=== PATIENT | male | born 1950 | race Caucasian/White ===

== ENCOUNTER 2021-10-20 22:24 | Outpatient (REF) | payer MEDICARE, MEDICAID, SELFPAY ==
[2021-10-20 22:31] LABS: ALT 29 U/L (16-63); AST 14 U/L (15-37); Albumin 3.2 g/dL (3.4-5.0); Alkaline Phosphatase 85 U/L (46-116); Anion Gap 12.1 mmol/L (3-11); BUN 10 mg/dL (7-18); Bilirubin, Total 0.5 mg/dL (0.2-1.0); CO2 25.9 mmol/L (21.0-32.0); CREATININE 0.8 mg/dL (0.70-1.30); Calcium 9.5 mg/dL (8.5-10.1); Chloride 98 mmol/L (98-107); Glucose 88 mg/dL (74-106); Potassium 3.9 mmol/L (3.5-5.1); Sodium 136 mmol/L (136-145); Total Protein 7.3 g/dL (6.4-8.2)
[2021-10-21 13:01] LABS: Lab Add On Test DONE
[2021-10-21 13:16] LABS: C-Reactive Protein 20.01 mg/dL (0.0-0.3); GGT 46 U/L (15-85)
[2021-10-21 18:24] LABS: PSA, Screening 1.6 ng/mL (0.0-6.5)
== END 2021-10-20 22:25 | disposition home or self-care (01) ==
LOC: LBN 22:24
PROVIDERS: Surgery; PCP Nurse Practitioner Family; Visit Provider Nurse Practitioner Family
DX: R39.9 Unspecified symptoms and signs involving the genitourinary system (principal); R19.7 Diarrhea, unspecified; F10.10 Alcohol abuse, uncomplicated; R63.4 Abnormal weight loss; Z12.5 Encounter for screening for malignant neoplasm of prostate
CPT/HCPCS: 80053; 84153; 82977; 86140

== ENCOUNTER 2021-10-25 00:45 | Outpatient (CLI) | payer MEDICARE, MEDICAID, SELFPAY ==
--- NOTE | 2021-10-25 07:03 | DI.US_ITS ---
Exam(s) US ABDOMEN EXAM: US ABDOMEN CLINICAL HISTORY: mass on palpation of abd,intra-abd,r19.00 TECHNIQUE: Ultrasound abdomen performed using standard protocol. COMPARISON: No exams were available for comparison FINDINGS: LIVER: Normal size and echogenicity. No focal liver lesions are seen.. GALLBLADDER: No evidence of cholelithiasis. No evidence of wall thickening. No pericholecystic fluid identified. WAN'S SIGN: Negative. BILIARY SYSTEM: No intrahepatic or extrahepatic biliary ductal dilation. KIDNEYS: Kidneys are symmetric in size. 4 millimeter nonobstructing stone mid right kidney. No evide nce of hydronephrosis. No renal mass or cyst identified. PANCREAS: Normal where visualized. SPLEEN: Not enlarged. ABDOMINAL AORTA AND IVC: Visualized portions normal caliber. ASCITES: None seen. IMPRESSION: 4 millimeter nonobstructing stone mid right kidney.. DATA REPOSITORY:
--- NOTE | 2021-10-25 10:30 | DI.US_ITS ---
Exam(s) US SOFT TISS ABD WALL/LOW BACK EXAM: US SOFT TISS ABD WALL/LOW BACK CLINICAL HISTORY: mass on palpation of abd,intra-abd,r19.00. TECHNIQUE: Ultrasound was performed using standard protocol. COMPARISON: No exams were available for comparison FINDINGS: Sonographic assessment utilizing grayscale and color Doppler imaging was performed and targeted to th e area of clinical concern. There is a homogeneous area of intermediate echogenicity within the right abdominal wall correspondin g to the palpable abnormality. The findings may represent a lipoma. It measures 6 x 1.2 x 6 cm. No fluid collection, hernia or suspicious mass is seen. IMPRESSION: Findings consistent with a lipoma corresponding to the palpable abnormality. DATA REPOSITORY:
== END 2021-10-25 01:05 ==
PROVIDERS: PCP Nurse Practitioner Family; Visit Provider Nurse Practitioner Family
DX: R19.00 Intra-abdominal and pelvic swelling, mass and lump, unspecified site (principal); N20.0 Calculus of kidney; D17.5 Benign lipomatous neoplasm of intra-abdominal organs
CPT/HCPCS: 99243; 76700; 76705

== ENCOUNTER 2021-10-25 14:57 | Outpatient (REF) | payer MEDICARE, MEDICAID, SELFPAY ==
[2021-10-25 13:16] LABS: Abs Immature Grans 0.05 10^3/uL (0.0-0.06); Absolute Basophil Count 0.06 10^3/uL (0.0-0.2); Absolute Eosinophil Count 0.09 10^3/uL (0.0-0.7); Absolute Lymphocyte Count 1.57 10^3/uL (1.2-3.4); Absolute Monocyte Count 1.07 10^3/uL (0.1-0.8); Absolute Neutrophil Count 8.65 10^3/uL (1.2-6.7); Basophils % 0.5; Eosinophils % 0.8; HCT 38.7 % (40.0-50.0); HGB 12.6 g/dL (13.5-17.5); Immature Grans % 0.4; Lymphocytes % 13.7; MCH 27.8 pg (27.0-33.0); MCHC 32.6 % (32.0-36.0); MCV 85.4 fL (80-95); MPV 9.8 fL (8.0-11.0); Monocytes % 9.3; Neutrophils % 75.3; Nucleated RBC 0 %; Platelet Count 516 10^3/uL (130-400); RBC 4.53 10^6/uL (4.36-5.78); RDW 13.7 % (11.8-14.1); WBC 11.49 10^3/uL (4.4-10.8)
[2021-10-25 13:55] LABS: Ferritin 219 ng/mL (26-388); Folate 13.5 ng/mL (8.6-20.0); TSH (W/Ref FT4) 1.06 uIU/mL (0.36-3.74); Vitamin B12 417 pg/mL (193-986)
[2021-10-25 14:06] LABS: C-Reactive Protein 3.12 mg/dL (0.0-0.3)
== END 2021-10-25 14:58 | disposition home or self-care (01) ==
LOC: LBN 14:57
PROVIDERS: PCP Nurse Practitioner Family; Visit Provider Surgery
DX: K62.5 Hemorrhage of anus and rectum; R15.9 Full incontinence of feces; R19.7 Diarrhea, unspecified; R63.4 Abnormal weight loss; Z77.22 Contact with and (suspected) exposure to environmental tobacco smoke (acute) (chronic); F10.10 Alcohol abuse, uncomplicated
CPT/HCPCS: 82607; 82728; 82746; 84443; 85025; 86140

== ENCOUNTER 2021-10-27 01:20 | Outpatient (CLI) | payer MEDICARE, MEDICAID, SELFPAY ==
[2021-10-27 12:05] LABS: Source Nasal/Nares
[2021-10-27 14:31] LABS: COVID-19 PCR Negative (Negative)
== END 2021-10-27 01:21 | disposition home or self-care (01) ==
PROVIDERS: PCP Nurse Practitioner Family; Visit Provider Surgery
DX: F10.10 Alcohol abuse, uncomplicated (principal); K62.5 Hemorrhage of anus and rectum; R15.9 Full incontinence of feces; R19.7 Diarrhea, unspecified; R63.4 Abnormal weight loss; Z01.818 Encounter for other preprocedural examination; Z77.22 Contact with and (suspected) exposure to environmental tobacco smoke (acute) (chronic); Z20.822 Contact with and (suspected) exposure to COVID-19
CPT/HCPCS: 87635; U0005

== ENCOUNTER 2021-10-29 17:02 | Inpatient (IN) | payer MEDICARE, MEDICAID, SELFPAY ==
[2021-10-29] VITALS (11 sets, daily range): BP systolic 96–162; BP diastolic 64–87; PULSE 68–95; RESP 11–18; TEMP 35.6–36.6; O2SAT 94–99; BMI 22.0
--- NOTE | 2021-10-29 06:28 | W.ANESPRE ---
General Info Date of Service Date Performed: 10/29/21 Height: 5 ft 10 in Weight: 69.626 kg Body Mass Index (BMI): 22.0 Surgical Procedure: Operation Date: 10/29/21 09:50 Proposed Procedure Side Surgeon israel Parker, Meds Allergies and Home Medications Allergies Allergy/AdvReac Type Severity Reaction Status Date / Time No Known Allergies Allergy Verified 10/29/21 08:57 Home Medication Medication Instructions Recorded loperamide 2 mg tablet 2 mg PO Q4H PRN #90 tab 10/20/21 (Anti-Diarrheal (loperamide)) triamcinolone acetonide 0.5 % 1 applic TOPICAL BID #80 g 10/27/21 topical cream Current Visit Medications: Current Medications Generic Name Dose Route Start Last Admin Trade Name Freq PRN Reason Stop Dose Admin Hyoscyamine Sulfate 0.125 mg 10/28/21 09:56 Hyoscyamine 0.125 Mg Sl/Oral/Chew SL DIRECTED PRN Ringer's Solution 1,000 mls @ 80 mls/hr 10/29/21 06:00 IV 11/25/21 23:59 INFUSION GERTRUDE IV Miscellaneous Supplies 1 each 10/29/21 06:00 Iv Access IV 11/25/21 23:59 DIRECTED GERTRUDE Ondansetron HCl 4 mg 10/28/21 09:56 Ondansetron 4 Mg/2 Ml Vial IVP Q4H PRN PRN Nausea / Vomiting Sodium Chloride 0 ml 10/29/21 06:00 Normal Saline Flush 10 Ml Syr IV 11/25/21 23:59 PRN PRN Sodium Chloride 0 ml 10/29/21 06:00 Normal Saline 10 Ml Vial IJ 11/25/21 23:59 DIRECTED PRN Sterile Water 0 ml 10/29/21 06:00 Water,Injection,Sterile 10 Ml Vial IJ 11/25/21 23:59 DIRECTED PRN PFSH Active Problems Active Problems: Problem Status Onset Code Rash R21 Smoker in home Z77.22 Unexplained weight loss R63.4 Loss of control of rectal sphincter R15.9 Rectal bleeding K62.5 ETOH abuse F10.10 Diarrhea R19.7 Medical History Medical History Inguinal hernia Surgical History Surgical History Repair of inguinal hernia 08/11/14 LEFT INDIRECT AND RIGHT DIRECT Status post inguinal hernia repair Tobacco Smoking/Tobacco Use Status: Current every day Tobacco Type: cigarettes Alcohol Alcohol Intake: former Substance Use Substance use: Rarely Substance use type: marijuana Vital Signs and Lab Results Lab Results Blood Type / Crossmatch: No Data to Display Complete Blood Count: White Blood Count 11.49 10^3/uL (4.4-10.8) H 10/25/21 12:05 10/25/21 Red Blood Count 4.53 10^6/uL (4.36-5.78) 10/25/21 12:05 10/25/21 Hemoglobin 12.6 g/dL (13.5-17.5) L 10/25/21 12:05 10/25/21 Hematocrit 38.7 % (40.0-50.0) L 10/25/21 12:05 10/25/21 Platelet Count 516 10^3/uL (130-400) H 10/25/21 12:05 10/25/21 Complete Metabolic Panel: Sodium Level 136 mmol/L (136-145) 10/20/21 13:50 10/20/21 Potassium Level 3.9 mmol/L (3.5-5.1) 10/20/21 13:50 10/20/21 Chloride Level 98 mmol/L (98-107) 10/20/21 13:50 10/20/21 Carbon Dioxide Level 25.9 mmol/L (21.0-32.0) 10/20/21 13:50 10/20/21 Blood Urea Nitrogen 10 mg/dL (7-18) 10/20/21 13:50 10/20/21 Creatinine 0.8 mg/dL (0.70-1.30) 10/20/21 13:50 10/20/21 Estimated GFR/1.73 m2 >= 60.00 (mL/min/1.73m2) 10/20/21 13:50 10/20/21 Calcium Level 9.5 mg/dL (8.5-10.1) 10/20/21 13:50 10/20/21 Albumin 3.2 g/dL (3.4-5.0) L 10/20/21 13:50 10/20/21 Glucose Level 88 mg/dL (74-106) 10/20/21 13:50 10/20/21 C-Reactive Protein 3.12 mg/dL (0.0-0.3) H 10/25/21 12:05 10/25/21 Liver Function Panel: Alanine Aminotransferase (ALT/SGPT) 29 U/L (16-63) 10/20/21 13:50 10/20/21 Aspartate Amino Transf (AST/SGOT) 14 U/L (15-37) L 10/20/21 13:50 10/20/21 Gamma Glutamyl Transpeptidase 46 U/L (15-85) 10/20/21 13:50 10/20/21 Coagulation Panel: No Data to Display Cardiac Panel: No Data to Display Arterial Blood Gas: No Data to Display Venous Blood Gas: No Data to Display Pancreas Panel: No Data to Display Thyroid Panel: Thyroid Stimulating Hormone (TSH) 1.06 uIU/mL (0.36-3.74) 10/25/21 12:05 10/25/21 Infectious Disease: Coronavirus (COVID-19)(PCR) Negative (Negative) 10/27/21 08:44 10/27/21 Coronavirus 2019 Source Nasal/Nares 10/27/21 08:44 10/27/21 Blood Cultures: No Data to Display Toxicology Panel: No Data to Display Anesthesia Assessment and Plan Anesthesia History Personal History: No History of Anesthesia Complications Family History: No Family History of Anesthesia Complications Exercise Tolerance Exercise Tolerance: Metabolic Equivalents>4 Cardiac & Pulmonary Exam Cardiac Exam: Normal S1/S2 Heart Sounds Pulmonary Exam: Clear Bilateral Breath Sounds Implantable Cardiac Device Does patient have a Pacemaker or an ICD?: No Airway Exam Known Difficult Airway: No Mallampati Class: 2 Mouth Opening: Normal (> 3cm) Thyromental Distance: Greater than 3 cm Neck Range of Motion: Full ROM and Limited ROM Neck Circumference: Normal Teeth Condition: Normal Dentition ASA Classification ASA Score: ASA 2 Emergency Case?: No NPO Status NPO Status: NPO Clears >2 hours, Solids >8 hours Anesthesia Plan Resuscitation Status: Full Code Anesthesia Technique: General Anesthesia Airway Planned: Natural Airway Monitors Used: Standard Monitors Preoperative Comments:: 71 yo male with diarrhea/weight loss for colo. Sig PMHx: smoker (tobacco/cannabis), former etoh. Had an irreg HR per preop, EKG obtained, NSR with occ PVCs.
--- NOTE | 2021-10-29 09:15 | RT.EKG_ITS ---
APPROVED REPORT Exam: Resting ECG Reason for Exam: Preoperative Patient Location: O HR:95 bpm ECG Measurements Heart Rate 95 AXIS MD 177 P 45 QRSd 82 QRS -15 QT 357 T 23 QTc 450 Conclusion Sinus rhythm...normal P axis, V-rate 60- 99 Ventricular premature complex...V complex w/ short R-R interval
[2021-10-29] MEDS: Lactated Ringers 1,000 ML 80 ML IV ×2 (09:19→14:30)
--- NOTE | 2021-10-29 10:08 | BOWEL_PTH ---
PATIENT: Karlo Kolb LOC: U#:[id number] AGE/SX: 71/M ROOM: 208 RE10/29/[address]: Yojana Parker : 1950 BED: A DIS: 11/05/2021 SPEC #: [id number] RECD: 10/29/21 12:33 STATUS: SUSIE REQ #: [id number] NIMA: 10/29/21 10:[address]: Yojana Parker DEPT: Surgical Specimen RECD BY: Jolly Dhillon ENTERED: 10/29/21 12:33 SP TYPE: Bowel OTHR DR: Alon Shah, MIGUEL ÁNGEL Tissues: 1 - BIOPSY BOWEL Procedures: GROSS AND MICRO LEVEL 4 Comments: [id number] (STAT)
--- NOTE | 2021-10-29 10:34 | ROE_ITS ---
Date of service: 10/29/21 Time of Service: 10:34 Operative Note Operative Note DATE OF PROCEDURE: 10/29/21 PRE-OP DIAGNOSIS: anemia/rectal bleeding/wt loss POST-OP DIAGNOSIS: other (partial obstructing rectal cancer at 4cm) PROCEDURE: flex sig and Bx SURGEON: Yojana Parker ANESTHESIA TYPE: General:No Airway Refer to Anesthesia Record ESTIMATED BLOOD LOSS: 5 PATHOLOGY: other COMPLICATIONS: None Patient was transported to: same day Procedure Description: After informed consent was obtained the patient was taken to the procedure room and placed in a left decubitous position. Monitors were applied and a time out was done. The patients name, date of , procedure, allergies to medications and metal in their body was reviewed. The patient was then sedated. Once sedated and comfortable a rectal exam was done. External exam was normal. Internal exam revealed a normal sphincter tone and no palpable masses. The prostate []. The scope was then introduced and retrofelexed. No internal hemorrhoids were identified. The pt has a maya obstructing lower rectal cancer at the anal verge. I am able to get the scope around the mass, but I cannot pass it any fa rther. Multipled biopsy's are taken. The mass is friable and bleeds readily/. It does have the appearnace of an adenocarcinoma. The scope was removed and the patient was woken up and taken back to Same day surgery in stable condition. The patient tolerated the procedure well and there were no immediate complications. -CT ordered I d/w the findings w/ the pt. and significant other. Once we get the path report back we will send him to [place] for urgent consult and chemo/XRT
--- NOTE | 2021-10-29 10:38 | W.ANESPOSTOP ---
Postoperative Evaluation Date, Time and Location Date Performed: 10/29/21 Time Performed: 10:38 Patient Location: Day Surgery Unit Vital Signs Most Recent Imported Vital Signs: Most Recent Vital Signs Temp Pulse Resp BP Pulse Ox 36.4 C L 72 18 96/64 L 96 10/29/21 10:24 10/29/21 10:24 10/29/21 10:24 10/29/21 10:24 10/29/21 10:24 Pain Score Most Recent Pain Score: Most Recent Pain Score Pain Level 0 10/29/21 10:24 Assessment Mental Status: Awake (Alert & Oriented to Patient Baseline) Airway and Respiratory Function: Patent airway with normal (patient baseline) respiratory exam Cardiovascular Function: Hemodynamically Stable Hydration Status: Adequately Hydrated Nausea & Vomiting: No Nausea or Vomiting Pain: Pt. Denies Any Pain Peripheral Nerve Block: Patient did not receive a nerve block
[2021-10-29 10:58] LABS: HCT 37.7 % (40.0-50.0); HGB 11.9 g/dL (13.5-17.5)
--- NOTE | 2021-10-29 11:10 | DI.CT_ITS ---
Exam(s) CT CHEST/ABD/PEL W EXAM: CT CHEST/ABD/PEL W CLINICAL HISTORY: obstructing rectal cancer. TECHNIQUE: Imaging Protocol: Axial computed tomography images with coronal and sagittal reformatted images were created and reviewed CONTRAST MATERIAL: Intravenous: Omnipaque 350 Contrast volume:75 mL Oral: No COMPARISON: No exams were available for comparison FINDINGS: CHEST: Tracheobronchial tree: Patent where visualized. Pulmonary parenchyma: No consolidation or dominant measurable mass. Mild paraseptal emphysematous cristiane nges are present. Dependent atelectatic changes are seen in the lungs. Visualized thyroid gland: Unremarkable. Mediastinum and [place]: No dominant adenopathy or fluid collection. The esophagus is unremarkable. Sma ll hiatal hernia. Pleura: No effusion or pneumothorax. Heart: The heart is not dilated. Mild coronary artery calcification. No pericardial effusion. Pulmonary arteries: The peripheral pulmonary arteries are insufficiently opacified for evaluation of pulmonary emboli. No central pulmonary embolus is present. Aorta: Thoracic aorta non-dilated. Atherosclerosis. No evidence of dissection. Lymph nodes: No axillary adenopathy. Soft tissues: Unremarkable. Bones:Within normal limits for the patient's age. No suspicious lytic or sclerotic lesions are seen. Compression deformities are seen at T7 and T8. These are of indeterminate acuity. No resulting ce ntral spinal canal stenosis is seen. ABDOMEN: Liver: Normal density. No measurable mass. Portal, Superior Mesenteric, and Splenic Veins: Unremarkable. Gallbladder and Biliary Tract: No radiodense calculus or dilation. Pancreas: Normal density, no abnormal calcifications or inflammatory process. Spleen: Normal. Adrenals: There is a 1.4 x 1.8 cm hypodense nodule on the left adrenal gland. The right adrenal glan d is unremarkable. Kidneys: Normal size, contour and axis. No radiodense stones or obstructive uropathy. No masses seen. There is a tiny hypodensity in the right kidney. It is too small for further characterization but l ikely reflects a small cyst. Abdominal Aorta: Abdominal portion non-dilated. Atherosclerosis. Bowel: There is a concentric mass in the rectum measuring approximately 4-5 cm in length there is inf iltration of the surrounding tissues including the presacral soft tissues. There is some loss of the fat plane between the mass and the prostate gland. There are 2 air-fluid collections adjacent to th e rectal mass. (Series 31, image 781). The colon proximal to the mass is dilated and filled with st ool in colon. There is mild thickening of the wall of the rectosigmoid colon just proximal to the ma ss. The appendix is normal caliber there is a 2 mm appendicoliths within the lumen. Peritoneal Cavity: No ascites, collection or mesenteric inflammatory response. No free air. Lymph Nodes: Within normal limits. Bones: Within normal limits for the patient's age. No suspicious lytic or sclerotic lesions are seen . There is mild depression of the superior endplate of L1. This may be due to a Schmorl's node or a n old compression fracture deformity. Soft Tissues: Unremarkable. PELVIS: Bladder: Symmetric distention, no gross wall thickening. Reproductive Organs: There is an enlarged prostate gland. Lymph Nodes: Within normal limits. Bones: Within normal limits. IMPRESSION: 1. Circumferential mass seen in the rectum consistent with the patient's known neoplasm. There is in filtration of the presacral soft tissues and indistinct margins anteriorly with the prostate gland. There are 2 air-fluid collections posteriorly which appear to communicate with the rectum at the leve l of the mass. The mass causes obstruction of the colon. 2. 1.4 x 1.8 cm left adrenal nodule. This is indeterminate. PET-CT or CT/MR of the adrenal gland is recommended. 3. No evidence of thoracic metastatic disease. RADIATION DOSE DELIVERED: Total DLP DATA REPOSITORY: All CT scans at this facility are submitted to the National Radiology Data Registry (NRDR) Dose Index Registry (DIR) with the [employer] (ACR). RADIATION OPTIMIZATION: All CT scans at this facility use at least one of these dose optimization te chniques: automated exposure control; mA and/or kV adjustment per patient size (includes targeted exa ms where dose is matched to clinical indication); or iterative reconstruction.
--- NOTE | 2021-10-29 11:10 | DI.CT_ITS ---
Exam(s) CT HEAD WO/W EXAM: CT HEAD WO/W CLINICAL HISTORY: rectal cancer (obstructin). TECHNIQUE: Imaging Protocol: Axial computed tomography images with coronal and sagittal reformatted images were created and reviewed. CONTRAST MATERIAL: Intravenous: Omnipaque 350 Contrast volume:75 mL COMPARISON: CT CT CHEST/ABD/PEL W from 10/29/2021 FINDINGS: Ventricles and Extra axial spaces: Normal in size and morphology for the patient's age. Hemorrhage: None. Cerebral parenchyma: No acute territorial infarct. There are areas of decreased attenuation white ma tter most consistent with small vessel ischemic disease. Enhancement: No suspicious enhancement. [place]: Unremarkable. Midline shift: None. Brainstem/Cerebellum: Normal. Calvarium: Normal. Visualized Paranasal sinuses/Mastoids: Clear. IMPRESSION: No evidence of intracranial metastatic disease. RADIATION DOSE DELIVERED: 3036.47 mGy.cm Total DLP DATA REPOSITORY: All CT scans at this facility are submitted to the National Radiology Data Registry (NRDR) Dose Index Registry (DIR) with the [employer] (ACR). RADIATION OPTIMIZATION: All CT scans at this facility use at least one of these dose optimization te chniques: automated exposure control; mA and/or kV adjustment per patient size (includes targeted exa ms where dose is matched to clinical indication); or iterative reconstruction.
[2021-10-29] MEDS: Omnipaque 350 MG/ML 100 ML BTL IJ (11:25)
[2021-10-29] MEDS: Omnipaque 350 MG/ML 50 ML BTL IJ (11:34)
[2021-10-29] MEDS: Normal Saline Flush 10 ML SYR IV (11:35)
--- NOTE | 2021-10-29 14:22 | PGE_ITS ---
Date of Service Date of service: 10/29/21 Time of Service: 14:22 Assessment and Plan Assessment and plan (1) Rectal cancer: Status: Acute Assessment and plan: Since the pt has come back from [facility] he has not been able to pass gas or stool. Have is having discomfort in the pelvis. On the CT scan, the colon is very dilated proximal to the cancer. With his disease burden and w/ the edema the biopsy's are going to cause, I'm concerned that he is not going to be able to pass the fluid and will develop peritonits. He is going to need diversion prior to XRT, as this would cause a complete obstruction. I think it would be prudent to do th ediversion at this time prior to him developed peritonitis. we d/w diversion and what this would mean for [facility]. It is only to prevent obstruction and not curative. He will still require chemo/XRT Informed consent is obtained for the procedural (explained in simple layman's terms that the pt and/or family could understand) explaining risks vs benefits and alternatives to the procedure and consequences if we do not do the procedure. Risks include but are not limited to: bleeding, infections, pneumonia, blood clots/DVT/PE, anesthesia (aspiration, damage to teeth/airway/ND/CVA//prolonged mechanical ventilation/PTX/IV infections), damage to bowel, bladder, blood vessels, ureters. Leakage from anastomosis requiring colostomy/ Wound infections requiring further surgery. ?Scarring and disfigurement. Subsequent bowel obstructions from scar tissue.? Chronic pain or numbness from the incision, or hernia. He will be admitted postOp adn will do ostomy training. Will arrange home health and stupplies Will need to f/u w/ [place] d/w pt and is in agreement. ? (2) Smoker in home: Status: Acute (3) Unexplained weight loss: Status: Acute (4) Loss of control of rectal sphincter: Status: Acute (5) Rectal bleeding: Status: Acute (6) ETOH abuse: Status: Chronic (7) Diarrhea: Status: Acute Objective Last Vital Signs Temp 36.6 C 10/29/21 11:44 Pulse 86 10/29/21 11:44 Resp 16 10/29/21 11:44 BP 161/87 H 10/29/21 11:44 Pulse Ox 98 10/29/21 11:44 Laboratory Results - last 24 hr 10/29/21 10:48 Hgb 11.9 L Hct 37.7 L
[2021-10-29] MEDS: PIPERACILLIN/TAZO 3.375 GM in Normal Saline 50 ML IVPB ×2 (14:38→20:29)
--- NOTE | 2021-10-29 14:45 | NUR.NOTE ---
Dr. Parker in to discuss results of CT scan. Plan for OR today/diversional colostomy. Transferred to OR at 1430. Nursing Note:
[2021-10-29] MEDS: Bupivacaine 0.25% Pres-Free 30 ML VIAL (15:04)
--- NOTE | 2021-10-29 15:50 | BOWEL_PTH ---
PATIENT: Karlo Kolb LOC: U#:[id number] AGE/SX: 71/M ROOM: 208 RE10/29/[address]: Yojana Parker : 1950 BED: A DIS: 11/05/2021 SPEC #: [id number] RECD: 10/29/21 18:38 STATUS: SUSIE REQ #: [id number] NIMA: 10/29/21 15:[address]: Yojana Parker DEPT: Surgical Specimen RECD BY: Jolly Dhillon ENTERED: 10/29/21 18:38 SP TYPE: Bowel OTHR DR: Alon Shah, MIGUEL ÁNGEL Tissues: 1 - BIOPSY BOWEL Procedures: GROSS AND MICRO LEVEL 4 Comments: [id number] (STAT)
--- NOTE | 2021-10-29 17:05 | ROE_ITS ---
Date of service: 10/29/21 Time of Service: 15:00 Operative Note Operative Note DATE OF PROCEDURE: 10/29/21 PRE-OP DIAGNOSIS: obstructing rectal cancer POST-OP DIAGNOSIS: other (partial obstructing rectal cancer at 4cm) PROCEDURE: diverting colostomy SURGEON: Yojana Parker ASSISTING SURGEON: Augustus Bergeron ANESTHESIA TYPE: Local By Surgeon, General LMA/ETT and Primary Nerve Block Refer to Anesthesia Record ESTIMATED BLOOD LOSS: 50 PATHOLOGY: other Patient was transported to: PACU Patient's condition: stable Implants: none Procedure Description: Patient has a recently diagnosed rectal cancer today. Following his colonoscopy and biopsy, he has not passed any stool or been able to pass any gas. He has some mild discomfort and feeling of fullness. The CT scan does show obstruction and the colon is dilated. At this point I do not think it is safe to send the patient home and that he is functionally obstructed and requires diversion emergently. He did do a bowel prep last night but unfortunately most of this still resides within the colon. He had no problems with the anesthesia for the scope earlier today. I did discuss with anesthesia. I also did the review The case with [facility]. This is an emergency case and does need to be performed today. Informed consent is obtained for the procedural (explained in simple layman's terms that the pt and/or family could understand) explaining risks vs benefits and alternatives to the procedure and consequences if we do not do the procedure. Risks include but are not limited to: bleeding, infections, pneumonia, blood clots/DVT/PE, anesthesia (aspiration, damage to teeth/airway/AK/CVA//p rolonged mechanical ventilation/PTX/IV infections), damage to bowel, bladder, blood vessels, ureters. Leakage from anastomosis requiring colostomy/ Wound infections requiring further surgery. ?Scarring and disfigurement. Subsequent bowel obstructions from scar tissue.? Chronic pain or numbness from the incision, or hernia. Was explained to the patient that this is not a cancer operation or treatment for his cancer. His cancer is not amendable to surgical resection at this time. He will need to be treated with chemo and radiation. This is strictly for diversion to avoid obstruction. Patient is brought to the operative room suite. Anesthesia is administered per the department of anesthesia. Adequate IV access is ensured. NG tube was placed. Vallecillo catheter is placed. He did receive preop antibiotics. He did have a bowel prep yesterday but is obstructed. The patient is prepped and draped in the usual sterile manner using a ChloraPrep scrub solution. Timeout is performed. 20 cc of quarter percent Marcaine plain is instilled prior to incision. A 3 inch vertical midline incision is made from the pubis. Electrocautery is used to provide hemostasis. The fascia is incised. The peritoneum is elevated and opened sharply. The incision is carried inferior the and superiorly using Metzenbaums. Joseph's are used for retraction. There is a scant amount of serous fluid in the abdomen. There is no signs of gross fecal contamination. The colon is dilated proximal to the adhesion in the abdomen. He does have some peritoneal sidewall adhesions and these are taken down with sharp dissection. The distal sigmoid colon is completely filled with solid stool. The bulky rectal mass is palpable. There is no intra-abdominal gross tumor visible, and remains below the peritoneal reflection/in the lower rectum. The colon is then divided at approximately 30 cm using a TIFFANY. The mesentery is taken down with a LigaSure. The site for the colostomy is chosen in the left lower quadrant. An elliptical incision is made. Cautery is used to create a cruciate incision down through the fascia. The proximal limb is then brought up midway through the rectus muscle. The colon is anchored to the peritoneal sidewall with a 2-0 silk. Attention is then turned to the distal limb. There is significant fecal burden in the remaining sigmoid.. It was decided to do a on table lavage and to evacuate as much of the stool as possible, as this is not going to pass. Bowel clamps are used to prevent contamination. A pursestring suture is also placed to facilitate control and prevent spillage; this was done with a pursestringer device. The staple line from the TIFFANY is excised with scissors. The edges of the colon are grasped with Allis clamps. Upon visualization there is a 5 mm polyp noted at 30 cm this is excised with blood cautery and sent for specimen. There is no bleeding noted. the colon is then irrigated; there is no gross spillage of contents. the defect is then closed with a TIFFANY stapler. The ends of the staple line are oversewn with a 3-0 Prolene and a 3-0 Prolene suture is left in the middle for possible later identification and postradiation anastomosis. The abdomen is then irrigated with 2 L of saline. All saline is removed. Sponge, needle, instrument counts are correct. 2 pleases Interceed are then placed in the abdomen. Fascia is closed in 2 layers with [id number] 0 Vicryl suture. The fat pad is irrigated and the incision is loosely approximated with berta. The colostomy is then matured in the standard fashion with a 3-0 Vicryl suture at the 4 Compass points. Completion maturation was done with interrupted 4-0 Vicryl sutures. Sterile dressing and sterile colostomy appliance are applied. Patient tolerated procedure well without complication and transferred to recovery room stable condition. This document was created using voice activated software and may contain errors ?
--- NOTE | 2021-10-29 17:37 | W.ANESNERVE ---
Nerve Block Single Injection Procedure Date and Time Date Performed: 10/29/21 Procedure Start: 17:03 Location Where Procedure Performed Procedure Location: Operating Room Procedure Stop: 17:15 Reason Performed: Postoperative Analgesia Requesting Provider: Yojana Parker Timeout Performed Timeout Performed: No Monitoring Used ECG, Blood Pressure, SpO2, ETCO2 and See EMR for corresponding vital signs Sterility Sterility: Hand Hygiene, Surgical Cap, Surgical Mask, Sterile Gloves and Chlorhexidine Sedation Given During Procedure Sedation Given (Indicate Dose Given): No Sedation given Patient Mental Status Patient Mental Status: Performed under general anesthesia Nerve Block 1st Nerve Block: Laterality: Bilateral Block Type: TAP Bilateral Needle / Catheter Used: 100mm SonoPlex II Local Anesthetic Bolus (Indicate Dose Given): Injected in 3-5ml increments after negative blood aspiration, Half of Total block solution given into each side, Bupivacaine 0.25% Dose:: 40ml and Exparel Dose:: 20mL Additives (Indicate Dose Given): None Ultrasound: Sterile probe cover and gel used Ultrasound Image Saved?: Yes Nerve Stimulator: Not Used Paresthesia: None Procedure Tolerated: No Complications Procedure Outcome: Successful Performed By: [place]
--- NOTE | 2021-10-29 18:06 | W.ANESPOSTOP ---
Postoperative Evaluation Date, Time and Location Date Performed: 10/29/21 Time Performed: 18:06 Patient Location: PACU Vital Signs Most Recent Imported Vital Signs: Most Recent Vital Signs Temp Pulse Resp BP Pulse Ox 36.4 C L 77 12 158/71 H 99 10/29/21 18:02 10/29/21 18:02 10/29/21 18:02 10/29/21 18:02 10/29/21 18:02 Most Recent Vital Signs Temp Pulse Resp BP Pulse Ox 36.4 C L 72 18 96/64 L 96 10/29/21 10:24 10/29/21 10:24 10/29/21 10:24 10/29/21 10:24 10/29/21 10:24 Pain Score Most Recent Pain Score: Most Recent Pain Score Pain Level 0 10/29/21 18:02 Assessment Mental Status: Awake (Alert & Oriented to Patient Baseline) Airway and Respiratory Function: Patent airway with normal (patient baseline) respiratory exam Cardiovascular Function: Hemodynamically Stable Hydration Status: Adequately Hydrated Nausea & Vomiting: No Nausea or Vomiting Pain: Pain is tolerable per patient Peripheral Nerve Block: Regional nerve block not resolved at time of post operative discharge
[2021-10-29 18:42] LABS: CEA 1.4 ng/mL (See Note)
[2021-10-29] MEDS: Lactated Ringers 1,000 ML 125 ML IV (18:46)
[2021-10-29] MEDS: ACETAMINOPHEN 1,000 MG/100 ML BTL 400 MG IVPB (18:47)
[2021-10-29] MEDS: MORPHine 2 MG/ML SYR IVP (18:50)
[2021-10-29] MEDS: Normal Saline Flush 10 ML SYR IVP ×2 (18:50→20:29)
--- NOTE | 2021-10-29 20:24 | W.PM.PROGNOT ---
Date of Service Date of service: 10/29/21 Time of Service: 20:24 Assessment and Plan Assessment and plan (1) Rectal cancer: Status: Acute Assessment and plan: -Pt underwent diagnostic CE today and found to have obstructing bulky rectal cancer. Mainstay of treatment will be chemo and XRT. His tumor is not amendable to surgical resection. after visualization of the tumor on CE/CT scanning and pt postOP state- he needed to go for diverting ostomy urgently. I did review the case w/ Dr. Bergeron, who did occur. pt tolerated the procedure well. The patient is doing well post-op. Their pain is well controlled. They are having no nausea or vomiting. The pt is not having any chest pain or SOB, productive cough; no calf pain or swelling. The pt is making good urine. The pt pain is adequately controlled. The case was discussed with nursing and patient?s progress reviewed. All of the pt's home medications were addressed and adjusted accordingly for their oral intact status. Cardio- NSR no chest pain, BP stable. Pulm: cta b/l Incision- clean/dry. Dressing intact no excessive bleeding or drainage Continue current plans for pulmonary toilet, GI and DVT prophylaxis. . The wound care will consult in am for care in ostomy teaching. see orders ? (2) Smoker in home: Status: Acute (3) Unexplained weight loss: Status: Acute (4) Loss of control of rectal sphincter: Status: Acute (5) Rectal bleeding: Status: Acute (6) Diarrhea: Status: Acute (7) Hiatal hernia: Status: Chronic (8) Compression fracture of body of thoracic vertebra: Status: Acute (9) Adrenal nodule: Status: Acute (10) Iron deficiency anemia due to chronic blood loss: Status: Acute Objective Last Vital Signs Temp 35.6 C L 10/29/21 18:15 Pulse 77 10/29/21 18:15 Resp 18 10/29/21 18:15 BP 153/78 H 10/29/21 18:15 Pulse Ox 97 10/29/21 18:15 Laboratory Results - last 24 hr 10/29/21 10/29/21 10:48 10:48 Hgb 11.9 L Hct 37.7 L Carcinoembryonic Ag 1.4
[2021-10-29] MEDS: Normal Saline 500 ML 30 ML IV (20:29)
[2021-10-29] MEDS: Famotidine 20 MG/2 ML VIAL IVP (20:58)
[2021-10-30] MEDS: ACETAMINOPHEN 1,000 MG/100 ML BTL 400 MG IVPB ×4 (00:56→18:47)
[2021-10-30] MEDS: Normal Saline Flush 10 ML SYR IVP ×5 (00:58→20:16)
[2021-10-30] MEDS: PIPERACILLIN/TAZO 3.375 GM in Normal Saline 50 ML IVPB ×4 (01:00→20:16)
[2021-10-30] MEDS: Lactated Ringers 1,000 ML 125 ML IV ×3 (01:56→19:54)
[2021-10-30 06:03] LABS: Abs Immature Grans 0.08 10^3/uL (0.0-0.06); Absolute Basophil Count 0.03 10^3/uL (0.0-0.2); Absolute Neutrophil Count 13.78 10^3/uL (1.2-6.7); Basophils % 0.2; HCT 35.5 % (40.0-50.0); HGB 11.4 g/dL (13.5-17.5); Immature Grans % 0.5; Lymphocytes % 6.7; MCH 27.7 pg (27.0-33.0); MCHC 32.1 % (32.0-36.0); MCV 86.2 fL (80-95); MPV 9.6 fL (8.0-11.0); Neutrophils % 83.6; Nucleated RBC 0 %; Platelet Count 337 10^3/uL (130-400); RBC 4.12 10^6/uL (4.36-5.78); RDW 14.6 % (11.8-14.1); RDW-SD 45.5 fL; WBC 16.48 10^3/uL (4.4-10.8)
[2021-10-30 06:09] LABS: Absolute Monocyte Count 1.48 10^3/uL (0.1-0.8)
[2021-10-30 06:17] VITALS: BP 118/64; PULSE 75; RESP 17; TEMP 36.9; O2SAT 96
[2021-10-30 06:21] LABS: ALT 16 U/L (16-63); AST 13 U/L (15-37); Albumin 2.6 g/dL (3.4-5.0); Alkaline Phosphatase 66 U/L (46-116); Anion Gap 7.4 mmol/L (3-11); BUN 8 mg/dL (7-18); Bilirubin, Total 0.7 mg/dL (0.2-1.0); CO2 26.6 mmol/L (21.0-32.0); CREATININE 0.7 mg/dL (0.70-1.30); Calcium 8.8 mg/dL (8.5-10.1); Chloride 106 mmol/L (98-107); Glucose 114 mg/dL (74-106); Potassium 4.2 mmol/L (3.5-5.1); Sodium 140 mmol/L (136-145); Total Protein 6.3 g/dL (6.4-8.2)
[2021-10-30] MEDS: Enoxaparin 40 MG/0.4 ML SYR SC (08:40)
--- NOTE | 2021-10-30 09:05 | INITIAL_ITS ---
- If Service Date Differs Date of service: 10/30/21 Time of Service: 09:05 Care Management Initial Assess REASON FOR HOSPITALIZATION:: Rectal Cancer, diverting colostomy PAST MEDICAL HISTORY/PAST SURGICAL HISTORY:: All Active Problems. Rash (Acute). Smoker in home (Acute). 0.5 ppd smoker. Unexplained weight loss (Acute). Loss of control of rectal sphincter (Acute). Rectal bleeding (Acute). ETOH abuse (Chronic). Diarrhea (Acute). Medical History. Inguinal hernia. Surgical History. Repair of inguinal hernia. 08/11/14 LEFT INDIRECT AND RIGHT DIRECT. Status post inguinal hernia repair PREVIOUS FUNCTIONAL STATUS/SOCIAL/FAMILY SUPPORTS:: Karlo lives in [place] with his S/O, Yoly. 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 He has a brother who lives in [place], and supportive friends/neighbors. He is independent at baseline. CURRENT FUNCTIONAL STATUS:: Karlo was sitting up in bed when CM met with him. He reported that he has had a lot of new information in the last day- as per surgeon, he likely has rectal cancer, and had to have a procedure to place a diverting colostomy. He reported that he is working with nursing to learn how to care for it, but he doesn't think it is going well. Per RN, his ostomy leaked earlier today, which is likely why he feels that he is having trouble learning the ostomy care. He is currently on clear liquids, and remains acute. He will need ostomy supplies and resources upon discharge. CM discussed HH RN with Karlo, and he is agreeable to the service. He reported that Yoly is legally blind, so she cannot drive and will be limited in assisting him with ostomy care. CM will continue to follow. ADVANCE DIRECTIVES:: None on file. CM will offer forms. Has patient been provided with info about the portal/API?: Yes Did the patient sign up for the portal?: No CODE STATUS:: Full Code INSURANCE COVERAGE / FINANCIAL ISSUES:: [facility]/ [facility] CURRENT HOME/COMMUNITY SERVICES/EQUIPMENT:: No current services or equipment PRIMARY CARE PHYSICIAN:: Alon Shah POTENTIAL DISCHARGE NEEDS:: Evaluations for further needs, ostomy training/supplies, follow up appointments. PATIENT/FAMILY EDUCATION NEEDS:: Review discharge instructions regarding activity levels and medications, discussion of self care needs including ask me three. ANTICIPATED BARRIERS TO DISCHARGE:: Will need ostomy training prior to discharge. TRANSPORTATION:: Via private vehicle, likely by his neighbor, Karlo. PLAN:: Karlo will likely return home when medically cleared by MD. He will benefit from new RN for ostomy care. He will be driven home via private vehicle by family. He will follow up with his PCP and discharge plan of care. CM will continue to follow.
[2021-10-30 15:13] VITALS: BP 119/68; PULSE 70; RESP 19; TEMP 36.7; O2SAT 95
--- NOTE | 2021-10-30 15:54 | WOUNDCONS ---
- If Service Date Differs Date of service: 10/30/21 Time of Service: 08:00 Wound Initial Evaluation Narrative: Patient is a 71 yom with a new ostomy from colorectal cancer. Alfonzo's primary nurse was providing excellent patient teaching this morning. This nurse did help her seat the appliance. Goals that patient needs to achieve can be achieved from nursing without the need for a wound consult. This nurse will be available to help the patient and nursing with any needs
--- NOTE | 2021-10-30 16:04 | W.PM.PROGNOT ---
Date of Service Date of service: 10/30/21 Time of Service: 14:22 Assessment and Plan Assessment and plan (1) Rectal cancer: Status: Acute Assessment and plan: 71yo male POD#1 s/p diverting colostomy for newly observed rectal mass, diagnosed yesterday on colonoscopy (by Dr. Parker), pathology pending. On colonoscopy, the mass was found to be nearly completely obstructing, and CT evaluation confirmed these findings with retention of stool and bowel prep. He was taken urgently to the operating room for an uncomplicated diverting sigmoid colostomy. Postoperatively, he is overall doing well, with some difficulty seating an ostomy appliance. The whole dressing was changed today with nursing. --tegaderm to midline dresssing; ostomy appliance on top --OOB and ambulate --will advance to full liquids --pain control --d/c salas in AM --continue abx --daily labs --DVT/GI prophylaxis --oral meds --incentive spirometry --wound care/stoma teaching --on discharge, will need oncology referral for chemoradiation Time spent on care, counseling, and evaluation of this patient >45 minutes (2) Smoker in home: Status: Acute (3) Unexplained weight loss: Status: Acute (4) Loss of control of rectal sphincter: Status: Acute (5) Rectal bleeding: Status: Acute (6) Diarrhea: Status: Acute (7) Adrenal nodule: Status: Acute Subjective Subjective Patient reports: still having pain, tolerating liquids well and bowel movement; denies nausea or vomiting Interval history since last seen: Pt overall feeling okay. Some minimal upper abdominal and qamar-incisional discomfort but it is well-controlled. His ostomy appliance has become dislodged a couple of times and nursing is reporting concern for spillage to midline wound. He has had a couple of small bowel movements through his rectum. Otherwise, he has been ambulating. He is tolerating clears, and his stoma has started functioning. Exam Const General: cooperative, comfortable and no acute distress Orientation: alert, awake and oriented x3 Neck Neck: trachea midline and supple Resp Effort & Inspection: normal respiratory effort, able to speak in complete sentences, no grunting, not labored and no nasal flaring Auscultation: clear to auscultation bilaterally Cardio Rate: regular rate Rhythm: regular rhythm Heart Sounds: S1 normal and S2 normal GI Palpation: soft, not firm, no guarding and not rigid Other: appropraite qamar-incisional tenderness; stoma pink, a little congested, viable, and functioning; ostomy appliance appeared to leak towards the midline The whole dressing was changed with nursing. We applied gauze with Tegaderm to the midline, and a new one-piece appliance with stoma paste applied. Other: salas in place, draining tete urine Skin Wounds: wounds noted Full body images: 1. stoma 2. midline wound Neuro General: patient alert, patient awake and patient oriented x3 Cognition: normal cognition Speech: speech normal Extrem General: no clubbing, cyanosis or edema and no calf tenderness Psych Mental Status: mental status grossly normal Mood: congruent mood Affect: normal affect Attitude: cooperative Insight: insight good Judgment: judgment good Objective Last Vital Signs Temp 98.1 F 10/30/21 15:13 Pulse 70 10/30/21 15:13 Resp 19 10/30/21 15:13 BP 119/68 10/30/21 15:13 Pulse Ox 95 10/30/21 15:13 Laboratory Results - last 24 hr 10/29/21 10/30/21 10/30/21 10:48 05:34 05:34 WBC RBC Hgb Hct MCV MCH MCHC RDW Plt Count MPV Immature Gran % Neutrophils % Lymphocytes % Monocytes % Eosinophils % Basophils % Nucleated RBC % Absolute Neutrophils Absolute Lymphocytes Absolute Monocytes Absolute Eosinophils Absolute Basophils Sodium 140 Potassium 4.2 Chloride 106 Carbon Dioxide 26.6 Anion Gap 7.4 BUN 8 Creatinine 0.7 Estimated GFR/1.73 m2 >= 60.00 Glucose 114 H Calcium 8.8 Magnesium 2.0 Total Bilirubin 0.7 AST 13 L ALT 16 Alkaline Phosphatase 66 C-Reactive Protein 7.30 H Total Protein 6.3 L Albumin 2.6 L Carcinoembryonic Ag 1.4 10/30/21 05:34 WBC 16.48 H RBC 4.12 L Hgb 11.4 L Hct 35.5 L MCV 86.2 MCH 27.7 MCHC 32.1 RDW 14.6 H Plt Count 337 D MPV 9.6 Immature Gran % 0.5 Neutrophils % 83.6 Lymphocytes % 6.7 Monocytes % 9.0 Eosinophils % 0.0 Basophils % 0.2 Nucleated RBC % 0 Absolute Neutrophils 13.78 H Absolute Lymphocytes 1.10 L Absolute Monocytes 1.48 H Absolute Eosinophils 0.00 Absolute Basophils 0.03 Sodium Potassium Chloride Carbon Dioxide Anion Gap BUN Creatinine Estimated GFR/1.73 m2 Glucose Calcium Magnesium Total Bilirubin AST ALT Alkaline Phosphatase C-Reactive Protein Total Protein Albumin Carcinoembryonic Ag Objective Narrative Objective Narrative: CT Chest/ABd/PEl (10/29/2021): CHEST: Tracheobronchial tree: Patent where visualized. Pulmonary parenchyma: No consolidation or dominant measurable mass. Mild paraseptal emphysematous changes are present.? Dependent atelectatic changes are seen in the lungs. Visualized thyroid gland: Unremarkable. Mediastinum and [place]: No dominant adenopathy or fluid collection. The esophagus is unremarkable.? Small hiatal hernia. Pleura: No effusion or pneumothorax. Heart: The heart is not dilated. Mild coronary artery calcification.? No pericardial effusion. Pulmonary arteries: The peripheral pulmonary arteries are insufficiently opacified for evaluation of pulmonary emboli.? No central pulmonary embolus is present.? Aorta: Thoracic aorta non-dilated. Atherosclerosis.? No evidence of dissection. Lymph nodes: No axillary adenopathy.? Soft tissues: Unremarkable.? Bones:Within normal limits for the patient's age.? No suspicious lytic or sclerotic lesions are seen.? Compression deformities are seen at T7 and T8.? These are of indeterminate acuity.? No resulting central spinal canal stenosis is seen. ABDOMEN: Liver: Normal density. No measurable mass. Portal, Superior Mesenteric, and Splenic Veins: Unremarkable.? Gallbladder and Biliary Tract: No radiodense calculus or dilation. Pancreas: Normal density, no abnormal calcifications or inflammatory process. Spleen: Normal. Adrenals: There is a 1.4 x 1.8 cm hypodense nodule on the left adrenal gland.? The right adrenal gland is unremarkable.? Kidneys: Normal size, contour and axis. No radiodense stones or obstructive uropathy. No masses seen. There is a tiny hypodensity in the right kidney.? It is too small for further characterization but likely reflects a small cyst. Abdominal Aorta: Abdominal portion non-dilated. Atherosclerosis. Bowel: There is a concentric mass in the rectum measuring approximately 4-5 cm in length there is infiltration of the surrounding tissues including the presacral soft tissues.? There is some loss of the fat plane between the mass and the prostate gland.? There are 2 air-fluid collections adjacent to the rectal mass.? (Series 31, image [id number]).? The colon proximal to the mass is dilated and filled with stool in colon.? There is mild thickening of the wall of the rectosigmoid colon just proximal to the mass.? The appendix is normal caliber there is a 2 mm appendicoliths within the lumen.? Peritoneal Cavity: No ascites, collection or mesenteric inflammatory response.? No free air.? Lymph Nodes: Within normal limits. Bones: Within normal limits for the patient's age.? No suspicious lytic or sclerotic lesions are seen.? There is mild depression of the superior endplate of L1.? This may be due to a Schmorl's node or an old compression fracture deformity. Soft Tissues: Unremarkable. PELVIS: Bladder: Symmetric distention, no gross wall thickening. Reproductive Organs: There is an enlarged prostate gland.? Lymph Nodes: Within normal limits. Bones: Within normal limits. IMPRESSION: 1. Circumferential mass seen in the rectum consistent with the patient's known neoplasm.? There is infiltration of the presacral soft tissues and indistinct margins anteriorly with the prostate gland.? There are 2 air-fluid collections posteriorly which appear to communicate with the rectum at the level of the mass.? The mass causes obstruction of the colon.? 2. 1.4 x 1.8 cm left adrenal nodule.? This is indeterminate.? PET-CT or CT/MR of the adrenal gland is recommended. 3. No evidence of thoracic metastatic disease.? CT Head (10/29/2021): FINDINGS: Ventricles and Extra axial spaces: Normal in size and morphology for the patient's age. Hemorrhage: None. Cerebral parenchyma: No acute territorial infarct.? There are areas of decreased attenuation white matter most consistent with small vessel ischemic disease.? Enhancement: No suspicious enhancement. [place]: Unremarkable.? Midline shift: None. Brainstem/Cerebellum: Normal. Calvarium: Normal. Visualized Paranasal sinuses/Mastoids: Clear. IMPRESSION: No evidence of intracranial metastatic disease.
[2021-10-30] MEDS: Famotidine 20 MG/2 ML VIAL IVP (20:16)
[2021-10-30 23:15] VITALS: BP 115/65; PULSE 73; RESP 14; TEMP 37; O2SAT 95
[2021-10-31] MEDS: ACETAMINOPHEN 1,000 MG/100 ML BTL 400 MG IVPB ×2 (01:02→12:06)
[2021-10-31] MEDS: PIPERACILLIN/TAZO 3.375 GM in Normal Saline 50 ML IVPB ×4 (03:10→20:01)
[2021-10-31 06:35] VITALS: BP 125/66; PULSE 66; RESP 20; TEMP 36.2; O2SAT 97
[2021-10-31 07:08] LABS: Abs Immature Grans 0.03 10^3/uL (0.0-0.06); Absolute Basophil Count 0.06 10^3/uL (0.0-0.2); Absolute Lymphocyte Count 0.88 10^3/uL (1.2-3.4); Absolute Monocyte Count 1.09 10^3/uL (0.1-0.8); Absolute Neutrophil Count 10.03 10^3/uL (1.2-6.7); Basophils % 0.5; Eosinophils % 1.6; HCT 33.7 % (40.0-50.0); HGB 10.7 g/dL (13.5-17.5); Immature Grans % 0.2; Lymphocytes % 7.2; MCH 27.6 pg (27.0-33.0); MCHC 31.8 % (32.0-36.0); MCV 86.9 fL (80-95); MPV 9.5 fL (8.0-11.0); Monocytes % 8.9; Neutrophils % 81.6; Nucleated RBC 0 %; Platelet Count 306 10^3/uL (130-400); RBC 3.88 10^6/uL (4.36-5.78); RDW 14.7 % (11.8-14.1); RDW-SD 45.8 fL; WBC 12.29 10^3/uL (4.4-10.8)
[2021-10-31 07:25] LABS: ALT 14 U/L (16-63); AST 15 U/L (15-37); Albumin 2.4 g/dL (3.4-5.0); Alkaline Phosphatase 60 U/L (46-116); BUN 7 mg/dL (7-18); Bilirubin, Total 0.6 mg/dL (0.2-1.0); CREATININE 0.7 mg/dL (0.70-1.30); Calcium 8.5 mg/dL (8.5-10.1); Chloride 108 mmol/L (98-107); Glucose 92 mg/dL (74-106); Potassium 3.8 mmol/L (3.5-5.1); Sodium 142 mmol/L (136-145)
[2021-10-31] MEDS: Normal Saline Flush 10 ML SYR IVP ×3 (08:00→19:13)
[2021-10-31] MEDS: Enoxaparin 40 MG/0.4 ML SYR SC (08:00)
[2021-10-31] MEDS: Lactated Ringers 1,000 ML 125 ML IV ×2 (09:28→19:12)
--- NOTE | 2021-10-31 14:00 | W.PM.PROGNOT ---
Date of Service Date of service: 10/31/21 Time of Service: 12:34 Assessment and Plan Assessment and plan (1) Rectal cancer: Status: Acute Assessment and plan: 71yo male POD#2 s/p diverting colostomy for newly observed rectal mass, diagnosed 3 on colonoscopy (by Dr. Parker), pathology pending. On colonoscopy, the mass was found to be nearly completely obstructing, and CT evaluation confirmed these findings with retention of stool and bowel prep. He was taken urgently to the operating room for an uncomplicated diverting sigmoid colostomy. Postoperatively, he is overall doing well, with some difficulty seating an ostomy appliance. --tegaderm to midline wound; ostomy appliance on top --OOB and ambulate --maintain on full liquids today --pain control --continue abx --awaiting patholgy --daily labs --DVT/GI prophylaxis --oral meds --incentive spirometry --wound care/stoma teaching --on discharge, will need oncology, rad onc referrals for chemoradiation Time spent on care, counseling, and evaluation of this patient >45 minutes (2) Smoker in home: Status: Acute (3) Unexplained weight loss: Status: Acute (4) Loss of control of rectal sphincter: Status: Acute (5) Rectal bleeding: Status: Acute (6) Diarrhea: Status: Acute (7) Adrenal nodule: Status: Acute Subjective Subjective Patient reports: still having pain, tolerating liquids well, voiding w/o difficulty and afebrile; denies nausea or vomiting Interval history since last seen: Pt still with some aches and qamar-incisional discomfort. Has voided since salas discontinued. Still passing small amounts of stool per rectum +Ambulating. Exam Const General: cooperative, comfortable and no acute distress Nutritional Appearance: thin Orientation: alert, awake and oriented x3 Neck Neck: trachea midline, supple and no anterior neck swelling Resp Effort & Inspection: normal respiratory effort and able to speak in complete sentences Auscultation: clear to auscultation bilaterally Cardio Rate: regular rate Rhythm: regular rhythm Heart Sounds: S1 normal and S2 normal GI Palpation: soft, not firm, no guarding and not rigid Other: appropriate per-incisional tenderness; midline wound covered with Tegaderm; ostomy appliance overlying with pink, viable functioning stoma Neuro General: patient alert, patient awake and patient oriented x3 Cognition: normal cognition Speech: speech normal Gait: normal gait Extrem General: no clubbing, cyanosis or edema and no calf tenderness Psych Appearance: well kempt Mental Status: mental status grossly normal Speech and Movement: speech and movement normal Mood: congruent mood Affect: normal affect Attitude: cooperative Insight: insight good Judgment: judgment good Objective Last Vital Signs Temp 97.2 F L 10/31/21 06:35 Pulse 66 10/31/21 06:35 Resp 20 10/31/21 06:35 BP 125/66 10/31/21 06:35 Pulse Ox 97 10/31/21 06:35 Laboratory Results - last 24 hr 10/31/21 10/31/21 07:00 07:00 WBC 12.29 H RBC 3.88 L Hgb 10.7 L Hct 33.7 L MCV 86.9 MCH 27.6 MCHC 31.8 L RDW 14.7 H Plt Count 306 MPV 9.5 Immature Gran % 0.2 Neutrophils % 81.6 Lymphocytes % 7.2 Monocytes % 8.9 Eosinophils % 1.6 Basophils % 0.5 Nucleated RBC % 0 Absolute Neutrophils 10.03 H Absolute Lymphocytes 0.88 L Absolute Monocytes 1.09 H Absolute Eosinophils 0.20 Absolute Basophils 0.06 Sodium 142 Potassium 3.8 Chloride 108 H Carbon Dioxide 27.0 Anion Gap 7.0 BUN 7 Creatinine 0.7 Estimated GFR/1.73 m2 >= 60.00 Glucose 92 Calcium 8.5 Total Bilirubin 0.6 AST 15 ALT 14 L Alkaline Phosphatase 60 Total Protein 6.0 L Albumin 2.4 L
[2021-10-31 14:56] VITALS: BP 97/63; PULSE 74; RESP 15; TEMP 36.5; O2SAT 96
[2021-10-31] MEDS: Normal Saline 50 ML 200 ML (19:58)
[2021-10-31] MEDS: Famotidine 20 MG/2 ML VIAL IVP (19:59)
[2021-10-31 23:48] VITALS: BP 137/74; PULSE 62; RESP 18; TEMP 36.8; O2SAT 95
[2021-11-01] MEDS: ACETAMINOPHEN 1,000 MG/100 ML BTL 400 MG IVPB ×2 (00:49→17:27)
[2021-11-01] MEDS: PIPERACILLIN/TAZO 3.375 GM in Normal Saline 50 ML IVPB ×2 (02:30→09:01)
[2021-11-01] MEDS: Lactated Ringers 1,000 ML 125 ML IV ×2 (06:22→17:11)
[2021-11-01 07:15] LABS: Abs Immature Grans 0.03 10^3/uL (0.0-0.06); Absolute Basophil Count 0.05 10^3/uL (0.0-0.2); Absolute Eosinophil Count 0.39 10^3/uL (0.0-0.7); Absolute Lymphocyte Count 1.08 10^3/uL (1.2-3.4); Absolute Monocyte Count 0.82 10^3/uL (0.1-0.8); Absolute Neutrophil Count 6.74 10^3/uL (1.2-6.7); Basophils % 0.5; Eosinophils % 4.3; HCT 32.4 % (40.0-50.0); HGB 10.4 g/dL (13.5-17.5); Immature Grans % 0.3; Lymphocytes % 11.9; MCHC 32.1 % (32.0-36.0); MCV 87.1 fL (80-95); MPV 9.7 fL (8.0-11.0); Nucleated RBC 0 %; Platelet Count 311 10^3/uL (130-400); RBC 3.72 10^6/uL (4.36-5.78); RDW 14.7 % (11.8-14.1); RDW-SD 46.5 fL; WBC 9.11 10^3/uL (4.4-10.8)
[2021-11-01 07:38] LABS: ALT 14 U/L (16-63); AST 12 U/L (15-37); Albumin 2.3 g/dL (3.4-5.0); Alkaline Phosphatase 60 U/L (46-116); Anion Gap 8.7 mmol/L (3-11); BUN 5 mg/dL (7-18); Bilirubin, Total 0.5 mg/dL (0.2-1.0); CO2 26.3 mmol/L (21.0-32.0); CREATININE 0.7 mg/dL (0.70-1.30); Calcium 8.6 mg/dL (8.5-10.1); Chloride 108 mmol/L (98-107); Glucose 89 mg/dL (74-106); Potassium 3.8 mmol/L (3.5-5.1); Sodium 143 mmol/L (136-145)
[2021-11-01 07:44] VITALS: BP 120/63; PULSE 67; RESP 16; TEMP 36.2; O2SAT 96
[2021-11-01] MEDS: Normal Saline Flush 10 ML SYR IVP ×4 (09:00→20:14)
[2021-11-01] MEDS: Normal Saline 500 ML 30 ML IV (09:00)
[2021-11-01] MEDS: Enoxaparin 40 MG/0.4 ML SYR SC (09:01)
--- NOTE | 2021-11-01 09:18 | W.NUTRFU ---
Date of service: 11/01/21 Time of Service: 09:18 Nutrition Note NOTE: 71 year old male s/p surgical removal of rectal CA, with diverting ostomy. Following full liquid diet with 100% completion. Meeting nutrient and fluid needs by mouth at this time. 30 lbs weight loss noted over last couple of years. BMI on low end of normal. Will follow and support as needed for optimal nutritional intake. Time Spent in Nutritional Counseling and Treatment: 0
--- NOTE | 2021-11-01 09:32 | CMPROGNOTE_ITS ---
- If Service Date Differs Date of service: 11/01/21 Time of Service: 09:32 Care Management Progress Note S/O: Karlo was sitting up in bed reviewing educational material about his colostomy when CM met with him. He is alert, oriented and easily engaged in conversation. He has been up independently in his room and shares that he is feeling well other than challenges with his colostomy bag fit. CM started a [employer] order for home supplies and will continue to support discharge planning needs. A:71 year old male admitted to 10/30/21 for Rectal Cancer, diverting colostomy P: Anticipate, Karlo will return home with new [facility] nursing services to help with ostomy care via private vehicle with . He will follow up with Oncology/radiology, PCP and discharge plan of care. CM will continue to follow.
--- NOTE | 2021-11-01 09:32 | W.PM.PROGNOT ---
Date of Service Date of service: 11/01/21 Time of Service: 09:32 Assessment and Plan Assessment and plan (1) Rectal cancer: Status: Acute Assessment and plan: 71yo male POD#3 s/p diverting colostomy for newly observed rectal mass, diagnosed 10/30 on colonoscopy (by Dr. Parker), pathology pending. On colonoscopy, the mass was found to be nearly completely obstructing, and CT evaluation confirmed these findings with retention of stool and bowel prep. He was taken urgently to the operating room for an uncomplicated diverting sigmoid colostomy. Postoperatively, he is overall doing well, with some difficulty seating an ostomy appliance. --tegaderm to midline wound; ostomy appliance on top --OOB and ambulate. Discussed that IV can be disconnected during ambulation as needed. --maintain on full liquids today --pain control --continue abx --awaiting patholgy --daily labs --DVT/GI prophylaxis --oral meds --incentive spirometry --wound care/stoma teaching. Discussed options of using stoma wafers to help modify the ostomy for an improved fit. --on discharge, will need oncology, rad onc referrals for chemoradiation (2) Smoker in home: Status: Acute (3) Unexplained weight loss: Status: Acute (4) Loss of control of rectal sphincter: Status: Acute (5) Rectal bleeding: Status: Acute (6) Diarrhea: Status: Acute (7) Adrenal nodule: Status: Acute Subjective Subjective Interval history since last seen: Arrived with patient sitting up in bed. He expresses he is feeling well, however feels like his activity level has been limited by the IV pole. Denies having any pain at this time. He also mentions frustration and challenges with the colostomy bag placement and fit. Ns reports this was changed twice last night and once already this morning. Exam Const General: cooperative, healthy appearing and comfortable Orientation: alert and oriented x3 GI Inspection: normal to inspection Palpation: soft, no guarding and nontender Auscultation: normal bowel sounds Other: Minimal stool noted in bag. Ostomy is pink and healthy appearing. Objective Last Vital Signs Temp 36.2 C L 11/01/21 07:44 Pulse 67 11/01/21 07:44 Resp 16 11/01/21 07:44 BP 120/63 11/01/21 07:44 Pulse Ox 96 11/01/21 07:44 Laboratory Results - last 24 hr 11/01/21 11/01/21 06:56 06:56 WBC 9.11 RBC 3.72 L Hgb 10.4 L Hct 32.4 L MCV 87.1 MCH 28.0 MCHC 32.1 RDW 14.7 H Plt Count 311 MPV 9.7 Immature Gran % 0.3 Neutrophils % 74.0 Lymphocytes % 11.9 Monocytes % 9.0 Eosinophils % 4.3 Basophils % 0.5 Nucleated RBC % 0 Absolute Neutrophils 6.74 H Absolute Lymphocytes 1.08 L Absolute Monocytes 0.82 H Absolute Eosinophils 0.39 Absolute Basophils 0.05 Sodium 143 Potassium 3.8 Chloride 108 H Carbon Dioxide 26.3 Anion Gap 8.7 BUN 5 L Creatinine 0.7 Estimated GFR/1.73 m2 >= 60.00 Glucose 89 Calcium 8.6 Total Bilirubin 0.5 AST 12 L ALT 14 L Alkaline Phosphatase 60 Total Protein 6.0 L Albumin 2.3 L
[2021-11-01] MEDS: PIPERACILLIN/TAZO 3.375 GM in Normal Saline 100 ML IVPB ×2 (14:31→20:12)
[2021-11-01 16:10] VITALS: BP 128/74; PULSE 69; RESP 17; TEMP 35.8; O2SAT 96
[2021-11-01] MEDS: Famotidine 20 MG/2 ML VIAL IVP (20:15)
[2021-11-02 00:03] VITALS: BP 129/76; PULSE 62; RESP 18; TEMP 35.1; O2SAT 95
[2021-11-02] MEDS: ACETAMINOPHEN 1,000 MG/100 ML BTL 400 MG IVPB ×3 (00:16→12:41)
[2021-11-02] MEDS: PIPERACILLIN/TAZO 3.375 GM in Normal Saline 100 ML IVPB ×2 (01:39→08:38)
[2021-11-02] MEDS: Lactated Ringers 1,000 ML 125 ML IV (04:20)
[2021-11-02 07:05] LABS: Abs Immature Grans 0.02 10^3/uL (0.0-0.06); Absolute Basophil Count 0.05 10^3/uL (0.0-0.2); Absolute Eosinophil Count 0.56 10^3/uL (0.0-0.7); Absolute Lymphocyte Count 1.05 10^3/uL (1.2-3.4); Absolute Neutrophil Count 6.72 10^3/uL (1.2-6.7); Basophils % 0.5; HCT 36.3 % (40.0-50.0); HGB 11.5 g/dL (13.5-17.5); Immature Grans % 0.2; Lymphocytes % 11.3; MCH 27.5 pg (27.0-33.0); MCHC 31.7 % (32.0-36.0); MCV 86.8 fL (80-95); MPV 9.6 fL (8.0-11.0); Monocytes % 9.7; Neutrophils % 72.3; Nucleated RBC 0 %; Platelet Count 335 10^3/uL (130-400); RBC 4.18 10^6/uL (4.36-5.78); RDW 14.9 % (11.8-14.1); RDW-SD 47.1 fL
[2021-11-02 07:21] LABS: ALT 18 U/L (16-63); AST 17 U/L (15-37); Albumin 2.3 g/dL (3.4-5.0); Alkaline Phosphatase 65 U/L (46-116); BUN 4 mg/dL (7-18); Bilirubin, Total 0.3 mg/dL (0.2-1.0); CREATININE 0.8 mg/dL (0.70-1.30); Calcium 8.7 mg/dL (8.5-10.1); Chloride 109 mmol/L (98-107); Glucose 95 mg/dL (74-106); Sodium 144 mmol/L (136-145); Total Protein 6.1 g/dL (6.4-8.2)
[2021-11-02 07:25] VITALS: BP 143/75; PULSE 67; RESP 15; TEMP 36.1; O2SAT 97
--- NOTE | 2021-11-02 07:32 | W.PM.PROGNOT ---
Documented by User: JACQUELYN Donis 11/02/21 07:40 Date of Service Date of service: 11/02/21 Time of Service: 07:32 Assessment and Plan Assessment and plan (1) Rectal cancer: Status: Acute Assessment and plan: 71yo male POD#4 s/p diverting colostomy for newly observed rectal mass, diagnosed 3 on colonoscopy (by Dr. Parker), pathology pending. On colonoscopy, the mass was found to be nearly completely obstructing, and CT evaluation confirmed these findings with retention of stool and bowel prep. He was taken urgently to the operating room for an uncomplicated diverting sigmoid colostomy. Postoperatively, he is overall doing well, with some difficulty seating an ostomy appliance. --tegaderm to midline wound; ostomy appliance on top --OOB and ambulate. Discussed that IV can be disconnected during ambulation as needed. --maintain on full liquids today --pain control --continue abx --awaiting patholgy --daily labs --DVT/GI prophylaxis --oral meds --incentive spirometry --wound care/stoma teaching. Discussed options of using stoma wafers to help modify the ostomy for an improved fit. --on discharge, will need oncology, rad onc referrals for chemoradiation (2) Smoker in home: Status: Acute (3) Unexplained weight loss: Status: Acute (4) Loss of control of rectal sphincter: Status: Acute (5) Rectal bleeding: Status: Acute (6) Diarrhea: Status: Acute (7) Adrenal nodule: Status: Acute Subjective Subjective Interval history since last seen: Patient reports that he is becoming very frustrated with the frequent colostomy bag challenges. He has been provided educational hand outs and [place] [facility] [place] He reports ambulating frequently. He states the only time he has pain is he gets a sharp twinge when standing up in the lower abdomen/groin area. Exam Const General: cooperative, healthy appearing and comfortable Orientation: alert and oriented x3 Resp Effort & Inspection: normal respiratory effort, no audible wheezes and no cough GI Inspection: normal to inspection Palpation: soft, no guarding and nontender Auscultation: hypoactive bowel sounds Other: Colostomy bag in place, very small amount of brown, soft stool. Stoma is pink. Objective Last Vital Signs Temp 35.1 C L 11/02/21 00:03 Pulse 62 11/02/21 00:03 Resp 18 11/02/21 00:03 BP 129/76 11/02/21 00:03 Pulse Ox 95 11/02/21 00:03 Laboratory Results - last 24 hr 11/01/21 11/02/21 11/02/21 06:56 06:15 06:15 WBC 9.30 RBC 4.18 L Hgb 11.5 L Hct 36.3 L MCV 86.8 MCH 27.5 MCHC 31.7 L RDW 14.9 H Plt Count 335 MPV 9.6 Immature Gran % 0.2 Neutrophils % 72.3 Lymphocytes % 11.3 Monocytes % 9.7 Eosinophils % 6.0 Basophils % 0.5 Nucleated RBC % 0 Absolute Neutrophils 6.72 H Absolute Lymphocytes 1.05 L Absolute Monocytes 0.90 H Absolute Eosinophils 0.56 Absolute Basophils 0.05 Sodium 143 144 Potassium 3.8 4.0 Chloride 108 H 109 H Carbon Dioxide 26.3 28.0 Anion Gap 8.7 7.0 BUN 5 L 4 L Creatinine 0.7 0.8 Estimated GFR/1.73 m2 >= 60.00 >= 60.00 Glucose 89 95 Calcium 8.6 8.7 Total Bilirubin 0.5 0.3 AST 12 L 17 ALT 14 L 18 Alkaline Phosphatase 60 65 Total Protein 6.0 L 6.1 L Albumin 2.3 L 2.3 L Documented by User: Yojana Parker DO 11/02/21 13:30 Assessment and Plan Assessment and plan (1) Rectal cancer: Status: Acute Assessment and plan: 71yo male POD#4 s/p diverting colostomy for newly observed rectal mass, diagnosed 3 on colonoscopy (by Dr. Parker), pathology pending. On colonoscopy, the mass was found to be nearly completely obstructing, and CT evaluation confirmed these findings with retention of stool and bowel prep. He was taken urgently to the operating room for an uncomplicated diverting sigmoid colostomy. Postoperatively, he is overall doing well, with some difficulty seating an ostomy appliance. --tegaderm to midline wound; ostomy appliance on top --OOB and ambulate. Discussed that IV can be disconnected during ambulation as needed. --maintain on full liquids today- advance to regular high protein diet --pain control --continue abx --awaiting patholgy --daily labs --DVT/GI prophylaxis --oral meds --incentive spirometry --wound care/stoma teaching. Discussed options of using stoma wafers to help modify the ostomy for an improved fit. --on discharge, will need oncology, rad onc referrals for chemo/radiation- awaiting path path still not read protein supplementation wound care anticipate d/c home in am home RN- paperwork done paperwork done for ostomy supplies (2) Smoker in home: Status: Acute (3) Unexplained weight loss: Status: Acute (4) Loss of control of rectal sphincter: Status: Acute (5) Rectal bleeding: Status: Acute (6) Diarrhea: Status: Acute (7) Adrenal nodule: Status: Acute
[2021-11-02] MEDS: Enoxaparin 40 MG/0.4 ML SYR SC (08:39)
[2021-11-02] MEDS: Normal Saline Flush 10 ML SYR IVP ×3 (08:47→19:59)
--- NOTE | 2021-11-02 09:07 | PDOC.CMPRO ---
- If Service Date Differs Date of service: 11/02/21 Time of Service: 09:07 Care Management Progress Note S/O: Karlo is anticipating discharging home tomorrow with New [facility] RN services to help with ostomy care. He has been up independently in his room and shares that he is feeling well other than challenges with his colostomy bag. CM faxed [employer] order for home supplies and will continue to support discharge planning needs. Per RN his stoma is 38cm, 1 piece bag is recommended. CM will continue to support discharge planning needs. A:71 year old male admitted to 10/30/21 for Rectal Cancer, diverting colostomy P: Anticipate, Karlo will return home with new [facility] RN services to help with ostomy care via private vehicle with . He will follow up with Oncology/radiology, PCP and discharge plan of care. CM will continue to follow.
--- NOTE | 2021-11-02 09:09 | PDOC.HHF2F ---
Home Health Certification Home Health Certification: 1. Encounter Date and Reason I certify that Karlo Kolb was seen by Yojana Parker on 11/03/21 and that I had a [id number] encounter with this patient that meets the physician face to face encounter requirements. 2. Clinical Findings Supporting Skilled Need and Homebound Status I certify that home health services are medically necessary, include either intermittent long-term and/or physical/speech therapy, and that this patient is homebound in that absences from the home require considerable and taxing effort and are infrequent or of short duration, or are attributable to the need to receive medical care. [X] (a) Attached documentation from encounter provides clinical findings supporting skilled need and homebound status (including what assistance patient requires to leave the home). The encounter with the patient was in whole, or in part, for the following medical condition, which is the primary reason for home health care: Half-Way: new colostmy re: obstructig rectal cancer colostomy supplies and teaching Physical Therapy: Speech Therapy: Homebound: 3. Certification and Authentication I certify that I composed the above information based on my clinical judgement relating to this patient's medical condition and, if applicable, clinical findings communicated to me by the NPP or inpatient physician who performed the Home Health Referral. All further orders will be obtained through (Community Based Physician - PCP)
--- NOTE | 2021-11-02 09:12 | NUR.NOTE ---
Nursing Note: Dr Parker is at the bedside. She asks nursing to advance his diet to reg/mormal. Marylu nurse made aware. Snice this nurse was present , he advances diet as a verbal order of the provider
[2021-11-02] MEDS: Ketorolac 15 MG/ML VIAL IVP ×2 (14:41→20:01)
[2021-11-02 15:03] VITALS: BP 118/72; PULSE 75; RESP 16; TEMP 36.2; O2SAT 97
[2021-11-02] MEDS: Acetaminophen 500 MG TAB 1000 MG PO (17:18)
[2021-11-02] MEDS: Famotidine 20 MG/2 ML VIAL IVP (20:01)
[2021-11-02] MEDS: Protein Nutritional Supplement 16 GM 1 OUNCE PACKET PO (20:02)
[2021-11-02 23:00] VITALS: BP 129/66; PULSE 65; RESP 16; TEMP 36.4; O2SAT 96
[2021-11-03 06:54] LABS: Abs Immature Grans 0.03 10^3/uL (0.0-0.06); Absolute Basophil Count 0.03 10^3/uL (0.0-0.2); Absolute Eosinophil Count 0.55 10^3/uL (0.0-0.7); Absolute Lymphocyte Count 1.24 10^3/uL (1.2-3.4); Absolute Monocyte Count 0.76 10^3/uL (0.1-0.8); Absolute Neutrophil Count 6.03 10^3/uL (1.2-6.7); Basophils % 0.3; Eosinophils % 6.4; HCT 36.1 % (40.0-50.0); HGB 11.6 g/dL (13.5-17.5); Immature Grans % 0.3; Lymphocytes % 14.4; MCHC 32.1 % (32.0-36.0); MCV 87.2 fL (80-95); MPV 9.9 fL (8.0-11.0); Monocytes % 8.8; Neutrophils % 69.8; Nucleated RBC 0 %; Platelet Count 349 10^3/uL (130-400); RBC 4.14 10^6/uL (4.36-5.78); RDW 14.9 % (11.8-14.1); RDW-SD 47.8 fL; WBC 8.64 10^3/uL (4.4-10.8)
[2021-11-03 07:08] LABS: ALT 34 U/L (16-63); AST 26 U/L (15-37); Albumin 2.5 g/dL (3.4-5.0); Alkaline Phosphatase 74 U/L (46-116); Anion Gap 10.2 mmol/L (3-11); BUN 8 mg/dL (7-18); Bilirubin, Total 0.2 mg/dL (0.2-1.0); CO2 25.8 mmol/L (21.0-32.0); CREATININE 0.8 mg/dL (0.70-1.30); Calcium 8.9 mg/dL (8.5-10.1); Chloride 109 mmol/L (98-107); Glucose 91 mg/dL (74-106); Sodium 145 mmol/L (136-145); Total Protein 6.6 g/dL (6.4-8.2)
[2021-11-03 07:38] VITALS: BP 115/72; PULSE 85; RESP 16; TEMP 35.4; O2SAT 97
--- NOTE | 2021-11-03 08:10 | DI.RAD_ITS ---
Exam(s) XR ABDOMEN FLAT UPRIGHT EXAM: XR ABDOMEN FLAT UPRIGHT CLINICAL HISTORY: Low Colostomy output TECHNIQUE: COMPARISON: No exams were available for comparison FINDINGS: Four views were obtained. There are surgical berta and clips projected over the pelvis. There is a moderate quantity of fecal material in the colon. Patient reportedly has low colostomy output. Th ere is no gross evidence of obstruction. No small bowel dilatation. No other specific findings. IMPRESSION: RADIATION DOSE DELIVERED: Total DLP
[2021-11-03] MEDS: Enoxaparin 40 MG/0.4 ML SYR SC (08:41)
[2021-11-03] MEDS: Ketorolac 15 MG/ML VIAL IVP ×3 (08:42→19:54)
[2021-11-03] MEDS: Normal Saline Flush 10 ML SYR IVP ×3 (08:43→19:56)
[2021-11-03] MEDS: Protein Nutritional Supplement 16 GM 1 OUNCE PACKET PO ×2 (08:43→19:55)
[2021-11-03] MEDS: DULoxetine 20 MG CAP PO (08:43)
[2021-11-03] MEDS: Acetaminophen 500 MG TAB 1000 MG PO ×3 (08:44→18:53)
--- NOTE | 2021-11-03 09:17 | PGE_ITS ---
Date of Service Date of service: 11/03/21 Time of Service: 09:18 Assessment and Plan Assessment and plan (1) Rectal cancer: Status: Acute Assessment and plan: 71yo male POD#5 s/p diverting colostomy for newly observed rectal mass, diagnosed 10/30 on colonoscopy (by Dr. Parker), pathology pending. On colonoscopy, the mass was found to be nearly completely obstructing, and CT evaluation confirmed these findings with retention of stool and bowel prep. He was taken urgently to the operating room for an uncomplicated diverting sigmoid colostomy. Postoperatively, he is overall doing well, with some difficulty seating an ostomy appliance. --tegaderm to midline wound; ostomy appliance on top, will re-assess and assist with ostomy appliance change later today -- No stool output recorded the morning of 11/02; Ordered abdominal X-ray --OOB and ambulate. Discussed that IV can be disconnected during ambulation as needed. --Tolerating regular diet --pain control --continue abx --awaiting patholgy --daily labs --DVT/GI prophylaxis --oral meds --incentive spirometry --wound care/stoma teaching. --on discharge, will need oncology, rad onc referrals for chemo/radiation- awai maximo path (2) Smoker in home: Status: Acute (3) Unexplained weight loss: Status: Acute (4) Loss of control of rectal sphincter: Status: Acute (5) Rectal bleeding: Status: Acute (6) Diarrhea: Status: Acute (7) Adrenal nodule: Status: Acute Subjective Subjective Interval history since last seen: Patient expresses he is eager to return home and he continues to have difficulty with maintaining a good seal with his ostomy appliance. He states that he has been working with [facility] [place] on applying the appliance and learning to empty his bag. He states he has not emptied his bag in a few days. Exam Const General: cooperative, healthy appearing and comfortable Orientation: alert and oriented x3 Resp Effort & Inspection: normal respiratory effort, no audible wheezes and no cough GI Inspection: normal to inspection Palpation: soft, no guarding and nontender Auscultation: hypoactive bowel sounds Other: Colostomy bag in place, no stool noted in bag. Small amount of brown/mucus looking fluid. Stoma is pink. Objective Last Vital Signs Temp 35.4 C L 03/09/22 07:38 Pulse 85 11/03/21 07:38 Resp 16 11/03/21 07:38 BP 115/72 11/03/21 07:38 Pulse Ox 97 11/03/21 07:38 Laboratory Results - last 24 hr 11/03/21 11/03/21 06:12 06:12 WBC 8.64 RBC 4.14 L Hgb 11.6 L Hct 36.1 L MCV 87.2 MCH 28.0 MCHC 32.1 RDW 14.9 H Plt Count 349 MPV 9.9 Immature Gran % 0.3 Neutrophils % 69.8 Lymphocytes % 14.4 Monocytes % 8.8 Eosinophils % 6.4 Basophils % 0.3 Nucleated RBC % 0 Absolute Neutrophils 6.03 Absolute Lymphocytes 1.24 Absolute Monocytes 0.76 Absolute Eosinophils 0.55 Absolute Basophils 0.03 Sodium 145 Potassium 4.0 Chloride 109 H Carbon Dioxide 25.8 Anion Gap 10.2 BUN 8 Creatinine 0.8 Estimated GFR/1.73 m2 >= 60.00 Glucose 91 Calcium 8.9 Total Bilirubin 0.2 AST 26 ALT 34 Alkaline Phosphatase 74 Total Protein 6.6 Albumin 2.5 L
[2021-11-03] MEDS: Magnesium Citrate 300 ML BTL 150 ML PO (09:43)
--- NOTE | 2021-11-03 11:27 | CMPROGNOTE_ITS ---
- If Service Date Differs Date of service: 11/03/21 Time of Service: 11:27 Care Management Progress Note S/O: Karlo is eager to get home, however maintaining a seal with his ostomy appliance has been a challenge. In addition, no stool output was recorded this morning and imaging was ordered. Karlo will discharge home with New [facility] RN services to help with ostomy care when he is medically cleared by surgery. CM faxed [employer] order for home supplies and will continue to support discharge planning needs. Per RN his stoma is 38cm, 1 piece bag is recommended. CM will continue to support discharge planning needs. CM notified [facility] about potential discharge today. A:71 year old male admitted to 10/30/21 for Rectal Cancer, diverting colostomy P: Anticipate, Karlo will return home with new [facility] RN services to help with ostomy care via private vehicle with . He will follow up with Oncolog y/radiology, PCP and discharge plan of care. CM will continue to follow.
[2021-11-03 15:25] VITALS: BP 123/72; PULSE 86; RESP 18; TEMP 36.2; O2SAT 96
[2021-11-03] MEDS: Famotidine 20 MG/2 ML VIAL IVP (19:55)
[2021-11-03 23:20] VITALS: BP 127/71; PULSE 73; RESP 18; TEMP 35.5; O2SAT 96
--- NOTE | 2021-11-04 | DI.RAD_ITS ---
Exam(s) XR ABDOMEN FLAT PLATE EXAM: XR ABDOMEN FLAT PLATE CLINICAL HISTORY: Low Colostomy output following laxatives TECHNIQUE: COMPARISON: CR XR ABDOMEN FLAT UPRIGHT from 11/03/2021 FINDINGS: Two views were obtained. There is moderate amount of fecal material in the right colon and proximal transverse colon. No gross colonic dilatation. No small bowel dilatation. No free intraperitoneal air. Note is again made of surgical berta and clips projected over the pelvis. IMPRESSION: No evidence of acute process. RADIATION DOSE DELIVERED: Total DLP
--- NOTE | 2021-11-04 07:11 | W.PM.PROGNOT ---
Documented by User: JACQUELYN Donis 11/04/21 07:15 Date of Service Date of service: 11/04/21 Time of Service: 07:13 Assessment and Plan Assessment and plan (1) Rectal cancer: Status: Acute Assessment and plan: 71yo male POD#6 s/p diverting colostomy for newly observed rectal mass, diagnosed 3 on colonoscopy (by Dr. Parker), pathology pending. On colonoscopy, the mass was found to be nearly completely obstructing, and CT evaluation confirmed these findings with retention of stool and bowel prep. He was taken urgently to the operating room for an uncomplicated diverting sigmoid colostomy. Postoperatively, he is overall doing well, with some difficulty seating an ostomy appliance. --tegaderm to midline wound; ostomy appliance on top, will re-assess and assist with ostomy appliance change later today -- Based on nsg documentation on ~250 ccs of stool output after Mag Citrate yesterday. Will repeat abdominal X-ray --OOB and ambulate. Discussed that IV can be disconnected during ambulation as needed. --Tolerating regular diet --pain control --continue abx --awaiting patholgy --daily labs --DVT/GI prophylaxis --oral meds --incentive spirometry --wound care/stoma teaching. --on discharge, will need oncology, rad onc referrals for chemo/radiation- awaiting path (2) Smoker in home: Status: Acute (3) Unexplained weight loss: Status: Acute (4) Loss of control of rectal sphincter: Status: Acute (5) Rectal bleeding: Status: Acute (6) Diarrhea: Status: Acute (7) Adrenal nodule: Status: Acute Subjective Subjective Interval history since last seen: Patient reports that he has had some stool output. He is very eager to be d/c home today. Denies any pain. Exam Const General: cooperative, healthy appearing and comfortable Orientation: alert and oriented x3 Resp Effort & Inspection: normal respiratory effort, no audible wheezes and no cough GI Inspection: normal to inspection Palpation: soft, no guarding and nontender Other: Colostomy bag in place, no stool noted in bag. Stoma is pink. Objective Last Vital Signs Temp 35.5 C L 11/03/21 23:20 Pulse 73 11/03/21 23:20 Resp 18 11/03/21 23:20 BP 127/71 11/03/21 23:20 Pulse Ox 96 11/03/21 23:20 Laboratory Results - last 24 hr 11/03/21 06:12 Sodium 145 Potassium 4.0 Chloride 109 H Carbon Dioxide 25.8 Anion Gap 10.2 BUN 8 Creatinine 0.8 Estimated GFR/1.73 m2 >= 60.00 Glucose 91 Calcium 8.9 Total Bilirubin 0.2 AST 26 ALT 34 Alkaline Phosphatase 74 Total Protein 6.6 Albumin 2.5 L Documented by User: Yojana Parker DO 11/04/21 13:30 Assessment and Plan Assessment and plan (1) Rectal cancer: Status: Acute Assessment and plan: 71yo male POD#6 s/p diverting colostomy for newly observed rectal mass, diagnosed 3 on colonoscopy (by Dr. Parker), pathology pending. On colonoscopy, the mass was found to be nearly completely obstructing, and CT evaluation confirmed these findings with retention of stool and bowel prep. He was taken urgently to the operating room for an uncomplicated diverting sigmoid colostomy. Postoperatively, he is overall doing well, with some difficulty seating an ostomy appliance. --tegaderm to midline wound; ostomy appliance on top, will re-assess and assist with ostomy appliance change later today -- Based on nsg documentation on ~250 ccs of stool output after Mag Citrate yesterday. Will repeat abdominal X-ray --OOB and ambulate. Discussed that IV can be disconnected during ambulation as needed. --Tolerating regular diet --pain control --continue abx --awaiting patholgy --daily labs --DVT/GI prophylaxis --oral meds --incentive spirometry --wound care/stoma teaching. --on discharge, will need oncology, rad onc referrals for chemo/radiation- awaiting path -Unfortunately the biopsies only showed villous adenoma with high-grade dysplasia. They do not show overt cancer. I think it is important that we get biopsy that demonstrates cancer. Otherwise oncology is not going to be a treat. I did discuss this with patient. We will plan on repeat flex sig in a.m. and then plan on discharge after that (2) Smoker in home: Status: Acute (3) Unexplained weight loss: Status: Acute (4) Loss of control of rectal sphincter: Status: Acute (5) Rectal bleeding: Status: Acute (6) Diarrhea: Status: Acute (7) Adrenal nodule: Status: Acute
[2021-11-04 07:17] LABS: Abs Immature Grans 0.04 10^3/uL (0.0-0.06); Absolute Basophil Count 0.03 10^3/uL (0.0-0.2); Absolute Eosinophil Count 0.39 10^3/uL (0.0-0.7); Absolute Monocyte Count 0.92 10^3/uL (0.1-0.8); Basophils % 0.3; Eosinophils % 3.6; Immature Grans % 0.4; MCH 27.6 pg (27.0-33.0); MCHC 32.4 % (32.0-36.0); MCV 85.2 fL (80-95); MPV 9.4 fL (8.0-11.0); Monocytes % 8.4; Neutrophils % 77.3; Nucleated RBC 0 %; Platelet Count 326 10^3/uL (130-400); RBC 3.99 10^6/uL (4.36-5.78); RDW-SD 46.5 fL; WBC 10.96 10^3/uL (4.4-10.8)
[2021-11-04 07:29] LABS: Absolute Neutrophil Count 8.47 10^3/uL (1.2-6.7)
[2021-11-04 07:47] LABS: ALT 38 U/L (16-63); AST 22 U/L (15-37); Albumin 2.5 g/dL (3.4-5.0); Alkaline Phosphatase 73 U/L (46-116); Anion Gap 7.3 mmol/L (3-11); BUN 11 mg/dL (7-18); Bilirubin, Total 0.3 mg/dL (0.2-1.0); CO2 26.7 mmol/L (21.0-32.0); CREATININE 0.7 mg/dL (0.70-1.30); Chloride 107 mmol/L (98-107); Glucose 97 mg/dL (74-106); Sodium 141 mmol/L (136-145); Total Protein 6.5 g/dL (6.4-8.2)
[2021-11-04 08:02] VITALS: BP 126/77; PULSE 93; RESP 16; TEMP 36.5; O2SAT 95
--- NOTE | 2021-11-04 08:43 | PDOC.CMPRO ---
- If Service Date Differs Date of service: 11/04/21 Time of Service: 08:43 Care Management Progress Note S/O: Karlo is eager to get home, however maintaining a seal with his ostomy appliance has been a challenge. He also requires additional ostomy monitoring for low output. Karlo will discharge home with New [facility] RN services to help with ostomy care when he is medically cleared by surgery. CM faxed [employer] order for home supplies and will continue to support discharge planning needs. Per RN his stoma is 38cm, 1 piece bag is recommended. CM will continue to support discharge planning needs. A:71 year old male admitted to 10/30/21 for Rectal Cancer, diverting colostomy P: Anticipate, Karlo will return home with new [facility] RN services to help with ostomy care via private vehicle with . He will follow up with Oncology/radiology, PCP and discharge plan of care. CM will continue to follow.
[2021-11-04] MEDS: DULoxetine 20 MG CAP PO (08:54)
[2021-11-04] MEDS: Acetaminophen 500 MG TAB 1000 MG PO (08:54)
[2021-11-04] MEDS: Enoxaparin 40 MG/0.4 ML SYR SC (08:54)
[2021-11-04] MEDS: Protein Nutritional Supplement 16 GM 1 OUNCE PACKET PO ×2 (08:54→19:43)
[2021-11-04 12:17] LABS: Bilirubin Negative (Negative); Blood Negative (Negative); Clarity Clear (Clear); Glucose Negative (Negative); Ketones Negative (Negative); Leukocyte Esterase Negative (Negative); Nitrite Negative (Negative); Specific Gravity 1.015 (1.005-1.025); Urobilinogen 0.2 EU/dL (Up TO 0.2)
--- NOTE | 2021-11-04 17:25 | PDOC.HHF2F_ITS ---
Home Health Certification Home Health Certification: 1. Encounter Date and Reason I certify that Karlo Kolb was seen by Yojana Parker on 11/05/21 and that I had a [id number] encounter with this patient that meets the physician face to face encounter requirements. 2. Clinical Findings Supporting Skilled Need and Homebound Status I certify that home health services are medically necessary, include either intermittent fpc and/or physical/speech therapy, and that this patient is homebound in that absences from the home require considerable and taxing effort and are infrequent or of short duration, or are attributable to the need to receive medical care. [X] (a) Attached documentation from encounter provides clinical findings supporting skilled need and homebound status (including what assistance patient requires to leave the home). The encounter with the patient was in whole, or in part, for the following medical condition, which is the primary reason for home health care: Obstructing Rectal Cancer,S/P Diverting Colostomy Senior Care: Ostomy care and supplies and continued teaching Physical Therapy: Speech Therapy: Homebound: 3. Certification and Authentication I certify that I composed the above information based on my clinical judgement relating to this patient's medical condition and, if applicable, clinical findings communicated to me by the NPP or inpatient physician who performed the Home Health Referral. All further orders will be obtained through (Community Based Physician - PCP)
--- NOTE | 2021-11-04 17:25 | W.PM.DS.N ---
DS: Diagnosis Discharge Diagnosis (1) Rectal cancer: Status: Acute (2) Smoker in home: Status: Acute (3) Unexplained weight loss: Status: Acute (4) Loss of control of rectal sphincter: Status: Acute (5) Rectal bleeding: Status: Acute (6) Diarrhea: Status: Acute (7) Adrenal nodule: Status: Acute Discharge Plan Disposition Patient Disposition: HOME Condition: Stable Discharge Details Reason For Visit: Obstructing Rectal Cancer,S/P Diverting Colostomy Admit Date/Time: 10/29/21 17:02 Admit Provider: Yojana Parker Attending Provider: Yojana Parker Primary Care Provider: Alon Shah Home Meds and New Rx's Prescriptions: New duloxetine 20 mg capsule,delayed release(DR/EC) 20 mg PO BID 365 Days Qty: 60 12RF tramadol 50 mg tablet 50 mg PO Q6H PRNQty: 7 0RF polyethylene glycol 3350 [Miralax] 17 gram/dose powder 17 g PO DAILY PRN (Reason: constipation) Qty: 238 3RF nicotine 10 mg cartridge 1 inh inhalation 4-6XD PRNQty: 168 2RF nicotine 14 mg/24 hr patch 24 hour 1 patch transdermal DAILY Qty: 28 2RF Continued triamcinolone acetonide 0.5 % cream 1 applic topical BID Qty: 80 1RF Discontinued loperamide [Anti-Diarrheal (loperamide)] 2 mg tablet 2 mg PO Q4H PRN (Reason: loose stool) Qty: 90 0RF Rx Instructions: administer after each loose stool until symptoms controlled; do not exceed 8 mg per 24 hrs Discharge Instructions Additional Instructions: Keep an ice bag on the incision. 20 minutes on and 20 minutes off. Ice keeps the swelling down and swelling causes pain. Make sure you wrap the ice pack in a towel and don't apply directly to the skin. : Alternate Tylenol 1000mg by mouth every 8 hours and Ibuprofen 600mg every 6 hours. ?Make sure you take ibuprofen with food and not on an empty stomach. ?Take the Tylenol and ibuprofen continuously for the first 72hrs- not just when you have pain.? Use the tramadol for breakthrough pain.? Use ICE!?? Twenty minutes on, and then off, continuously for the first 72hours. If you are taking narcotic pain medication, follow the instructions on the label and do not drive. Pain medications can make you very constipated. -Expect some bleeding and stool from the rectum today. If passing large clot, feeling dizzy, please come to the ER -No driving x24hrs or of you are taking narcotic pain medications. -If you have berta or sutures in place, they will be removed at your clinic appointment -Follow-up with Dr. Parker 11/11. 2:30 -soft diet no restrictions -use Miralax as needed for constipation -8-12 glasses water daily. -stop smoking tobacco -pain meds are very constipating: if you do not move your bowels daily take a dose of OTC milk of magnesia -It is ok to shower. No bathe, soaking, swimming or hot tubs -Protein supplements daily. You may find that your appetite is smaller. Eat 3-6 small meals throughout the day. It is important to drink lots of water after surgery, 6-10 glasses a day. -If you were given an incentive spirometry (breathing professor of sport management?), continue to do this 10x/hour while awake. -We do want you up walking, at least 5-6 times per day. This is very important to prevent pneumonia and blood clots. You can climb stairs, take them slowly. -No lifting over 5 pounds. This is very important to avoid developing a hernia in your incision. -You may find that you are very tired after surgery- this is normal. -please do not smoke for a minimum of 72 hours after surgery. -Home health nurse has been set up and should be at the house today or tomorrow. They will bring supplies as well. Activity:: see above Equipment/Supplies:: ostomy supplies Diet:: Normal Diet Discharge Orders Discharge Orders: Discharge Order (Routine); Ordered 10/28/21 Ordered By: Yojana Parker DS: Summary Time Spent with Patient providing and/or coordinating discharge services: Greater than 30 minutes Status at Discharge Functional status at discharge: independent ambulation Overall status at discharge: patient is progressing back to baseline Mental Status: mental status grossly normal Speech and Movement: speech and movement normal Mood: congruent mood Affect: normal affect Exam Psych Mental Status: mental status grossly normal Speech and Movement: speech and movement normal Mood: congruent mood Affect: normal affect DS: Data Vitals/I&O Vitals and I&O: Vital Signs Temperature 36.5 C 11/04/21 08:02 Temperature Source Tympanic 11/04/21 08:02 Pulse 93 H 11/04/21 08:02 Pulse Rhythm Regular 11/04/21 11:59 Respiratory Rate 16 11/04/21 08:02 Respiratory Effort Non-Labored 11/04/21 11:59 Respiratory Depth Normal 11/04/21 11:59 Respiratory Pattern Normal 11/04/21 11:59 Blood Pressure 126/77 11/04/21 08:02 Pulse Oximetry 95 11/04/21 08:02 Respiratory End-tidal CO2 35 10/29/21 18:02 Oxygen Delivery Method Room Air 11/04/21 08:02 Oxygen Flow Rate 0 11/04/21 08:02 Pain Level 2 11/04/21 09:54 Comment 11/01/21 16:10 Intake & Output 11/03/21 11/04/21 11/04/21 23:59 11:59 23:59 Intake Total 850 / 1210 480 / 660 180 / 660 Output Total 50 / 50 200 / 200 Balance 800 / 1160 280 / 460 180 / 460 Intake: Oral 850 / 1210 480 / 660 180 / 660 Output: Stool 50 / 50 200 / 200 Other: Urine Appearance Clear Clear Comment pt voiding independently Per patient he voided in toilet Voiding Methods Toilet Toilet Data Completed and Pending Labs on day of discharge: Labs from last 24 hours 11/04/21 11/04/21 11/04/21 11:55 06:55 06:55 WBC 10.96 H RBC 3.99 L Hgb 11.0 L Hct 34.0 L MCV 85.2 MCH 27.6 MCHC 32.4 RDW 15.0 H Plt Count 326 MPV 9.4 Immature Gran % 0.4 Neutrophils % 77.3 Lymphocytes % 10.0 Monocytes % 8.4 Eosinophils % 3.6 Basophils % 0.3 Nucleated RBC % 0 Absolute Neutrophils 8.47 H Absolute Lymphocytes 1.10 L Absolute Monocytes 0.92 H Absolute Eosinophils 0.39 Absolute Basophils 0.03 Sodium 141 Potassium 4.0 Chloride 107 Carbon Dioxide 26.7 Anion Gap 7.3 BUN 11 Creatinine 0.7 Estimated GFR/1.73 m2 >= 60.00 Glucose 97 Calcium 9.0 Total Bilirubin 0.3 AST 22 ALT 38 Alkaline Phosphatase 73 Total Protein 6.5 Albumin 2.5 L Urine Color Yellow Urine Clarity Clear Urine pH 7.0 Ur Specific [place] 1.015 Urine Protein Negative Urine Ketones Negative Urine Blood Negative Urine Nitrite Negative Urine Bilirubin Negative Urine Urobilinogen 0.2 Ur Leukocyte Esterase Negative Urine Glucose Negative PFSH All Active Problems (Updated 10/29/21 @ 20:37 by Yojana Parker DO) Iron deficiency anemia due to chronic blood loss (Acute) Adrenal nodule (Acute) 1.4 x 1.8 cm left adrenal nodule. Compression fracture of body of thoracic vertebra (Acute) T7/T8 Hiatal hernia (Chronic) Rectal cancer (Acute) obstructing Rash (Acute) Smoker in home (Acute) 0.5 ppd smoker. Unexplained weight loss (Acute) Loss of control of rectal sphincter (Acute) Rectal bleeding (Acute) ETOH abuse (Chronic) Diarrhea (Acute) Medical History (Updated 10/29/21 @ 20:37 by Yojana Parker DO) Inguinal hernia Surgical History Repair of inguinal hernia 08/11/14 LEFT INDIRECT AND RIGHT DIRECT Status post inguinal hernia repair Family History Mother Personal history of malignant neoplasm Ovarian Father Diabetes Stroke Social History Smoking/Tobacco Use Status: Current every day Tobacco Type: cigarettes Smoking risk assessment performed?: Yes Alcohol Intake: former Drug use: Occasionally Substance use type: marijuana Do you feel safe at home: Yes Do you feel safe in your relationship?: Yes
[2021-11-04 19:05] VITALS: BP 129/74; PULSE 81; RESP 16; TEMP 36.5; O2SAT 96
[2021-11-04] MEDS: Famotidine 20 MG/2 ML VIAL IVP (19:43)
[2021-11-04] MEDS: Normal Saline Flush 10 ML SYR IVP (19:44)
[2021-11-04 23:25] VITALS: BP 126/72; PULSE 81; RESP 16; TEMP 36.6; O2SAT 95
[2021-11-05] MEDS: Lactated Ringers 1,000 ML 125 ML IV (01:10)
[2021-11-05] MEDS: Normal Saline Flush 10 ML SYR IVP (01:10)
--- NOTE | 2021-11-05 06:54 | W.ANESPRE ---
General Info Date of Service Date Performed: 11/05/21 Height: 5 ft 10 in Weight: 69.1 kg Body Mass Index (BMI): 21.8 Surgical Procedure: Operation Date: 10/29/21 09:50 Proposed Procedure Side Surgeon p Colonoscopy Yojana Parker, DO Actual Procedure Side Surgeon p Flexible Sigmoidoscopy with bx's Yojana Parker, Pre-Op Diagnosis Post-Op Diagnosis BLOODY DIARRHEA/ WEIGHT LOSS/ ANEMIA RECTAL CANCER Operation Date: 10/29/21 15:20 Proposed Procedure Side Surgeon p Colostomy Diverting Yojana Parker, DO Actual Procedure Side Surgeon p Colostomy Diverting Not Applicable Yojana Parker, Pre-Op Diagnosis Post-Op Diagnosis Rectal cancer Rectal cancer Operation Date: 11/05/21 07:40 Proposed Procedure Side Surgeon p Flexible Sigmoidoscopy w/Biopsy Yojana Parker, Meds Allergies and Home Medications Allergies Allergy/AdvReac Type Severity Reaction Status Date / Time No Known Allergies Allergy Verified 10/29/21 08:57 Home Medication Medication Instructions Recorded triamcinolone acetonide 0.5 % 1 applic TOPICAL BID #80 g 10/27/21 topical cream duloxetine 20 mg capsule,delayed 20 mg PO BID 365 Days #60 cap 11/04/21 release nicotine 10 mg inhalation cartridge 1 inh INHALATION 4-6XD PRN #168 ea 11/04/21 nicotine 14 mg/24 hr daily 1 patch TRANSDERMAL DAILY #28 ea 11/04/21 transdermal patch polyethylene glycol 3350 17 17 g PO DAILY PRN #238 g 11/04/21 gram/dose oral powder (Miralax) tramadol 50 mg tablet 50 mg PO Q6H PRN #7 tab 11/04/21 Current Visit Medications: Current Medications Generic Name Dose Route Start Last Admin Trade Name Freq PRN Reason Stop Dose Admin Acetaminophen 1,000 mg 11/02/21 18:00 11/05/21 05:21 Acetaminophen 500 Mg Tab PO Not Given Q6H GERTRUDE Duloxetine HCl 20 mg 11/03/21 08:30 11/04/21 08:54 Duloxetine 20 Mg Cap PO 20 mg DAILY GERTRUDE Administration Enoxaparin Sodium 40 mg 10/30/21 08:00 11/04/21 08:54 Enoxaparin 40 Mg/0.4 Ml Syr SC 40 mg Q24H GERTRUDE Administration Famotidine 20 mg 10/30/21 20:30 11/04/21 19:43 Famotidine 20 Mg/2 Ml Vial IVP 20 mg Q24H GERTRUDE Administration Sodium Chloride 500 mls @ 0 mls/hr 10/29/21 17:01 11/01/21 10:00 Saline 500ml Bag IV 0 mls/hr PRN PRN Infusion As Directed Sodium Chloride 500 mls @ 0 mls/hr 11/02/21 13:23 Saline 500ml Bag IV PRN PRN As Directed Ringer's Solution 1,000 mls @ 125 mls/hr 11/05/21 01:00 11/05/21 01:10 IV 125 mls/hr INFUSION GERTRUDE Administration IV Miscellaneous Supplies 1 each 10/29/21 17:15 Iv Access IV DIRECTED GERTRUDE IV Miscellaneous Supplies 1 each 11/02/21 13:30 Iv Access IV DIRECTED GERTRUDE Ketorolac Tromethamine 15 mg 11/02/21 14:00 11/05/21 01:30 Ketorolac 15 Mg/Ml Vial IVP 11/07/21 13:59 Not Given Q6H GERTRUDE Multi-Ingredient Supplement 1 ounce 11/02/21 20:00 11/04/21 19:43 Protein Nutritional Supplement 16 Gm 1 Ounce Packet PO 1 ounce BID GERTRUDE Administration Ondansetron HCl 4 mg 10/29/21 17:01 Ondansetron 4 Mg/2 Ml Vial IVP Q4H PRN PRN Sodium Chloride 0 ml 10/29/21 06:00 Normal Saline 10 Ml Vial IJ 11/25/21 23:59 DIRECTED PRN Sodium Chloride 50 ml 10/29/21 11:45 10/29/21 11:35 Normal Saline 50 Ml Bag IJ 50 ml DIRECTED GERTRUDE Administration Sodium Chloride 0 ml 10/29/21 17:01 11/05/21 01:10 Normal Saline Flush 10 Ml Syr IVP 10 ml PRN PRN Administration Sodium Chloride 0 ml 11/02/21 13:23 Normal Saline Flush 10 Ml Syr IVP PRN PRN Sterile Water 0 ml 10/29/21 06:00 Water,Injection,Sterile 10 Ml Vial IJ 11/25/21 23:59 DIRECTED PRN Tramadol HCl 50 mg 10/29/21 20:28 Tramadol 50 Mg Tab PO Q4H PRN PRN PFSH Active Problems Active Problems: Problem Status Onset Code Iron deficiency anemia due to chronic blood loss D50.0 Adrenal nodule E27.8 Compression fracture of body of thoracic vertebra S22.000A Hiatal hernia K44.9 Rectal cancer C20 Rash R21 Smoker in home Z77.22 Unexplained weight loss R63.4 Loss of control of rectal sphincter R15.9 Rectal bleeding K62.5 ETOH abuse F10.10 Diarrhea R19.7 Medical History Medical History (Updated 10/29/21 @ 20:37 by Yojana Parker DO) Inguinal hernia Surgical History Surgical History Repair of inguinal hernia 08/11/14 LEFT INDIRECT AND RIGHT DIRECT Status post inguinal hernia repair Tobacco Smoking/Tobacco Use Status: Current every day Tobacco Type: cigarettes Alcohol Alcohol Intake: former Substance Use Substance use: Occasionally Substance use type: marijuana Vital Signs and Lab Results Vital Signs Most Recent Vital Signs in EMR: Most Recent Vital Signs Temp Pulse Resp BP Pulse Ox 36.6 C 81 16 126/72 95 11/04/21 23:25 11/04/21 23:25 11/04/21 23:25 11/04/21 23:25 11/04/21 23:25 Lab Results Result Diagrams: 11/04/21 06:55 11/04/21 06:55 Blood Type / Crossmatch: No Data to Display Complete Blood Count: White Blood Count 10.96 10^3/uL (4.4-10.8) H 11/04/21 06:55 11/04/21 Red Blood Count 3.99 10^6/uL (4.36-5.78) L 11/04/21 06:55 11/04/21 Hemoglobin 11.0 g/dL (13.5-17.5) L 11/04/21 06:55 11/04/21 Hematocrit 34.0 % (40.0-50.0) L 11/04/21 06:55 11/04/21 Platelet Count 326 10^3/uL (130-400) 11/04/21 06:55 11/04/21 Complete Metabolic Panel: Sodium Level 141 mmol/L (136-145) 11/04/21 06:55 11/04/21 Potassium Level 4.0 mmol/L (3.5-5.1) 11/04/21 06:55 11/04/21 Chloride Level 107 mmol/L (98-107) 11/04/21 06:55 11/04/21 Carbon Dioxide Level 26.7 mmol/L (21.0-32.0) 11/04/21 06:55 11/04/21 Blood Urea Nitrogen 11 mg/dL (7-18) 11/04/21 06:55 11/04/21 Creatinine 0.7 mg/dL (0.70-1.30) 11/04/21 06:55 11/04/21 Estimated GFR/1.73 m2 >= 60.00 (mL/min/1.73m2) 11/04/21 06:55 11/04/21 Magnesium Level 2.0 mg/dL (1.8-2.4) 10/30/21 05:34 10/30/21 Calcium Level 9.0 mg/dL (8.5-10.1) 11/04/21 06:55 11/04/21 Albumin 2.5 g/dL (3.4-5.0) L 11/04/21 06:55 11/04/21 Glucose Level 97 mg/dL (74-106) 11/04/21 06:55 11/04/21 C-Reactive Protein 7.30 mg/dL (0.0-0.3) H 10/30/21 05:34 10/30/21 Liver Function Panel: Alanine Aminotransferase (ALT/SGPT) 38 U/L (16-63) 11/04/21 06:55 11/04/21 Aspartate Amino Transf (AST/SGOT) 22 U/L (15-37) 11/04/21 06:55 11/04/21 Gamma Glutamyl Transpeptidase 46 U/L (15-85) 10/20/21 13:50 10/20/21 Coagulation Panel: No Data to Display Cardiac Panel: No Data to Display Arterial Blood Gas: No Data to Display Venous Blood Gas: No Data to Display Pancreas Panel: No Data to Display Thyroid Panel: Thyroid Stimulating Hormone (TSH) 1.06 uIU/mL (0.36-3.74) 10/25/21 12:05 10/25/21 Infectious Disease: Coronavirus (COVID-19)(PCR) Negative (Negative) 10/27/21 08:44 10/27/21 Coronavirus 2019 Source Nasal/Nares 10/27/21 08:44 10/27/21 Blood Cultures: No Data to Display Toxicology Panel: No Data to Display Imaging and Studies Imaging and Studies Study information below may be from another EMR and interpreted by another provider. Please see original notes in EMR for more complete details. EKG Summary: DATE/TIME OF SERVICE: 10/29/21 0948 : 1PERFORMING LOCATION: [facility] APPROVED REPORT Exam: Resting ECG Reason for Exam: Preoperative Patient Location: O HR:95 bpm ECG Measurements Heart Rate 95 AXIS WY 177 P 45 QRSd 82 QRS -15 QT 357 T23 QTc 450 Conclusion Sinus rhythm...normal P axis, V-rate 60- 99 Ventricular premature complex...V complex w/ short R-R interval Anesthesia Assessment and Plan Anesthesia History Personal History: No History of Anesthesia Complications Family History: No Family History of Anesthesia Complications Exercise Tolerance Exercise Tolerance: Metabolic Equivalents>4 Pertinent Negatives Pertinent Negatives: No Symptoms of GERD Cardiac & Pulmonary Exam Cardiac Exam: Normal S1/S2 Heart Sounds Pulmonary Exam: Clear Bilateral Breath Sounds Implantable Cardiac Device Does patient have a Pacemaker or an ICD?: No Airway Exam Known Difficult Airway: No Mallampati Class: 2 Mouth Opening: Normal (> 3cm) Thyromental Distance: Greater than 3 cm Neck Range of Motion: Full ROM and Limited ROM Neck Circumference: Normal Teeth Condition: Normal Dentition ASA Classification ASA Score: ASA 3 Emergency Case?: No NPO Status NPO Status: NPO Clears >2 hours, Solids >8 hours Anesthesia Plan Resuscitation Status: Full Code Anesthesia Technique: General Anesthesia Airway Planned: Natural Airway Monitors Used: Standard Monitors
[2021-11-05 07:16] VITALS: BMI 21.8
[2021-11-05] MEDS: Lactated Ringers 1,000 ML 30 ML IV (07:30)
--- NOTE | 2021-11-05 07:39 | BOWEL_PTH ---
PATIENT: Karlo Kolb LOC: U#:[id number] AGE/SX: 71/M ROOM: 208 RE10/29/[address]: Yojana Parker : 1950 BED: A DIS: 11/05/2021 SPEC #: [id number] RECD: 11/05/21 12:21 STATUS: SUSIE REQ #: [id number] NIMA: 11/05/21 07:[address]: Yojana Parker DEPT: Surgical Specimen RECD BY: Jolly Dhillon ENTERED: 11/05/21 12:22 SP TYPE: Bowel OTHR DR: Alon Shah, MIGUEL ÁNGEL Tissues: 1 - BIOPSY BOWEL Procedures: GROSS AND MICRO LEVEL 4 Comments: [id number] (STAT)
--- NOTE | 2021-11-05 07:55 | ROE_ITS ---
Operative Note Operative Note DATE OF PROCEDURE: 10/29/21 PRE-OP DIAGNOSIS: Obstructing rectal mass and anemia and weight loss POST-OP DIAGNOSIS: same PROCEDURE: Flex sig with biopsy SURGEON: Yojana Parker ANESTHESIA TYPE: General:No Airway Refer to Anesthesia Record ESTIMATED BLOOD LOSS: 5 PATHOLOGY: other COMPLICATIONS: None Patient was transported to: PACU Patient's condition: stable Implants: none Procedure Description: After informed consent was obtained the patient was taken to the procedure room and placed in a left decubitous position. Monitors were applied and a time out was done. The patients name, date of , procedure, allergies to medications and metal in their body was reviewed. The patient was then sedated. Once mitzy shivani and comfortable a rectal exam was done. External exam was normal. Internal exam revealed a normal sphincter tone and no palpable masses. The scope was then introduced. The mass is at 4 cm from the anal sphincter. It is completely obstructing. It is quite friable. Multiple biopsies are taken. It is friable and bleeds readily, but there is no significant hemorrhage. Patient tolerated the procedure well without complication. He will be discharged home later today and follow-up on .
[2021-11-05 11:06] VITALS: BP 141/80; PULSE 81; RESP 16; TEMP 36.6; O2SAT 95
--- NOTE | 2021-11-05 12:23 | W.ANESPOSTOP ---
Postoperative Evaluation Date, Time and Location Date Performed: 11/05/21 Time Performed: 12:23 Patient Location: Med/Surg Vital Signs Most Recent Imported Vital Signs: Most Recent Vital Signs Temp Pulse Resp BP Pulse Ox 36.6 C 81 16 141/80 H 95 11/05/21 11:06 11/05/21 11:06 11/05/21 11:06 11/05/21 11:06 11/05/21 11:06 Most Recent Vital Signs Temp Pulse Resp BP Pulse Ox 36.4 C L 77 12 158/71 H 99 10/29/21 18:02 10/29/21 18:02 10/29/21 18:02 10/29/21 18:02 10/29/21 18:02 Most Recent Vital Signs Temp Pulse Resp BP Pulse Ox 36.4 C L 72 18 96/64 L 96 10/29/21 10:24 10/29/21 10:24 10/29/21 10:24 10/29/21 10:24 10/29/21 10:24 Pain Score Most Recent Pain Score: Most Recent Pain Score Pain Level 2 11/05/21 11:06 Assessment Mental Status: Awake (Alert & Oriented to Patient Baseline) Airway and Respiratory Function: Patent airway with normal (patient baseline) respiratory exam Cardiovascular Function: Hemodynamically Stable Hydration Status: Adequately Hydrated Nausea & Vomiting: No Nausea or Vomiting Pain: Pain is tolerable per patient Peripheral Nerve Block: Patient did not receive a nerve block
--- NOTE | 2021-11-05 17:10 | PDOC.CMDIS ---
- If Service Date Differs Date of service: 11/05/21 Time of Service: 17:10 LACE Index Scoring Tool - Questions: Length of Stay (in days): 7 - 13 Acuity (Admit via E.D.?): No Comorbidities: Any Tumor, Metastatic Solid Tumor E.D. Visits: 0 - Answers: Total Score: 10 Risk of Readmission: High Risk Care Management Discharge Reason for Hospitalization: Rectal Cancer, diverting colostomy Discharge Plan: Discharge home with New [facility] RN services via private vehicle with family. Follow up with PCP, surgery, oncology and discharge plan of care as prescribed. Ostomy supplies were ordered through [employer] and will be delivered to Karlo's home address. [facility] will provide education, supplies and help with the Ostomy. Patient/Family Education Needs: Review discharge instructions, limitations, medications and plan to follow up with community providers. Review ostomy care and ask me three. Services Needed at Discharge: Home Health Care Services ([facility] RN )
== END 2021-11-05 09:36 | disposition home health service (06) | DRG 330 ==
LOC: SUR 17:44 → MS 18:01
PROVIDERS: Surgery; Admitting Provider Surgery; PCP Nurse Practitioner Family; Visit Provider Surgery
PROC: 0DJD8ZZ Inspection of Lower Intestinal Tract, Via Natural or Artificial Opening Endoscopic (ICD-10-PCS; CPT 45330; 2021-10-29 09:45)
PROC: 0D1N0Z4 Bypass Sigmoid Colon to Cutaneous, Open Approach (ICD-10-PCS; CPT 44320; principal; 2021-10-29 15:00)
PROC: 0DJD8ZZ Inspection of Lower Intestinal Tract, Via Natural or Artificial Opening Endoscopic (ICD-10-PCS; CPT 45330; principal; 2021-11-05 07:30)
DX: C20 Malignant neoplasm of rectum (principal); K62.5 Hemorrhage of anus and rectum; K56.691 Other complete intestinal obstruction; E27.8 Other specified disorders of adrenal gland; R63.4 Abnormal weight loss; Z68.21 Body mass index [BMI] 21.0-21.9, adult; D50.0 Iron deficiency anemia secondary to blood loss (chronic); K44.9 Diaphragmatic hernia without obstruction or gangrene; F10.10 Alcohol abuse, uncomplicated; R21 Rash and other nonspecific skin eruption; F17.210 Nicotine dependence, cigarettes, uncomplicated
CPT/HCPCS: 45331; 44320; 36415; 74177; 76942; 80053; 85027; 88305; 99223; J1650; 70470; 71260; 74018; 74019; 81003; 82378; 83735; 85014; 85018; 85025; 86140; 93005; 93010; J0131; J1100; J1885; J2001; J2270; J2370; J2405; J2543; J2704; J3490; Q9967

== ENCOUNTER → 2021-11-11 14:18 | Outpatient (BNVA) | payer MEDICARE, MEDICAID, SELFPAY | PROVIDERS: PCP Nurse Practitioner Family; Referring Provider Nurse Practitioner Family; Visit Provider Surgery | DX: Z48.815 Encounter for surgical aftercare following surgery on the digestive system (principal); D50.0 Iron deficiency anemia secondary to blood loss (chronic); D12.8 Benign neoplasm of rectum ==

== ENCOUNTER → 2021-11-25 13:12 | Outpatient (BNVA) | payer MEDICARE, MEDICAID, SELFPAY | PROVIDERS: PCP Nurse Practitioner Family; Referring Provider Nurse Practitioner Family; Visit Provider Surgery | DX: Z48.815 Encounter for surgical aftercare following surgery on the digestive system (principal); D12.8 Benign neoplasm of rectum ==

== ENCOUNTER 2021-12-10 02:23 | Outpatient (CLI) | payer MEDICARE, MEDICAID, SELFPAY ==
[2021-12-10 11:09] LABS: Abs Immature Grans 0.02 10^3/uL (0.0-0.06); Absolute Basophil Count 0.04 10^3/uL (0.0-0.2); Absolute Eosinophil Count 0.29 10^3/uL (0.0-0.7); Absolute Lymphocyte Count 1.95 10^3/uL (1.2-3.4); Absolute Monocyte Count 0.96 10^3/uL (0.1-0.8); Absolute Neutrophil Count 5.55 10^3/uL (1.2-6.7); Basophils % 0.5; Eosinophils % 3.3; HCT 40.1 % (40.0-50.0); HGB 12.9 g/dL (13.5-17.5); Immature Grans % 0.2; Lymphocytes % 22.1; MCH 28.4 pg (27.0-33.0); MCHC 32.2 % (32.0-36.0); MCV 88.1 fL (80-95); MPV 9.6 fL (8.0-11.0); Monocytes % 10.9; Platelet Count 258 10^3/uL (130-400); RBC 4.55 10^6/uL (4.36-5.78); RDW 18.4 % (11.8-14.1); RDW-SD 59.7 fL; WBC 8.81 10^3/uL (4.4-10.8)
[2021-12-10 12:00] LABS: Iron 82 ug/dL (65-175); Total Iron Binding Capacity 310 ug/dL (250-450); Transferrin Sat 26 % (20-55)
[2021-12-10 12:15] LABS: ALT 19 U/L (16-63); AST 12 U/L (15-37); Albumin 3.7 g/dL (3.4-5.0); Alkaline Phosphatase 92 U/L (46-116); Anion Gap 7.9 mmol/L (3-11); BUN 11 mg/dL (7-18); Bilirubin, Total 0.5 mg/dL (0.2-1.0); CO2 29.1 mmol/L (21.0-32.0); CREATININE 0.7 mg/dL (0.70-1.30); Calcium 9.2 mg/dL (8.5-10.1); Chloride 105 mmol/L (98-107); Ferritin 64 ng/mL (26-388); Glucose 91 mg/dL (74-106); Potassium 4.3 mmol/L (3.5-5.1); Sodium 142 mmol/L (136-145); Total Protein 7.3 g/dL (6.4-8.2)
[2021-12-10 12:25] LABS: LDH 115 U/L (85-227)
== END 2021-12-10 02:24 | disposition home or self-care (01) ==
LOC: LBO 02:24
PROVIDERS: PCP Nurse Practitioner Family; Visit Provider Surgery
DX: D50.0 Iron deficiency anemia secondary to blood loss (chronic) (principal); E27.8 Other specified disorders of adrenal gland; K62.5 Hemorrhage of anus and rectum; K44.9 Diaphragmatic hernia without obstruction or gangrene; R15.9 Full incontinence of feces; R63.4 Abnormal weight loss; D12.8 Benign neoplasm of rectum
CPT/HCPCS: 36415; 80053; 82728; 83540; 83550; 83615; 85025

== ENCOUNTER → 2021-12-13 13:13 | Outpatient (BNVA) | payer MEDICARE, MEDICAID, SELFPAY | PROVIDERS: PCP Nurse Practitioner Family; Referring Provider Nurse Practitioner Family; Visit Provider Surgery | DX: R19.7 Diarrhea, unspecified (principal); K62.5 Hemorrhage of anus and rectum | CPT/HCPCS: 99213 ==

== ENCOUNTER → 2021-12-27 11:09 | Outpatient (BNVA) | payer MEDICARE, MEDICAID, SELFPAY | PROVIDERS: PCP Nurse Practitioner Family; Referring Provider Nurse Practitioner Family; Visit Provider Surgery | DX: R15.9 Full incontinence of feces (principal) ==

== ENCOUNTER → 2022-02-10 09:05 | Outpatient (BNVA) | payer MEDICARE, MEDICAID, SELFPAY | PROVIDERS: PCP Nurse Practitioner Family; Referring Provider Nurse Practitioner Family; Visit Provider Surgery | DX: Z51.89 Encounter for other specified aftercare (principal); C20 Malignant neoplasm of rectum | CPT/HCPCS: 99214 ==

== ENCOUNTER 2022-03-01 11:18 | Outpatient (CLI) | payer MEDICARE, MEDICAID, SELFPAY ==
[2022-03-01 14:13] LABS: Abs Immature Grans 0.03 10^3/uL (0.0-0.06); Absolute Basophil Count 0.04 10^3/uL (0.0-0.2); Absolute Eosinophil Count 0.36 10^3/uL (0.0-0.7); Absolute Lymphocyte Count 1.47 10^3/uL (1.2-3.4); Absolute Monocyte Count 0.79 10^3/uL (0.1-0.8); Absolute Neutrophil Count 4.88 10^3/uL (1.2-6.7); Basophils % 0.5; Eosinophils % 4.8; HCT 40.3 % (40.0-50.0); HGB 13.4 g/dL (13.5-17.5); Immature Grans % 0.4; Lymphocytes % 19.4; MCH 29.5 pg (27.0-33.0); MCHC 33.3 % (32.0-36.0); MCV 89 fL (80-95); Monocytes % 10.4; Neutrophils % 64.5; Platelet Count 244 10^3/uL (130-400); RBC 4.55 10^6/uL (4.36-5.78); RDW 15.9 % (11.8-14.1); RDW-SD 51.3 fL; WBC 7.57 10^3/uL (4.4-10.8)
[2022-03-01 14:30] LABS: ALT 16 U/L (16-63); AST 15 U/L (15-37); Albumin 3.6 g/dL (3.4-5.0); Alkaline Phosphatase 73 U/L (46-116); Anion Gap 6.9 mmol/L (3-11); BUN 14 mg/dL (7-18); Bilirubin, Total 0.6 mg/dL (0.2-1.0); CO2 29.1 mmol/L (21.0-32.0); CREATININE 0.7 mg/dL (0.70-1.30); Chloride 103 mmol/L (98-107); Glucose 89 mg/dL (74-106); Potassium 3.9 mmol/L (3.5-5.1); Sodium 139 mmol/L (136-145); Total Protein 7.3 g/dL (6.4-8.2)
== END 2022-03-01 11:19 | disposition home or self-care (01) ==
LOC: LBO 11:19
PROVIDERS: PCP Nurse Practitioner Family; Visit Provider Internal Medicine Hematology & Oncology
DX: C20 Malignant neoplasm of rectum (principal)
CPT/HCPCS: 36415; 80053; 85025

== ENCOUNTER 2022-03-09 03:21 | Outpatient (CLI) | payer MEDICARE, MEDICAID, SELFPAY ==
[2022-03-09 10:27] LABS: Abs Immature Grans 0.01 10^3/uL (0.0-0.06); Absolute Basophil Count 0.03 10^3/uL (0.0-0.2); Absolute Eosinophil Count 0.28 10^3/uL (0.0-0.7); Absolute Lymphocyte Count 0.92 10^3/uL (1.2-3.4); Absolute Monocyte Count 0.82 10^3/uL (0.1-0.8); Basophils % 0.5; Eosinophils % 4.5; HCT 40.6 % (40.0-50.0); HGB 13.4 g/dL (13.5-17.5); Immature Grans % 0.2; Lymphocytes % 14.7; MCH 29.3 pg (27.0-33.0); MCV 89 fL (80-95); MPV 9.6 fL (8.0-11.0); Monocytes % 13.1; Platelet Count 162 10^3/uL (130-400); RBC 4.58 10^6/uL (4.36-5.78); RDW 16.7 % (11.8-14.1); RDW-SD 52.3 fL; WBC 6.26 10^3/uL (4.4-10.8)
[2022-03-09 10:45] LABS: ALT 20 U/L (16-63); AST 15 U/L (15-37); Albumin 3.6 g/dL (3.4-5.0); Alkaline Phosphatase 66 U/L (46-116); Anion Gap 8.1 mmol/L (3-11); BUN 15 mg/dL (7-18); Bilirubin, Total 0.4 mg/dL (0.2-1.0); CO2 27.9 mmol/L (21.0-32.0); CREATININE 0.7 mg/dL (0.70-1.30); Calcium 9.1 mg/dL (8.5-10.1); Chloride 105 mmol/L (98-107); Glucose 92 mg/dL (74-106); Potassium 4.4 mmol/L (3.5-5.1); Sodium 141 mmol/L (136-145); Total Protein 7.3 g/dL (6.4-8.2)
== END 2022-03-09 03:22 | disposition home or self-care (01) ==
LOC: LBO 03:22
PROVIDERS: PCP Nurse Practitioner Family; Visit Provider Internal Medicine Hematology & Oncology
DX: C20 Malignant neoplasm of rectum (principal)
CPT/HCPCS: 36415; 80053; 85025

== ENCOUNTER 2022-03-16 01:31 | Outpatient (CLI) | payer MEDICARE, MEDICAID, SELFPAY ==
--- OUTSIDE RECORDS SUMMARY | 2022-03-16 01:33 | XMS_ITS | Encounter Summary ---
:[address] [facility] Address [address] [place] [address] Care Team Providers Name Role Phone Unknown, Provider Primary Care Provider Encounter Details Date Type Department Care Team Description 10/29/2021 Lab Requisition [facility] Yojana Parker for other Pathology & M, DO general examination Laboratory Medicine - [address] [place] [id number] Social History Tobacco Use Types Packs/Day Years Used Date Never Assessed Sex Assigned at Date Recorded Not on file documented as of this encounter Plan of Treatment Not on filedocumented as of this encounter Procedures Procedure Name Priority Date/Time Associated Diagnosis Comme nts SURGICAL PATHOLOGY Today 10/29/2021 10:08 Encounter for othe r Results for this EST general examination procedur e are in the results section. documented in this encounter Results SURGICAL PATHOLOGY (10/29/2021 10:08 EST) Note to Patient The following [facility] pathology results CENTER have been interpreted LABORATORY by your pathologist SERVICES and may be available to you before your health provider has had the opportunity to review them. Please allow time for your provider to receive these results and explore management options, if applicable. Final Diagnosis A. RECTUM, BIOPSY: [facility] - Tubulovillous adenoma with focal high-grade dysplasi a CENTER - Deeper levels are examined LABORATORY SERVICES Attestation By the signature [facility] Electronica lly below, the attending CENTER signed by Ronen, physician certifies LABORATORY Maria G Somers MD on that they have 1) SERVICES 11/03/2021 a t 1138 personally conducted a gross and/or microscopic examination of the described specimen(s), and/or personally interpreted the results of laboratory testing of the described specimen(s), and 2) personally rendered or confirmed the above diagnosis. Clinical History Bloody diarrhea [facility] weight loss; anemia [facility] Gross Description A. [facility] Received in formalin rene d with proper patient identification (initials M, B) and rectal Bx @ 4 cm are nine pale negrete-white tissues (0.5 x 0.4 x 0.2 cm to 0.2 x 0.1 x 0.1 cm). Entirely submitted in A1-A2. [facility] Maury Rebolledo 10/30/2021 11:23 SERVICES Performing Lab [facility] SERVICES Scanned Images [facility]OR[facility] SERVICES Specimen Tissue - Specimen from rectum (specimen) Performing Organization Address City/State/ZIP Code Phon e Number [facility] [address] [place] [address] SERVICES documented in this encounter Visit Diagnoses Diagnosis Encounter for other general examination documented in this encounter Care Teams Manufacturer'S Service Representative Relationship Specialty Start Date End Date Unknown, Provider, PCP - General 10/26/21 documented as of this encounter
--- OUTSIDE RECORDS SUMMARY | 2022-03-16 01:33 | XMS_ITS | Encounter Summary ---
:1950 Author Organization [facility] Address [address] [address] Care Team Providers Name Role Phone PabloAlon LAURA Primary Care Provider Encounter Details Date Type Department Care Team Description 03/03/2022 Office Visit Radiation Oncology at [facility] Julián MD Rectal cancer [address] RADIATION ONCOLOGY [facility] [phone] Social History Tobacco Use Types Packs/Day Years Used Date Current Every Day Smoker Cigarettes 0.5 54 Smokeless Tobacco: Never Used Alcohol Use Standard Drinks/Week Comments Yes 0 (1 standard drink = 0.6 oz pure 21 dri nks/week varies beer/drinks alcohol) Alcohol Habits Answer Date Recorded How often do you have a drink Not asked containing alcohol? How many drinks containing alcohol do Not asked you have on a typical day when you are drinking? How often do you have six or more Not asked drinks on one occasion? Comment: 21 drinks/week varies beer/drinks 2021 Financial Resource Strain Answer Date Recorded How hard is it for you to pay for the very basics like Somew hat hard 02/16/2022 food, housing, medical care, and heating? Food Insecurity Answer Date Recorded Within the past 12 months, you worried that your food Patien t refused 02/16/2022 would run out before you got money to buy more. Within the past 12 months, the food you bought just Never tr ue 02/16/2022 didn't last and you didn't have money to get more. Transportation Needs Answer Date Recorded In the past 12 months, has lack of transportation kept you f rom No 02/16/2022 medical appointments or from getting medications? In the past 12 months, has lack of transportation kept you f rom No 02/16/2022 meetings, work, or getting things needed for daily living? Housing Stability Answer Date Recorded In the last 12 months, was there a time when you were not ab le No 02/16/2022 to pay the mortgage or rent on time? In the last 12 months, how many places have you lived? 1 02/16/2022 In the last 12 months, was there a time when you did not hav e a No 02/16/[address] or slept in a fci (including now)? Sex Assigned at Date Recorded Not on file documented as of this encounter Last Filed Vital Signs Vital Sign Reading Time Taken Comments Blood Pressure 139/77 03/03/2022 10:44 AM EDT Pulse 89 03/03/2022 10:44 AM EDT Temperature 36.6 ??C (97.9 ??F) 03/03/2022 10:44 AM EDT Respiratory Rate 18 03/03/2022 10:44 AM EDT Oxygen Saturation 99% 03/03/2022 10:44 AM EDT Inhaled Oxygen Concentration - - Weight 76 kg (167 lb 9.6 oz) 03/03/2022 10:44 AM EDT Height 179 cm (5' 10.47) 03/03/2022 10:44 AM EDT Body Mass Index 23.73 03/03/2022 10:44 AM EDT documented in this encounter Progress Notes Juilán Tinoco MD - 03/03/2022 11:00 AM EDT Images from the original note were not included. [facility] Medicine Radiation Oncology Radiation Oncology On-treatment Visit Note Patient ID Patient name: Karlo Kolb Date of : 1950 Referring: Edgar Villafuerte MD PCP: Alon Shah APRN Chief complaint: Cancer Staging Rectal cancer Staging form: Colon And Rectum, AJCC 8th Edition - Clinical: Stage IIA (cT3, cN0, cM0) - Signed by Julián Tinoco MD on 02/08/2022 Treatment Details Intent: Definitive (Curative/Neoadjuvant) Concurrent Therapy: Xeloda (from Dr Melendrez) Modality: IMRT Initial Treatment Site Pelvis Prescribed Dose 45 Gy in 25 fractions Boost Treatment Site Rectum Prescribed Dose 50.4 Gy in 28 fractions Current Dose: 10.8 Gy in 6 fractions Interval Clinical Course General: No changes since last seen. GI: Colostomy working well - no concerns. Still passing some rectal mucous. No blood. No n/v/abd pain. Pain: Pain score today is 0/10. Performance Status KPS Score ECOG Grade Definition 90-100 0 Fully active, able to carry on all pre-disease performance without restriction XX 70-80 1 Restricted in physically strenuous activity but ambulatory and able to carry out work of a light or sedentary nature, e.g., light house work, office work 50-60 2 Ambulatory and capable of all selfcare but unable to carry out any work activities; up and about more than 50% of waking hours 30-40 3 Capable of only limited selfcare; confined to bed or chair more than 50% of waking hours 10-20 4 Completely disabled; cannot carry on any selfcare; totally confined to bed or chair Medications Medications 03/03/22 1051 Medication Sig Taking? CAPEcitabine (Xeloda) 500 mg tablet Take 3 tablets (1,500 mg) by mouth 2 times daily. Take within 30minutes after eating. Call clinic before/prior to starting medication/script. Take on days of radiation only. Do not start until radiation starts Yes acetaminophen (Tylenol) 500 mg Tablet Take 1,000 mg by mouth every 6 hours as needed for Pain. Yes ondansetron (Zofran) 8 mg Tablet Take 1 tablet by mouth every 8 hours as needed for Nausea. Patient not taking: No sig reported Exam Vitals: BP 139/77 (Patient Position: Sitting) Pulse 89 Temp 36.6 ??C (97.9 ??F) (Temporal) Resp 18 Ht 179 cm (5' 10.47) Wt 76 kg (167 lb 9.6 oz) SpO2 99% BMI 23.73 kg/m?? General: Appears well, in no distress Abd: Soft, nt. Colostomy beefy red, with semisolid output. Imaging/Labs Interval setup imaging has been checked and approved. See Aria for details. Impression/Plan Tolerance to radiotherapy: Tolerating as anticipated. Continue as planned. Followup: RTC for on-treatment assessment next week. No orders of the defined types were placed in this encounter. ??? National [facility] [place] (NCI) [facility] ??? [employer] Commission on Cancer (ACS Nalini) Accredited Cancer Program ??? [employer] (ACR) Accredited Radiation Oncology Program documented in this encounter Plan of Treatment Upcoming Encounters Date Type Specialty Care Team Description 03/16/2022 Scheduled View Only Radiation Oncology 03/17/2022 Scheduled View Only Radiation Oncology 03/17/2022 Office Visit Radiation Oncology Kerline Tinoco v, MD [address] [place] [address] [address] [place] [place], [place] [id number] (Wo rk) 03/18/2022 Scheduled View Only Radiation Oncology 03/21/2022 Scheduled View Only Radiation Oncology 03/22/2022 Scheduled View Only Radiation Oncology 03/23/2022 Scheduled View Only Radiation Oncology 03/24/2022 Scheduled View Only Radiation Oncology 03/24/2022 Office Visit Radiation Oncology Kerline Tinoco v, MD [address] [place] [address] [address] [place], [place] [address] (Wo rk) 03/25/2022 Office Visit Hematology Drew Pisano, Oncology [facility] [address] [place], [place] [address] (Wo rk) 03/25/2022 Scheduled View Only Radiation Oncology 03/28/2022 Scheduled View Only Radiation Oncology 03/29/2022 Scheduled View Only Radiation Oncology 03/30/2022 Scheduled View Only Radiation Oncology 03/31/2022 Scheduled View Only Radiation Oncology 03/31/2022 Office Visit Radiation Oncology Kerline Tinoco v, MD [address] [place] [address] [address] [place], [place] [id number] (Wo rk) 04/01/2022 Office Visit Hematology Drew Pisano, Oncology [facility] [address] [place], [place] [address] (Wo rk) 04/01/2022 Scheduled View Only Radiation Oncology 04/04/2022 Scheduled View Only Radiation Oncology 04/04/2022 Notes Only Radiation Oncology Kerline Tinoco v, MD [address] [place] [address] [place] [address] (Wo rk) 04/08/2022 Office Visit Hematology and Drew Melendrez, Oncology [facility] [address] ONCOLOGY [place], [place] [address] (Wo rk) documented as of this encounter Goals Goal Patient Goal Associated Recent Patient-Stated? Author Type Problems Progress DH Home Medication Patient No Froylan ds, Compliance and Facing Nahed Newman, Understanding Action Plan [facility] Note: Formatting of this note might be d ifferent from the original. Complete 28 days of chemoradiation thera py without significant nausea documented as of this encounter Visit Diagnoses Diagnosis Rectal cancer Malignant neoplasm of rectum documented in this encounter Care Teams Barrel Lathe Operator Outside Relationship Specialty Start Date End Date Alon Shah, MANAGER PUBLISHING PCP - General Family Medicine 12/08/[address] [place], [place] [address] documented as of this encounter
--- OUTSIDE RECORDS SUMMARY | 2022-03-16 01:33 | XMS_ITS | Encounter Summary ---
:1950 Author Organization [facility] Address [address] [place] [address] Care Team Providers Name Role Phone [place]Alon LAURA Primary Care Provider Encounter Details Date Type Department Care Team Description 02/24/2022 Office Visit Radiation Oncology at [facility] Julián MD Rectal cancer [address] RADIATION ONCOLOGY [facility] [address] [phone] Social History Tobacco Use Types Packs/Day Years [...] place to sleep or slept in a intermediate (including now)? Sex Assigned at Date Recorded Not on file documented as of this encounter Last Filed Vital Signs Vital Sign Reading Time Taken Comments Blood Pressure 139/77 02/24/2022 11:00 AM EDT Pulse 80 02/24/2022 11:00 AM EDT Temperature 36.3 ??C (97.4 ??F) 02/24/2022 11:00 AM EDT Respiratory Rate 18 02/24/2022 11:00 AM EDT Oxygen Saturation 100% 02/24/2022 11:00 AM EDT Inhaled Oxygen Concentration - - Weight 75.2 kg (165 lb 12.8 oz) 02/24/2022 11:00 AM EDT Height - - Body Mass Index 23.47 02/16/2022 2:31 PM EDT documented in this encounter Progress Notes Julián Tinoco MD - 02/24/2022 11:00 AM EDT Images from the original note were not included. [facility] Medicine Radiation Oncology Radiation Oncology On-treatment Visit Note Patient ID Patient name: Karlo Kolb Date of : 1950 Referring: Edgar Villafuerte MD PCP: Alon Shah APRN Chief complaint: Cancer Staging Rectal cancer Staging form: Colon And Rectum, AJCC 8th Edition - Clinical: Stage IIA (cT3, cN0, cM0) - Signed by Juilán Tinoco MD on 02/08/2022 Treatment Details Intent: Definitive (Curative/Neoadjuvant) Concurrent Therapy: Xeloda (from Dr Melendrez) Modality: IMRT Initial Treatment Site Pelvis Prescribed Dose 45 Gy in 25 fractions Boost Treatment Site Rectum Prescribed Dose 50.4 Gy in 28 fractions Current Dose: 3.6 Gy in 2 fractions Interval Clinical Course General: No changes since last seen. Started this week. GI: Colostomy working well - no concerns. Still passing some rectal mucous, occasionally w a streak of blood. No n/v/abd pain. Pain: Pain score [...] confined to bed or chair Medications Medications 02/24/22 1135 Medication Sig Taking? CAPEcitabine (Xeloda) 500 mg tablet Take 3 tablets (1,500 mg) by mouth 2 times daily. Take within 30minutes after eating. Call clinic before/prior to starting medication/script. Take on days of radiation only. Do not start until radiation starts Yes ondansetron (Zofran) 8 mg Tablet Take 1 tablet by mouth every 8 hours as needed for Nausea. Patient not taking: Reported on 02/24/2022 acetaminophen (Tylenol) 500 mg Tablet Take 1,000 mg by mouth every 6 hours as needed for Pain. Exam Vitals: BP 139/77 Pulse 80 Temp 36.3 ??C (97.4 ??F) Resp 18 Wt 75.2 kg (165 lb 12.8 oz) SpO2 100% BMI 23.47 kg/m?? General: Appears well, in no distress Abd: Soft, nt. Colostomy beefy red, with semisolid output. Imaging/Labs Interval setup imaging has been checked and approved. See Aria for details. Impression/Plan Tolerance to radiotherapy: Tolerating as anticipated. Continue as planned. Followup: RTC for on-treatment assessment next week. No orders of the defined types were placed in this encounter. ??? National Cancer [place] (NCI) Comprehensive Cancer [facility] ??? [employer] Commission on Cancer (ACS Nalini) Accredited Cancer Program ??? [employer] (ACR) Accredited Radiation Oncology Program documented in this encounter Plan of Treatment Upcoming Encounters Date Type Specialty Care Team Description 03/16/2022 Scheduled View Only Radiation Oncology 03/17/2022 Scheduled View Only Radiation Oncology 03/17/2022 Office Visit Radiation Oncology Kerline Tinoco v, MD [address] [place] [address] [place] [address] (Wo rk) 03/18/2022 Scheduled View Only Radiation Oncology 03/21/2022 Scheduled View Only Radiation Oncology 03/22/2022 Scheduled View Only Radiation Oncology 03/23/2022 Scheduled View Only Radiation Oncology 03/24/2022 Scheduled View Only Radiation Oncology 03/24/2022 Office Visit Radiation Oncology Kerline Tinoco v, MD [address] [place] [address] RAD[place]ATION [place], [place] [id number] (Wo rk) 03/25/2022 Office Visit Hematology and Drew Melendrez, Oncology [facility] [place] [address] (Wo rk) 03/25/2022 Scheduled View Only Radiation Oncology 03/28/2022 Scheduled View Only Radiation Oncology 03/29/2022 Scheduled View Only Radiation Oncology 03/30/2022 Scheduled View Only Radiation Oncology 03/31/2022 Scheduled View Only Radiation Oncology 03/31/2022 Office Visit Radiation Oncology Kerline Tinoco v, MD [address] [place] [address] RAD[place]ATION [place], [place] [phone] (Wo rk) 04/01/2022 Office Visit Hematology Drew Pisano Oncology [facility] [place], [place] [address] (Wo rk) 04/01/2022 Scheduled View Only Radiation Oncology 04/04/2022 Scheduled View Only Radiation Oncology 04/04/2022 Notes Only Radiation Oncology Kerline Tinoco v, MD [address] [place] [address] [place] [address] (Wo rk) 04/08/2022 Office Visit Hematology and Drew Melendrez, Oncology [facility] ONCOLOGY [place], [place] [address] (Wo rk) documented as of this encounter Visit Diagnoses Diagnosis Rectal cancer Malignant neoplasm of rectum documented in this encounter Care Teams Alarm Installation Technician Relationship Specialty Start Date End Date Alon Shah, CHIEF CRNA PCP - General Family Medicine 12/08/[address] [place] [address] documented as of this encounter
--- OUTSIDE RECORDS SUMMARY | 2022-03-16 01:33 | XMS_ITS | Clinical Summary ---
:1950 Author Organization [facility] [place] [address] Care Team Providers Name Role Phone Alon Shah APRN Primary Care Provider Allergies No known active allergies Medications Medication Sig Dispensed Refills Start Date End Date Status acetaminophen Take 1,000 mg by 0 Active (Tylenol) 500 mg mouth every 6 Tablet hours as needed for Pain. CAPEcitabine (Xeloda) Take 3 tablets 168 tablet 0 02/16/2022 Active 500 mg (1,500 mg) by tabletIndications: mouth 2 times Rectal cancer daily. Take within 30 minutes after eating. Call clinic before/prior to starting medication/script . Take on days of radiation only. Do not start until radiation starts ondansetron (Zofran) 8 Take 1 tablet by 20 tablet 5 02/16/2022 Active mg TabletIndications: mouth every 8 Rectal cancer, hours as needed Drug-induced nausea for Nausea. and vomiting Additional Information Patient not taking. Reported on 03/01/2022 Active Problems Problem Noted Date Rectal cancer 01/26/2022 Cancer Staging: Clinical: Stage IIA (cT3 , cN0, cM0) - Signed by Julián Tinoco MD on 02/08/2022 Ostomy nurse consultation 01/26/2022 Attention to colostomy 01/26/2022 Encounters Date Type Specialty Care Team Description 03/11/2022 Office Visit Hematology and Drew Melendrez cer Oncology MD Cong 03/10/2022 Office Visit Radiation Oncology Julián Tinoco Rectal cancer MD Olivia 03/09/2022 Specialty Pharmacy Pharmacy Nahed Freeman [facility] 03/03/2022 Office Visit Radiation Oncology Julián Tinoco Rectal cancer MD Olivia 03/01/2022 TH Visit Hematology and Ripple, Drwe Rectal can cer (TeleHealth) Oncology MD Cong 02/24/2022 Office Visit Radiation Oncology Julián Tinoco Rectal cancer MD Olivia 02/22/2022 TH Visit Hematology and Drew Melendrez Rectal can cer (TeleHealth) Oncology MD Cong 02/17/2022 Specialty Pharmacy Pharmacy Den Freeamnisten Paty Cong 02/17/2022 Specialty Pharmacy Pharmacy Miriam Angel Prior Au thorization (Capecitabine 5 00 mg tablets) 02/16/2022 Hospital Encounter Hematology and Rectal cancer Oncology 02/16/2022 Office Visit Hematology and Drew Melendrez Rectal can cer; Oncology MD Cong Drug-induced na usea and vomiting 02/09/2022 Ancillary Radiation Oncology Ken Tinocoav Appointment MD Olivia 02/09/2022 Office Visit Radiation Oncology Julián Tinoco Rectal cancer MD Olivia 02/09/2022 Notes Only Radiation Oncology Aranza Candelario MSW 02/02/2022 Notes Only General Surgery Donavon Villafuerte MD 01/30/2022 Orders Only Radiation Oncology Julián Tinoco Rectal cancer MD Olivia 01/26/2022 Office Visit General Surgery Attention to colostomy; Ostomy nurse co nsultation 01/26/2022 Office Visit General Surgery Donavon Villafuerte Rectal ca aidan Atkins MD 01/26/2022 Hospital Encounter Radiology Donavon Villafuerte MD 01/04/2022 Orders Only General Surgery Donavon Villafuerte MD 12/16/2021 Hospital Encounter Lab 12/16/2021 External Results Provider, Scanning from Last 3 Months Social History Tobacco Use Types Packs/Day Years [...] place to sleep or slept in a [facility] (including now)? Sex Assigned at Date Recorded Not on file Last Filed Vital Signs Vital Sign Reading Time Taken Comments Blood Pressure 131/81 03/11/2022 9:24 AM EDT Pulse 79 03/11/2022 9:24 AM EDT Temperature 36.1 ??C (96.9 ??F) 03/11/2022 9:24 AM EDT Respiratory Rate 16 03/11/2022 9:24 AM EDT Oxygen Saturation 98% 03/11/2022 9:24 AM EDT Inhaled Oxygen Concentration - - Weight 75.3 kg (166 lb) 03/11/2022 9:24 AM EDT Height 179 cm (5' 10.47) 03/11/2022 9:24 AM EDT Body Mass Index 23.5 03/11/2022 9:24 AM EDT Plan of Treatment Upcoming Encounters Date Type Specialty Care Team Description 03/16/2022 Scheduled View Only Radiation Oncology 03/17/2022 Scheduled View Only Radiation Oncology 03/17/2022 Office Visit Radiation Oncology Kerline Tinoco v, MD [address] [place] [address] DR KELLY SHUKLA [place], [place] [id number] [phone] (Wo rk) 03/18/2022 Scheduled View Only Radiation Oncology 03/21/2022 Scheduled View Only Radiation Oncology 03/22/2022 Scheduled View Only Radiation Oncology 03/23/2022 Scheduled View Only Radiation Oncology 03/24/2022 Scheduled View Only Radiation Oncology 03/24/2022 Office Visit Radiation Oncology Kerline Tinoco v, MD [address] [place] [address] [place] [address] (Wo rk) 03/25/2022 Office Visit Hematology and Drew Melendrez, Oncology [facility] [place], [place] [address] (Wo rk) 03/25/2022 Scheduled View Only Radiation Oncology 03/28/2022 Scheduled View Only Radiation Oncology 03/29/2022 Scheduled View Only Radiation Oncology 03/30/2022 Scheduled View Only Radiation Oncology 03/31/2022 Scheduled View Only Radiation Oncology 03/31/2022 Office Visit Radiation Oncology Kerline Tinoco v, MD [address] [place] [address] RAD[address] ONCSPENCER [place], [place] [id number] [phone] (Wo rk) 04/01/2022 Office Visit Hematology and Drew Melendrez, Oncology [facility] [address] NGYUEN [place], [place] [address] (Wo rk) 04/01/2022 Scheduled View Only Radiation Oncology 04/04/2022 Scheduled View Only Radiation Oncology 04/04/2022 Notes Only Radiation Oncology Kerline Tinoco v, MD [address] [place] [address] DR MENDOZA ONCSPENCER [place], [place] [address] [phone] (Wo rk) 04/08/2022 Office Visit Hematology and Drew Melendrez, Oncology [facility] [place], [place] [address] (Wo rk) Health Maintenance Due Date Last Done Comments Covid-19 Vaccine (#1) 1956 Pneumoccocal Vaccine: 65+ (1 - PCV) 1957 Hepatitis C Screening 1969 Lipid Screening 1969 Tdap adult 1970 Tetanus vaccine 1970 Colonoscopy 1996 Zoster vaccine (1 of 2) 2001 Advance Directive 2006 AAA Screen 2016 Influenza (Flu) vaccine (1 of 1 - Influenza standard 2022 series) Goals Goal Patient Goal Associated Recent Patient-Stated? Author Type Problems Progress DH Home Medication Patient No Froylan ds, Compliance and Facing Nahed Newman, Understanding Action Plan [facility] Note: Formatting of this note might be d ifferent from the original. Complete 28 days of chemoradiation thera py without significant nausea Procedures Procedure Name Priority Date/Time Associated Comments Diagnosis LAB SCAN 03/09/2022 12:00 Results for this AM EDT procedure are i n the results section. LAB SCAN 03/01/2022 12:00 Results for this AM EDT procedure are i n the results section. DIFFERENTIAL, Routine 02/16/2022 3:31 PM Rectal cancer Results for this AUTOMATED EDT procedure are i n the results section. HEMOGRAM Routine 02/16/2022 3:31 PM Rectal cancer Results for this EDT procedure are i n the results section. HC CBC,PLT & AUTO DIFF Routine 02/16/2022 3:31 PM Rectal cance r EDT COMPREHENSIVE Routine 02/16/2022 3:31 PM Rectal cancer Results for this METABOLIC PANEL EDT procedure ar e in (NON-FASTING) the results section. HC CARCINO-EMBRYONIC Routine 02/16/2022 3:31 PM Rectal cancer Results for this AG ASSAY EDT procedure are i n the results section. HC VENIPUNCTURE Routine 02/16/2022 3:31 PM Rectal cancer Resul ts for this EDT procedure are i n the results section. CT RAD ONC BODY INTERP Routine 02/09/2022 2:51 PM Malignant ne oplasm Results for this ONLY EDT of rectum procedure are i n the results section. MRI PELVIS(RECTAL Routine 01/26/2022 2:10 PM Rectal cancer Res ults for this CANCER STAGING) EDT procedure ar e in the results section. SURGICAL PATHOLOGY Routine 12/16/2021 3:57 PM Res ults for this REPORT EDT procedure are i n the results section. SURGICAL PATHOLOGY Routine 12/16/2021 Results f or this SCAN procedure are i n the results section. from Last 3 Months Results SCAN DOC: LAB (03/09/2022 12:00 AM EDT)Only the most recent of2 resultswithin the time period is included. Narrative This result has an attachment that is no t available. Unknown MEDIA MGR SCAN EXT ORDR/RSLT DPYD PCR (02/16/2022 3:31 PM EDT) Component Value Ref Test Analysis Performed At [facility] Range Method Time Signature DPYD PCR INDICATION FOR STUDY: DPYD Genotyping [facility] RESULTS: Normal metabolizer, *1/*1 genotype [facility] INTERPRETATION: ??Normal gen otype, with normal expected enzyme activity. Absence LABORATORY of a variant does not rule out the possibility o f an undetected polymorphism. This result does not replace the need for therapeutic drug o r clinical monitoring. METHODS: The DPYD genotyping assay tested for the presence of the following three variants using a TaqMan allelic discrimination assay and detection of normal and mutant probes for each varian t: DPYD*2A ??(c.1905+1G>A, [id number]), DPYD*13 (c.1679T>G , [id number]), and DP YD c.2846A>T ([id number]). All variant positions are provided on the canonical transcri pt ([id number]). Genomic DNA was isolated from the submitted peripheral blood speci men. Real-time PCR was performed to amplify a short region spanning the variant site, and genotyping was performed by allelic discrimination using a mixture of f luorescently labeled probes, one of which is specific to the reference sequence, the other specific to the variant target. LIMITATIONS AND DISCLAIMERS: ??Although unlikely, rare variants or polymorphisms (known or unknown) have the potential to interfere with the performance of this test, producing false negative or false positive results. ??When genotyping results are not consistent with other clinical observa tions or test results, additional testing should be considered. This test was developed and its performance determined by the laboratory for Clinical Genomics and Advanced Technology (CGAT) at the [facility] It has not been cleared or approved by the U .S. Food and Drug Administration. The laboratory is regulated under CLIA as qual ified to perform high-complexity testing. This test is used for clinical purposes. It should not be regarded as investigational or for research. REFERENCES: 1. CPIC?? Guideline for Fluoropyrimidines and DPYD. https:// cpicpgx.org/ 2. Iman et al., Clinical Pharmacogenetics Imp lementation Consortium (CPIC) Guideline for Dihydropyrimidine Dehydrogenase Genotype and Fluoropyrimidine Dosin Update. Clin Pharmacol Ther. 2018 Sep;103(2):21 0-216. PMID: [id number] 3. Ponce Sibley, Pamela Roblero, Kayden Escalante, et al. Fluorouracil Ther apy and DPYD Genotype. In: Medical Genetics Summaries [Internet]. B fabrizio CONTEH): [facility] (); 2011? 2015 3. PMID: [id number] Specimen Anatomical Collection Method Collection Time Receive d Time (Source) Location / / Volume Laterality Blood 02/16/2022 3:31 PM 2 6:45 EDT PM EDT Resulting Agency Comment Spec In Lab Drew Melendrez MD CHEMISTRY ORDERABLES Performing Organization Address City/State/ZIP Code Phon e Number [place] [id number] [address] (ABNORMAL) Hemogram (02/16/2022 3:31 PM EDT) Analysis Performed At Patho logist Time Signature WBC 10.9 (H) 4.0 - 9.5 [facility] x10(3)/[facility] LABORATORY RBC 4.71 4.58 - [facility] BALAJI 5.54 [facility] x10(6)/[facility] LABORATORY Hemoglobin 13.3 (L) 13.7 - [facility] 16.[facility] g/dL [facility] LABORATORY Hematocrit 41.0 40.5 - [place] BAL[place] 48.5 % [facility] LABORATORY MCV 87.0 82.9 - [place] ABLAJI 93.1 fL [facility] LABORATORY MCH 28.2 27.5 - [place] 32.1 pg [facility] LABORATORY MCHC 32.4 32.0 - [place] 35.7 g/dL [facility] LABORATORY Platelets 333 145 - 357 [facility] x10(3)/[facility] LABORATORY RDWSD 50.2 (H) 36.0 - [facility] LABORATORY RDWCV 15.7 (H) 11.4 - [facility] 13.8 % [facility] LABORATORY MPV 9.8 7.6 - 12.9 [facility] LABORATORY nRBC % Auto 0.0 % [facility] LABORATORY nRBC Abs Auto 0.000 0.000 - [facility] 0.000 [facility] x10(3)/[facility] LABORATORY Specimen Anatomical Collection Method Collection Time Receive d Time (Source) Location / / Volume Laterality Blood 02/16/2022 3:31 PM 3:37 EDT PM EDT Resulting Agency Comment Spec In Lab Drew Melendrez MD HEMATOLOGY ORDERABLES Performing Organization Address City/State/[place] [address] (ABNORMAL) Differential, Automated (02/16/2022 3:31 PM EDT) [facility] gist Method Time Signature Neutrophils % 58.1 % [facility] LABORATORY Neutr Abs (ANC) 6.32 (H) 1.70 - [place] 6.10 [facility] x10(3)/[facility] LABORATORY Lymphocytes % 25.1 % [facility] LABORATORY Lymphocytes Abs 2.7 0.9 - 3.2 [facility] x10(3)/[facility] LABORATORY Monocytes % 11.6 % [facility] LABORATORY Monocyte Abs 1.3 (H) 0.3 - 0.9 [facility] x10(3)/[facility] LABORATORY Eosinophils % 4.2 % [facility] LABORATORY Eosinophils Abs 0.5 (H) 0.0 - 0.4 [facility] x10(3)/[facility] LABORATORY Basophils % 0.6 % [facility] LABORATORY Basophils Abs 0.1 0.0 - 0.1 [facility] x10(3)/[facility] LABORATORY Immature Gran % 0.40 % [facility] LABORATORY Comment: Immature granulocytes(IG's)percentage an d absolute count will include metamyelocytes, myelocytes, and promyelo cytes. Blood smears from CBCs yielding IG's will be scanned manually for concor dance. If this scan disagrees with the automated IG or if promyelocytes are not ed, a manual differential will be performed. Raiza Gran Abs 0.04 0.00 - 0.04 x10(3)/[facility]L [facility] LABORATORY Specimen Anatomical Collection Method Collection Time Receive d Time (Source) Location / / Volume Laterality Blood 02/16/2022 3:31 PM 2 3:37 EDT PM EDT Resulting Agency Comment Spec In Lab Drew Melendrez MD HEMATOLOGY ORDERABLES Performing Organization Address City/[facility]/ZIP Code Phon e Number [address] CEA (02/16/2022 3:31 PM EDT) athologist Signature CEA 3.9 ng/mL [facility] LABOR[facility]ORY Comment: Reference range: ??(20-69 years): Non-smoker: ??less than or equal to 3.8 ng/mL Smoker: ??less than 5.5 ng/ml This result was generated using a [place] Ginger immunoassay. ??Results obtained from other methods or manufacturers arnaldo ot be used interchangeably with this method. Specimen Anatomical Collection Method Collection Time Receive d Time (Source) Location / / Volume Laterality Blood 02/16/2022 3:31 PM 2 3:37 EDT PM EDT Resulting Agency Comment Spec In Lab Drew Melendrez MD CHEMISTRY ORDERABLES Performing Organization Address City/[facility]/[place] [address] (ABNORMAL) Comprehensive metabolic panel (non-fasting) (02/16/2022 3:31 PM EDT) athologist Signature Glucose Lvl 87 65 - 199 [facility] mg/dL [facility] LABORATORY Comment: Diabetes: >=200 mg/dL plus symp toms BUN 9 (L) 10 - 20 mg/dL [facility] LABORATORY Creatinine 0.60 (L) 0.80 - 1.50 mg/dL [facility] LABORATORY Sodium 140 135 - 145 mmol/L [facility] LABORATORY Potassium 4.2 3.5 - 5.0 mmol/L [facility] LABOR[facility] Comment: Please note: ??Patients with WBC >100,00 0 may have falsely elevated Potassium levels. ??For accurate Potassium quantif ication in these patients send serum separator tube (gold top) for subsequent determinations. ??Contact the Clinical Chemistry Laboratory if there are any qu estions. Chloride 105 98 - 107 mmol/L [facility] CO2 24 22 - 31 mmol/L [facility] Anion Gap 11 5 - 15 mmol/L [facility]OR[facility]ORY Calcium 9.2 8.5 - 10.5 mg/dL [facility] Total Protein 6.9 6.1 - 8.0 g/dL [facility] Albumin 3.9 3.2 - 5.2 g/dL [facility] AST 13 0 - 39 unit/L [facility] ALT 8 0 - 55 unit/L [facility] Alk Phos 68 40 - 130 unit/L [facility] Total Bilirubin 0.3 0.2 - 1.3 mg/dL [facility] LABORATORY Estimated GFR 104 >=60 mL/min/1.73 m?? [facility] Comment: This patient's estimated GFR was calcula shivani using the 2020 CKD-EPI equation. The estimated GFR can vary from the lane ured GFR by up to 30% in the absence of rapidly changing kidney function. Assess ment of the estimated GFR is not appropriate when creatinine concentratio ns are rapidly changing. For clinical situations in which a more precise estim ate of GFR is necessary, consider alternative methods of GFR estimation ward ch as a 24-hour urine creatinine clearance. Assignment of CKD stage 1-5 for patients with an eGFR near the transition point between stages may be based on clinical assessment of muscle mass and symptoms in addition to eGFR. Specimen Anatomical Collection Method Collection Time Receive d Time (Source) Location / / Volume Laterality Blood 02/16/2022 3:31 PM 2 3:37 EDT PM EDT Resulting Agency Comment Spec In Lab Drew Melendrez MD CHEMISTRY ORDERABLES Performing Organization Address City/State/ZIP Code Phon e Number [place] [id number]OSP[address] LAB[address] Drive CT Rad Onc Body Interp Only (02/09/2022 2:51 PM EDT) Anatomical Region Laterality Modality Abdomen Computed Tomography Specimen (Source) Anatomical Location Collection Method / Collectio n Time Received Time / Laterality Volume Impressions 02/09/2022 5:[address] for radiation treatment planning purposes. Rectal mass. Thank you for letting us participate in the care of this patient. ??If you are a health care provider and have any questi ons regarding this report, please contact the number below. ??For patients who have questions please contact the health memory care program resident that requested your imaging first. ? Narrative 02/09/2022 5:04 PM EDT EXAMINATION: CT RAD ONC BODY INTERP ONLY CLINICAL HISTORY: 71M mrT3N0 low rectal adenoca TECHNIQUE: Limited CT without the use of oral or IV contrast enhancement, performed for the purposes of localizati on for radiation treatment. COMPARISON: Pelvic MRI 01/26/2022 FINDINGS: Pelvis: Solid organs: Within normal limits Bowel and mesentery: Circumferential rec andrew wall thickening better evaluated by recent MRI. No obstructive process. Left lower quadrant colostomy. Lymph nodes: No adenopathy Osseous structures: No suspicious lesion s Procedure Note Donavon Beth MD - 02/09/2022Format ting of this note might be different from the original. EXAMINATION: CT RAD ONC BODY INTERP ONLY CLINICAL HISTORY: 71M mrT3N0 low rectal adenoca TECHNIQUE: Limited CT without the use of oral or IV contrast enhancement, performed for the purposes of localizati on for radiation treatment. COMPARISON: Pelvic MRI 01/26/2022 FINDINGS: Pelvis: Solid organs: Within normal limits Bowel and mesentery: Circumferential rec andrew wall thickening better evaluated by recent MRI. No obstructive process. Left lower quadrant colostomy. Lymph nodes: No adenopathy Osseous structures: No suspicious lesion s IMPRESSION CT for radiation treatment planning purp oses. Rectal mass. Thank you for letting us participate in the care of this patient. If you are a health care provider and have any questi ons regarding this report, please contact the number below. For patients w ho have questions please contact the health memory care program resident that requested your imaging first. Electronically signed by: Donavon zafar MD, [facility] ([phone]), at 02/09/2022 5:04 PM Julián Tinoco MD IMG OUTSIDE INTERPRETATION O RDERATRACEY MRI Pelvis (Rectal Cancer Staging) (01/26/2022 2:10 PM EDT) Anatomical Region Laterality Modality Pelvis Magnetic Resonance Specimen (Source) Anatomical Location Collection Method / Collectio n Time Received Time / Laterality Volume Impressions 01/26/2022 4:41 PM EDT Rectal cancer T category T3c. References: Primary Tumor TX- Cannot be assessed T0- No evidence of primary tumor Tis- Intraepithelial or invasion of lami na propria T1- Invades submucosa T2- Invades muscularis propria T3- Invades through the muscularis propr ia into qamar-colorectal tissues: ?a. <1 mm ?b. 1-5 mm ?c. 5-15 mm ?d. >15 mm T4a- Penetrates to the surface of viscer al peritoneum T4b- Directly invades/adherent to other organs/structures Thank you for letting us participate in the care of this patient. ??If you are a health care provider and have any questi ons regarding this report, please contact the number below. ??For patients who have questions please contact the health memory care program resident that requested your imaging first. ? Electronically signed by: Donavon zafar MD, [facility] ([phone]), at 01/26/2022 4:41 PM Narrative 01/26/2022 4:41 PM EDT EXAMINATION: MRI PELVIS(RECTAL CANCER STAGING) CLINICAL HISTORY: rectal cancer TECHNIQUE: Multisequence, multiplanar hi gh-resolution MRI of the pelvis was performed prior to and following the int ravenous administration of 14mL of Dotarem. COMPARISON: PET/CT 12/09/2019 FINDINGS: TUMOR: Distance from caudal tumor margin to og verge: 8cm Distance from caudal tumor margin to top of anal sphincter: 5.2cm Relationship to puborectal sling: Above Relationship to anterior peritoneal refl ection: Straddles Craniocaudal tumor length: 5.0cm Location: Circumferential Morphology: Annular EXTRAMURAL INVASION & T CATEGORY: Depth of extramural spread: 10mm at 6:00 on series 2 image 21 T category: T3c RELATIONSHIP TO MESORECTAL FASCIA: Distance from the tumor border to MRF: 0 mm at 6 o?clock, series 2 image 24 LYMPH NODES, VENOUS INVASION AND TUMOR D EPOSITS: Morphologically suspicious mesorectal ly mph nodes: No Suspicious extramesorectal lymph nodes: No Suspicious IVONNE lymph nodes?: No Extramural venous invasion: Absent OTHER FINDINGS: Status post partial colectomy, left lowe r quadrant colostomy and long Tidwell pouch creation. Small bowel: Normal Reproductive structures: Normal Osseous structures: No marrow signal abn ormality Procedure Note Donavon Beth MD - 01/26/2022Format ting of this note might be different from the original. EXAMINATION: MRI PELVIS(RECTAL CANCER ST AGING) CLINICAL HISTORY: rectal cancer TECHNIQUE: Multisequence, multiplanar hi gh-resolution MRI of the pelvis was performed prior to and following the int ravenous administration of 14mL of Dotarem. COMPARISON: PET/CT 12/09/2019 FINDINGS: TUMOR: Distance from caudal tumor margin to og verge: 8cm Distance from caudal tumor margin to top of anal sphincter: 5.2cm Relationship to puborectal sling: Above Relationship to anterior peritoneal refl ection: Straddles Craniocaudal tumor length: 5.0cm Location: Circumferential Morphology: Annular EXTRAMURAL INVASION & T CATEGORY: Depth of extramural spread: 10mm at 6:00 on series 2 image 21 T category: T3c RELATIONSHIP TO MESORECTAL FASCIA: Distance from the tumor border to MRF: 0 mm at 6 o?clock, series 2 image 24 LYMPH NODES, VENOUS INVASION AND TUMOR D EPOSITS: Morphologically suspicious mesorectal ly mph nodes: No Suspicious extramesorectal lymph nodes: No Suspicious IVONNE lymph nodes?: No Extramural venous invasion: Absent OTHER FINDINGS: Status post partial colectomy, left lowe r quadrant colostomy and long Tidwell pouch creation. Small bowel: Normal Reproductive structures: Normal Osseous structures: No marrow signal abn ormality IMPRESSION Rectal cancer T category T3c. References: Primary Tumor TX- Cannot be assessed T0- No evidence of primary tumor Tis- Intraepithelial or invasion of lami na propria T1- Invades submucosa T2- Invades muscularis propria T3- Invades through the muscularis propr ia into qamar-colorectal tissues: a. <1 mm b. 1-5 mm c. 5-15 mm d. >15 mm T4a- Penetrates to the surface of viscer al peritoneum T4b- Directly invades/adherent to other organs/structures Thank you for letting us participate in the care of this patient. If you are a health care provider and have any questi ons regarding this report, please contact the number below. For patients w ho have questions please contact the health memory care program resident that requested your imaging first. Electronically signed by: Donavon zafar MD, [facility] ([phone]), at 01/26/2022 4:41 PM Donavon Villafuerte MD IMG MRI ORDERABLES Surgical Pathology Report (12/16/2021 3:57 PM EDT) Component Value Ref Test Analysis Performed At [facility] Range Method Time Signature Surgical [id number] ? Location: [facility] Pathology [place] Report The signing pathologist has (i) examined the relevant preparation(s) for the MEMORIAL specimen(s) and (ii) rendered or confirmed the diagnosis(es) . HOSPITAL LABORATORY . ? Addendum ADDENDUM DISCUSSION Part C: ??Outside slide(s) labeled [id number], collection da te 11/05/2021. Colon, rectum, mass, biopsy: Immunostains were performed for MLH1, MSH2, MSH6 and PMS2 reveal intact nuclear staining in dysplastic/lesional cells (per Dr. Melendrez's request). In a very small percentage o f tumors, there may still be an underlying hereditary defect in these DNA mismatch repai r genes despite intact nuclear expression of the protein in tumor cells . Genetic co unseling and/or additional workup is indicated in patients with a family history that meets current criteria for Mcconnell syndrome screening. Immunohistochemistry Studies: These IHC studies provide e pathologist with adjunctive diagnostic information. Antibody specificity has be en verified by testing antibodies on a series of in-house tissues with known immunohi stochemical performance characteristics. The clinical interpretation of any antib shyam positive staining or its absence is evaluated within the context of clinical pre sentation, morphology, histopathological criteria and other diagnostic tests. Block ? Antibody ?? Result (Positive/Negative) part C ?? MLH1 ?intact nuclear staining in dysplastic/lesional cells ? MSH2 ? i ntact nuclear staining in dysplastic/lesional cells ? MSH6 ? i ntact nuclear staining in dysplastic/lesional cells ? PMS2 ? i ntact nuclear staining in dysplastic/lesional cells Immunohistochemical assay wa s performed on paraffin-embedded tissue sections fixed in 10% neutral buffered for wilfred for 6-72 hours using the polymer system technique with appropriate controls. The assay was performed according to the paint booth operator's instructions using anti-MLH -1 ([id number]), anti-MSH-2 ([id number]), anti-MSH-6 (44), and anti-PMS-2 (MRQ-28) antibodies. Electronically signed by: ?Layla Almazan MD Verified: ??02/23/2022 9:56 ?? Pathologist Performed at: ??-[facility] [place] [place], [place] ?Surgic al Pathology DIAGNOSIS =CONSULTATION CASE A - Outside slide(s) labeled [id number], collection date 10/29. Rectum, biopsy: Tubulovillous adenoma with focal high grade dysplasia. B - ??Outside slide(s) labeled [id number], collection date . Sigmoid colon, biopsy: Hyperplastic polyp with prolapse feature. C - Outside slide(s) labeled [id number], collection date 10/26. Colon, rectum, mass, biopsy: Tubulovillous adenoma with a t least high grade dysplasia. A more severe process can not be evaluated due to superficial and fragmentation of th e tissue. Electronically signed by: ?Layla Almazan MD Verified: ??12/19/2021 14:57 ??Pathologist Performed at: ??-[facility] [place], [place], [place] . ADDITIONAL STUDIES Whole slide scan: [id number] C SPECIMEN(S) SUBMITTED CONSULTATION CASE A - 4 slide(s) labeled [id number], collection date 10/29/2021. B - 2 slide(s) labeled [id number], collection date 10/29/2021. C - 6 slide(s) labeled [id number], collection date 11/05/2021 . [id number] Report to: [facility] Surgical Pathology Department [employer], [facility], 2nd Floor [address] [place], [place] ??[address] CLINICAL INFORMATION Rectal cancer SPECIMEN PROCESSING [facility] ([facility]) pathology slide(s) are reviewed. ??Refer to Diagnosis and Specimen Submitted for specific case infor emperatriz. For the full text of the [facility] report(s) please refer t o Non-DH Documentation Pathology in the electronic health record (eDH). Specimen (Source) Anatomical Collection Method Collection Time Re ceived Time Location / / Volume Laterality 12/16/2021 3:57 PM EDT Drew Melendrez MD PATHOLOGY/CYTOLOGY ORDERABLE S Performing Organization Address City/State/ZIP Code Phon e Number [place] [id number] Scan Doc: Surgical Pathology (12/16/2021) Narrative This result has an attachment that is no t available. Drew Melendrez MD MEDIA MGR SCAN EXT ORDR/RSLT from Last 3 Months Insurance Payer Benefit Plan / Subscriber ID Effective Dates Phone Addre ss Type Group MEDICARE MEDICARE PART [id number] 2021-Presen [phone] [id number] [place] [id number] MEDICAID [place] [id number] 2021-Presen [phone] [address] [place] [address] Care Teams Pickling Operator Relationship Specialty Start Date End Date Alon Shah, CABIN CREW PCP - General Family Medicine 12/08/[address] [place], [place] [address]
--- OUTSIDE RECORDS SUMMARY | 2022-03-16 01:33 | XMS_ITS | Encounter Summary ---
:1950 Author Organization [facility] [place] [address] Care Team Providers Name Role Phone Alon Shah LAURA Primary Care Provider Encounter Details Date Type Department Care Team Description 03/11/2022 Office Visit Hematology/Oncology at [facility] , Drew Gar MD Rectal cancer [address] ONCOLOGY [place], [place] [id number] [phone] Social History Tobacco Use Types Packs/Day Years [...] place to sleep or slept in a usp (including now)? Sex Assigned at Date Recorded [...] Mass Index 23.5 03/11/2022 9:24 AM EDT documented in this encounter Progress Notes Drew Melendrez MD - 03/11/2022 9:00 AM EDT Subjective Patient ID: Karlo oKlb is 71 y.o. Problem List: 1. Rectal cancer, clinical stage T3c, N0, M0 A. Presented with a change in bowel habits with watery, mucous stool and intermittent BRBPR. He had incontinence of stool and weight loss. 10/29/21 - Flex sig - near obstructing tumor at the anal verge. Unable to do complete colonoscopy Path - A - Outside slide(s) labeled [id number], collection date 10/29/2021. Rectum, biopsy: Tubulovillous adenoma with focal high grade dysplasia. B - ??Outside slide(s) labeled [id number], collection date 10/29/2021. Sigmoid colon, biopsy: Hyperplastic polyp with prolapse feature. C - Outside slide(s) labeled [id number], collection date 11/05/2021. Colon, rectum, mass, biopsy: Tubulovillous adenoma with at least high grade dysplasia. A more severe process can not be evaluated due to superficial and fragmentation of the tissue. Part C: ??Outside slide(s) labeled [id number], collection date 11/05/2021. Colon, rectum, mass, biopsy: Immunostains were performed for MLH1, MSH2, MSH6 and PMS2 reveal intact nuclear staining in dysplastic/lesional cells (per Dr. Melendrez's request). B. CT c/a/p 10/29/21 - Impression: 1. Circumferential mass seen in the rectum consistent with the patient's known neoplasm. There is infiltration of the presacral soft tissues and indistinct margins anteriorly with the prostate gland. There are 2 air fluid collections posteriorly which appear to communicate with the rectum at the level of the mass. The mass causes obstruction of the colon. 2. 1.4 x 1.8 cm left adrenal nodule. This is indeterminate. PET-CT or CT/MR of the adrenal gland isrecommended 3. No evidence of thoracic metastatic disease C. Diverting colostomy 10/29/21 (Dr. Praker) D. PET scan 12/08/21 - IMPRESSION: 1. Large FDG avid rectal mass with local invasion into the right perirectal and presacral soft tissues. 2. No evidence of regional tiny or distant sites of metastasis. 3. Moderately FDG avid benign-appearing L1 vertebral body compression fracture. MRI pelvis 01/26/22 - IMPRESSION Rectal cancer T category T3c. E. 02/23/22 began radiation with concurrent oral capecitabine Expected completion date 04/04/22. ?? 2. S/p inguinal hernia repair HPI Karlo Kolb is seen in f/u of rectal cancer. The history is summarized above. Karlo is accompanied to clinic today by his significant other, Willa Salena. He is feeling pretty well. The stool in the colostomy is soft. He also has some output from the rectum which is mucous like and he also notices some brown in there. No mouth sores and no hand foot syndrome. He is eating well well with no nausea or vomiting. His energy level and strength are good. Soc Hx:Lives in [place], [place] Tob - Current. About a half pack per day Etoh - A couple of drinks per day Fam Hx: Father - , DM, CVA Mother - , ovarian cancer Sibs - 2 brothers, in good health Children - None No other cancer in the family that he is aware of. Review of Systems Physical Exam HENT: Head: Normocephalic and atraumatic. Eyes: General: No scleral icterus. Cardiovascular: Rate and Rhythm: Normal rate. Pulmonary: Effort: No respiratory distress. Neurological: Mental Status: He is alert. Psychiatric: Mood and Affect: Mood normal. Labs: WBC/ANC - 6., Hgb/Hct - 13.4/40.6, Plts - 162,000. BUN/Cr - 15/0.7. Lytes and LFTs unremarkable. DPYD - Normal metabolizer, *1/*1 genotype CEA 02/16/22 3.9 10/29/21 1.4 Assessment and Plan Karlo Kolb is 71 yo, seen in f/u of rectal cancer. Presented with change in bowel habits and intermittent blood per rectum. Colonoscopy by Dr. Parker 10/29/21 - distal rectal mass, biopsied. The appearance was consistent with an adenocarcinoma. A CT wasdone the same day. A circumferential mass seen in the rectum with infiltration of the presacral soft tissues and indistinct margins anteriorly with the prostate gland. The mass was causing obstruction of the colon. Following the procedure he was unabel to move his bowels or pass flatus. As a result, he was taken urgently to the OR and underwent a diverting colostomy. Path from the bx showed a tubulovillous adenoma with at least high grade dysplasia. Because of the absence of definitive diagnosis of malignancy, a second biopsy was done on 11/05/21. This also showed fragments of tubulovillous adenoma positive for focal high grade dysplasia without evidence of invasive adenocarcinoma. Staging - no evidence of distant metastatic disease. The initial CT scan showed an adrenal nodule. APET scan was done for further evaluation of this and the adrenal nodule was negative. The rectal mass was FDG avid with local invasion into the right perirectal and presacral soft tissues. MRI of the pelvis showed the primary tumor to be T3c, without suspicious adenopathy. The CEA was 1.4. GITB 02/02/22. The recommendation was for total neoadjuvant therapy: long course chemoradiation followed by folfox. The issue of the lack of a definitive diagnosis of invasive adenocarcinoma was discussed. Given the risk of potential complications of repeat biopsy and the evidence of invasive disease rad iologically, the decision was not to attempt a repeat bx. He began radiation on 02/23/22. He is receiving concurrent oral capecitabine, 825 mg/m2 = 1500 mg (rounded) twice a day on days of radiation only. ??Thus far he is tolerating therapy well and will continue. We will continue to see him weekly with labs. The expected completion date is 04/04/22. We reviewed the overall plan today, including the plan for chemotherapy alone after the completion of radiation. We reviewed the schedule of therapy with Folfox and Capox and potential side effects, including peripheral neuropathy. documented in this encounter Plan of Treatment Upcoming Encounters Date Type Specialty Care Team Description 03/16/2022 Scheduled View Only Radiation Oncology 03/17/2022 Scheduled View Only Radiation Oncology 03/17/2022 Office Visit Radiation Oncology Kerline Tinoco v, MD [address] [place] [address] [place] [address] (Lisa rk) 03/18/2022 Scheduled View Only Radiation Oncology 03/21/2022 Scheduled View Only Radiation Oncology 03/22/2022 Scheduled View Only Radiation Oncology 03/23/2022 Scheduled View Only Radiation Oncology 03/24/2022 Scheduled View Only Radiation Oncology 03/24/2022 Office Visit Radiation Oncology Kerline Tinoco v, MD [address] [place] [address] RADIATION ONCSPENCER [place], [place] [id number] (Wo rk) 03/25/2022 Office Visit Hematology and Drew Melendrez, Oncology [facility] ONCOLOGY [place], [place] [address] (Wo rk) 03/25/2022 Scheduled View Only Radiation Oncology 03/28/2022 Scheduled View Only Radiation Oncology 03/29/2022 Scheduled View Only Radiation Oncology 03/30/2022 Scheduled View Only Radiation Oncology 03/31/2022 Scheduled View Only Radiation Oncology 03/31/2022 Office Visit Radiation Oncology Kerline Tinoco v, MD [address] [place] [address] RADIATION [place]CSPENCER [place], [place] [id number] (Wo rk) 04/01/2022 Office Visit Hematology and Drew Melendrez, Oncology [facility] ONCOLOGY [place], [place] [address] (Wo rk) 04/01/2022 Scheduled View Only Radiation Oncology 04/04/2022 Scheduled View Only Radiation Oncology 04/04/2022 Notes Only Radiation Oncology Kerline Tinoco v, MD [address] [place] [address] RADIATION ONCSPENCER [place], [place] [id number] (Wo rk) 04/08/2022 Office Visit Hematology and Drew Melendrez Oncology [facility] ONCOLOGY [place], [place] [address] (Wo rk) documented as of this encounter Goals Goal Patient Goal Associated Recent Patient-Stated? Author Type Problems Progress DH Home Medication Patient No Froylan ds, Compliance and Facing Nahed Newman, Understanding Action Plan [facility] Note: Formatting of this note might be d ifferent from the original. Complete 28 days of chemoradiation thera py without significant nausea documented as of this encounter Visit Diagnoses Diagnosis Rectal cancer Malignant neoplasm of rectum documented in this encounter Care Teams Hcc Coders Relationship Specialty Start Date End Date Alon Shah, BOTTLE AND GLASS INSPECTOR PCP - General Family Medicine 12/08/[address] [place], [place] [id number] documented as of this encounter
--- OUTSIDE RECORDS SUMMARY | 2022-03-16 01:33 | XMS_ITS | Encounter Summary ---
:1950 Author Organization [facility] Address [address] [place] [address] Care Team Providers Name Role Phone Unknown, Provider Primary Care Provider Encounter Details Date Type Department Care Team Description 10/21/2021 Lab Requisition [facility] Outr Resulting Lab, Pathology & Laboratory Provider [facility] [address] [place] [address] Social History Tobacco Use Types Packs/Day Years Used Date Never Assessed Sex Assigned at Date Recorded Not on file documented as of this encounter Plan of Treatment Not on filedocumented as of this encounter Procedures Procedure Name Priority Date/Time Associated Comments Diagnosis PSA TOTAL, Routine 10/20/2021 13:50 Results for this DIAGNOSTIC EST procedure are i n the results section. documented in this encounter Results PSA TOTAL, DIAGNOSTIC (10/20/2021 13:50 EST) Pathologist Sig nature PSA 1.6 0.0 - 6.5 ng/mL [facility] Specimen Blood - Venous blood (substance) Narrative [facility] - 10/21/2021 18:20 EST NOTE: Serum PSA concentration should not be in terpreted as absolute evidence for the presence or absence of malignant disease. Assayed on Siemens ADVIA Centaur XPT usi ng chemiluminescent technology.??Values obtained by using different assay methods cannot be used interchangeably. Performing Organization Address City/State/ZIP Code Phon e Number [facility] [address] [place] [address] SERVICES documented in this encounter Visit Diagnoses Not on filedocumented in this encounter Care Teams Multi Site Leasing Consultant Relationship Specialty Start Date End Date Unknown, Provider, PCP - General 10/26/21 documented as of this encounter
--- OUTSIDE RECORDS SUMMARY | 2022-03-16 01:33 | XMS_ITS | Encounter Summary ---
:1950 Author Organization [facility] Address [address] [place] [address] Care Team Providers Name Role Phone Unknown, Provider Primary Care Provider Encounter Details Date Type Department Care Team Description 10/29/2021 Lab Requisition [facility] Yojana Parker for other Pathology & M, DO general examination Laboratory Medicine - [address] [facility] [address] [place] [phone] Social History Tobacco Use Types Packs/Day Years Used Date Never Assessed Sex Assigned at Date Recorded Not on file documented as of this encounter Plan of Treatment Not on filedocumented as of this encounter Procedures Procedure Name Priority Date/Time Associated Diagnosis Comme nts SURGICAL PATHOLOGY Today 10/29/2021 15:50 Encounter for othe r Results for this EST general examination procedur e are in the results section. documented in this encounter Results SURGICAL PATHOLOGY (10/29/2021 15:50 EST) Note to Patient The following [facility] pathology results CENTER have been interpreted LABORATORY by your pathologist SERVICES and may be available to you before your health provider has had the opportunity to review them. Please allow time for your provider to receive these results and explore management options, if applicable. Final Diagnosis A. SIGMOID COLON, BIOPSY: [facility] MEDICAL - Hyperplastic polyp with prolapse changes CENTER LABORATORY SERVICES Attestation By the signature [facility] Electronica lly below, the attending CENTER signed by physician Ronen certifies LABORATORY Maria G Somers MD on that they have 1) SERVICES 11/01/2021 a t 1140 personally conducted a gross and/or microscopic examination of the described specimen(s), and/or personally interpreted the results of laboratory testing of the described specimen(s), and 2) personally rendered or confirmed the above diagnosis. Clinical History Rectal cancer [facility] Gross Description A. [facility] Received in formalin rene d with proper patient identification (initials M, B) and sigmoid polyp @ 30 cm is a negrete brown irregular polypoid tissue with attached brown possible fecal material (1.2 x 0 CENTER .9 x 0.8 cm). The specimen i s serially sectioned and entirely submitted in A1-A2. LABORATORY SERVICES Maury Amaury 10/30/2021 11:28 Performing Lab [facility] Scanned Images [facility] Specimen Tissue - Entire sigmoid colon (body stru cture) Performing Organization Address City/State/ZIP Code Phon e Number [facility] [address] [place] [address] SERVICES documented in this encounter Visit Diagnoses Diagnosis Encounter for other general examination documented in this encounter Care Teams Entry Level Manufacturing Engineer Relationship Specialty Start Date End Date Unknown, Provider, PCP - General 10/26/21 documented as of this encounter
--- OUTSIDE RECORDS SUMMARY | 2022-03-16 01:33 | XMS_ITS | Clinical Summary ---
:1950 Author Organization [facility] Address [address] [place] [address] Care Team Providers Name Role Phone Unknown, Provider Primary Care Provider Social History Tobacco Use Types Packs/Day Years Used Date Never Assessed Sex Assigned at Date Recorded Not on file Plan of Treatment Health Maintenance Due Date Last Done Comments Hepatitis C Screen 1950 COVID-19 Vaccine (#1) 1956 Fall Risk Screening 2016 Insurance Payer Benefit Plan / Subscriber ID Effective Phone Address T ype Group Dates MEDICARE MEDICARE A/B [id number] 2016-Prese [address] Medicare [place] [address] MEDICAID [place] [id number] 2021-Prese [address] Medicaid [place] nt [facility] [id number] Karlo Kolb Personal/Family Self 1950 [address] [place] [address] Care Teams Sales Representative Health Insurance Relationship Specialty Start Date End Date Unknown, Provider, PCP - General 10/26/21
--- OUTSIDE RECORDS SUMMARY | 2022-03-16 01:33 | XMS_ITS | Encounter Summary ---
:1950 Author Organization [facility] Address [address] [place] [address] Care Team Providers Name Role Phone Unknown, Provider Primary Care Provider Encounter Details Date Type Department Care Team Description 11/05/2021 Lab Requisition [facility] Yojana Parker for other Pathology & M, DO general examination Laboratory Medicine - [address] [facility] [address] [place] [phone] Social History Tobacco Use Types Packs/Day Years Used Date Never Assessed Sex Assigned at Date Recorded Not on file documented as of this encounter Plan of Treatment Not on filedocumented as of this encounter Procedures Procedure Name Priority Date/Time Associated Diagnosis Comme nts SURGICAL PATHOLOGY Today 11/05/2021 7:39 EST Encounter for o ther Results for this general examination procedur e are in the results section. documented in this encounter Results SURGICAL PATHOLOGY (11/05/2021 7:39 EST) Note to Patient The following [facility] pathology results CENTER have been interpreted LABORATORY by your pathologist SERVICES and may be available to you before your health provider has had the opportunity to review them. Please allow time for your provider to receive these results and explore management options, if applicable. Final Diagnosis A. COLON, RECTUM, MASS, BIOPSY: [facility] DICAL - Fragments of tubulovillous adenoma positive fo r focal high grade dysplasia. CENTER - Negative for invasive adenocarcinoma. L ABORATORY - Deeper sections x3 examined. SERVICES - See comment. Diagnosis Comment Preliminary results [facility] MEDICAL were discussed by Dr. APRIL Hart ([place] LABORATORY resident) with Dr. Claire Parker on 11/08/2021 at 9:14 am EDT. Attestation By the signature [facility] MEDICAL Electronica lly below, the attending CENTER signed by physician Wai certifies LABORATORY Italia Somers MD on that they have 1) SERVICES 11/08/2021 at 1433 personally conducted a gross and/or microscopic examination of the described specimen(s), and/or personally interpreted the results of laboratory testing of the described specimen(s), and 2) personally rendered or confirmed the above diagnosis. Clinical History Rectal mass, suspect [facility] MEDICAL cancer, repeat bx, CENTER diverting colostomy LABORATORY SERVICES Gross Description A. [facility] MEDICAL Received in formalin rene d with proper patient identification (initials M, B) and obstructing mass BXs are ten pale negrete-white tissues (0.5 x 0.4 x 0.2 cm to 0.2 x 0.2 x 0.2 cm), and an aggregate of CENTER pale negrete-white tissue fragm ents (0.7 x 0.6 x 0.2 cm). The tissues are submitted in A1-A2, and the aggregate of tissue fragments is entirely submitted in A3. LABORATORY SERVICES Maury Rebolledo 11/07/2021 11:37 Performing Lab [facility] Scanned Images [facility] Specimen Tissue - Specimen from rectum (specimen) Performing Organization Address City/State/ZIP Code Phon e Number [facility] [address] [place] [address] SERVICES documented in this encounter Visit Diagnoses Diagnosis Encounter for other general examination documented in this encounter Care Teams Group Home Manager Relationship Specialty Start Date End Date Unknown, Provider, PCP - General 10/26/21 documented as of this encounter
--- OUTSIDE RECORDS SUMMARY | 2022-03-16 01:33 | XMS_ITS | Encounter Summary ---
:1950 Author Organization [facility] Address [address] [place] [address] Care Team Providers Name Role Phone Weston MillsAlon LAURA Primary Care Provider Encounter Details Date Type Department Care Team Description 03/10/2022 Office Visit Radiation Oncology at [facility] Julián MD Rectal cancer [address] RADIATION ONCOLOGY [facility] [address] [phone] Social History Tobacco Use Types Packs/Day Years [...] Sign Reading Time Taken Comments Blood Pressure 131/90 03/10/2022 10:00 AM EDT Pulse 81 03/10/2022 10:00 AM EDT Temperature 36.5 ??C (97.7 ??F) 03/10/2022 10:00 AM EDT Respiratory Rate 16 03/10/2022 10:00 AM EDT Oxygen Saturation 98% 03/10/2022 10:00 AM EDT Inhaled Oxygen Concentration - - Weight 75.7 kg (166 lb 12.8 oz) 03/10/2022 10:00 AM EDT Height - - Body Mass Index 23.61 03/03/2022 10:44 AM EDT documented in this encounter Progress Notes Julián Tinoco MD - 03/10/2022 10:15 AM EDT Images from the original note were not included. [facility] Center Medicine Radiation Oncology Radiation [...] 50.4 Gy in 28 fractions Current Dose: 19.8 Gy in 11 fractions Interval Clinical Course General: No changes since last seen. More urgency w occ urge UI GI: Colostomy working well - no concerns. [...] confined to bed or chair Medications Medications 03/10/22 1104 Medication Sig Taking? CAPEcitabine (Xeloda) 500 mg [...] Nausea. Patient not taking: No sig reported acetaminophen (Tylenol) 500 mg Tablet Take 1,000 mg by mouth every 6 hours as needed for Pain. Exam Vitals: BP 131/90 Pulse 81 Temp 36.5 ??C (97.7 ??F) Resp 16 Wt 75.7 kg (166 lb 12.8 oz) SpO2 98% BMI 23.61 kg/m?? General: Appears well, in no distress Abd: Soft, nt. Colostomy beefy red, with semisolid output. Imaging/Labs Interval setup imaging has been checked and approved. See Aria for details. Impression/Plan Tolerance to radiotherapy: Tolerating as anticipated. Continue as planned. Urinary urgency Rec Aleve qAM with breakfast for presumed RT cystitis Followup: RTC for on-treatment assessment next week. No orders of the defined types were placed in this encounter. ??? [facility] [place] ([facility]) [facility] ??? [employer] Commission on Cancer (ACS Nal[place]) Accredited Cancer Program ??? [employer] (A[employer]) Accredited Radiation Oncology Program documented in this encounter Plan of Treatment Upcoming Encounters Date Type Specialty Care Team Description 03/16/2022 Scheduled View Only Radiation Oncology 03/17/2022 Scheduled View Only Radiation Oncology 03/17/2022 Office Visit Radiation Oncology Kerline Tinoco v, MD [address] [place] [address] RADIATION [place], [place] [phone] (Wo rk) 03/18/2022 Scheduled View Only Radiation Oncology 03/21/2022 Scheduled View Only Radiation Oncology 03/22/2022 Scheduled View Only Radiation Oncology 03/23/2022 Scheduled View Only Radiation Oncology 03/24/2022 Scheduled View Only Radiation Oncology 03/24/2022 Office Visit Radiation Oncology Kerline Tinoco v, MD [address] [place] [address] DR [place] [place], [place] [address] (Wo rk) 03/25/2022 Office Visit Hematology and Drew Melendrez, Oncology [facility] [address] [place] [address] (Wo rk) 03/25/2022 Scheduled View Only Radiation Oncology 03/28/2022 Scheduled View Only Radiation Oncology 03/29/2022 Scheduled View Only Radiation Oncology 03/30/2022 Scheduled View Only Radiation Oncology 03/31/2022 Scheduled View Only Radiation Oncology 03/31/2022 Office Visit Radiation Oncology Kerline Tinoco v, MD [address] [place] [address] DR [place] [place], [place] [phone] (Wo rk) 04/01/2022 Office Visit Hematology Drew Pisano Oncology [facility] [address] [place], [place] [address] (Wo rk) 04/01/2022 Scheduled View Only Radiation Oncology 04/04/2022 Scheduled View Only Radiation Oncology 04/04/2022 Notes Only Radiation Oncology Kerline Tinoco v, MD [address] [place] [address] [place] [address] (Wo rk) 04/08/2022 Office Visit Hematology and Drew Melendrez, Oncology [facility] ONCOLOGY [place], [place] [address] (Wo rk) documented as of this encounter Goals Goal Patient Goal Associated Recent Patient-Stated? Author Type Problems Progress DH Home Medication Patient No Froylan ds, Compliance and Facing Nahed Newman, Understanding Action Plan [facility] Note: Formatting of this note might be d ifferent from the original. Complete 28 days of chemoradiation thera py without significant nausea documented as of this encounter Visit Diagnoses Diagnosis Rectal cancer Malignant neoplasm of rectum documented in this encounter Care Teams Water Quality Assistant Relationship Specialty Start Date End Date Alon Shah, FIELD SERVICE CONSULTANT PCP - General Family Medicine 12/08/[address] [place], [place] [id number] documented as of this encounter
--- OUTSIDE RECORDS SUMMARY | 2022-03-16 01:33 | XMS_ITS | Encounter Summary ---
:1950 [place] [address] Care Team Providers Name Role Phone PabloAlon Andriy SANCHEZ Primary Care Provider Encounter Details Date Type Department Care Team Description 03/01/2022 [facility] ([facility] [address] [phone] ONCOLOGY [phone] [place], [place] [address] (Wo rk) Social History Tobacco Use Types Packs/Day Years [...] Reading Time Taken Comments Blood Pressure 139/77 03/01/2022 2:19 PM EDT Pulse 68 03/01/2022 2:19 PM EDT Temperature 36.4 ??C (97.6 ??F) 03/01/2022 2:19 PM EDT Respiratory Rate 16 03/01/2022 2:19 PM EDT Oxygen Saturation 99% 03/01/2022 2:19 PM EDT Inhaled Oxygen Concentration - - Weight 75.8 kg (167 lb) 03/01/2022 2:19 PM EDT Height 179 cm (5' 10.47) 03/01/2022 2:19 PM EDT Body Mass Index 23.64 03/01/2022 2:19 PM EDT documented in this encounter Progress Notes Drew Melendrez MD - 03/01/2022 2:30 PM EDT Subjective Patient ID: Karlo Kolb is 71 y.o. Problem List: 1. Rectal cancer, clinical stage T3c, N0, M0 A. Presented with a change in bowel habits with watery, mucous stool and intermittent BRBPR. He had incontinence of stool and weight loss. 10/29/21 - Flex sig - near obstructing tumor at the anal verge. Unable to do complete colonoscopy Path - A - Outside slide(s) labeled [id number], collection date 10/29/2021. Rectum, biopsy: Tubulovillous adenoma with focal high grade dysplasia. B - ??Outside slide(s) labeled [id number], collection date 10/29/2021. Sigmoid colon, biopsy: Hyperplastic polyp with prolapse feature. C - Outside slide(s) labeled [id number], collection date 11/05/2021. Colon, rectum, mass, biopsy: Tubulovillous adenoma with at least high grade dysplasia. A more severe process can not be evaluated due to superficial and fragmentation of the tissue. Part C: ??Outside slide(s) labeled [id number], collection date 11/05/2021. Colon, rectum, mass, biopsy: [...] metastatic disease C. Diverting colostomy 10/29/21 (Dr. Parker) D. PET scan 12/08/21 - IMPRESSION: 1. Large FDG avid rectal mass with local invasion into the right perirectal and presacral soft tissues. 2. No evidence of regional tiny or distant sites of metastasis. 3. Moderately FDG avid benign-appearing L1 vertebral body compression fracture. MRI pelvis 01/26/22 - IMPRESSION Rectal cancer T category T3c. ?? 2. S/p inguinal hernia repair HPI Karlo Kolb is seen in f/u of rectal cancer. The history is summarized above. This is a telehealth encounter. He is with his significant other, Willa Martino. He is feeling pretty well and tolerating very well at this point. The colostomy is functioning. He is eating well and his weight is stable. His energy level and strength are good. No nausea, diarrhea, stomatitis or hand foot syndrome. Soc Hx:Lives in [place], [place] Tob - Current. About a half [...] and Affect: Mood normal. Labs: WBC/ANC - 7., Hgb/Hct - 13.4/40.3, Plts - 244,000. BUN/Cr - 11/0.7. Lytes and LFTs unremarkable. DPYD - Normal [...] was not to attempt a repeat bx. We met on 02/16/22 and reviewed the treatment plan. He began radiation on 02/23/22. He is receiving concurrent oral capecitabine, 825 mg/m2 = 1500 mg (rounded) twice a day on days of radiation only. ??Thus far he is tolerating therapy well and will continue. We will continue to see him weekly with labs. We reviewed the overall plan today, including [...] Visit Radiation Oncology Kerline Tinoco v, MD [address] [place] [address] RADIATION [place], [place] [phone] (Wo rk) 03/18/2022 Scheduled View Only Radiation Oncology 03/21/2022 Scheduled View Only Radiation Oncology 03/22/2022 Scheduled View Only Radiation Oncology 03/23/2022 Scheduled View Only Radiation Oncology 03/24/2022 Scheduled View Only Radiation Oncology 03/24/2022 Office Visit Radiation Oncology Kerline Tinoco v, MD [address] [place] [address] DR [address] [place] [place], [place] [phone] (Wo rk) 03/25/2022 Office Visit Hematology and Drew Melendrez, Oncology [facility] ONCOLOGY [place], [place] [address] (Wo rk) 03/25/2022 Scheduled View Only Radiation Oncology 03/28/2022 Scheduled View Only Radiation Oncology 03/29/2022 Scheduled View Only Radiation Oncology 03/30/2022 Scheduled View Only Radiation Oncology 03/31/2022 Scheduled View Only Radiation Oncology 03/31/2022 Office Visit Radiation Oncology Kerline Tinoco v, MD [address] [place] [address] RADIATION [place], [place] [address] (Wo rk) 04/01/2022 Office Visit Hematology and Drew Melendrez, Oncology [facility] ONCOLOGY [place], [place] [address] (Wo rk) 04/01/2022 Scheduled View Only Radiation Oncology 04/04/2022 Scheduled View Only Radiation Oncology 04/04/2022 Notes Only Radiation Oncology Kerline Tinoco v, MD [address] [place] [address] RADIATION [place]SP[place], [place] [phone] (Wo rk) 04/08/2022 Office Visit Hematology and Drew Melendrez, Oncology [facility] ONCOLOGY [place], [place] [address] (Wo rk) documented as of this encounter Goals Goal Patient Goal Associated Recent Patient-Stated? Author Type Problems Progress DH Home Medication Patient No Froylan ds, Compliance and Facing Nahed Newman, Understanding Action Plan [facility] Note: Formatting of this note might be d ifferent from the original. Complete 28 days of chemoradiation thera py without significant nausea documented as of this encounter Visit Diagnoses Diagnosis Rectal cancer Malignant neoplasm of rectum documented in this encounter Care Teams Railroad Passenger Agent Relationship Specialty Start Date End Date Alon Shah, CUSTOMER SUPPORT ASSOCIATE PCP - General Family Medicine 12/08/[address] [place] [address] documented as of this encounter
--- OUTSIDE RECORDS SUMMARY | 2022-03-16 01:33 | XMS_ITS | Encounter Summary ---
:1950 Author Organization [facility] [place] [address] Care Team Providers Name Role Phone Pablo Aloncathy Ashraf APRN Primary Care Provider Encounter Details Date Type Department Care Team Description 03/09/2022 Specialty Pharmacy Pharmacy at [facility] Nahed Freeman, [facility] [place] [phone] Social History Tobacco Use Types Packs/Day Years [...] place to sleep or slept in a snf (including now)? Sex Assigned at Date Recorded Not on file documented as of this encounter Progress Notes Nahed Pinto RPH - 03/09/2022 9:11 AM EDT Clinical Management Plan: Transfer of Care/Discharge DH Specialty Services Specialty Pharmacy Consultation; Nahed Pinto Cong Comprehensive Medication Management (CMM) Karlo Kolb [address] [place] [phone] Telephone Information: Work Phone Not on file. Mobile Not on file. Is the patient transferring services to a different Specialty Pharmacy or discontinuing the medication? Discontinuing Medication Medication: Capecitabine Reason for discontinuation or transfer: pt to complete 28 days of chemoradiation Approximate date of discontinuation or transfer: 04/08/22 Patient's response to therapy: to be determined by end of treatment labs and scans Summary of services provided by [facility]: counseling, billing assistance Summary of on-going needs: follow up scheduled Referral for additional services (if applicable): N/A Instructions provided to patient about discharge/transfer: yes - per radiology staff Provider aware of discontinuation or transfer: yes Patient understands no changes to current drug regimen were made at the appointment and that [facility] is providing recommendations (summary located at top of note) for provider review and follow up. Nahed Pinto RPH 03/09/22 9:12 AM documented in this encounter Plan of Treatment Upcoming Encounters Date Type Specialty Care Team Description 03/16/2022 Scheduled View Only Radiation Oncology 03/17/2022 Scheduled View Only Radiation Oncology 03/17/2022 Office Visit Radiation Oncology Kerline Tinoco v, MD [address] [place] [address] [place] [address] (Wo rk) 03/18/2022 Scheduled View Only Radiation Oncology 03/21/2022 Scheduled View Only Radiation Oncology 03/22/2022 Scheduled View Only Radiation Oncology 03/23/2022 Scheduled View Only Radiation Oncology 03/24/2022 Scheduled View Only Radiation Oncology 03/24/2022 Office Visit Radiation Oncology Kerline Tinoco v, MD [address] [place] [address] [place] [address] (Wo rk) 03/25/2022 Office Visit Hematology and Drew Melendrez, Oncology [facility] [place], [place] [address] (Wo rk) 03/25/2022 Scheduled View Only Radiation Oncology 03/28/2022 Scheduled View Only Radiation Oncology 03/29/2022 Scheduled View Only Radiation Oncology 03/30/2022 Scheduled View Only Radiation Oncology 03/31/2022 Scheduled View Only Radiation Oncology 03/31/2022 Office Visit Radiation Oncology Kerline Tinoco v, MD [address] [place] [address] [place] [address] (Wo rk) 04/01/2022 Office Visit Hematology and Drew Melendrez, Oncology [facility] [address] [place], [place] [address] (Wo rk) 04/01/2022 Scheduled View Only Radiation Oncology 04/04/2022 Scheduled View Only Radiation Oncology 04/04/2022 Notes Only Radiation Oncology Kerline Tinoco v, MD [address] [place] [address] [place] [address] (Wo rk) 04/08/2022 Office Visit Hematology and Drew Melendrez, Oncology [facility] [address] [place], [place] [address] (Wo rk) documented as of this encounter Goals Goal Patient Goal Associated Recent Patient-Stated? Author Type Problems Progress DH Home Medication Patient No Froylan ds, Compliance and Facing Nahed Newman, Understanding Action Plan [facility] Note: Formatting of this note might be d ifferent from the original. Complete 28 days of chemoradiation thera py without significant nausea documented as of this encounter Visit Diagnoses Not on filedocumented in this encounter Care Teams Salt Manager Relationship Specialty Start Date End Date Alon Shah, ICE PLANT OPERATOR PCP - General Family Medicine 12/08/[address] [place] [address] [address] [place] [address] documented as of this encounter
--- OUTSIDE RECORDS SUMMARY | 2022-03-16 01:34 | XMS_ITS | Encounter Summary ---
:1950 Author Organization [facility] Address [address] [place] [address] Care Team Providers Name Role Phone Unavailable Primary Care Provider Unavailable Encounter Details Date Type Department Care Team Description 10/29/2021 Ancillary Procedure [facility] MECHANIC HELPER [address] [place] [address] [phone] Social History Tobacco Use Types Packs/Day Years Used Date Never Assessed Financial Resource Strain Answer Date Recorded How [...] place to sleep or slept in a nursing home (including now)? Sex Assigned at Date Recorded Not on file documented as of this encounter Plan of Treatment Upcoming Encounters Date Type Specialty Care Team Description 03/16/2022 Scheduled View Only Radiation Oncology 03/17/2022 Scheduled View Only Radiation Oncology 03/17/2022 Office Visit Radiation Oncology Kerline Tinoco v, MD [address] [place] [address] RADIATION ONCSPENCER [place], [place] [address] (Wo rk) 03/18/2022 Scheduled View Only Radiation Oncology 03/21/2022 Scheduled View Only Radiation Oncology 03/22/2022 Scheduled View Only Radiation Oncology 03/23/2022 Scheduled View Only Radiation Oncology 03/24/2022 Scheduled View Only Radiation Oncology 03/24/2022 Office Visit Radiation Oncology Kerline Tinoco v, MD [address] [place] [address] RADIATION [place]SPENCER [place], [place] [address] (Wo rk) 03/25/2022 Office Visit Hematology and Drew Melendrez, Oncology [facility] [place], [place] [address] (Wo rk) 03/25/2022 Scheduled View Only Radiation Oncology 03/28/2022 Scheduled View Only Radiation Oncology 03/29/2022 Scheduled View Only Radiation Oncology 03/30/2022 Scheduled View Only Radiation Oncology 03/31/2022 Scheduled View Only Radiation Oncology 03/31/2022 Office Visit Radiation Oncology Kerline Tinoco v, MD [address] [place] [address] [place] [address] (Wo rk) 04/01/2022 Office Visit Hematology and Drew Melendrez Oncology [facility] ONCOLOGY [place], [place] [address] (Wo rk) 04/01/2022 Scheduled View Only Radiation Oncology 04/04/2022 Scheduled View Only Radiation Oncology 04/04/2022 Notes Only Radiation Oncology Kerline Tinoco v, MD [address] [place] [address] [place] [address] (Wo rk) 04/08/2022 Office Visit Hematology and Drew Melendrez, Oncology [facility] ONCOLOGY [place], [place] [address] (Wo rk) documented as of this encounter Procedures Procedure Name Priority Date/Time Associated Diagnosis Comme nts FILM LIBRARY Routine 10/29/2021 12:00 AM Results for this STORAGE ONLY CT EST procedure ar e in HEAD the results section. documented in this encounter Results Film Library- Storage Only CT Head (10/29/2021 12:00 AM EST) Specimen (Source) Anatomical Location Collection Method / Collectio n Time Received Time / Laterality Volume Narrative SUDHA - 12/14/2021 10:52 AM EDT This exam is auto-finalizing. It's purpo se is for storage only. Alon Shah APRN IMG FILM LIBRARY ORDERABLES Performing Organization Address City/State/ZIP Code Phon e Number [place], [place] documented in this encounter Visit Diagnoses Not on filedocumented in this encounter
--- OUTSIDE RECORDS SUMMARY | 2022-03-16 01:34 | XMS_ITS | Encounter Summary ---
:1950 Author Organization [facility] [place] [address] Care Team Providers Name Role Phone Alon Shah APRN Primary Care Provider Reason for Referral Diagnostic Test (Routine) - Closed Specialty Diagnoses / Procedures Referred By Contact Refer red To Contact Radiology Diagnoses Adrenal mass Rectal mass Yojana Parker DO [facility] Rad Nuclear Med Procedures NM PET CT Skull Base to Mid-thigh [address] [place] [address] [address] [place] [address] Referral ID Status Reason Start Date Expiration Date Visits V isits Requested Authorized [id number] Closed Specialty 11/15/2021 05/18/2023 1 1 Service Requested Reason for Visit Diagnostic Test (Routine) - Closed Specialty Diagnoses / Procedures Referred By Contact Refer red To Contact Radiology Diagnoses Adrenal mass Rectal mass Yojana Parker DO [facility] Rad Nuclear Med Procedures NM PET CT Skull Base to Mid-thigh [address] [place] [address] [address] [place] [address] Referral ID Status Reason Start Date Expiration Date Visits V isits Requested Authorized [id number] Closed Specialty 11/15/2021 05/18/2023 1 1 Service Requested Encounter Details Date Type Department Care Team Description 12/08/2021 Hospital Encounter Nuclear Medicine at Yojana Parker, Adrenal mass; Jessica Escalona DO Rectal mass [address] Gilmar [address] [place] [address] [phone] (Wo rk) Social History Tobacco Use Types [...] on file documented as of this encounter Medications at Time of Discharge Medication Sig Dispensed Refills Start Date End Date Gentle Laxative, TAKE ORALLY ONCE PER 0 2 01/26/2022 bisacodyl, 5 mg Tablet, COLONOSCOPY Delayed Release (E.C.) INSTRUCTIONS DULoxetine DR Take 20 mg by mouth 2 0 11/06/2021 01/26/2022 (Cymbalta) 20 mg times daily. Capsule, Delayed Release(E.C.) nicotine (Nicoderm CQ) APPLY 1 PATCH DAILY 0 0 11/06/2021 01/26/2022 14 mg/24 hr Patch 24 hr DIRECTED Nicotrol 10 mg TAKE 1 INHALATION BY 0 11/06/2021 01/26/2022 Cartridge MOUTH 4 TO 6 TIMES A DAY NEEDED DIRECTED polyethylene glycoL DISSOLVE 17 GRAMS IN 0 202101/26/2022 (Miralax) 17 gram/dose LIQUID AND DRINK DAILY Powder NEEDED FOR CONSTIPATION traMADoL (Ultram) 50 mg Take 50 mg by mouth 0 06/202201/26/2022 Tablet every 6 hours as needed. triamcinolone Apply topically 2 0 12/02/2021 06/0 08/2021 (ARISTOCORT) 0.5 % times daily. Cream documented as of this encounter Plan of Treatment Upcoming Encounters Date Type Specialty Care Team Description 03/16/2022 Scheduled View Only Radiation Oncology 03/17/2022 Scheduled View Only Radiation Oncology 03/17/2022 Office Visit Radiation Oncology Kerline Tinoco v, MD [address] [place] [address] DR KELLY SHUKLA [place], [place] [phone] (Wo rk) 03/18/2022 Scheduled View Only Radiation Oncology 03/21/2022 Scheduled View Only Radiation Oncology 03/22/2022 Scheduled View Only Radiation Oncology 03/23/2022 Scheduled View Only Radiation Oncology 03/24/2022 Scheduled View Only Radiation Oncology 03/24/2022 Office Visit Radiation Oncology Kerline Tinoco v, MD [address] [place] [address] DR KELLY SHUKLA [place], [place] [phone] (Wo rk) 03/25/2022 Office Visit Hematology and Drew Melendrez, Oncology [facility] ONCOL[facility] [place], [place] [address] (Wo rk) 03/25/2022 Scheduled View Only Radiation Oncology 03/28/2022 Scheduled View Only Radiation Oncology 03/29/2022 Scheduled View Only Radiation Oncology 03/30/2022 Scheduled View Only Radiation Oncology 03/31/2022 Scheduled View Only Radiation Oncology 03/31/2022 Office Visit Radiation Oncology Kerline Tinoco v, MD [address] [place] [address] [place] [address] (Wo rk) 04/01/2022 Office Visit Hematology and Drew Melendrez, Oncology [facility] DR [place] [address] (Wo rk) 04/01/2022 Scheduled View Only Radiation Oncology 04/04/2022 Scheduled View Only Radiation Oncology 04/04/2022 Notes Only Radiation Oncology Kerline Tinoco v, MD [address] [place] [address] DR KELLY SHUKLA [facility], [place] [phone] (Wo rk) 04/08/2022 Office Visit Hematology and Drew Melendrez, Oncology [facility] DR NGUYEN [place], [place] [address] (Wo rk) documented as of this encounter Procedures Procedure Name Priority Date/Time Associated Diagnosis Comme nts NM PET CT SKULL Routine 12/08/2021 2:50 PM Adrenal mass Results for this BASE TO MID-THIGH EDT Rectal mass procedure are in (LCSR) the results section. documented in this encounter Results NM PET CT Skull Base to Mid-thigh (12/08/2021 2:50 PM EDT) Anatomical Region Laterality Modality Positron Emission To mography (PET) Specimen (Source) Anatomical Location Collection Method / Collectio n Time Received Time / Laterality Volume Impressions 12/10/2021 10:13 AM EDT IMPRESSION: 1. ??Large FDG avid rectal mass with loc al invasion into the right perirectal and presacral soft tissues. 2. ??No evidence of regional tiny or di stant sites of metastasis. 3. ??Moderately FDG avid benign-appearin g L1 vertebral body compression fracture. I have personally reviewed the image(s) and the resident's interpretation and agree with the findings, Silver Mc at 12/10/2021 10:13 AM Thank you for letting us participate in the care of this patient. ??If you are a health care provider and have any questi ons regarding this report, please contact the number below. ??For patients who have questions please contact the health outdoor emergency care technician that requested your imaging first. ? Electronically signed by: Garth Avendano MD, [facility] ([phone]), at 12/10/2021 10:13 AM Narrative 12/10/2021 10:13 AM EDT EXAMINATION: NM PET CT STANDARD SKULL BASE TO MID-THIGH CLINICAL HISTORY: obstructing rectal mas s, villious aderonoma/ highgrade dysplasia TECHNIQUE: Following IV injection of 18- ibxvhs-3-yiqghuwkftqt (FDG) a standard uptake of approximately 60 minutes, a no ncontrast CT scan followed by a PET scan were acquired from the base of the skull to mid thighs. The noncontrast CT was used for anatomic localization and photo n attenuation correction of the PET scan. Blood glucose level: 77 (mg/dL) FDG dose: 15.2 mCi COMPARISON: None FINDINGS: HEAD/NECK: Normal activity in all soft tissue regio ns of the neck and visualized lower head. No adenopathy. CHEST: Normal activity in all soft tissue regio ns. No adenopathy or pulmonary nodules. Coronary and aortic calcifications. ABDOMEN/PELVIS: Large FDG avid rectal mass with invasion presacral and right perirectal regions (axial images [id number]), the mass extends into the distal sigmoid colon. No adenopathy. FDG avid postsurgical inflammatory stern es in anterior pelvic wall and adjacent to surgical clips in the mid pelvis stat us post diverting colostomy and Tidwell's pouch. Multiple punctate renal calculi without obstruction. SKELETON/EXTREMITIES: Moderately FDG avid L1 vertebral body co mpression fracture with benign features on CT. Otherwise normal activity in the axial and appendicular skeleton and soft tissues. Procedure Note Garth Avendano MD - 12/10/2021Formatti ng of this note might be different from the original. EXAMINATION: NM PET CT STANDARD SKULL BA SE TO MID-THIGH CLINICAL HISTORY: obstructing rectal mas s, villious aderonoma/ highgrade dysplasia TECHNIQUE: Following IV injection of 18- gacdua-2-aueakxmjnayi (FDG) a standard uptake of approximately 60 minutes, a no ncontrast CT scan followed by a PET scan were acquired from the base of the skull to mid thighs. The noncontrast CT was used for anatomic localization and photo n attenuation correction of the PET scan. Blood glucose level: 77 (mg/dL) FDG dose: 15.2 mCi COMPARISON: None FINDINGS: HEAD/NECK: Normal activity in all soft tissue regio ns of the neck and visualized lower head. No adenopathy. CHEST: Normal activity in all soft tissue regio ns. No adenopathy or pulmonary nodules. Coronary and aortic calcifications. ABDOMEN/PELVIS: Large FDG avid rectal mass with invasion presacral and right perirectal regions (axial images 214-242), the mass extends into the distal sigmoid colon. No adenopathy. FDG avid postsurgical inflammatory stern es in anterior pelvic wall and adjacent to surgical clips in the mid pelvis stat us post diverting colostomy and Tidwell's pouch. Multiple punctate renal calculi without obstruction. SKELETON/EXTREMITIES: Moderately FDG avid L1 vertebral body co mpression fracture with benign features on CT. Otherwise normal activity in the axial and appendicular skeleton and soft tissues. IMPRESSION IMPRESSION: 1. Large FDG avid rectal mass with local invasion into the right perirectal and presacral soft tissues. 2. No evidence of regional tiny or dist ant sites of metastasis. 3. Moderately FDG avid benign-appearing L1 vertebral body compression fracture. I have personally reviewed the image(s) and the resident's interpretation and agree with the findings, Silver Mc at 12/10/2021 10:13 AM Thank you for letting us participate in the care of this patient. If you are a health care provider and have any questi ons regarding this report, please contact the number below. For patients w ho have questions please contact the health outdoor emergency care technician that requested your imaging first. Electronically signed by: Garth Avendano MD, [facility] ([phone]), at 12/10/2021 10:13 AM Yojana Parker DO IMG PET ORDERABLES documented in this encounter Visit Diagnoses Diagnosis Adrenal mass Unspecified disorder of adrenal glands Rectal mass Other symptoms involving digestive syste m documented in this encounter Administered Medications Inactive Administered Medications - up to 3 most recent administrations Medication Order MAR Action Action Date Dose Rate Site fludeoxyglucose (F-18) FDG Given 12/08/2021 1:39 PM 15.2 mCi Right Arm injection 0-20 mCi EDT 0-20 mCi, Intravenous, ONCE PRN, 1 dose, Starting on Mon12/08/21 at 1345, Until Mon12/08/21 at 1339, Per Protocol, Radiology Contrast, Routine documented in this encounter Care Teams Bank Manager Relationship Specialty Start Date End Date Alon Shah APRN PCP - General Family Medicine 12/08/[address] [place] [address] documented as of this encounter
--- OUTSIDE RECORDS SUMMARY | 2022-03-16 01:34 | XMS_ITS | Encounter Summary ---
:1950 [place] [address] Care Team Providers Name Role Phone PabloAlon Andriy SANCHEZ Primary Care Provider Encounter Details Date Type Department Care Team Description 02/22/2022 [facility] [address] [address] ONCOLOGY [phone] [place], [place] [address] (Wo rk) Social History Tobacco [...] place to sleep or slept in a alf (including now)? Sex Assigned at Date Recorded Not on file documented as of this encounter Progress Notes Drew Melendrez MD - 02/22/2022 2:30 PM EDT Subjective Patient ID: Karlo [...] Path - A - Outside slide(s) labeled [id number], collection date 10/29/2021. Rectum, biopsy: Tubulovillous adenoma with focal high grade dysplasia. B - ??Outside slide(s) labeled [id number], collection date 10/29/2021. Sigmoid colon, biopsy: Hyperplastic polyp with prolapse feature. C - Outside slide(s) labeled [id number], collection date 11/05/2021. Colon, rectum, mass, biopsy: Tubulovillous adenoma with at least high grade dysplasia. A more severe process can not be evaluated due to superficial and fragmentation of the tissue. B. CT c/a/p 10/29/21 - Impression: 1. [...] history is summarized above. This is a telephone encounter to f/u on treatment plans. He is with his significant other, Willa Martino. He is feeling pretty well, but anxious about starting therapy. The colostomy is functioning. He is eating well and he has gained weight back. His energy level and strength are good. He is active out in the yard. He is hoping that he can continue to tend to his garden during therapy. He was cautioned about sensitivity to the sun and it was recommended that he wear a hat and sun block. Soc Hx:Lives in [place], [place] Tob - Current. About a half pack per day Etoh - A couple of drinks per day Fam Hx: Father - , DM, CVA Mother - , ovarian cancer Sibs - 2 brothers, in good health Children - None No other cancer in the family that he is aware of. Review of Systems Physical Exam Genitourinary: Comments: Rectal exam deferred Neurological: Mental Status: He is alert. Latest Reference Range & Units 02/16/22 15:31 WBC 4.0 - 9.5 x10(3)/mcL 10.9 (H) RBC 4.58 - 5.54 x10(6)/mcL 4.71 Hemoglobin 13.7 - 16.5 g/dL 13.3 (L) Hematocrit 40.5 - 48.5 % 41.0 MCV 82.9 - 93.1 fL 87.0 MCH 27.5 - 32.1 pg 28.2 MCHC 32.0 - 35.7 g/dL 32.4 RDWSD 36.0 - 45.0 fL 50.2 (H) RDWCV 11.4 - 13.8 % 15.7 (H) Platelets 145 - 357 x10(3)/mcL 333 MPV 7.6 - 12.9 fL 9.8 NRBC % Auto % 0.0 NRBC Abs Auto 0.000 - 0.000 x10(3)/mcL 0.000 Neutr Abs (ANC) 1.70 - 6.10 x10(3)/mcL 6.32 (H) Neutrophils % % 58.1 Immature Gran % % 0.40 [1] Lymphocytes % % 25.1 Monocytes % % 11.6 Eosinophils % % 4.2 Basophils % % 0.6 Raiza Gran Abs 0.00 - 0.04 x10(3)/mcL 0.04 Lymphocytes Abs 0.9 - 3.2 x10(3)/mcL 2.7 Monocyte Abs 0.3 - 0.9 x10(3)/mcL 1.3 (H) Eosinophils Abs 0.0 - 0.4 x10(3)/mcL 0.5 (H) Basophils Abs 0.0 - 0.1 x10(3)/mcL 0.1 Sodium 135 - 145 mmol/L 140 Potassium 3.5 - 5.0 mmol/L 4.2 [2] Chloride 98 - 107 mmol/L 105 CO2 22 - 31 mmol/L 24 Anion Gap 5 - 15 mmol/L 11 BUN 10 - 20 mg/dL 9 (L) Creatinine 0.80 - 1.50 mg/dL 0.60 (L) Estimated GFR >=60 mL/min/1.73 m?? 104 [3] Calcium 8.5 - 10.5 mg/dL 9.2 Glucose Lvl 65 - 199 mg/dL 87 [4] Total Protein 6.1 - 8.0 g/dL 6.9 Albumin 3.2 - 5.2 g/dL 3.9 Total Bilirubin 0.2 - 1.3 mg/dL 0.3 Alk Phos 40 - 130 unit/L 68 AST 0 - 39 unit/L 13 ALT 0 - 55 unit/L 8 CEA ng/mL 3.9 [5] (H): Data is abnormally high (L): Data is abnormally low DPYD - Normal metabolizer, *1/*1 genotype CEA 02/16/22 3.9 10/29/21 1.4 Assessment and Plan Karlo Kolb is 71 yo, seen for evaluation and management of rectal cancer. He presented with a change in bowel habits and intermittent blood per rectum. A colonoscopy was doneby Dr. Parker on 10/29/21. A distal rectal mass was seen and biopsied. The appearance was consistent with an adenocarcinoma. He had a CT scan the same day. A circumferential mass seen in the rectum withinfiltration of the presacral soft tissues and indistinct margins anteriorly with the prostate gland. The mass was causing obstruction of the colon. Following the procedure he was unabel to move his bowels or pass flatus. As a result, he was taken urgently to the OR and underwent a diverting colostomy. The pathology from the bx showed a tubulovillous adenoma with at least high grade dysplasia. Becauseof the absence of definitive diagnosis of malignancy, a second biopsy was done on 11/05/21. This alsoshowed fragments of tubulovillous adenoma positive for focal high grade dysplasia without evidence of invasive adenocarcinoma. Staging evaluation shows no evidence of distant metastatic disease. The initial CT scan showed an adrenal nodule. A PET scan was done for further evaluation of this and the adrenal nodule was negative.The recal mass was FDG avid with local invasion into the right perirectal and presacral soft tissues. MRI of the pelvis showed the primary tumor to be T3c, without suspicious adenopathy. The CEA was 1.4. We discussed his case at [facility] on 02/02/22. The recommendation was for total neoadjuvant therapy: long course chemoradiation followed by folfox. The issue of the lack of a definitive diagnosis of invasiveadenocarcinoma was discussed. Given the risk of potential complications of repeat biopsy and the evidence of invasive disease radiologically, it was not felt necessary to attempt a repeat bx. We met on 02/16/22 and reviewed the treatment plan. The scheduled start date for radiation is 02/23/22. The plan is to give concurrent oral capecitabine, 825 mg/m2 = 1500 mg (rounded) twice a day on daysof radiation only. He has received the capecitabine and understands the dose and schedule of therapy. He will start tomorrow as scheduled. I will see him weekly with labs. ?? DPYD - Normal metabolizer, *1/*1 genotype documented in this encounter Plan of Treatment Upcoming Encounters Date Type Specialty Care Team Description 03/16/2022 Scheduled View Only Radiation Oncology 03/17/2022 Scheduled View Only Radiation Oncology 03/17/2022 Office Visit Radiation Oncology Kerline Tinoco v, MD [address] [place] [address] DR MENDOZA ONCSPENCER [place], [place] [address] (Wo rk) 03/18/2022 Scheduled View Only Radiation Oncology 03/21/2022 Scheduled View Only Radiation Oncology 03/22/2022 Scheduled View Only Radiation Oncology 03/23/2022 Scheduled View Only Radiation Oncology 03/24/2022 Scheduled View Only Radiation Oncology 03/24/2022 Office Visit Radiation Oncology Kerline Tinoco v, MD [address] [place] [address] DR MENDOZA ONCSPENCER [place], [place] [address] (Wo rk) 03/25/2022 Office Visit Hematology and Drew Melendrez, Oncology [facility] [place], [place] [address] (Wo rk) 03/25/2022 Scheduled View Only Radiation Oncology 03/28/2022 Scheduled View Only Radiation Oncology 03/29/2022 Scheduled View Only Radiation Oncology 03/30/2022 Scheduled View Only Radiation Oncology 03/31/2022 Scheduled View Only Radiation Oncology 03/31/2022 Office Visit Radiation Oncology Kerline Tinoco v, MD [address] [place] [address] DR [place] [address] (Wo rk) 04/01/2022 Office Visit Hematology and Drew Melendrez Oncology [facility] [place], [place] [address] (Wo rk) 04/01/2022 Scheduled View Only Radiation Oncology 04/04/2022 Scheduled View Only Radiation Oncology 04/04/2022 Notes Only Radiation Oncology Kerline Tinoco v, MD [address] [place] [address] DR KELLY SHUKLA [place], [place] [address] (Wo rk) 04/08/2022 Office Visit Hematology and Drew Melendrez, Oncology [facility] ONCOLOG[facility] [place], [place] [address] (Wo rk) documented as of this encounter Visit Diagnoses Diagnosis Rectal cancer Malignant neoplasm of rectum documented in this encounter Care Teams Marble Installer Relationship Specialty Start Date End Date Alon Shah, CRATE BUILDER PCP - General Family Medicine 12/08/[address] [place] [address] [address] [place] [address] documented as of this encounter
--- OUTSIDE RECORDS SUMMARY | 2022-03-16 01:34 | XMS_ITS | Encounter Summary ---
:1950 Author Organization [place] [address] Care Team Providers Name Role Phone Alon Shah APRN Primary Care Provider Reason for Visit Consultation (Routine) - Closed Specialty Diagnoses / Procedures Referred By Contact Refer red To Contact Radiation Oncology Diagnoses Rectal cancer Julián Tinoco MD [facility] Rad Onc Office Procedures Simulation for Radiation Therapy Planning [address] [place] [address] [place] [address] Referral ID Status Reason Start Date Expiration Date Visits V isits Requested Authorized [id number] Closed Consult, 01/30/2022 01/30/2023 1 1 Test & Treat Encounter Details Date Type Department Care Team Description 02/09/2022 Ancillary Appointment Radiation Oncology at Ken Tinoco [facility] [address] [place] [address] RADIATION ONCOL OGY [address] [place], [place] [phone] (Wo rk) Social History Tobacco Use Types [...] documented as of this encounter Progress Notes Julián Tinoco MD - 02/09/2022 2:30 PM EDT Simulation Note for External Beam Radiation Treatment Planning [facility] Karlo Kolb is a 71 y.o. year old male with rectal cancer who was simulated for neoadjuvant radiotherapy to the pelvis today. No changes were made from the plan as documented in the original simulation order and instructions. Briefly, he was immobilized using a prone belly board and 1hr prior to the scan oral contrast was administered. A 2.5mm slice thickness CT scan of the patient's pelvis was then obtained. This scan was performed to delineate both target volumes and organs/structures at risk. These images will be used to create a customized treatment plan employing multileaf collimators and beams-eye view to treat the target to prescription dose while maximally sparing organs at risk, with the overall goal of maximizing the likelihood of a favorable disease response while minimizing the likelihood of any short term side effects or chcf complications of therapy. I anticipate his prescription dose will be 45 Gy to the pelvis followed by a 5.4 Gy boost to the rectal tumor, delivered in daily 1.8 Gy fractions over the course of 5.5 weeks. Anticipate therapy to begin in 1-2 weeks. Furthermore, I anticipate this patient will require 3D conformal treatment planning as multiple conformal portals will be contructed to adequately cover the critical structures of interest (in this case, the rectal tumor and draining lymphatics) with close margins that protect immediately adjacent sensitive structures (including his femoral heads, bladder, skin and bowel). If dosimetric constraints for a safe and efficacious radiotherapy plan cannot be met using 3D conformal therapy, a IMRT or VMAT approach will be considered. The patient tolerated this procedure well, and was provided instructions with regard to upcoming appointments. documented in this encounter Plan of Treatment Upcoming Encounters Date Type Specialty Care Team Description 03/16/2022 Scheduled View Only Radiation Oncology 03/17/2022 Scheduled View Only Radiation Oncology 03/17/2022 Office Visit Radiation Oncology Kerline Tinoco v, MD [address] [place] [address] [place] [address] (Wo rk) 03/18/2022 Scheduled View Only Radiation Oncology 03/21/2022 Scheduled View Only Radiation Oncology 03/22/2022 Scheduled View Only Radiation Oncology 03/23/2022 Scheduled View Only Radiation Oncology 03/24/2022 Scheduled View Only Radiation Oncology 03/24/2022 Office Visit Radiation Oncology Kerline Tinoco v, MD [address] [place] [address] RADIATION ONCSPENCER [place], [place] [phone] (Wo rk) 03/25/2022 Office Visit Hematology and Drew Melendrez, Oncology [facility] [address] NGUYEN [place], [place] [address] (Wo rk) 03/25/2022 Scheduled View Only Radiation Oncology 03/28/2022 Scheduled View Only Radiation Oncology 03/29/2022 Scheduled View Only Radiation Oncology 03/30/2022 Scheduled View Only Radiation Oncology 03/31/2022 Scheduled View Only Radiation Oncology 03/31/2022 Office Visit Radiation Oncology Kerline Tinoco v, MD [address] [place] [address] [place] [address] (Wo rk) 04/01/2022 Office Visit Hematology and Drew Melendrez, Oncology [facility] ONCOLOGY [place], [place] [address] (Wo rk) 04/01/2022 Scheduled View Only Radiation Oncology 04/04/2022 Scheduled View Only Radiation Oncology 04/04/2022 Notes Only Radiation Oncology Kerline Tinoco v, MD [address] [place] [address] RADIATION ONCSPENCER [place], [place] 68[address]29 (Wo rk) 04/08/2022 Office Visit Hematology and Drew Melendrez Oncology [facility] [place], [place] [address] (Wo rk) Scheduled Orders Name Type Priority Associated Diagnoses Order S chedule Simulation for Radiation Procedures Routine Rectal cancer Or dered: 01/30/2022 Therapy Planning documented as of this encounter Visit Diagnoses Not on filedocumented in this encounter Care Teams Full Stack Web Developer Relationship Specialty Start Date End Date Alon Shah, [employer] DIRECTOR PCP - General Family Medicine 12/08/[address] [place] [address] documented as of this encounter
--- OUTSIDE RECORDS SUMMARY | 2022-03-16 01:34 | XMS_ITS | Encounter Summary ---
:1950 Author Organization [facility] [place] [address] Care Team Providers Name Role Phone Alon Shah APRN Primary Care Provider Reason for Visit Consultation (Routine) - Closed Specialty Diagnoses / Procedures Referred By Contact Refer red To Contact Radiation Oncology Diagnoses Rectal cancer Donavon Villafuerte MD [facility] Rad Onc Treatment [address] [phone] Phone: Fax: Referral ID Status Reason Start Date Expiration Date Visits V isits Requested Authorized [id number] Closed Consult, 01/26/2022 01/26/2023 1 1 Test & Treat Encounter Details Date Type Department Care Team Description 02/09/2022 Office Visit Radiation Oncology at [facility] Julián MD Rectal cancer [address] RADIATION [place]COLOGY [facility] [place] [phone] [phone] Social History Tobacco Use Types Packs/Day Years [...] Sign Reading Time Taken Comments Blood Pressure 99/62 02/09/2022 1:37 PM EDT Pulse 60 02/09/2022 1:37 PM EDT Temperature 36.7 ??C (98.1 ??F) 02/09/2022 1:37 PM EDT Respiratory Rate 18 02/09/2022 1:37 PM EDT Oxygen Saturation 98% 02/09/2022 1:37 PM EDT Inhaled Oxygen Concentration - - Weight 74 kg (163 lb 3.2 oz) 02/09/2022 1:37 PM EDT wit h shoes Height - - Body Mass Index 22.13 01/26/2022 3:16 PM EDT documented in this encounter Patient Instructions Patient InstructionsJulián Tinoco MD - 02/08/2022 1:[address] Christo Gordon asked for me to see you to discuss how radiation therapy can be used to treat your rectalcancer and this note is to recap our discussion regarding use of radiation treatments. As your radiation oncologist, I work closely with your other healthcare providers and most importantly, with you to make sure that the treatments we discuss and offer keep your personal preferences and goals in mind. We discussed the following next steps as part of your cancer evaluation and/or treatment: Rectal cancer treatment - You have cancer in your rectum, which is the last part of the bowel. Our goal is to completely kill and remove the cancer with surgery. To do this, we usually give chemotherapy and radiation before surgery. The reason for chemotherapy and radiation before surgery this is to shrink the rectal tumor to make surgery easier and decrease the chance of tumor coming back after the surgery. In rare cases the tumor disappears completely after chemotherapy and radiation, and surgery can be delayed or even avoided. Often, patients will start with chemotherapy and radiation followed by chemotherapy by itself for 2-3 months. After finishing chemotherapy, surgery to remove your rectum would take place with Dr Villafuerte. Mapping scan to plan your radiation treatments: Your radiation therapy will involve using high energy radiation which kills cancer but also normal healthy tissues. In order to make sure the radiationgoes to the cancerous tissues and to also avoid radiating the normal tissues, we design radiation beams beams into special shapes which come from various different directions. Because no two people andno two cancers are completely identical, the radiation plan we create for you will be unique to you and your body. In order to figure out how many beams to use, how much radiation to give, which anglesthey should come from, and how they should be shaped, we have asked you to undergo a mapping scan here in our department known as a CT simulation, or CT sim, for short. This is essentially a CAT-scansimilar to scans which you may have received before, but slightly different in a few ways: First, itallows us to place you in the exact same position which you should expect to be placed during each of your radiation treatment sessions. Second, it lets us better understand where the radiation targetsand the normal tissues that we want to avoid exist, in relation to each other and the radiation beams. Following this scan, we then perform additional calculations and measurements to create the absolute best plan possible for you. Depending on the complexity of the plan, these processes can take fromjust few hours to several days, and for that we ask for your patience. If you have any questions about the planning process or your custom radiation plan, I would be more than happy to review the plan with you during your first week of treatment. I anticipate you will receive 28 treatments total, daily Monday-Monday for 5.5 weeks. Your start date and time will be provided once the simulation scan is c ompleted. During your radiation treatments, you can expect to see me once per week so that I can examine you to make sure you are tolerating radiation treatments and so that we can monitor your response to treatment. If you need to see me any other day, one of my colleagues or I would be happy to see you - just ask one of the radiation therapists or radiation nurses for assistance. Side effects of treatment: We briefly discussed short term (temporary) side effects of treatment as well as possible penitentiary (late, permanent) side effects of radiation treatment. If they occur, short term side effects may include fatigue, rectal irritation (similar to hemorrhoids), or diarrhea. intermediate side effects may include permanent damage to the bowel or bladder. Please do not hesitate to call me at [phone] with any other questions or concerns you have. If I am not here, one of our radiation oncology nurses can assist you or help you get in touch with me. A Radiation Oncology doctor is also websphere consultant after our normal hours and on weekends for urgent questions or concerns related to radiation treatments that can not wait until normal business hours. To reach the on-call doctor after-hours, just call and have the decorating kiln operator page the Radiation Oncologist websphere consultant. And, as always, if you experience any life-threatening emergencies which any include the following, you need to seek emergency care immediately by calling 911: 1. Sudden and unexpected breathing difficulty without any exertion 2. Sudden onset of chest pain 3. Sudden onset of severe pain or uncontrolled pain 4. Sudden onset of severe weakness and/or unable to walk 5. Sudden new onset of a seizure 6. Fall resulting in injury 7. Uncontrollable bleeding Julián Hernandez MD [employer]itness [employer] Managerthreshing operator Radiation Oncology [facility] documented in this encounter Progress Notes Julián Tinoco MD - 02/09/2022 1:30 PM EDT Images from the original note were not included. Radiation Oncology Consult Note Julián Tinoco MD, MS [facility] [phone] PATIENT IDENTIFICATION: PATIENT NAME: Karlo Kolb DATE OF : 1950 REFERRING PROVIDER: Edgar Villafuerte MD [facility] PRIMARY CARE PROVIDER: LAURA Tripathi SC REASON FOR CONSULTATION: Cancer Staging Rectal cancer Staging form: Colon And Rectum, AJCC 8th Edition - Clinical: Stage IIA (cT3, cN0, cM0) - Signed by Julián Tinoco MD on 02/08/2022 DATE OF SERVICE: 02/09/2022 HISTORY OF PRESENT ILLNESS: Karlo is a 71M diagnosed with a locally advanced rectal cancer in the setting of narrowed stools, fecal incontinence and hematochezia. He was referred to Dr Parker at [facility] for screening colonoscopy 10/29/21 which showed an obstructing low rectal mass at approximately 4cm. Postoperatively Karlo experienced symptoms of obstruction with CT showing dilated bowel loops, and so a diverting colostomy with Bing's pouch was emergently placed later that same day. The rectal mass biopsies on 10/29 and again on 11/05 did not show frankly invasive carcinoma. He subsequently underwent staging PET/CT that showed FDG avid rectal mass without apparent LAD. MRI 01/26/22 showed invasion into the perirectal tissue (mrT3c) and as such this is viewed as an invasive adenocarcinoma. Karlo subsequently established care with Dr Villafuerte who is concerned about CRM and position of colostomy. He reviewed Karlo's case at the rectal tumor board 02/02/22 with consensus recommendations for a total neoadjuvant (chemoRT first) approach, prior to planned LAR with temporary diverting loop ileostomy. Karlo is here today to review the radiotherapy portion of his treatment recommendations. REVIEW OF SYSTEMS: On further questioning, he reports feeling better since the colostomy was placed. He reports some irritation and scant bleeding around the site of the stoma - Dr Parker is going to take a look at thistomorrow. No pain. REVIEW OF SYSTEMS 02/09/2022 Constitutional None of the above Ear / nose / throat / mouth None of the above Eyes None of the above Respiratory None of the above Cardiovascular None of the above Gastrointestinal Blood in stools Skin, hair Rash, Itching Hematologic / Lymphatic None of the above Genitourinary None of the above A comprehensive 14 point review of systems was conducted with this patient and is otherwise negativeexcept as documented above. PAST MEDICAL AND SURGICAL HISTORY: Past Medical History: Diagnosis Date ??? Rectal cancer Past Surgical History: Procedure Laterality Date ??? COLON SURGERY Tidwell's procedure CONTRAINDICATIONS TO RADIATION THERAPY: None Prior Radiation to this Site: No Active Connective Tissue Disease (Lupus or Scleroderma) No MEDICATIONS AND ALLERGIES: Medications 02/09/22 1340 Medication Sig Taking? acetaminophen (Tylenol) 500 mg Tablet Take 1,000 mg by mouth every 6 hours as needed for Pain. 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 No pertinent family history. PHYSICAL EXAM BP 99/62 (Patient Position: Sitting) Pulse 60 Temp 36.7 ??C (98.1 ??F) (Temporal) Resp 18 Wt74 kg (163 lb 3.2 oz) Comment: with shoes SpO2 98% BMI 22.13 kg/m?? General: alert, appears stated age, and in no distress sitting in exam room with Willa at side Abdomen: soft, nt. Ostomy site beefy red. TODAY'S PERFORMANCE STATUS: KPS Score ECOG Grade Definition 90-100 0 [...] selfcare; totally confined to bed or chair IMAGING REVIEW: MRI 01/26/22 [id number] Pack Master Images: PATHOLOGY REVIEW: Source: Colonoscopy Provider / Location: Dr Parker / [facility] Date: 10/29/21, 11/05/21 Histology / Grade High grade dyplasia without invasive component Other ASSESSMENT / PLAN: Karlo is a 71-year-old man with a locally advanced, likely adenocarcinoma of the low rectum. He has been diverted with a Tidwell's pouch and is a candidate for curative intent low anterior resection. Today we discussed the rationale, logistics, toxicities and complications associated with total neoadjuvant therapy. I reiterated Dr. Villafuerte's concerns regarding the possibility of rectal stump blowout. Signs and symptoms including severe increase in low pelvic pain/pressure as well as dysuria were discussed with Karlo today. From a logistic standpoint, Karlo understands that chemoradiation will be delivered on a daily basisfor 5 and half weeks and after that multiagent chemotherapy will be delivered here in [facility].He is scheduled to meet Dr. Melendrez next week, and as such I will anticipate starting chemoradiation the following week/allow time for Karlo to fill his chemotherapy prescription. Informed consent was obtained today, simulation to follow. All of Karlo's questions were answered to his fullest satisfaction, and we have provided him with our contact information should any further questions or concerns arise. SUMMARY OF PLAN / RECOMMENDATION: 1. Intent of therapy: Curative / Preop 2. Clinical Trial Availability: No 3. Informed consent obtained for radiotherapy to the rectum, [facility] 4. Simulation later today 5. Dr Melendrez 02/16, anticipate chemoradiation to start the following week TIME ATTESTATION: I certify spending at least 60 minutes in providing care to this patient today, 02/09/22 as reflected by the following activities: - review of his medical record in the chart, including interpretation of imaging, laboratory and pathologic studies referenced above - discussion of the above with the patient as part of shared medical decision making - documenting the outcome of today's visit as above JULIÁN TINOCO MD, MS Sirisha Abel RN - 02/09/2022 1:30 PM EDT RADIATION ONCOLOGY NURSING INITIAL NURSING ASSESSMENT IDENTIFICATION: Karlo Kolb is a 71 y.o. year-old male with rectal cancer. PRESENTING SYMPTOMS/CHIEF COMPLAINT: Presented with changes in bowel movements. REVIEW OF SYSTEMS: Review of Systems Constitutional: Negative for appetite change. Skin: Positive for rash (on back. Willa feels it is related to stress due to the timing of it's appearances such as before medical appointments). Please see ROS filed by patient, IN THE PAST 12 MONTHS HAVE YOU: Fallen more than one time? No Injured yourself as result of the fall? N/a Experienced difficulty with walking/problems with balance? No Do you use any assistive devices? No Any history of collagen vascular diseases: No Any Implanted Devices/Hardware: Hernia mesh. Patient unsure of which laterality. If yes please put alert in ARIA patient summary Prior Radiotherapy: No Prior Chemotherapy: No Prior Hormone Therapy: No LEARNING ASSESSMENT REVIEWED: Yes ADVANCED DIRECTIVE: PAIN ASSESSMENT: 0 out of 10 *eD-H Adult PCS Flow Sheet if 4 or above SOCIAL ASSESSMENT: See EDH social assessment information entered. Support Systems: Here with partner Willa Martino Barriers to treatment: None Referrals/Interventions: TEST BORING CREW CHIEF per routine RADIATION SPECIFIC TEACHING: [facility] Radiation Therapy and You Site specific teaching : Other: PLAN: Per Dr. Tinoco Answers for HPI/ROS submitted by the patient on 02/09/2022 Distress: 0 documented in this encounter Plan of Treatment Upcoming Encounters Date Type Specialty Care Team Description 03/16/2022 Scheduled View Only Radiation Oncology 03/17/2022 Scheduled View Only Radiation Oncology 03/17/2022 Office Visit Radiation Oncology Kerline Tinoco v, MD [address] [place] [address] [place] [address] (Wo rk) 03/18/2022 Scheduled View Only Radiation Oncology 03/21/2022 Scheduled View Only Radiation Oncology 03/22/2022 Scheduled View Only Radiation Oncology 03/23/2022 Scheduled View Only Radiation Oncology 03/24/2022 Scheduled View Only Radiation Oncology 03/24/2022 Office Visit Radiation Oncology Kerline Tinoco v, MD [address] [place] [address] [place] [address] (Wo rk) 03/25/2022 Office Visit Hematology and Drew Melendrez, Oncology [facility] [place], [place] [address] (Wo rk) 03/25/2022 Scheduled View Only Radiation Oncology 03/28/2022 Scheduled View Only Radiation Oncology 03/29/2022 Scheduled View Only Radiation Oncology 03/30/2022 Scheduled View Only Radiation Oncology 03/31/2022 Scheduled View Only Radiation Oncology 03/31/2022 Office Visit Radiation Oncology Kerline Tinoco v, MD [address] [place] [address] [place] [address] (Wo rk) 04/01/2022 Office Visit Hematology and Drew Melendrez, Oncology [facility] [place], [place] [address] (Wo rk) 04/01/2022 Scheduled View Only Radiation Oncology 04/04/2022 Scheduled View Only Radiation Oncology 04/04/2022 Notes Only Radiation Oncology Kerline Tinoco v, MD [address] [place] [address] [place] [address] (Wo rk) 04/08/2022 Office Visit Hematology and Drew Melendrez, Oncology [facility] [place], [place] [address] (Wo rk) documented as of this encounter Visit Diagnoses Diagnosis Rectal cancer Malignant neoplasm of rectum documented in this encounter Care Teams Cloth Examiner Machine Relationship Specialty Start Date End Date Alon Shah, HULL AND DECK REMOVER PCP - General Family Medicine 12/08/[address] [place] [address] documented as of this encounter
--- OUTSIDE RECORDS SUMMARY | 2022-03-16 01:34 | XMS_ITS | Encounter Summary ---
:1950 Author Organization [facility] [place] [address] Care Team Providers Name Role Phone Alon Shah APRN Primary Care Provider Reason for Referral Consultation (Routine) - Closed Specialty Diagnoses / Procedures Referred By Contact Refer red To Contact Hematology and Oncology Diagnoses Rectal cancer Donavon Villafuerte Stj Hem Onc Office MD [address] [place] [phone] [place] [address] Referral ID Status Reason Start Date Expiration Date Visits V isits Requested Authorized [id number] Closed Consult, 01/26/2022 01/26/2023 1 1 Test & Treat Consultation (Routine) - Closed Specialty Diagnoses / Procedures Referred By Contact Refer red To Contact Radiation Oncology Diagnoses Rectal cancer Donavon Villafuerte MD Stj Rad Onc Treatment [id number] [place] [phone] Phone: Fax: Referral ID Status Reason Start Date Expiration Date Visits V isits Requested Authorized [id number] Closed Consult, 01/26/2022 01/26/2023 1 1 Test & Treat Reason for Visit Reason Comments Follow-up Consultation (Routine) - Closed Specialty Diagnoses / Procedures Referred By Contact Refer red To Contact General Surgery Diagnoses Rectal cancer RECTAL CANCER Yojana Parker DO [facility] 4l Procedures [facility] [address] [place] [address] DR RAMIREZ [address] [place] [address] [address] [address] [place] [address] Fax: Referral ID Status Reason Start Date Expiration Date Visits Requ ested Visits Authorized [id number] Closed 12/14/2021 12/14/2022 1 1 Encounter Details Date Type Department Care Team Description 01/26/2022 Office Visit General Surgery at [facility] Donavon Villafuerte MD Rectal [place] [address] [place] [address] [phone] (Wo rk) Social History Tobacco Use Types [...] Sign Reading Time Taken Comments Blood Pressure 113/66 01/26/2022 3:16 PM EDT Pulse 102 01/26/2022 3:16 PM EDT Temperature - - Respiratory Rate - - Oxygen Saturation 98% 01/26/2022 3:16 PM EDT Inhaled Oxygen Concentration - - Weight 74.4 kg (164 lb) 01/26/2022 3:16 PM EDT Height 182.9 cm (6') 01/26/2022 3:16 PM EDT Body Mass Index 22.24 01/26/2022 3:16 PM EDT documented in this encounter Progress Notes Donavon Villafuerte MD - 01/26/2022 4:00 PM EDT Colorectal Surgery Outpatient Consultation ~ Division of Colon and Rectal Surgery ~ [facility] HPI: Karlo Kolb is a pleasant 71 y.o. male who we were asked to see by Dr. Parker regarding Chief Complaint Patient presents with ??? Follow-up . The patient's PCP is APRN. Abdirahman Medina presents for discussion for management of a large rectal mass noted on recent colonoscopy. This was unfortunately complicated by what appeared to be distal obstruction for which he curiously underwent a Tidwell's procedure. Subsequent evaluation suggested this was a large tubulovillous adenoma however MRI obtained today suggest that there is at least T3 level invasion. He denies obstructive symptoms prior to this however does note some narrowing in the caliber of his stools and occasional bleedingper rectum. Review of Systems Constitutional: Positive for weight loss and malaise/fatigue. Gastrointestinal: Negative for abdominal discomfort and constipation. All other systems reviewed and are negative. Past medical history: Patient Active Problem List Diagnosis Code ??? Rectal cancer C20 Past surgical history: Past Surgical History: Procedure Laterality Date ??? COLON SURGERY Tidwell's procedure Allergies: Patient has no allergy information on record. Medications: reviewed in the electronic medical record. Current Outpatient Medications on File Prior to Visit Medication Sig Dispense Refill ??? [DISCONTINUED] Gentle Laxative, bisacodyl, 5 mg Tablet, Delayed Release (E.C.) TAKE ORALLY ONCE PER COLONOSCOPY INSTRUCTIONS ??? [DISCONTINUED] DULoxetine ([facility]) 20 mg Capsule, Delayed Release(E.C.) Take 20 mg by mouth2 times daily. ??? [DISCONTINUED] nicotine (Nicoderm CQ) 14 mg/24 hr Patch 24 hr APPLY 1 PATCH DAILY DIRECTED ??? [DISCONTINUED] Nicotrol 10 mg Cartridge TAKE 1 INHALATION BY MOUTH 4 TO 6 TIMES A DAY NEEDED DIRECTED ??? [DISCONTINUED] polyethylene glycoL (Miralax) 17 gram/dose Powder DISSOLVE 17 GRAMS IN LIQUID ANDDRINK DAILY NEEDED FOR CONSTIPATION ??? [DISCONTINUED] traMADoL (Ultram) 50 mg Tablet Take 50 mg by mouth every 6 hours as needed. ??? [DISCONTINUED] triamcinolone (ARISTOCORT) 0.5 % Cream Apply topically 2 times daily. Current Facility-Administered Medications on File Prior to Visit Medication Dose Route Frequency Provider Last Rate Last Admin ??? [COMPLETED] gadoterate meglumine (Dotarem) (0.5 mMol/mL) injection solution 0-100 mL 0-100 mL Intravenous Once PRN Sunil Pina, DO 14 mL at 01/26/22 1405 Social history: Family medical history: No family history on file. Patient denies a family history of: colorectal cancer, colorectal polyps, diverticular disease, Crohn disease and ulcerative colitis. Patient admits a family history of: none. Physical exam: Vitals: Blood pressure 113/66, pulse (!) 102, height 182.9 cm (6'), weight 74.4 kg (164 lb), SpO2 98%. BMI: Body mass index is 22.24 kg/m??. General Appearance: well developed and well nourished Neuro: awake, alert and oriented to person, place and time no acute distress Psych: appropriate mood and affect Eyes: extra ocular muscles intact, pupils equally reactive to light and accomodation ENT: neck supple, no lyphadenopathy noted CV: regular rate and rhythm Resp: non-labored without adventitous sounds on auscultation Lymph: no edema noted Abdomen: soft, non-tender, and not distended, no masses or organomegaly Perineal exam: The patient was examined in the prone juan m-knife position with assistance from nursing. There is no abscess or fistula. The anal canal was examined with a well lubricated digit and revealed normal tone, exophytic mass palpable at the tip of the examining finger and there was no blood. Rigid/flexible Sigmoidoscopy: After introduction of a well-lubricated flexible sigmoidoscope the rectal stump was examined. There was a large exophytic mass just proximal to the first rectal valve there was ulceration as well as some contact bleeding. Due to the close proximal end insufflation was kept to a minimum. There were no immediate complications the patient tolerated procedure well. Ext: no cyanosis Labs: reviewed. CEA 1.4 Endoscopy: reviewed. Path: reviewed. 12/16/21 DIAGNOSIS =CONSULTATION CASE A - Outside slide(s) labeled [id number], collection date 10/29/2021. Rectum, biopsy: Tubulovillous adenoma with focal high grade dysplasia. B - ??Outside slide(s) labeled [id number], collection date 10/29/2021. Sigmoid colon, biopsy: Hyperplastic polyp with prolapse feature. C - Outside slide(s) labeled [id number], collection date 11/05/2021. Colon, rectum, mass, biopsy: Tubulovillous adenoma with at least high grade dysplasia. A more severe process can ??not be evaluated due to superficial and fragmentation of the tissue. Imaging: reviewed. PET CT 12/08/21 IMPRESSION: 1. Large FDG avid rectal mass with local invasion into the right perirectal and presacral soft tissues. 2. No evidence of regional tiny or distant sites of metastasis. 3. Moderately FDG avid benign-appearing L1 vertebral body compression fracture. MRI 01/26/22 IMPRESSION Rectal cancer T category T3c. COREFO Responses 01/26/2022 Incontinence Scale 27.78 Social Impact Scale 25 Frequency Scale 12.5 Stool Releated Aspects 16.67 Medication Scale 8.33 Total COREFO Score 22.12 The COREFO questionnaire is a validated questionnaire with 27 questions to assess colorectal functional outcome. Patients are asked to consider the two week period prior before filling out the questionnaire. Category scores range from zero to 100. A total score is calculated from the categories above,also ranging from zero to 100. A higher score represents an increased level of functional disturbance. Impression/Plan: Karlo Kolb is a 71 y.o. male with large rectal mass highly suspicious for invasive cancer although this was not shown on recent endoscopic biopsies. I reviewed the treatment of rectal cancer including the modalities of chemotherapy radiation and surgery. I believe given the MRI findings with a threatened circumferential margin posteriorly that treating this as a rectal cancer is most appropriate, I believe that in the future he can be reconstructed with a low anterior resection.Unfortunately he is undergone a Tidwell's procedure, rather than proximal diversion with a loop colostomy, which complicates his reconstruction from a technical standpoint and that postradiation with alow anastomosis he will require diversion with a loop ileostomy. This also complicates the potentialfor total neoadjuvant therapy and the significant concern for a rectal stump blowout. We will monitor him very closely during his neoadjuvant therapy with this in mind. His case will be discussed at our multidisciplinary tumor conference and I will place referrals to Medical and Radiation oncology at [facility], which is closer to his home. All of his questions were answered to his satisfaction and I will see him after conclusion of therapy. Donavon Villafuerte MD MSc FACS FASCRS chairman & ceo Division of Colon and Rectal Surgery [facility] Pager [phone] documented in this encounter Plan of Treatment Upcoming Encounters Date Type Specialty Care Team Description 03/16/2022 Scheduled View Only Radiation Oncology 03/17/2022 Scheduled View Only Radiation Oncology 03/17/2022 Office Visit Radiation Oncology Kerline Tinoco v, MD [address] [place] [address] DR KELLY SHUKLA [place], [place] [phone] (Lisa russell) 03/18/2022 Scheduled View Only Radiation Oncology 03/21/2022 Scheduled View Only Radiation Oncology 03/22/2022 Scheduled View Only Radiation Oncology 03/23/2022 Scheduled View Only Radiation Oncology 03/24/2022 Scheduled View Only Radiation Oncology 03/24/2022 Office Visit Radiation Oncology Kerline Tinoco v, MD [address] [place] [address] DR KELLY SHUKLA [place], [place] [phone] (Lisa russell) 03/25/2022 Office Visit Hematology and Drew Melendrez, Oncology [facility] ON[facility]OG[facility] [place], [place] [address] (Lisa russell) 03/25/2022 Scheduled View Only Radiation Oncology 03/28/2022 Scheduled View Only Radiation Oncology 03/29/2022 Scheduled View Only Radiation Oncology 03/30/2022 Scheduled View Only Radiation Oncology 03/31/2022 Scheduled View Only Radiation Oncology 03/31/2022 Office Visit Radiation Oncology Kerline Tinoco v, MD [address] [place] [address] [place] [address] (Wo rk) 04/01/2022 Office Visit Hematology and Drew Melendrez, Oncology [facility] [place], [place] [address] (Wo rk) 04/01/2022 Scheduled View Only Radiation Oncology 04/04/2022 Scheduled View Only Radiation Oncology 04/04/2022 Notes Only Radiation Oncology Kerline Tinoco v, MD [address] [place] [address] DR MENDOZA ONCSPENCER [place], [place] [phone] (Wo rk) 04/08/2022 Office Visit Hematology and Drew Melendrez, Oncology [facility] DR NGUYEN [place], [place] [address] (Wo rk) Scheduled Referrals Name Type Priority Associated Order Schedule Diagnoses Referral to Outpatient Referral Routine Rectal cancer Ordered : Radiation Oncology Referral to Outpatient Referral Routine Rectal cancer Ordered : Hematology and 01/26/2022 Oncology documented as of this encounter Visit Diagnoses Diagnosis Rectal cancer Malignant neoplasm of rectum documented in this encounter Care Teams Recruiting Operations Consultant Relationship Specialty Start Date End Date Alon Shah, PCMH SPECIALIST PCP - General Family Medicine 12/08/[address] [place], [place] [address] documented as of this encounter
--- OUTSIDE RECORDS SUMMARY | 2022-03-16 01:34 | XMS_ITS | Encounter Summary ---
:1950 Author Organization [facility] [place] [address] Care Team Providers Name Role Phone Alon Shah APRN Primary Care Provider Encounter Details Date Type Department Care Team Description 12/16/2021 Hospital Encounter Laboratory [facility] [place] [address] Social History Tobacco Use Types Packs/Day [...] place to sleep or slept in a retirement (including now)? Sex Assigned at Date Recorded [...] Radiation Oncology Kerline Tinoco v, MD [address] [place] [address] RADIATION ONCSPENCER [place], [place] [phone] (Wo rk) 03/18/2022 Scheduled View Only Radiation Oncology 03/21/2022 Scheduled View Only Radiation Oncology 03/22/2022 Scheduled View Only Radiation Oncology 03/23/2022 Scheduled View Only Radiation Oncology 03/24/2022 Scheduled View Only Radiation Oncology 03/24/2022 Office Visit Radiation Oncology Kerline Tinoco v, MD [address] [place] [address] RADIATION [place], [place] [phone] (Wo rk) 03/25/2022 Office Visit Hematology and Drew Melendrez, Oncology [facility] ON[facility] [place], [place] [address] (Wo rk) 03/25/2022 Scheduled View Only Radiation Oncology 03/28/2022 Scheduled View Only Radiation Oncology 03/29/2022 Scheduled View Only Radiation Oncology 03/30/2022 Scheduled View Only Radiation Oncology 03/31/2022 Scheduled View Only Radiation Oncology 03/31/2022 Office Visit Radiation Oncology Kerline Tinoco v, MD [address] [place] [address] [place] [address] (Wo rk) 04/01/2022 Office Visit Hematology and Drew Melendrez, Oncology [place], [place] [address] (Wo rk) 04/01/2022 Scheduled View Only Radiation Oncology 04/04/2022 Scheduled View Only Radiation Oncology 04/04/2022 Notes Only Radiation Oncology Kerline Tinoco v, MD [address] [place] [address] RADIATION [place]CSP[place]ER [place], [place] [phone] (Wo rk) 04/08/2022 Office Visit Hematology and Drew Melendrez, Oncology [place], [place] [address] (Wo rk) documented as of this encounter Procedures Procedure Name Priority Date/Time Associated Diagnosis Comme [facility] SURGICAL PATHOLOGY Routine 12/16/2021 3:57 PM Res ults for this REPORT EDT procedure are i n the results section. documented in this encounter Results Surgical Pathology Report (12/16/2021 3:57 PM EDT) Component Value Ref Test Analysis Performed At [facility] Method Time Signature Surgical [id number] ? Location: [facility] Report The signing pathologist has (i) examined the relevant preparation(s) for the [facility] specimen(s) and (ii) rendered or confirmed the diagnosis(es) . [facility] . ? Addendum ADDENDUM DISCUSSION Part C: ??Outside slide(s) labeled [id number], collection da te 11/05/2021. Colon, rectum, mass, [...] The assay was performed according to the ground worker's instructions using anti-MLH -1 (ES05), anti-MSH-2 ([id number]), anti-MSH-6 (44), and anti-PMS-2 (MRQ-28) antibodies. Electronically signed by: ?Layla Almazan MD Verified: ??02/23/2022 9:56 ?? Pathologist Performed at: ??-[facility], [place], [place] ?Surgic al Pathology DIAGNOSIS =CONSULTATION CASE A - Outside slide(s) labeled [id number], collection date 10/29. Rectum, biopsy: Tubulovillous adenoma with focal high grade dysplasia. B - ??Outside slide(s) labeled [id number], collection date . Sigmoid colon, biopsy: Hyperplastic polyp with prolapse feature. C - Outside slide(s) labeled [id number], collection date 10/26. Colon, rectum, mass, biopsy: Tubulovillous adenoma with a t least high grade dysplasia. A more severe process can not be evaluated due to superficial and fragmentation of th e tissue. Electronically signed by: ?Tha HAUSER, Layla Verified: ??12/19/2021 14:57 ??Pathologist Performed at: ??-[facility], [place], [place] . ADDITIONAL STUDIES Whole slide scan: [id number] SPECIMEN(S) SUBMITTED CONSULTATION CASE A - 4 slide(s) labeled [id number], collection date 10/29/2021. B - 2 slide(s) labeled [id number], collection date 10/29/2021. C - 6 slide(s) labeled [id number], collection date 11/05/2021 . [id number] Report to: [facility] Surgical Pathology Department [facility], [facility], 2nd Floor [address] [place], [place] ??[address] CLINICAL INFORMATION Rectal cancer SPECIMEN PROCESSING [facility] ([facility]) pathology slide(s) are reviewed. ??Refer to Diagnosis and Specimen Submitted for specific case infor emperatriz. For the full text of the [facility] report(s) please refer t o Non-DH Documentation Pathology in the electronic health record (eDH). Specimen (Source) Anatomical Collection Method Collection Time Re ceived Time Location / / Volume Laterality 12/16/2021 3:57 PM EDT Drew Melendrez MD PATHOLOGY/CYTOLOGY ORDERABLE S Performing Organization Address City/State/[place] [address] documented in this encounter Visit Diagnoses Not on filedocumented in this encounter Care Teams Esthetician/Skin Therapist Relationship Specialty Start Date End Date Alon Shah APRN PCP - General Family Medicine 12/08/[address] [place] [address] documented as of this encounter
--- OUTSIDE RECORDS SUMMARY | 2022-03-16 01:34 | XMS_ITS | Encounter Summary ---
:1950 Author Organization [facility] [place] [address] Care Team Providers Name Role Phone Alon Shah APRN Primary Care Provider Reason for Visit Diagnostic Test (Routine) - Closed Specialty Diagnoses / Procedures Referred By Contact Refer red To Contact Radiology Diagnoses Adrenal mass Rectal mass Yojana Parker, [facility] Rad Nuclear Med Procedures NM PET CT Skull Base to Mid-thigh [address] [place] [address] DR RAMIREZ [address] [place] [id number] Referral ID Status Reason Start Date Expiration Date Visits V isits Requested Authorized [id number] Closed Specialty 11/15/2021 05/18/2023 1 1 Service Requested Encounter Details Date Type Department Care Team Description 12/08/2021 Hospital Encounter Nuclear Medicine at Yojana Parker DO [facility] [address] [facility] [address] RAMIREZ [address] [address] [phone] (Wo rk) Social History Tobacco Use Types [...] place to sleep or slept in a senior care (including now)? Sex Assigned at Date Recorded [...] Visit Radiation Oncology Kerline Tinoco v, MD [address] [place] [address] [place] [address] (Wo rk) 03/18/2022 Scheduled View Only Radiation Oncology 03/21/2022 Scheduled View Only Radiation Oncology 03/22/2022 Scheduled View Only Radiation Oncology 03/23/2022 Scheduled View Only Radiation Oncology 03/24/2022 Scheduled View Only Radiation Oncology 03/24/2022 Office Visit Radiation Oncology Kerline Tinoco v, MD [address] [place] [address] [place] [address] (Wo rk) 03/25/2022 Office Visit Hematology and Drew Melendrez, Oncology [place] [address] (Wo rk) 03/25/2022 Scheduled View Only Radiation Oncology 03/28/2022 Scheduled View Only Radiation Oncology 03/29/2022 Scheduled View Only Radiation Oncology 03/30/2022 Scheduled View Only Radiation Oncology 03/31/2022 Scheduled View Only Radiation Oncology 03/31/2022 Office Visit Radiation Oncology Kerline Tinoco v, MD [address] [place] [address] DR KELLY SHUKLA [place], [place] [phone] (Wo rk) 04/01/2022 Office Visit Hematology and Drew Melendrez, Oncology [place], [place] [address] (Wo rk) 04/01/2022 Scheduled View Only Radiation Oncology 04/04/2022 Scheduled View Only Radiation Oncology 04/04/2022 Notes Only Radiation Oncology Kerline Tinoco v, MD [address] [place] [address] DR KELLY SHUKLA [facility], [place] [address] (Wo rk) 04/08/2022 Office Visit Hematology and Drew Melendrez, Oncology [facility] ON[facility] [place], [place] [address] (Wo rk) documented as of this encounter Procedures Procedure Name Priority Date/Time Associated Diagnosis Comme nts NM PET CT SKULL Routine 12/08/2021 2:50 PM Adrenal mass Results for this BASE TO MID-THIGH EDT Rectal mass procedure are in ([facility]) the results section. POCT GLUCOSE Routine 12/08/2021 1:36 PM Results f or this EDT procedure are i n the results section. documented in this encounter Results POCT Glucose (12/08/2021 1:36 PM EDT) athologist Signature POC Glucose 77 65 - 199 [facility] mg/dL [facility] Comment: Supplemental ranges: <140 mg/dL before meals <180 mg/dL all other times of the day Specimen Anatomical Collection Method Collection Time Receive d Time (Source) Location / / Volume Laterality Blood 12/08/2021 1:36 PM 2 1:36 EDT PM EDT Yojana Parker DO POINT OF CARE TEST ORDERABLE S Performing Organization Address City/State/[place] [address] documented in this encounter Visit Diagnoses Not on filedocumented in this encounter Care Teams Transfer And Pumphouse Operator Relationship Specialty Start Date End Date Alon Shah APRN PCP - General Family Medicine 12/08/[address] [place] [address] documented as of this encounter
--- OUTSIDE RECORDS SUMMARY | 2022-03-16 01:34 | XMS_ITS | Encounter Summary ---
:1950 Author Organization [facility] Address [address] [place] [address] Care Team Providers Name Role Phone Unavailable Primary Care Provider Unavailable Encounter Details Date Type Department Care Team Description 11/03/2021 Ancillary Procedure [facility] [place] [facility] WATER FILTRATION TECHNICIAN [address] [place] [address] [phone] Social History Tobacco Use Types Packs/Day Years [...] Visit Radiation Oncology Kerline Tinoco v, MD [address] [place] [address] RADIATION ONCSPENCER [place], [place] [id number] (Wo rk) 03/18/2022 Scheduled View Only Radiation Oncology 03/21/2022 Scheduled View Only Radiation Oncology 03/22/2022 Scheduled View Only Radiation Oncology 03/23/2022 Scheduled View Only Radiation Oncology 03/24/2022 Scheduled View Only Radiation Oncology 03/24/2022 Office Visit Radiation Oncology Kerline Tinoco v, MD [address] [place] [address] RADIATION ONCSPENCER [place], [place] [id number] (Wo rk) 03/25/2022 Office Visit Hematology and Drew Melendrez, Oncology [facility] [place], [place] [address] (Wo rk) 03/25/2022 Scheduled View Only Radiation Oncology 03/28/2022 Scheduled View Only Radiation Oncology 03/29/2022 Scheduled View Only Radiation Oncology 03/30/2022 Scheduled View Only Radiation Oncology 03/31/2022 Scheduled View Only Radiation Oncology 03/31/2022 Office Visit Radiation Oncology Kerline Tinoco v, MD [address] [place] [address] [place] [address] (Wo rk) 04/01/2022 Office Visit Hematology and Drew Melendrez Oncology [facility] [address] [address], [place] [address] (Wo rk) 04/01/2022 Scheduled View Only Radiation Oncology 04/04/2022 Scheduled View Only Radiation Oncology 04/04/2022 Notes Only Radiation Oncology Kerline Tinoco v, MD [address] [place] [address] [place] [address] (Wo rk) 04/08/2022 Office Visit Hematology and Drew Melendrez, Oncology [facility] [address], [place] [address] (Wo rk) documented as of this encounter Procedures Procedure Name Priority Date/Time Associated Diagnosis Comme nts FILM LIBRARY Routine 11/03/2021 12:00 AM Results for this STORAGE ONLY DX EST procedure ar e in ABDOMEN the results section. documented in this encounter Results Film Library- Storage Only DX Abdomen (11/03/2021 12:00 AM EST) Specimen (Source) Anatomical Location Collection Method / Collectio n Time Received Time / Laterality Volume Narrative SUDHA - 12/14/2021 10:55 AM EDT This exam is auto-finalizing. It's purpo se is for storage only. Alon Shah APRN IMG FILM LIBRARY ORDERABLES Performing Organization Address City/State/ZIP Code Phon e Number [place], [place] documented in this encounter Visit Diagnoses Not on filedocumented in this encounter
--- OUTSIDE RECORDS SUMMARY | 2022-03-16 01:34 | XMS_ITS | Encounter Summary ---
:1950 Author Organization [facility] [place] [address] Care Team Providers Name Role Phone Alon Shah APRN Primary Care Provider Reason for Visit Consultation (Routine) - Closed Specialty Diagnoses / Procedures Referred By Contact Refer red To Contact Hematology and Oncology Diagnoses Rectal cancer Donavon Villafuerte, [facility] Hem Onc Office [address] [phone] [place] [address] Referral ID Status Reason Start Date Expiration Date Visits V isits Requested Authorized [id number] Closed Consult, 01/26/2022 01/26/2023 1 1 Test & Treat Encounter Details Date Type Department Care Team Description 02/16/2022 Office Visit Hematology and Drew Melendrez, Rectal cancer; Oncology at [facility] Drug-induced nausea and vomiting [facility] [address] [place] [address] [place] [address] [phone] Social History Tobacco Use Types Packs/Day Years [...] place to sleep or slept in a care home (including now)? Sex Assigned at Date Recorded Not on file documented as of this encounter Last Filed Vital Signs Vital Sign Reading Time Taken Comments Blood Pressure 135/82 02/16/2022 2:31 PM EDT Pulse 76 02/16/2022 2:31 PM EDT Temperature 36.6 ??C (97.9 ??F) 02/16/2022 2:31 PM EDT Respiratory Rate 18 02/16/2022 2:31 PM EDT Oxygen Saturation 97% 02/16/2022 2:31 PM EDT Inhaled Oxygen Concentration - - Weight 75.8 kg (167 lb) 02/16/2022 2:31 PM EDT Height 179 cm (5' 10.47) 02/16/2022 2:31 PM EDT Body Mass Index 23.64 02/16/2022 2:31 PM EDT documented in this encounter Progress Notes Drew Melendrez MD - 02/16/2022 2:45 PM EDT Subjective Patient ID: Karlo Kolb [...] Path - A - Outside slide(s) labeled [id number], collection date 10/29/2021. Rectum, biopsy: Tubulovillous adenoma with focal high grade dysplasia. B - ??Outside slide(s) labeled [id number], collection date 10/29/2021. Sigmoid colon, biopsy: Hyperplastic polyp with prolapse feature. C - Outside slide(s) labeled [id number], collection date 11/05/2021. Colon, rectum, mass, biopsy: Tubulovillous adenoma with at least high grade dysplasia. A more severe process can not be evaluated due to superficial and fragmentation of the tissue. CT c/a/p 10/29/21 - Impression: 1. Circumferential [...] 3. No evidence of thoracic metastatic disease Diverting colostomy 10/29/21 (Dr. Parker) PET scan 12/08/21 - IMPRESSION: 1. Large [...] hernia repair HPI Karlo Kolb is seen for evaluation and management of rectal cancer. The history is summarized above. He is accompanied to clinic today by his significant other, Willa Martino. He is feeling pretty well. He has a colostomy and this has been an adjustment. The colostomy is working well. He is eating well and he has gained weight back. His energy level and strength are good. He is active out in the yard. No fevers or chills. No pain. He still has a feeling that he has to have a BM. He notices this more when he is standing. He has some mucous discharge and a small amount of blood. Soc Hx:Lives in [place], [place] Tob - Current. About a half pack per day Etoh - A couple of drinks per day Fam Hx: Father - , DM, CVA Mother - , ovarian cancer Sibs - 2 brothers, in good health Children - None No other cancer in the family that he is aware of. Review of Systems Physical Exam Vitals reviewed. Constitutional: General: He is not in acute distress. HENT: Head: Normocephalic and atraumatic. Mouth/Throat: Pharynx: Oropharynx is clear. No oropharyngeal exudate. Eyes: General: No scleral icterus. Cardiovascular: Rate and Rhythm: Normal rate and regular rhythm. Pulmonary: Effort: Pulmonary effort is normal. No respiratory distress. Breath sounds: No wheezing or rales. Chest: Breasts: Right: No axillary adenopathy or supraclavicular adenopathy. Left: No supraclavicular adenopathy. Abdominal: General: There is no distension. Palpations: There is no mass. Tenderness: There is no abdominal tenderness. There is no guarding. Genitourinary: Comments: Rectal exam deferred Musculoskeletal: General: No swelling. Lymphadenopathy: Cervical: No cervical adenopathy. Upper Body: Right upper body: No supraclavicular or axillary adenopathy. Left upper body: No supraclavicular adenopathy. Skin: General: Skin is warm and dry. Findings: No rash. Neurological: General: No focal deficit present. Mental Status: He is alert. Coordination: Coordination normal. Psychiatric: Mood and Affect: Mood normal. Recent Results (from the past 24 hour(s)) Comprehensive metabolic panel (non-fasting) Result Value Ref Range Glucose Lvl 87 65 - 199 mg/dL BUN 9 (L) 10 - 20 mg/dL Creatinine 0.60 (L) 0.80 - 1.50 mg/dL Sodium 140 135 - 145 mmol/L Potassium 4.2 3.5 - 5.0 mmol/L Chloride 105 98 - 107 mmol/L CO2 24 22 - 31 mmol/L Anion Gap 11 5 - 15 mmol/L Calcium 9.2 8.5 - 10.5 mg/dL Total Protein 6.9 6.1 - 8.0 g/dL Albumin 3.9 3.2 - 5.2 g/dL AST 13 0 - 39 unit/L ALT 8 0 - 55 unit/L Alk Phos 68 40 - 130 unit/L Total Bilirubin 0.3 0.2 - 1.3 mg/dL Estimated GFR 104 >=60 mL/min/1.73 m?? Hemogram Result Value Ref Range WBC 10.9 (H) 4.0 - 9.5 x10(3)/mcL RBC 4.71 4.58 - 5.54 x10(6)/mcL Hemoglobin 13.3 (L) 13.7 - 16.5 g/dL Hematocrit 41.0 40.5 - 48.5 % MCV 87.0 82.9 - 93.1 fL MCH 28.2 27.5 - 32.1 pg MCHC 32.4 32.0 - 35.7 g/dL Platelets 333 145 - 357 x10(3)/mcL RDWSD 50.2 (H) 36.0 - 45.0 fL RDWCV 15.7 (H) 11.4 - 13.8 % MPV 9.8 7.6 - 12.9 fL nRBC % Auto 0.0 % nRBC Abs Auto 0.000 0.000 - 0.000 x10(3)/mcL Differential, Automated Result Value Ref Range Neutrophils % 58.1 % Neutr Abs (ANC) 6.32 (H) 1.70 - 6.10 x10(3)/mcL Lymphocytes % 25.1 % Lymphocytes Abs 2.7 0.9 - 3.2 x10(3)/mcL Monocytes % 11.6 % Monocyte Abs 1.3 (H) 0.3 - 0.9 x10(3)/mcL Eosinophils % 4.2 % Eosinophils Abs 0.5 (H) 0.0 - 0.4 x10(3)/mcL Basophils % 0.6 % Basophils Abs 0.1 0.0 - 0.1 x10(3)/mcL Immature Gran % 0.40 % Raiza Gran Abs 0.04 0.00 - 0.04 x10(3)/mcL CEA 10/29/21 1.4 Assessment and Plan Karlo Kolb [...] 1.4. We discussed his case at [facility] on 02/02/22. The recommendation was for total neoadjuvant therapy: long course chemoradiation followed by folfox. The issue of the lack of a definitive diagnosis of invasiveadenocarcinoma was discussed. Given the risk of potential complications of repeat biopsy and the evidence of invasive disease radiologically, it was not felt necessary to attempt a repeat bx. He has seen Dr. Tinoco and has undergone simulation. The scheduled start date is 02/23/22. We reviewed that chemotherapy with oral capecitabine is given concurrently with radiation. Capecitabine is taken twice a day during the course of radiation, on days of radiation only, ie not on weekends, holidays or other days that radiation is not given. Potential side effects were reviewed including nausea and vomiting, stomatitis, diarrhea, dehydration, myelosuppression with associated risks of bleeding, infection and dose delays, fatigue, hand-foot syndrome, angina/GA and others. He was given an informational handout regarding capecitabine. We talked briefly about the schedule of therapy with Folfox inclu ding the need for a mediport but did not talk in detail about side effects. If the sequence of therapy changes, we will go over this in more detail. ?? I will put in the prescription for capecitabine today. The dose is 825 mg/m2 = 1500 mg (rounded) twice a day on days of radiation only. ?? Labs will be drawn today, including baseline cbc, cmp and iron studies. DPYD will also be drawn to be sure she doesn't have a variant that puts her at risk for severe flouropyrimidine related toxicity.This will need to be reviewed prior to starting therapy. 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 I spoke with pathology and they feel this is feasible. Jenna Pérez RN - 02/16/2022 2:45 PM EDT Oral Chemotherapy Check Note 02/23/2022 Karlo Kolb, 1950 Prescriptions for oral chemotherapy were reviewed as follows: Oral Chemotherapy Order: Capecitabine (xeloda) Order details: ?? Dose: 1500mg BID ?? Route: PO ?? Quantity to be dispensed #: 168 ?? Number of refills: 0 ?? Instructions: Take 3 tablets (1500mg) by mouth 2 times daily. Take within 30 minutes after eating. Call clinic before/prior to starting medication/script. Take on days of radiation only. Do not start until radiation starts. ?? Cycle number and length: 28 days ?? Start date: 02/23/22 Plan of care compared to information in the medical record, including note from provider on 02/22/22(date). The prescription was found To be complete and accurate. It was e-prescribed to [facility] pharmacy. Oral Chemotherapy Assessment Note 02/23/2022 Karlo Kolb, 1950 Assessment of Karlo Kolb???s living situation reveals that he lives alone. The patient will be responsible for his medication administration. Medications reviewed, including prescription and non-prescription medications. Karlo Kolb has no insurance coverage issues and co-pay is manageable. The patient reports that he/she: ?? is able to swallow pills. ?? is able to open medication bottles/packages without problems. ?? is not experiencing any symptoms that will affect the ability to keep down medications (no nausea, vomiting, mucositis, or difficulty swallowing). ?? is willing to fill prescriptions with [facility]. What pharmacy would the patient like to have the medication dispensed from? [facility] The patient verifies: ?? ability to read and understand the drug label instructions. ?? understanding of treatment plan with oral chemotherapy. ?? understanding that medication will be dispensed from [facility] pharmacy. This medication will be delivered to the home (instructed to call nurse if he/she does not hear from the pharmacy regarding delivery). ?? that he will need labs drawn on 03/01. documented in this encounter Plan of Treatment Upcoming Encounters Date Type Specialty Care Team Description 03/16/2022 Scheduled View Only Radiation Oncology 03/17/2022 Scheduled View Only Radiation Oncology 03/17/2022 Office Visit Radiation Oncology Kerline Tinoco v, MD [address] [place] [address] DR [address] [place], [place] [id number] (Lisa russell) 03/18/2022 Scheduled View Only Radiation Oncology 03/21/2022 Scheduled View Only Radiation Oncology 03/22/2022 Scheduled View Only Radiation Oncology 03/23/2022 Scheduled View Only Radiation Oncology 03/24/2022 Scheduled View Only Radiation Oncology 03/24/2022 Office Visit Radiation Oncology Kerline Tinoco v, MD [address] [place] [address] DR [address] ONCSPENCER [place], [place] [phone] (Lisa rk) 03/25/2022 Office Visit Hematology and Drew Melendrez, Oncology [facility] [address] [place], [place] [address] (Wo rk) 03/25/2022 Scheduled View Only Radiation Oncology 03/28/2022 Scheduled View Only Radiation Oncology 03/29/2022 Scheduled View Only Radiation Oncology 03/30/2022 Scheduled View Only Radiation Oncology 03/31/2022 Scheduled View Only Radiation Oncology 03/31/2022 Office Visit Radiation Oncology Kerline Tinoco v, MD [address] [place] [address] [place] [address] (Wo rk) 04/01/2022 Office Visit Hematology and Drew Melendrez, Oncology [facility] [place], [place] [address] (Wo rk) 04/01/2022 Scheduled View Only Radiation Oncology 04/04/2022 Scheduled View Only Radiation Oncology 04/04/2022 Notes Only Radiation Oncology Kerline Tinoco v, MD [address] [place] [address] RADIATION ONCSPENCER [place], [place] [phone] (Wo rk) 04/08/2022 Office Visit Hematology and Drew Melendrez, Oncology [facility] [address] [place], [place] [address] (Wo rk) Scheduled Orders Name Type Priority Associated Diagnoses Order S chedule CBC (with Diff) Lab Routine Rectal cancer Once a week for 8 Occurrences sta rting 02/16/2022 unti l 02/16/2023 Comprehensive metabolic Lab Routine Rectal cancer Onc e a week for 8 panel (non-fasting) Occurren gerard starting 02/16/2022 unti l 02/16/2023 documented as of this encounter Results DPYD PCR (02/16/2022 3:31 PM EDT) Component Value Ref Test Analysis Performed At [facility] Method Time Signature DPYD PCR INDICATION FOR STUDY: DPYD Genotyping [facility] RESULTS: Normal metabolizer, *1/*1 genotype [facility] INTERPRETATION: ??Normal gen otype, with normal [...] probes for each varian t: DPYD*2A ??(c.1905+1G>A, [id number]), DPYD*13 (c.1679T>G , [id number]), and DP YD c.2846A>T ([id number]). All variant positions are provided on the [...] Genomics and Advanced Technology (CGAT) at the [facility]. It has not been cleared or approved by the U .S. Food and Drug Administration. The laboratory is regulated under CLIA as qual ified to perform high-complexity testing. This test is used for clinical purposes. It should not be regarded as investigational or for research. REFERENCES: 1. CPIC?? Guideline for Fluoropyrimidines and DPYD. https:// cpicpgx.org/ 2. Iman boothe al., Clinical Pharmacogenetics Imp lementation Consortium (CPIC) Guideline for Dihydropyrimidine Dehydrogenase Genotype and Fluoropyrimidine Dosin Update. Clin Pharmacol Ther. 2018 Sep;103(2):21 0-216. PMID: [id number] 3. Pamela King, Kayden Escalante, et al. Fluorouracil Ther apy and DPYD Genotype. In: Medical Genetics Summaries [Internet]. B fabrizio CONTEH): [employer] [facility] (); 2011? 2015 3. PMID: [id number] Specimen Anatomical Collection Method Collection Time Receive d Time (Source) Location / / Volume Laterality Blood 02/16/2022 3:31 PM 2 6:45 EDT PM EDT Resulting Agency Comment Spec In Lab Drew Melendrez MD CHEMISTRY ORDERABLES Performing Organization Address City/[facility]/ZIP [place] [address] CEA (02/16/2022 3:31 PM EDT) athologist Signature CEA 3.9 ng/mL [facility] Comment: Reference range: ??(20-69 years): Non-smoker: ??less than or equal to 3.8 ng/mL Smoker: ??less than 5.5 ng/ml This result was generated using a Incentient Ginger immunoassay. ??Results obtained from other methods or manufacturers arnaldo ot be used interchangeably with this method. Specimen Anatomical Collection Method Collection Time Receive d Time (Source) Location / / Volume Laterality Blood 02/16/2022 3:31 PM 2 3:37 EDT PM EDT Resulting Agency Comment Spec In Lab Drew Melendrez MD CHEMISTRY ORDERABLES Performing Organization Address City/[facility]/[place]IP [place] [address] (ABNORMAL) Comprehensive metabolic panel (non-fasting) (02/16/2022 3:31 PM EDT) P athologist Signature Glucose Lvl 87 65 - 199 [facility] mg/dL [facility] Comment: Diabetes: >=200 mg/dL plus symp toms BUN 9 (L) 10 - 20 mg/dL [facility] Creatinine 0.60 (L) 0.80 - 1.50 mg/dL [facility] Sodium 140 135 - 145 mmol/L [facility] Potassium 4.2 3.5 - 5.0 mmol/L [facility] Comment: Please note: ??Patients with WBC >100,00 0 may have falsely elevated Potassium levels. ??For accurate Potassium quantif ication in these patients send serum separator tube (gold top) for subsequent determinations. ??Contact the Clinical Chemistry Laboratory if there are any qu estions. Chloride 105 98 - 107 mmol/L [facility] CO2 24 22 - 31 mmol/L [facility] Anion Gap 11 5 - 15 mmol/L [facility] Calcium 9.2 8.5 - 10.5 mg/dL [facility] K [facility] Total Protein 6.9 6.1 - 8.0 g/dL [facility] Albumin 3.9 3.2 - 5.2 g/dL [facility] AST 13 0 - 39 unit/L [facility] ALT 8 0 - 55 unit/L [facility] Alk Phos 68 40 - 130 unit/L [facility] Total Bilirubin 0.3 0.2 - 1.3 mg/dL [facility] Estimated GFR 104 >=60 mL/min/1.73 m?? [facility] Comment: This patient's estimated GFR [...] Organization Address City/State/[place] [address] documented in this encounter Visit Diagnoses Diagnosis Rectal cancer Malignant neoplasm of rectum Drug-induced nausea and vomiting Nausea with vomiting documented in this encounter Care Teams Back Sewer Relationship Specialty Start Date End Date Alon Shah, BRIQUETTE MACHINE OPERATOR PCP - General Family Medicine 12/08/[address] [place] [address] documented as of this encounter
--- OUTSIDE RECORDS SUMMARY | 2022-03-16 01:34 | XMS_ITS | Encounter Summary ---
:1950 Author Organization [facility] [place] [address] Care Team Providers Name Role Phone Alon Shah APRN Primary Care Provider Reason for Referral Diagnostic Test (Routine) - Closed Specialty Diagnoses / Procedures Referred By Contact Refer red To Contact Radiology Diagnoses Rectal cancer Donavon Villafuerte MD [facility] Rad Mri Procedures MRI Pelvis (Rectal Cancer Staging) [facility] [place] [address] [place] [address] Referral ID Status Reason Start Date Expiration Date Visits V isits Requested Authorized [id number] Closed Specialty 01/04/2022 07/07/2023 1 1 Service Requested Reason for Visit Diagnostic Test (Routine) - Closed Specialty Diagnoses / Procedures Referred By Contact Refer red To Contact Radiology Diagnoses Rectal cancer Donavon Villafuerte MD [facility] Rad Mri Procedures MRI Pelvis (Rectal Cancer Staging) [facility] [place] [address] [place] [address] Referral ID Status Reason Start Date Expiration Date Visits V isits Requested Authorized [id number] Closed Specialty 01/04/2022 07/07/2023 1 1 Service Requested Encounter Details Date Type Department Care Team Description 01/26/2022 Hospital Encounter MRI at [facility] Donavon Villafuerte, Rectal cancer [facility] [place] [address] [place], [place] [address] (Wo rk) Social History Tobacco [...] Visit Radiation Oncology Kerline Tinoco v, MD [address] [place] [address] [place] [address] (Lisa russell) 03/18/2022 Scheduled View Only Radiation Oncology 03/21/2022 Scheduled View Only Radiation Oncology 03/22/2022 Scheduled View Only Radiation Oncology 03/23/2022 Scheduled View Only Radiation Oncology 03/24/2022 Scheduled View Only Radiation Oncology 03/24/2022 Office Visit Radiation Oncology Kerline Tinoco v, MD [address] [place] [address] [place] [address] (Wo rk) 03/25/2022 Office Visit Hematology Drew Pisano Oncology [facility] [address] [place], [place] [address] (Wo rk) 03/25/2022 Scheduled View Only Radiation Oncology 03/28/2022 Scheduled View Only Radiation Oncology 03/29/2022 Scheduled View Only Radiation Oncology 03/30/2022 Scheduled View Only Radiation Oncology 03/31/2022 Scheduled View Only Radiation Oncology 03/31/2022 Office Visit Radiation Oncology Kerline Tinoco v, MD [address] [place] [address] [address] [place] [address] (Wo rk) 04/01/2022 Office Visit Hematology Drew Pisano Oncology [facility] [place], [place] [address] (Wo rk) 04/01/2022 Scheduled View Only Radiation Oncology 04/04/2022 Scheduled View Only Radiation Oncology 04/04/2022 Notes Only Radiation Oncology Kerline Tinoco v, MD [address] [place] [address] [place] [address] (Wo rk) 04/08/2022 Office Visit Drew Gustafson Oncology [facility] [address] [place], [place] [address] (Wo rk) documented as of this encounter Procedures Procedure Name Priority Date/Time Associated Diagnosis Comme nts MRI PELVIS(RECTAL Routine 01/26/2022 2:10 PM Rectal cancer Res ults for this CANCER STAGING) EDT procedure ar e in the results section. documented in this encounter Results MRI Pelvis (Rectal Cancer Staging) (01/26/2022 2:10 [...] who have questions please contact the health child care center assistant director that requested your imaging first. ? Electronically signed by: Donavon zafar MD, [facility] ([phone]), at 01/26/2022 4:41 PM Narrative 01/26/2022 4:41 [...] ho have questions please contact the health child care center assistant director that requested your imaging first. Donavon Villafuerte MD IMG MRI ORDERABLES documented in this encounter Visit Diagnoses Diagnosis Rectal cancer Malignant neoplasm of rectum documented in this encounter Administered Medications Inactive Administered Medications - up to 3 most recent administrations Medication Order MAR Action Action Date Dose Rate Site gadoterate meglumine (Dotarem) Given 01/26/2022 2:05 PM EDT 14 m Ls (0.5 mMol/mL) injection solution 0-100 mL 0-100 mL, Intravenous, ONCE PRN, 1 dose, Starting on Mon01/26/22 at 1405, Until Mon01/26/22 at 1405, Per Protocol, Radiology Contrast, Routine documented in this encounter Care Teams Commodity Specialist Relationship Specialty Start Date End Date Alon Shah, LAURA PCP - General Family Medicine 12/08/[address] [place] [address] documented as of this encounter
--- OUTSIDE RECORDS SUMMARY | 2022-03-16 01:34 | XMS_ITS | Encounter Summary ---
:1950 Author Organization [facility] Address [facility] [place] [address] Care Team Providers Name Role Phone GardnersAlon LAURA Primary Care Provider Encounter Details Date Type Department Care Team Description 02/09/2022 Notes [facility] OFFICE OF CARE [address] [place] [phone] Social History Tobacco Use Types Packs/Day Years [...] place to sleep or slept in a [place] facility (including now)? Sex Assigned at Date Recorded Not on file documented as of this encounter Progress Notes Aranza Candelario, RN HYPERBARIC - 02/09/2022 3:23 PM EDT Reason for Referral: Brief assessment of social and emotional needs. Met with pt and girlfriend after pt's sim today to introduce myself and role of social welfare research worker to assess/address barriers to getting to and through treatments; address support needs and connect with community services and resources asneeded. Family/Social Supports: Pt identified his primary support as his girlfriend Willa. He has 2 brotherswho live out of the state. He has local friends. Living Situation/Daily Activities/Transportation: Pt indicated he manages his daily chores and activities. He plans to drive himself. If he is unable to drive he will ne to find someone else as his girlfriend is legally blind and unable to drive. Gave him information about RCT services. Work/Finances/Insurance: Pt is retired. He has Medicare and Medicaid for insurance. He did not indicate any issues with finances or insurance. Advance Directives: Pt has not completed his advance directive but would like information. RN HYPERBARIC will give him information once he starts his treatments. Utilization of Community Resources: None at this time. Adjustment to Illness/Mental Health Concerns: Pt indicated he is coping as best he can. He wants to get his treatments started. He keeps as busy and active as he feels up to. Both he and his girlfriendfeel they have good support in place. Offered support. Identified Needs: pt did not identify any specific needs at this time. Referrals: None at this time. Social Work Interventions: Brief assessment Supportive Counseling Advance care planning Plan: Informed pt of RN HYPERBARIC availability and contact information. Will follow to assess/address psychosocial needs. YVETTE Gorman, WET CHAR CONVEYOR TENDER, OSW-C Family Practitioner [facility] documented in this encounter Plan of Treatment Upcoming Encounters Date Type Specialty Care Team Description 03/16/2022 Scheduled View Only Radiation Oncology 03/17/2022 Scheduled View Only Radiation Oncology 03/17/2022 Office Visit Radiation Oncology Kerline Tinoco v, MD [address] [place] [address] RAD[address] [place]SP[place], [place] [id number] (Wo rk) 03/18/2022 Scheduled View Only Radiation Oncology 03/21/2022 Scheduled View Only Radiation Oncology 03/22/2022 Scheduled View Only Radiation Oncology 03/23/2022 Scheduled View Only Radiation Oncology 03/24/2022 Scheduled View Only Radiation Oncology 03/24/2022 Office Visit Radiation Oncology Kerline Tinoco v, MD [address] [place] [address] RAD[address] [place]SP[place], [place] [address] (Wo rk) 03/25/2022 Office Visit Hematology Drew Pisano, Oncology [facility] [address] [place], [place] [address] (Wo rk) 03/25/2022 Scheduled View Only Radiation Oncology 03/28/2022 Scheduled View Only Radiation Oncology 03/29/2022 Scheduled View Only Radiation Oncology 03/30/2022 Scheduled View Only Radiation Oncology 03/31/2022 Scheduled View Only Radiation Oncology 03/31/2022 Office Visit Radiation Oncology Kerline Tinoco v, MD [address] [place] [address] [place] [address] (Wo rk) 04/01/2022 Office Visit Hematology Drew Pisano Oncology [facility] [address] [place], [place] [address] (Wo rk) 04/01/2022 Scheduled View Only Radiation Oncology 04/04/2022 Scheduled View Only Radiation Oncology 04/04/2022 Notes Only Radiation Oncology Kerline Tinoco v, MD [address] [place] [address] [place] [address] (Wo rk) 04/08/2022 Office Visit Hematology and Drew Melendrez, Oncology [facility] [place], [place] [address] (Wo rk) documented as of this encounter Visit Diagnoses Not on filedocumented in this encounter Care Teams Pocketbook Maker Relationship Specialty Start Date End Date Alon Shah, STEEL POST INSTALLER SUPERVISOR PCP - General Family Medicine 12/08/[address] [place], [place] [address] documented as of this encounter
--- OUTSIDE RECORDS SUMMARY | 2022-03-16 01:34 | XMS_ITS | Encounter Summary ---
:1950 Author Organization [facility] [place] [address] Care Team Providers Name Role Phone Grace[place]Alon Andriy SANCHEZ Primary Care Provider Encounter Details Date Type Department Care Team Description 02/16/2022 Hospital Encounter Hematology and Oncol ogy at [facility] Rectal cancer [facility] [place] [address] Social History Tobacco Use Types Packs/Day [...] place to sleep or slept in a custodial (including now)? Sex Assigned at Date Recorded Not on file documented as of this encounter Medications at Time of Discharge Medication Sig Dispensed Refills Start Date End Date CAPEcitabine (Xeloda) 500 Take 3 tablets (1,500 168 tablet 0 02/16/2022 mg tabletIndications: mg) by mouth 2 times Rectal cancer daily. Take within 30 minutes after eating. Call clinic before/prior to starting medication/script. Take on days of radiation only. Do not start until radiation starts ondansetron (Zofran) 8 mg Take 1 tablet by 20 tablet 5 01/27 TabletIndications: Rectal mouth every 8 hours cancer, Drug-induced as needed for Nausea. nausea and vomiting acetaminophen (Tylenol) Take 1,000 mg by 0 500 mg Tablet mouth every 6 hours as needed for Pain. documented as of this encounter Plan of Treatment Upcoming Encounters Date Type Specialty Care Team Description 03/16/2022 Scheduled View Only Radiation Oncology 03/17/2022 Scheduled View Only Radiation Oncology 03/17/2022 Office Visit Radiation Oncology Kerline Tinoco v, MD [address] [place] [address] [address] [place] [place], [place] [id number] (Wo rk) 03/18/2022 Scheduled View Only Radiation Oncology 03/21/2022 Scheduled View Only Radiation Oncology 03/22/2022 Scheduled View Only Radiation Oncology 03/23/2022 Scheduled View Only Radiation Oncology 03/24/2022 Scheduled View Only Radiation Oncology 03/24/2022 Office Visit Radiation Oncology Kerline Tinoco v, MD [address] [place] [address] [address] [place], [place] [id number] (Wo rk) 03/25/2022 Office Visit Hematology and Drew Melendrez, Oncology [facility] [place], [place] [address] (Wo rk) 03/25/2022 Scheduled View Only Radiation Oncology 03/28/2022 Scheduled View Only Radiation Oncology 03/29/2022 Scheduled View Only Radiation Oncology 03/30/2022 Scheduled View Only Radiation Oncology 03/31/2022 Scheduled View Only Radiation Oncology 03/31/2022 Office Visit Radiation Oncology Kerline Tinoco v, MD [address] [place] [address] [place] [address] (Wo rk) 04/01/2022 Office Visit Hematology Drew Pisano Oncology [facility] [place], [place] [address] (Wo rk) 04/01/2022 Scheduled View Only Radiation Oncology 04/04/2022 Scheduled View Only Radiation Oncology 04/04/2022 Notes Only Radiation Oncology Kerline Tinoco v, MD [address] [place] [address] [address] [place], [place] [address] (Wo rk) 04/08/2022 Office Visit Hematology and Drew Melendrez Oncology [facility] [place], [place] [address] (Wo rk) documented as of this encounter Procedures Procedure Name Priority Date/Time Associated Comments Diagnosis HC VENIPUNCTURE Routine 02/16/2022 3:31 PM Rectal [...] 02/16/2022 3:31 PM Rectal cance r EDT HC CARCINO-EMBRYONIC Routine 02/16/2022 3:31 PM Rectal cancer Results for this AG ASSAY EDT procedure are i n the results section. COMPREHENSIVE Routine 02/16/2022 3:31 PM Rectal cancer Results for this METABOLIC PANEL EDT procedure ar e in (NON-FASTING) the results section. documented in this encounter Results (ABNORMAL) Differential, Automated (02/16/2022 3:31 PM EDT) [facility] Method Time Signature Neutrophils % 58.1 % [facility] LABORATORY Neutr Abs (ANC) 6.32 (H) 1.70 - [facility] 6.10 [facility] x10(3)/[facility] LABORATORY Lymphocytes % 25.1 % [facility] Lymphocytes Abs 2.7 0.9 - 3.2 [facility] x10(3)/[facility] LABORATORY Monocytes % 11.6 % [facility] Monocyte Abs 1.3 (H) 0.3 - 0.9 [facility] x10(3)/[facility] LABORATORY Eosinophils % 4.2 % [facility]ORY Eosinophils Abs 0.5 (H) 0.0 - 0.4 [facility] x10(3)/[facility] LABORATORY Basophils % 0.6 % [facility]OR[facility] Basophils Abs 0.1 0.0 - 0.1 [facility] x10(3)/[facility] LABORATORY Immature Gran % 0.40 % [facility] Comment: Immature granulocytes(IG's)percentage an d absolute count will include metamyelocytes, myelocytes, and promyelo cytes. Blood smears from CBCs yielding IG's will be scanned manually for concor dance. If this scan disagrees with the automated IG or if promyelocytes are not ed, a manual differential will be performed. Raiza Gran Abs 0.04 0.00 - 0.04 x10(3)/[facility] MAR Y [facility] LABORATORY Specimen Anatomical Collection Method Collection Time Receive d Time (Source) Location / / Volume Laterality Blood 02/16/2022 3:31 PM 3:37 EDT PM EDT Resulting Agency Comment Spec In Lab Drew Melendrez MD HEMATOLOGY ORDERABLES Performing Organization Address City/State/ZIP [place] [address] (ABNORMAL) Hemogram (02/16/2022 3:31 PM EDT) Analysis Performed At Patho logist Time Signature WBC 10.9 (H) 4.0 - 9.5 [facility] x10(3)/[facility] LABORATORY RBC 4.71 4.58 - [facility] 5.54 [facility] x10(6)/[facility] LABORATORY Hemoglobin 13.3 (L) 13.7 - [facility] 16.5 g/dL [facility] LABORATORY Hematocrit 41.0 40.5 - [facility] 48.5 % [facility] MCV 87.0 82.9 - [facility] 93.1 [facility] LABORATORY MCH 28.2 27.5 - [facility] 32.1 pg [facility] LABOR[facility]ORY MCHC 32.4 32.0 - [facility] 35.7 g/dL [facility] LABORATORY Platelets 333 145 - 357 [facility] x10(3)/[facility] LABORATORY RDWSD 50.2 (H) 36.0 - [facility] 45.0 [facility] LABORATORY RDWCV 15.7 (H) 11.4 - [facility] 13.8 % [facility] LABORATORY MPV 9.8 7.6 - 12.9 [facility] LABORATORY nRBC % Auto 0.0 % [facility] LABORATORY nRBC Abs Auto 0.000 0.000 - [facility] 0.000 [facility] x10(3)/[facility] LABORATORY Specimen Anatomical Collection Method Collection Time Receive d Time (Source) Location / / Volume Laterality Blood 02/16/2022 3:31 PM 3:37 EDT PM EDT Resulting Agency Comment Spec In Lab Drew Melendrez MD HEMATOLOGY ORDERABLES Performing Organization Address City/State/[place] [address] (ABNORMAL) Comprehensive metabolic panel (non-fasting) (02/16/2022 3:31 PM EDT) P athologist Signature Glucose Lvl 87 65 - 199 [facility] mg/dL [facility] LABORATORY Comment: Diabetes: >=200 mg/dL plus symp toms BUN 9 (L) 10 - 20 mg/dL [facility] LABORATORY Creatinine 0.60 (L) 0.80 - 1.50 mg/dL [facility] LABORATORY Sodium 140 135 - 145 mmol/L [facility] LABOR[facility] Potassium 4.2 3.5 - 5.0 mmol/L [facility] LABOR[facility] Comment: Please note: ??Patients with WBC >100,00 0 may have falsely elevated Potassium levels. ??For accurate Potassium quantif ication in these patients send serum separator tube (gold top) for subsequent determinations. ??Contact the Clinical Chemistry Laboratory if there are any qu estions. Chloride 105 98 - 107 mmol/L [facility] LABORATORY CO2 24 22 - 31 mmol/L [facility]OR[facility] Anion Gap 11 5 - 15 mmol/L [facility] Calcium 9.2 8.5 - 10.5 mg/dL [facility]OR[facility] Total Protein 6.9 6.1 - 8.0 g/dL [facility] LABOR[facility]ORY Albumin 3.9 3.2 - 5.2 g/dL [facility] LABORATORY AST 13 0 - 39 unit/L [facility] ALT 8 0 - 55 unit/L [facility] Alk Phos 68 40 - 130 unit/L [facility] Total Bilirubin 0.3 0.2 - 1.3 mg/dL [facility] LABORATORY Estimated GFR 104 >=60 mL/min/1.73 m?? [facility] Comment: This patient's estimated GFR was [...] [facility]/ZIP Code Phon e Number [address] CEA (02/16/2022 3:31 PM EDT) P athologist Signature CEA 3.9 ng/mL [facility] LABORATORY Comment: Reference range: ??(20-69 years): Non-smoker: [...] Address City/[facility]/ZIP [facility] Phon e Number [address] DPYD PCR (02/16/2022 3:31 PM EDT) Component Value Ref Test Analysis Performed At Patholo gist Range Method Time Signature DPYD PCR INDICATION FOR STUDY: DPYD Genotyping [facility] RESULTS: Normal metabolizer, *1/*1 genotype [facility] INTERPRETATION: ??Normal gen otype, with normal [...] probes for each varian t: DPYD*2A ??(c.1905+1G>A, [id number]), DPYD*13 (c.1679T>G , [id number]), and DP YD c.2846A>T ([id number]). All variant positions are provided on the [...] Genomics and Advanced Technology (CGAT) at the [facility]. It has not been cleared or approved [...] Clin Pharmacol Ther. 2018 Sep;103(2):21 0-216. PMID: [id number] 3. Ponce Sibley, Pamela Roblero, Kayden Escalante, et al. Fluorouracil Ther apy and DPYD Genotype. In: Medical Genetics Summaries [Internet]. B fabrizio CONTEH): [employer] Inf ormation ([place]); 2011? 2015 3. PMID: [id number] Specimen Anatomical Collection Method Collection Time Receive d Time (Source) Location / / Volume Laterality Blood 02/16/2022 3:31 PM 6:45 EDT PM EDT Resulting Agency Comment Spec In Lab Drew Melendrez MD CHEMISTRY ORDERABLES Performing Organization Address City/State/ZIP [place] [address] documented in this encounter Visit Diagnoses Diagnosis Rectal cancer Malignant neoplasm of rectum documented in this encounter Care Teams Well Drill Operator Relationship Specialty Start Date End Date Alon Shah, CLINICAL DATA ABSTRACTOR PCP - General Family Medicine 12/08/21 [address] [place] [address] documented as of this encounter
--- OUTSIDE RECORDS SUMMARY | 2022-03-16 01:34 | XMS_ITS | Encounter Summary ---
:1950 Author Organization [facility] Address [address] [place] [address] Care Team Providers Name Role Phone PabloAlon Andriy SANCHEZ Primary Care Provider Reason for Visit Reason Comments Prior Authorization Capecitabine 500 mg tablets Encounter Details Date Type Department Care Team Description 02/17/2022 Specialty Pharmacy Pharmacy at [facility] Miriam Angel Prior Authorization [facility] (Capecita bine [address] tablets) [place] [id number] Social History Tobacco Use Types Packs/Day Years [...] documented as of this encounter Progress Notes Miriam Angel - 02/17/2022 8:42 AM EDT [facility], No Prior Authorization Required Patient: Karlo Kolb Patient : 1950 Patient Address: [place] [address] (home) Medication Name: CAPECITABINE 500 MG TABLET Medication ID: [id number] Patient Location: [facility] HEM ONC 3K Patient Location Comment: Medication Strength Frequency Requested: Take 3 tablets (1,500 mg) by mouth 2 times daily. Qty/Day Supply: 168/ New Start: New to Therapy Diagnosis & ICD-10 Code: Rectal cancer (C20) Subscriber Insurance: [employer] Subscriber Insurance Comment: Fax: Physician: DREW DIAZ Physician Comment : PA Status: NO PA REQUIRED Fillable at [facility]: Yes Copay: $0.00 copay Copay assistance: None Copay assistance comment: PA approved- $0 copay for 30 day supply. Pharmacy staff will be reaching out to the patient to inform them of their medication's approval by their insurance. If applicable, a pharmacist will speak with the patient to offer our specialty pharmacy services and to arrange delivery of their medication. Miriam Angel 02/17/22 8:45 AM documented in this encounter Plan of Treatment Upcoming Encounters Date Type Specialty Care Team Description 03/16/2022 Scheduled View Only Radiation Oncology 03/17/2022 Scheduled View Only Radiation Oncology 03/17/2022 Office Visit Radiation Oncology Kerline Tinoco v, MD [address] [place] [address] RADIATION [place]SPENCER [place], [place] [address] (Wo rk) 03/18/2022 Scheduled View Only Radiation Oncology 03/21/2022 Scheduled View Only Radiation Oncology 03/22/2022 Scheduled View Only Radiation Oncology 03/23/2022 Scheduled View Only Radiation Oncology 03/24/2022 Scheduled View Only Radiation Oncology 03/24/2022 Office Visit Radiation Oncology Kerline Tinoco v, MD [address] [place] [address] RADIATION [place]SPENCER [place], [place] [address] (Wo rk) 03/25/2022 Office Visit Hematology Drew Pisano, Oncology [facility] [address] [place], [place] [address] (Wo rk) 03/25/2022 Scheduled View Only Radiation Oncology 03/28/2022 Scheduled View Only Radiation Oncology 03/29/2022 Scheduled View Only Radiation Oncology 03/30/2022 Scheduled View Only Radiation Oncology 03/31/2022 Scheduled View Only Radiation Oncology 03/31/2022 Office Visit Radiation Oncology Kerline Tinoco v, MD [address] [place] [address] RADIATION [place]SPENCER [place], [place] [address] (Wo rk) 04/01/2022 Office Visit Drew Gustafson Oncology [facility] [address] [place], [place] [address] (Wo rk) 04/01/2022 Scheduled View Only Radiation Oncology 04/04/2022 Scheduled View Only Radiation Oncology 04/04/2022 Notes Only Radiation Oncology Kerline Tinoco v, MD [address] [place] [address] RADIATION [place]SPENCER [place], [place] [address]8789 (Wo rk) 04/08/2022 Office Visit Hematology and Drew Diaz, Oncology [facility] [place], [place] [address] (Wo rk) documented as of this encounter Visit Diagnoses Not on filedocumented in this encounter Care Teams Bench Scientist Relationship Specialty Start Date End Date Alon Shah, MEAT PROCESS WORKER PCP - General Family Medicine 12/08/21 [address] [place], [place] [address] documented as of this encounter
--- OUTSIDE RECORDS SUMMARY | 2022-03-16 01:34 | XMS_ITS | Encounter Summary ---
:1950 Author Organization [facility] Address [address] [place] [address] Care Team Providers Name Role Phone PabloAlon LAURA Primary Care Provider Encounter Details Date Type Department Care Team Description 02/02/2022 Notes Only General Surgery at [facility] Donavon Villafuerte MD [facility] [place] [address] [place] [address] [phone] (Wo rk) Social History Tobacco Use Types [...] documented as of this encounter Progress Notes Donavon Villafeurte MD - 02/02/2022 3:01 PM EDT Date of Rectal Cancer MDT Discussion Date: 02/02/2022 Physicians Attending: Silver Miranda, Earnest Melendrez (alt-Rad Onc), Regina Physician Presenter: Silver Villafuerte Colonoscopy Report Reviewed: Yes Rectal Cancer MRI Reviewed: Yes Location and Pathology of Rectal Primary: mid rectum Location and Pathology of Synchronous Lesions: n/a Presence of Metastatic Lesions: No Pathology of Metastatic Lesions (If present): Not Applicable Rectal Cancer MDT Treatment Evaluation and Recommendation Summary Tumor Location in the Rectum: Upper Third and Lower Third Sphincter Involvement: Yes Pretreatment (clinical) [place] Joint Committee on Cancer Stage: [id number] Pretreatment circumferential resection margin status: Involved CEA Level: 1.4 Neoadjuvant Therapy Recommendation: Yes Type and duration of Neoadjuvant Therapy Recommendation: Total neoadjuvant therapy. Long course chemoradiation followed by folfox Anticipated Date and Type of Surgical Procedure: LAR with diverting loop ileostomy Clinical Research Study Eligibility and/or Enrollment: No documented in this encounter Plan of Treatment Upcoming Encounters Date Type Specialty Care Team Description 03/16/2022 Scheduled View Only Radiation Oncology 03/17/2022 Scheduled View Only Radiation Oncology 03/17/2022 Office Visit Radiation Oncology Kerline Tinoco v, MD [address] [place] [address] [place] [address] (Wo rk) 03/18/2022 Scheduled View Only Radiation Oncology 03/21/2022 Scheduled View Only Radiation Oncology 03/22/2022 Scheduled View Only Radiation Oncology 03/23/2022 Scheduled View Only Radiation Oncology 03/24/2022 Scheduled View Only Radiation Oncology 03/24/2022 Office Visit Radiation Oncology Kerline Tinoco v, MD [address] [place] [address] [place] [address] (Wo rk) 03/25/2022 Office Visit Hematology and Drew Melendrez Oncology [facility] [address] [place], [place] [address] (Wo rk) 03/25/2022 Scheduled View Only Radiation Oncology 03/28/2022 Scheduled View Only Radiation Oncology 03/29/2022 Scheduled View Only Radiation Oncology 03/30/2022 Scheduled View Only Radiation Oncology 03/31/2022 Scheduled View Only Radiation Oncology 03/31/2022 Office Visit Radiation Oncology Kerline Tinoco v, MD [address] [place] [address] [place] [address] (Wo rk) 04/01/2022 Office Visit Hematology and Drew Melendrez, Oncology [facility] [address] [place], [place] [address] (Wo rk) 04/01/2022 Scheduled View Only Radiation Oncology 04/04/2022 Scheduled View Only Radiation Oncology 04/04/2022 Notes Only Radiation Oncology Kerline Tinoco v, MD [address] [place] [address] [place] [address] (Wo rk) 04/08/2022 Office Visit Hematology and Drew Melendrez Oncology [facility] [address] [place], [place] [address] (Wo rk) documented as of this encounter Visit Diagnoses Not on filedocumented in this encounter Care Teams Street Photographer Relationship Specialty Start Date End Date Alon Shah, BUS DRIVER SUPERVISOR PCP - General Family Medicine 12/08/[address] [place] [address] documented as of this encounter
--- OUTSIDE RECORDS SUMMARY | 2022-03-16 01:34 | XMS_ITS | Encounter Summary ---
:1950 Author Organization [facility] Address [address] [place] [address] Care Team Providers Name Role Phone Unavailable Primary Care Provider Unavailable Encounter Details Date Type Department Care Team Description 11/04/2021 Ancillary Procedure Radiology [facility] [place], [facility] GREASE REFINER OPERATOR [address] [place] [address] [id number] [phone] Social History Tobacco Use Types Packs/Day Years [...] Visit Radiation Oncology Kerline Tinoco v, MD [address] [place] [address] RADIATION [place]CSPENCER [place], [place] [address] (Wo rk) 03/18/2022 Scheduled View Only Radiation Oncology 03/21/2022 Scheduled View Only Radiation Oncology 03/22/2022 Scheduled View Only Radiation Oncology 03/23/2022 Scheduled View Only Radiation Oncology 03/24/2022 Scheduled View Only Radiation Oncology 03/24/2022 Office Visit Radiation Oncology Kerline Tinoco v, MD [address] [place] [address] RADIATION [place]SPENCER [place], [place] [address] (Wo rk) 03/25/2022 Office Visit Hematology and Drew Melendrez, Oncology [facility] [place], [place] [address] (Wo rk) 03/25/2022 Scheduled View Only Radiation Oncology 03/28/2022 Scheduled View Only Radiation Oncology 03/29/2022 Scheduled View Only Radiation Oncology 03/30/2022 Scheduled View Only Radiation Oncology 03/31/2022 Scheduled View Only Radiation Oncology 03/31/2022 Office Visit Radiation Oncology Kerline Tinoco v, MD [address] [place] [address] [place] [address] (Wo rk) 04/01/2022 Office Visit Hematology and Drew Melendrez Oncology [facility] [place], [place] [address] (Wo rk) 04/01/2022 Scheduled View Only Radiation Oncology 04/04/2022 Scheduled View Only Radiation Oncology 04/04/2022 Notes Only Radiation Oncology Kerline Tinoco v, MD [address] [place] [address] [place] [address] (Wo rk) 04/08/2022 Office Visit Hematology and Drew Melendrez, Oncology [facility] [place], [place] [address] (Wo rk) documented as of this encounter Procedures Procedure Name Priority Date/Time Associated Diagnosis Comme nts FILM LIBRARY Routine 11/04/2021 12:00 AM Results for this STORAGE ONLY DX EST procedure ar e in ABDOMEN the results section. documented in this encounter Results Film Library- Storage Only DX Abdomen (11/04/2021 12:00 AM EST) Specimen (Source) Anatomical Location Collection Method / Collectio n Time Received Time / Laterality Volume Narrative SUDHA - 12/14/2021 10:56 AM EDT This exam is auto-finalizing. It's purpo se is for storage only. Alon Shah APRN IMG FILM LIBRARY ORDERABLES Performing Organization Address City/State/ZIP Code Phon e Number [place], [place] documented in this encounter Visit Diagnoses Not on filedocumented in this encounter
--- OUTSIDE RECORDS SUMMARY | 2022-03-16 01:34 | XMS_ITS | Encounter Summary ---
:1950 Author Organization [facility] [place] [address] Care Team Providers Name Role Phone Pablo Alon Ashraf APRN Primary Care Provider Encounter Details Date Type Department Care Team Description 12/16/2021 External Results Medical Records Provider, Scanning [facility] [place] [address] Social History Tobacco Use Types Packs/Day [...] Visit Radiation Oncology Kerline Tinoco v, MD [address] [place] [address] [address] [place], [place] [address] (Wo rk) 03/18/2022 Scheduled View Only Radiation Oncology 03/21/2022 Scheduled View Only Radiation Oncology 03/22/2022 Scheduled View Only Radiation Oncology 03/23/2022 Scheduled View Only Radiation Oncology 03/24/2022 Scheduled View Only Radiation Oncology 03/24/2022 Office Visit Radiation Oncology Kerline Tinoco v, MD [address] [place] [address] [address] [place], [place] [address] (Wo rk) 03/25/2022 Office Visit Hematology and Drew Melendrez, Oncology [facility] [place], [place] [address] (Wo rk) 03/25/2022 Scheduled View Only Radiation Oncology 03/28/2022 Scheduled View Only Radiation Oncology 03/29/2022 Scheduled View Only Radiation Oncology 03/30/2022 Scheduled View Only Radiation Oncology 03/31/2022 Scheduled View Only Radiation Oncology 03/31/2022 Office Visit Radiation Oncology Kerline Tinoco v, MD [address] [place] [address] [address] [place], [place] [address]66[address] (Wo rk) 04/01/2022 Office Visit Hematology and Drew Melendrez Oncology [facility] [place], [place] [address] (Wo rk) 04/01/2022 Scheduled View Only Radiation Oncology 04/04/2022 Scheduled View Only Radiation Oncology 04/04/2022 Notes Only Radiation Oncology Kerline Tinoco v, MD [address] [place] [address] [address] [facility], [place] [address] (Wo rk) 04/08/2022 Office Visit Hematology and Parvin, Drew Gar, Oncology [facility] [place], [place] [address] (Wo rk) documented as of this encounter Procedures Procedure Name Priority Date/Time Associated Diagnosis Comme nts SURGICAL PATHOLOGY Routine 12/16/2021 Results f or this SCAN procedure are i n the results section . documented in this encounter Results Scan Doc: Surgical Pathology (12/16/2021) Narrative This result has an attachment that is no t available. Drew Melendrez MD MEDIA MGR SCAN EXT ORDR/RSLT documented in this encounter Visit Diagnoses Not on filedocumented in this encounter Care Teams Production Welder Relationship Specialty Start Date End Date Alon Shah, LAURA PCP - General Family Medicine 12/08/[address] [place] [address] documented as of this encounter
--- OUTSIDE RECORDS SUMMARY | 2022-03-16 01:34 | XMS_ITS | Encounter Summary ---
:1950 Author Organization [facility] [place] [address] Care Team Providers Name Role Phone Alon Shah LAURA Primary Care Provider Reason for Visit Reason Comments Medication Management Encounter Details Date Type Department Care Team Description 02/17/2022 Specialty Pharmacy Pharmacy at [facility] [place] [address] Social History Tobacco Use Types Packs/Day Years [...] place to sleep or slept in a residential (including now)? Sex Assigned at Date Recorded Not on file documented as of this encounter Progress Notes Nahed Pinto [facility] - 02/17/2022 12:48 PM EDT Specialty Pharmacy Consultation; Nahed Pinto [facility] Comprehensive Medication Management (CMM) Karlo Kolb Diagnosis: Rectal cancer Therapy Start Date: 02/19/22 Contact in person or via telephone:phone Mr. Karlo Kolb is a 71 y.o. (1950) male who was called today. I spoke with the patient regarding their specialty medication Capecitabine and a review of the drug therapy was performed. The medication was filled as scheduled, and all related questions and concerns were addressed. The specialtypharmacy staff will follow up with the patient 5-7 days prior to next refill. Is the patient willing to proceed with the Clinical Assessment? Yes Summary and Recommendations: Potential side effects of Capecitabine such as N/V/D, stomatitis, hand/foot syndrome, fatigue, fever, bleeding, myalgia, edema, MURGUIA, rash, and cough reviewed with possible management strategies. The patient was feeling well today and not experiencing any side effects. Medication list reviewed with no major interactions identified. The patient is aware of the importance of lab follow up and infection prevention precautions such as proper hand washing, appropriate vaccination, and wearing a mask during an illness. The importance of adherence to treatment and strategies to improve compliance includinguse of pill boxes, calendar reminders, or routine alarms was discussed. The patient was instructed to notify the clinic of any upcoming procedures or new medications and OTC products. Resources are available to the patient from the cancer center from dieticians to social media marketing specialist. Administration, allergies, dosage, safe storage away from pets or children, handling and disposal was reviewed. The pharmacy's contact information and operating hours on-call services were given to the patient verbally as well as in writing. The medication will be mailed out for a $0 copay. Clinic follow-up needed: no Allergies and Drug intolerance: No Known Allergies Problem List: Patient Active Problem List Diagnosis Code ??? Rectal cancer C20 ??? Ostomy nurse consultation Z71.89 ??? Attention to colostomy Z43.3 Special Dietary or Hydration Requirements: take with food Medication reconciliation discrepancies (compared to [facility] med list): no Medication List: Current Outpatient Medications Medication Sig Dispense Refill ??? CAPEcitabine (Xeloda) 500 mg tablet Take 3 tablets (1,500 mg) by mouth 2 times daily. Take within 30 minutes after eating. Call clinic before/prior to starting medication/script. Take on days of radiation only. Do not start until radiation starts 168 tablet 0 ??? ondansetron (Zofran) 8 mg Tablet Take 1 tablet by mouth every 8 hours as needed for Nausea. (Patient not taking: Reported on 02/24/2022) 20 tablet 5 ??? acetaminophen (Tylenol) 500 mg Tablet Take 1,000 mg by mouth every 6 hours as needed for Pain. No current facility-administered medications for this visit. Most Recent Vitals: Ht Readings from Last 1 Encounters: 02/16/22 179 cm (5' 10.47) Wt Readings from Last 3 Encounters: 02/24/22 75.2 kg (165 lb 12.8 oz) 02/16/22 75.8 kg (167 lb) 02/09/22 74 kg (163 lb 3.2 oz) Temp Readings from Last 3 Encounters: 02/24/22 36.3 ??C (97.4 ??F) 02/16/22 36.6 ??C (97.9 ??F) (Temporal) 02/09/22 36.7 ??C (98.1 ??F) (Temporal) BP Readings from Last 3 Encounters: 02/24/22 139/77 02/16/22 135/82 02/09/22 99/62 Pulse Readings from Last 3 Encounters: 02/24/22 80 02/16/22 76 02/09/22 60 There is no height or weight on file to calculate BMI. Pertinent Lab values: Lab Results Component Value Date NA 140 02/16/2022 K 4.2 02/16/2022 CL 105 02/16/2022 CO2 24 02/16/2022 BUN 9 (L) 02/16/2022 CREATININE 0.60 (L) 02/16/2022 GLUCOSE 87 02/16/2022 CALCIUM 9.2 02/16/2022 Lab Results Component Value Date ALT 8 02/16/2022 AST 13 02/16/2022 ALKPHOS 68 02/16/2022 BILITOT 0.3 02/16/2022 ALBUMIN 3.9 02/16/2022 PROT 6.9 02/16/2022 Lab Results Component Value Date WBC 10.9 (H) 02/16/2022 HGB 13.3 (L) 02/16/2022 HCT 41.0 02/16/2022 MCV 87.0 02/16/2022 PLATELET 333 02/16/2022 No results found for: HA1C There is no immunization history on file for this patient. Assessment and Recommendations: Patient Counseling Patient informed of specialty services: Yes Patient accepted offer to counselor camp: adherence/missed doses, cost of medications/cost implications, doses and administration, possible drug/OTC drug and food interactions, possible adverse side effects and management, pharmacy contact information, lab monitoring/follow up Medication Management Summary Topics discussed: medication safety precautions education provided, safe handling, storage, and disposal discussed, adherence and missed doses discussed Number of adverse drug events identified: 0 Time spent: 16-30 min Treatment Outcomes 02/27/2022 1719 Disease progression: Stable Patient Overall Status: Stable Reviewed in detail with patient: Dose appropriateness based on recommended standard dosing Current medication list including OTC medications Medication and disease problems Allergies Comorbid conditions/ Problem List Past adverse events if any Special needs of the patient including physical and cognitive limitations Goals of therapy and management strategies Warnings, precautions, and contraindications Side effects Drug-drug and drug-food interactions Administration instructions including dose, frequency and method Handling, storage, and disposal Verifying expiration dates on products before use Rotating medication inventory to use oldest product first Relevant lab data Treatments impact on disease Dose appropriateness based on recommended standard dosing schedule, including any variations from FDA approved dosing Patient verbalizes understanding and is able to read-back instructions on self-administration/injection, proper storage, drug stability, importance of adherence and management strategies, side effect avoidance and mitigation strategies, and interruptions in therapy: Yes Patient is aware a licensed pharmacist is available 24 hours a day, 7 days a week to discuss medication-related questions or concerns: Yes Patient verbalizes understanding of the common side effect profile of their medication. The patient is able to call 911 or seek urgent care if signs/symptoms of allergy or harmful adverse reactions occur: Yes Additional care/services needed: No Additional equipment/supplies required: No Patient satisfied with care/services provided: Yes Specialty Assessment: Physical and Cognitive Assessment: Functional limitations identified: No Cognitive limitations identified: No Concern regarding orientation/memory: No Concern with reasoning/judgement: No Is patient a fall risk: No Social Assessment: Does patient have a primary daycare teacher: No Does patient have an emergency contact on file: Yes Does patient need referral to social media marketing specialist: No Does patient need referral to advocacy group: No Home Health Assessment: Is the patient in a safe home environment?: Yes Is the patient able to store their medication as directed?: Yes Does the patient have a support network at home?: Yes Reviewed potential home safety hazards with patient: Yes Economic Assessment: Patient is agreeable to medication copay: Yes Actual Copay: $: 0 Days Supply: 28 Welcome Packet and Rights and Responsibilities: Patient provided welcome packet/rights and responsibilities: Yes Specialty Med Adherence Patient Demonstrates Understanding of Importance of Adherence: Yes Educational Information or Adherence Tools Provided: Yes Patient Reported X Missed Doses in the Last Month: 0 Provider-Estimated Medication Adherence Level: 90-100% Adherence Tools Used: calendar Therapy Assessment: Current Medication Dosing/Route/Frequency: Capecitabine 1500mg PO BID on days of radiation treatment Appropriate therapy: Yes Patient's Problems/Needs: The patient needs to remain adherent to improve outcomes by preventing side effects. Appropriate mitigation strategies reviewed. Ondansetron was prescribed. Expected outcome: Reduce tumor burden prior next step in therapy plan Monitoring requirements for prescribed medication: CBC, CMP Patient Goals: Hematology/Oncology related goals may include remission, palliative or hospice care, a bridge to future surgery, transplant, and radiation or infusion therapy. Goals ??? Home Medication Compliance and Understanding Complete 28 days of chemoradiation therapy without significant nausea Care Plan Reviewed and Approved by both Pharmacist and Patient: Yes Interventions (if applicable): No Patient Status and Counseling: Is the patient experiencing pain? no Relevant monitoring results reviewed for bone marrow suppression, opportunistic infection, tumor lysis syndrome, metabolic disturbance and end organ dysfunction yes - . Pharmacist follow-up needed: No Patient understands any changes to current drug regimen were made at the appointment and that [facility] is[facility] (summary located at top of note) for provider review and follow up. Nahed Pinto RPH 02/27/22 5:20 PM documented in this encounter Plan of Treatment Upcoming Encounters Date Type Specialty Care Team Description 03/16/2022 Scheduled View Only Radiation Oncology 03/17/2022 Scheduled View Only Radiation Oncology 03/17/2022 Office Visit Radiation Oncology Kerline Tinoco v, MD [address] [place] [address] DR MENDOZA ON[place]SPENCER [place], [place] [phone] (Wo rk) 03/18/2022 Scheduled View Only Radiation Oncology 03/21/2022 Scheduled View Only Radiation Oncology 03/22/2022 Scheduled View Only Radiation Oncology 03/23/2022 Scheduled View Only Radiation Oncology 03/24/2022 Scheduled View Only Radiation Oncology 03/24/2022 Office Visit Radiation Oncology Kerline Tinoco v, MD [address] [place] [address] DR KELLY SHUKLA [place], [place] [phone] (Wo rk) 03/25/2022 Office Visit Hematology and Drew Melendrez, Oncology [facility] [place], [place] [address] (Wo rk) 03/25/2022 Scheduled View Only Radiation Oncology 03/28/2022 Scheduled View Only Radiation Oncology 03/29/2022 Scheduled View Only Radiation Oncology 03/30/2022 Scheduled View Only Radiation Oncology 03/31/2022 Scheduled View Only Radiation Oncology 03/31/2022 Office Visit Radiation Oncology Kerline Tinoco v, MD [address] [place] [address] DR MENDOZA [place]SPENCER [place], [place] [id number] (Wo rk) 04/01/2022 Office Visit Hematology and Drew Melendrez, Oncology [facility] [place], [place] [address] (Wo rk) 04/01/2022 Scheduled View Only Radiation Oncology 04/04/2022 Scheduled View Only Radiation Oncology 04/04/2022 Notes Only Radiation Oncology Kerline Tinoco v, MD [address] [place] [address] RADIATION ON[place]O [place], [place] [phone] (Wo rk) 04/08/2022 Office Visit Hematology and Drew Melendrez, Oncology [facility] [place], [place] [address] (Wo rk) documented as of this encounter Goals Goal Patient Goal Associated Recent Patient-Stated? Author Type Problems Progress DH Home Medication Patient No Froylan ds, Compliance and Facing Nahed Newman, Understanding Action Plan [facility] Note: Formatting of this note might be d ifferent from the original. Complete 28 days of chemoradiation thera py without significant nausea documented as of this encounter Visit Diagnoses Not on filedocumented in this encounter Care Teams Technical Writer And Editor Relationship Specialty Start Date End Date Alon Shah, OCEANIC SCIENCES PROFESSOR PCP - General Family Medicine 12/08/[address] [place], [place] [id number] documented as of this encounter
--- OUTSIDE RECORDS SUMMARY | 2022-03-16 01:34 | XMS_ITS | Encounter Summary ---
:1950 Author Organization [place] [address] Care Team Providers Name Role Phone Alon Shah APRN Primary Care Provider Reason for Referral Consultation (Routine) - Closed Specialty Diagnoses / Procedures Referred By Contact Refer red To Contact Radiation Oncology Diagnoses Rectal cancer Julián Tinoco MD [facility] Rad Onc Office Procedures Simulation for Radiation Therapy Planning [address] [place] [address] [place] [id number] Referral ID Status Reason Start Date Expiration Date Visits V isits Requested Authorized [id number] Closed Consult, 01/30/2022 01/30/2023 1 1 Test & Treat Encounter Details Date Type Department Care Team Description 01/30/2022 Orders Only Radiation Oncology at Julián Tinoco MD Rectal cancer [address] [place] [facility] [id number] [phone] Social History Tobacco Use Types Packs/Day Years [...] Radiation Oncology Kerline Tinoco v, MD [address] [place] [address] RADIATION [place]SPENCER [place], [place] [phone] (Wo rk) 03/18/2022 Scheduled View Only Radiation Oncology 03/21/2022 Scheduled View Only Radiation Oncology 03/22/2022 Scheduled View Only Radiation Oncology 03/23/2022 Scheduled View Only Radiation Oncology 03/24/2022 Scheduled View Only Radiation Oncology 03/24/2022 Office Visit Radiation Oncology Kerline Tinoco v, MD [address] [place] [address] RADIATION [place]SPENC[place], [place] [phone] (Wo rk) 03/25/2022 Office Visit Hematology and Drew Melendrez, Oncology [facility] [place], [place] [address] (Wo rk) 03/25/2022 Scheduled View Only Radiation Oncology 03/28/2022 Scheduled View Only Radiation Oncology 03/29/2022 Scheduled View Only Radiation Oncology 03/30/2022 Scheduled View Only Radiation Oncology 03/31/2022 Scheduled View Only Radiation Oncology 03/31/2022 Office Visit Radiation Oncology Kerline Tinoco v, MD [address] [place] [address] [place] [address] (Wo rk) 04/01/2022 Office Visit Hematology and Drew Melendrez, Oncology [facility] [place], [place] [address] (Wo rk) 04/01/2022 Scheduled View Only Radiation Oncology 04/04/2022 Scheduled View Only Radiation Oncology 04/04/2022 Notes Only Radiation Oncology Kerline Tinoco v, MD [address] [place] [address] RADIATION [place], [place] [phone] (Wo rk) 04/08/2022 Office Visit Hematology and Drew Melendrez Oncology [facility] [place], [place] [address] (Wo rk) Scheduled Orders Name Type Priority Associated Diagnoses Order S chedule Simulation for Radiation Procedures Routine Rectal cancer Or dered: 01/30/2022 Therapy Planning documented as of this encounter Visit Diagnoses Diagnosis Rectal cancer Malignant neoplasm of rectum documented in this encounter Care Teams Inspector Government Property Relationship Specialty Start Date End Date Alon Shah, ASSEMBLER METAL BUILDING PCP - General Family Medicine 12/08/[address] [place] [address] documented as of this encounter
--- OUTSIDE RECORDS SUMMARY | 2022-03-16 01:34 | XMS_ITS | Encounter Summary ---
:1950 Author Organization [facility] Address [facility] [address] [place] [address] Care Team Providers Name Role Phone Pablo Aloncathy Ashraf APRN Primary Care Provider Reason for Visit Reason Comments Establish Care Colostomy Encounter Details Date Type Department Care Team Description 01/26/2022 Office Visit General Surgery at [facility] Attention to colostomy; One [facility] Sheldon [place] [address] Social History Tobacco Use Types Packs/Day [...] documented as of this encounter Progress Notes Mel Andersen RN - 01/26/2022 4:00 PM EDT Images from the original note were not included. 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 Yojana Parker Pouching System: wearing Coloplast cut to fit one piece #22140 with paste and Elastic Barrier strips; today trialed a Rissa 1 1/4 pre cut soft convex one piece pouch #8664 without paste, ring, etc. Stoma Appearance: red, viable, measures about 1 1/4 Peristomal Skin: intact except 2 small areas where suture had pulled through. I removed one black suture at the 11 o'clock position that was very loose and in the way. Ostomy Output: small hard balls of stool in pouch Today's visit, teaching and recommendations: Pt here for consultation with Dr. Donavon Villafuerte in Colorectal Surgery to discuss treatment of his rectal cancer. He is here with his s.o. of many yrs, Willa Martino, who states she is legally blind. Pt had little ostomy education at [facility] and [facility] and has learned a bit on his own. He hates the colostomy but is managing it. His stoma is quite low in hisLLQ and measures about 1 1/4. He is very anxious about bending over and the pouch leaking. He had some trouble with leakage early on but since wearing this new pouch has not had any but still doesn't bend much. He showers with his pouch but not without it. I had pt remove his pouch while sitting in chair in the office. He had just changed this a.m so had quite a bit of paste on the back of the waferyet. We cleaned the skin and I measured his stoma. I showed him the Rissa 1 1/4 pre cut soft convex one piece pouch #8664 and he agreed to try this. I suggested without paste. I showed him how thewindow can be torn off, which I did to make it easier for him to center. I gave him 3 more of these p ouches. He is still getting his supplies from the [facility], who are still seeing him for a couple more visits. I can follow as needed. Pt's XRT and chemo infusion will be in [facility] so he may not be down this way regularly. I can make f/u appt for 3 mos and pt can cancel or come if would still like more teaching. F/u: 3 mos documented in this encounter Plan of Treatment Upcoming Encounters Date Type Specialty Care Team Description 03/16/2022 Scheduled View Only Radiation Oncology 03/17/2022 Scheduled View Only Radiation Oncology 03/17/2022 Office Visit Radiation Oncology Kerline Tinoco v, MD [address] [place] [address] DR [address] [place] [place], [place] [phone] (Wo rk) 03/18/2022 Scheduled View Only Radiation Oncology 03/21/2022 Scheduled View Only Radiation Oncology 03/22/2022 Scheduled View Only Radiation Oncology 03/23/2022 Scheduled View Only Radiation Oncology 03/24/2022 Scheduled View Only Radiation Oncology 03/24/2022 Office Visit Radiation Oncology Kerline Tinoco v, MD [address] [place] [address] DR [address] [place], [place] [phone] (Wo rk) 03/25/2022 Office Visit Hematology Drew Pisano, Oncology [facility] [place] [address] (Wo rk) 03/25/2022 Scheduled View Only Radiation Oncology 03/28/2022 Scheduled View Only Radiation Oncology 03/29/2022 Scheduled View Only Radiation Oncology 03/30/2022 Scheduled View Only Radiation Oncology 03/31/2022 Scheduled View Only Radiation Oncology 03/31/2022 Office Visit Radiation Oncology Kerline Tinoco v, MD [address] [place] [address] DR KELLY SHUKLA [facility], [place] [phone] (Wo rk) 04/01/2022 Office Visit Hematology Drew Pisano, Oncology [facility] [place], [place] [address] (Wo rk) 04/01/2022 Scheduled View Only Radiation Oncology 04/04/2022 Scheduled View Only Radiation Oncology 04/04/2022 Notes Only Radiation Oncology Kerline Tinoco v, MD [address] [place] [address] RAD[place]ATION [place], [place] [phone] (Wo rk) 04/08/2022 Office Visit Hematology and Drew Melendrez Oncology [facility] [address] [place], [place] [address] (Wo rk) documented as of this encounter Visit Diagnoses Diagnosis Attention to colostomy Ostomy nurse consultation documented in this encounter Care Teams Passenger Car Inspector Relationship Specialty Start Date End Date Alon Shah APRN PCP - General Family Medicine 12/08/[address] [place] [address] [address] [place] [address] documented as of this encounter
--- OUTSIDE RECORDS SUMMARY | 2022-03-16 01:34 | XMS_ITS | Encounter Summary ---
:1950 Author Organization [facility] [place] [address] Care Team Providers Name Role Phone Alon Shah APRN Primary Care Provider Reason for Referral Diagnostic Test (Routine) - Closed Specialty Diagnoses / Procedures Referred By Contact Refer red To Contact Radiology Diagnoses Rectal cancer Donavon Villafuerte MD [facility] Rad Mri Procedures MRI Pelvis (Rectal Cancer Staging) [facility] [place] [address] [place] [address] Referral ID Status Reason Start Date Expiration Date Visits V isits Requested Authorized [id number] Closed Specialty 01/04/2022 07/07/2023 1 1 Service Requested Encounter Details Date Type Department Care Team Description 01/04/2022 Orders Only General Surgery at [facility] [place] Donavon Villafuerte MD Rectal cancer [facility] [place] [address] [place] [address] [phone] (Wo rk) Social History Tobacco Use Types [...] place to sleep or slept in a jail (including now)? Sex Assigned at Date Recorded Not on file documented as of this encounter Plan of Treatment Upcoming Encounters Date Type Specialty Care Team Description 03/16/2022 Scheduled View Only Radiation Oncology 03/17/2022 Scheduled View Only Radiation Oncology 03/17/2022 Office Visit Radiation Oncology Kerline Tinoco v, MD [address] [place] [address] RAD[place]ATION [place] [phone] (Wo rk) 03/18/2022 Scheduled View Only Radiation Oncology 03/21/2022 Scheduled View Only Radiation Oncology 03/22/2022 Scheduled View Only Radiation Oncology 03/23/2022 Scheduled View Only Radiation Oncology 03/24/2022 Scheduled View Only Radiation Oncology 03/24/2022 Office Visit Radiation Oncology Kerline Tinoco v, MD [address] [place] [address] RADIATION [place], [place] [phone] (Wo rk) 03/25/2022 Office Visit Hematology and Drew Melendrez, Oncology [facility] [place] [address] (Wo rk) 03/25/2022 Scheduled View Only Radiation Oncology 03/28/2022 Scheduled View Only Radiation Oncology 03/29/2022 Scheduled View Only Radiation Oncology 03/30/2022 Scheduled View Only Radiation Oncology 03/31/2022 Scheduled View Only Radiation Oncology 03/31/2022 Office Visit Radiation Oncology Kerline Tinoco v, MD [address] [place] [address] [place] [phone] (Wo rk) 04/01/2022 Office Visit Hematology Drew Pisano Oncology [facility] [address] [place] [address] (Wo rk) 04/01/2022 Scheduled View Only Radiation Oncology 04/04/2022 Scheduled View Only Radiation Oncology 04/04/2022 Notes Only Radiation Oncology Kerline Tinoco v, MD [address] [place] [address] DR [place], [place] [phone] (Wo rk) 04/08/2022 Office Visit Hematology and Drew Melendrez Oncology [facility] [address] [place], [place] [address] (Wo rk) documented as of this encounter Results MRI Pelvis (Rectal Cancer [...] questions please contact the health child care team lead that requested your imaging first. ? Narrative 01/26/2022 4:41 PM EDT EXAMINATION: MRI [...] questions please contact the health child care team lead that requested your imaging first. Donavon Villafuerte MD IMG MRI ORDERABLES documented in this encounter Visit Diagnoses Diagnosis Rectal cancer Malignant neoplasm of rectum Rectal cancer Malignant neoplasm of rectum documented in this encounter Care Teams Shipyard Supervisor Relationship Specialty Start Date End Date Alon Shah, PRODUCE DEPARTMENT MANAGER PCP - General Family Medicine 12/08/[address] [place] [address] documented as of this encounter
[2022-03-16 11:18] LABS: Abs Immature Grans 0.02 10^3/uL (0.0-0.06); Absolute Basophil Count 0.03 10^3/uL (0.0-0.2); Absolute Eosinophil Count 0.26 10^3/uL (0.0-0.7); Absolute Lymphocyte Count 0.66 10^3/uL (1.2-3.4); Absolute Monocyte Count 0.96 10^3/uL (0.1-0.8); Absolute Neutrophil Count 4.01 10^3/uL (1.2-6.7); Basophils % 0.5; Eosinophils % 4.4; HCT 39.2 % (40.0-50.0); HGB 13.1 g/dL (13.5-17.5); Immature Grans % 0.3; Lymphocytes % 11.1; MCH 29.7 pg (27.0-33.0); MCHC 33.4 % (32.0-36.0); MCV 89 fL (80-95); MPV 9.5 fL (8.0-11.0); Monocytes % 16.2; Neutrophils % 67.5; Platelet Count 178 10^3/uL (130-400); RBC 4.41 10^6/uL (4.36-5.78); RDW 17.9 % (11.8-14.1); RDW-SD 56.4 fL; WBC 5.94 10^3/uL (4.4-10.8)
[2022-03-16 12:25] LABS: ALT 16 U/L (16-63); AST 11 U/L (15-37); Albumin 3.5 g/dL (3.4-5.0); Alkaline Phosphatase 59 U/L (46-116); Anion Gap 8.3 mmol/L (3-11); BUN 15 mg/dL (7-18); Bilirubin, Total 0.5 mg/dL (0.2-1.0); CO2 26.7 mmol/L (21.0-32.0); CREATININE 0.7 mg/dL (0.70-1.30); Chloride 105 mmol/L (98-107); Glucose 90 mg/dL (74-106); Sodium 140 mmol/L (136-145); Total Protein 7.1 g/dL (6.4-8.2)
== END 2022-03-16 01:32 | disposition home or self-care (01) ==
LOC: LBO 01:32
PROVIDERS: PCP Nurse Practitioner Family; Visit Provider Internal Medicine Hematology & Oncology
DX: C20 Malignant neoplasm of rectum (principal)
CPT/HCPCS: 36415; 80053; 85025

== ENCOUNTER 2022-03-23 03:52 | Outpatient (CLI) | payer MEDICARE, MEDICAID, SELFPAY ==
[2022-03-23 11:13] LABS: Abs Immature Grans 0.02 10^3/uL (0.0-0.06); Absolute Basophil Count 0.02 10^3/uL (0.0-0.2); Absolute Lymphocyte Count 0.54 10^3/uL (1.2-3.4); Absolute Neutrophil Count 4.05 10^3/uL (1.2-6.7); Basophils % 0.3; Eosinophils % 6.6; Immature Grans % 0.3; MCH 30.1 pg (27.0-33.0); MCHC 33.3 % (32.0-36.0); MCV 90 fL (80-95); MPV 9.2 fL (8.0-11.0); Monocytes % 16.6; Neutrophils % 67.2; Platelet Count 170 10^3/uL (130-400); RBC 4.32 10^6/uL (4.36-5.78); RDW-SD 61.8 fL; WBC 6.03 10^3/uL (4.4-10.8)
[2022-03-23 11:51] LABS: ALT 17 U/L (16-63); AST 12 U/L (15-37); Albumin 3.5 g/dL (3.4-5.0); Alkaline Phosphatase 62 U/L (46-116); Anion Gap 9.6 mmol/L (3-11); BUN 16 mg/dL (7-18); Bilirubin, Total 0.5 mg/dL (0.2-1.0); CO2 26.4 mmol/L (21.0-32.0); CREATININE 0.8 mg/dL (0.70-1.30); Calcium 9.1 mg/dL (8.5-10.1); Chloride 104 mmol/L (98-107); Glucose 92 mg/dL (74-106); Potassium 4.4 mmol/L (3.5-5.1); Sodium 140 mmol/L (136-145)
== END 2022-03-23 03:53 | disposition home or self-care (01) ==
LOC: LBO 03:52
PROVIDERS: PCP Nurse Practitioner Family; Visit Provider Internal Medicine Hematology & Oncology
DX: C20 Malignant neoplasm of rectum (principal)
CPT/HCPCS: 36415; 80053; 85025

== ENCOUNTER 2022-03-29 03:04 | Outpatient (CLI) | payer MEDICARE, MEDICAID, SELFPAY ==
[2022-03-29 11:13] LABS: Abs Immature Grans 0.02 10^3/uL (0.0-0.06); Absolute Basophil Count 0.03 10^3/uL (0.0-0.2); Absolute Eosinophil Count 0.38 10^3/uL (0.0-0.7); Absolute Lymphocyte Count 0.56 10^3/uL (1.2-3.4); Absolute Monocyte Count 1.02 10^3/uL (0.1-0.8); Absolute Neutrophil Count 4.12 10^3/uL (1.2-6.7); Basophils % 0.5; Eosinophils % 6.2; HGB 13.1 g/dL (13.5-17.5); Immature Grans % 0.3; Lymphocytes % 9.1; MCH 30.7 pg (27.0-33.0); MCHC 34.5 % (32.0-36.0); MCV 89 fL (80-95); MPV 9.3 fL (8.0-11.0); Monocytes % 16.6; Neutrophils % 67.3; Platelet Count 182 10^3/uL (130-400); RBC 4.27 10^6/uL (4.36-5.78); RDW 20.2 % (11.8-14.1); RDW-SD 63.9 fL; WBC 6.13 10^3/uL (4.4-10.8)
[2022-03-29 11:29] LABS: ALT 19 U/L (16-63); AST 9 U/L (15-37); Albumin 3.4 g/dL (3.4-5.0); Alkaline Phosphatase 61 U/L (46-116); Anion Gap 6.6 mmol/L (3-11); BUN 15 mg/dL (7-18); Bilirubin, Total 0.4 mg/dL (0.2-1.0); CO2 27.4 mmol/L (21.0-32.0); CREATININE 0.8 mg/dL (0.70-1.30); Calcium 8.8 mg/dL (8.5-10.1); Chloride 103 mmol/L (98-107); Glucose 96 mg/dL (74-106); Potassium 3.9 mmol/L (3.5-5.1); Sodium 137 mmol/L (136-145)
[2022-03-29 11:47] LABS: Anisocytosis 2+; Diff Comment RBC Morph Reviewed
== END 2022-03-29 03:05 | disposition home or self-care (01) ==
LOC: LBO 03:04
PROVIDERS: PCP Nurse Practitioner Family; Visit Provider Internal Medicine Hematology & Oncology
DX: C20 Malignant neoplasm of rectum (principal)
CPT/HCPCS: 36415; 80053; 85025

== ENCOUNTER → 2022-04-06 01:58 | Outpatient (CLI) | payer MEDICARE, MEDICAID, SELFPAY ==
[2022-04-06] MEDS: Barium Sulfate 2% W/V-Berry Smoothie 450 ML BTL PO (08:14)
--- NOTE | 2022-04-06 10:40 | DI.CT_ITS ---
Exam(s) CT CHEST/ABD/PEL W EXAM: CT CHEST/ABD/PEL W CLINICAL HISTORY: RECTAL CA, C20, S/P CHEMO/RAD, RESTAGING TECHNIQUE: CT examination of the chest, abdomen, and pelvis was performed utilizing intravenous inf usion of 100 cc of Omnipaque 350 with biphasic hepatic imaging. Oral contrast was also administered. COMPARISON: CT CT CHEST/ABD/PEL W from 10/29/2021 FINDINGS: Lungs are clear. No pleural effusion. No pleural based mass. No mediastinal or hilar adenopathy. No axillary or supraclavicular adenopathy. Tracheobronchial mello e appears intact. No evidence of pulmonary embolic disease. Unremarkable appearance of thoracic aorta and major branch vessels. The liver appears normal with no focal hepatic lesion identified. Spleen is unremarkable in appearance. Pancreas appears intact. A previously described at 18 millimeter in diameter left adrenal nodule is unchanged on today's exami nation.. Kidneys show bilateral nephrolithiasis with no evidence of urinary tract obstruction or mass.. Abdominal aorta and major visceral branches appear intact. There is a left-sided diverting colostomy. There is wall thickening of remaining rectosigmoid. Ther e is increased fat attenuation in the perirectal fat and there is poor definition the fat planes. Fi ndings may represent either post radiation changes or local invasion of fat as suspected on the initi al CT evaluation of this patient. There is no gross pelvic or abdominal adenopathy. There is no michael dence of bowel obstruction. Urinary bladder is nearly empty and cannot be evaluated. No focal bony lesion identified on scanning of the chest, abdomen, and pelvis. IMPRESSION: Indeterminate findings in the pelvis in a patient with history of colon carcinoma, the findings may r epresent post radiation changes versus local spread disease. No evidence of remote or regional metastatic disease. RADIATION DOSE DELIVERED: 1,545.91mGy.cm Total DLP 1,545.91mGy.cm Total DLP !Error CTDIvol DATA REPOSITORY: All CT scans at this facility are submitted to the National Radiology Data Registry (NRDR) Dose Index Registry (DIR) with the [employer] (ACR). RADIATION OPTIMIZATION: All CT scans at this facility use at least one of these dose optimization te chniques: automated exposure control; mA and/or kV adjustment per patient size (includes targeted exa ms where dose is matched to clinical indication); or iterative reconstruction.
[2022-04-06] MEDS: Omnipaque 350 MG/ML 100 ML BTL IJ (10:41)
[2022-04-06] MEDS: Normal Saline Flush 10 ML SYR IVP (10:42)
== END ==
PROVIDERS: PCP Nurse Practitioner Family; Visit Provider Internal Medicine Hematology & Oncology
DX: Z85.038 Personal history of other malignant neoplasm of large intestine (principal)
CPT/HCPCS: 74177; 71260; J3490

== ENCOUNTER 2022-05-27 01:03 | Outpatient (RCR) | payer MEDICARE, MEDICAID, SELFPAY ==
[2022-04-29 08:41] LABS: Abs Immature Grans 0.02 10^3/uL (0.0-0.06); Absolute Basophil Count 0.03 10^3/uL (0.0-0.2); Absolute Eosinophil Count 0.14 10^3/uL (0.0-0.7); Absolute Lymphocyte Count 0.44 10^3/uL (1.2-3.4); Absolute Monocyte Count 0.88 10^3/uL (0.1-0.8); Absolute Neutrophil Count 4.44 10^3/uL (1.2-6.7); Basophils % 0.5; Eosinophils % 2.4; HCT 40.5 % (40.0-50.0); HGB 13.5 g/dL (13.5-17.5); Immature Grans % 0.3; Lymphocytes % 7.4; MCH 31.5 pg (27.0-33.0); MCHC 33.3 % (32.0-36.0); MCV 94 fL (80-95); MPV 9.9 fL (8.0-11.0); Monocytes % 14.8; Neutrophils % 74.6; Platelet Count 213 10^3/uL (130-400); RBC 4.29 10^6/uL (4.36-5.78); RDW 19.6 % (11.8-14.1); RDW-SD 67.3 fL; WBC 5.95 10^3/uL (4.4-10.8)
[2022-04-29] MEDS: Normal Saline Flush 10 ML SYR IVP (08:58)
[2022-04-29 09:01] LABS: ALT 17 U/L (16-63); AST 13 U/L (15-37); Albumin 3.7 g/dL (3.4-5.0); Alkaline Phosphatase 63 U/L (46-116); BUN 10 mg/dL (7-18); Bilirubin, Total 0.4 mg/dL (0.2-1.0); CREATININE 0.7 mg/dL (0.70-1.30); Calcium 9.1 mg/dL (8.5-10.1); Chloride 106 mmol/L (98-107); Estimated GFR 98.51 (mL/min/1.73m2); Glucose 102 mg/dL (74-106); Potassium 3.7 mmol/L (3.5-5.1); Sodium 142 mmol/L (136-145); Total Protein 7.6 g/dL (6.4-8.2)
[2022-04-29 18:34] LABS: CEA 2.1 ng/mL (See Note)
[2022-05-01 11:00] VITALS: BP 147/95; PULSE 98; RESP 16; TEMP 35.9; O2SAT 98
[2022-05-01] MEDS: Normal Saline Flush 10 ML SYR IVP (11:04)
[2022-05-01] MEDS: Heparin 500 UNITS/5 ML SYRINGE IV (11:04)
[2022-05-13] MEDS: Normal Saline Flush 10 ML SYR IVP (09:12)
[2022-05-13 09:14] LABS: Abs Immature Grans 0.02 10^3/uL (0.0-0.06); Absolute Basophil Count 0.04 10^3/uL (0.0-0.2); Absolute Eosinophil Count 0.18 10^3/uL (0.0-0.7); Absolute Lymphocyte Count 0.63 10^3/uL (1.2-3.4); Absolute Monocyte Count 0.86 10^3/uL (0.1-0.8); Absolute Neutrophil Count 4.18 10^3/uL (1.2-6.7); Basophils % 0.7; HGB 13.6 g/dL (13.5-17.5); Immature Grans % 0.3; Lymphocytes % 10.7; MCH 32.3 pg (27.0-33.0); MCV 95 fL (80-95); MPV 9.4 fL (8.0-11.0); Monocytes % 14.6; Neutrophils % 70.7; Platelet Count 207 10^3/uL (130-400); RBC 4.21 10^6/uL (4.36-5.78); RDW 18.4 % (11.8-14.1); RDW-SD 63.2 fL; WBC 5.91 10^3/uL (4.4-10.8)
[2022-05-13 09:38] LABS: ALT 19 U/L (16-63); AST 13 U/L (15-37); Albumin 3.8 g/dL (3.4-5.0); Alkaline Phosphatase 76 U/L (46-116); Anion Gap 7.9 mmol/L (3-11); BUN 12 mg/dL (7-18); Bilirubin, Total 0.6 mg/dL (0.2-1.0); CO2 28.1 mmol/L (21.0-32.0); CREATININE 0.7 mg/dL (0.70-1.30); Calcium 9.3 mg/dL (8.5-10.1); Chloride 104 mmol/L (98-107); Estimated GFR 98.51 (mL/min/1.73m2); Glucose 101 mg/dL (74-106); Potassium 3.9 mmol/L (3.5-5.1); Sodium 140 mmol/L (136-145); Total Protein 7.7 g/dL (6.4-8.2)
[2022-05-15 11:20] VITALS: BP 147/86; PULSE 69; RESP 16; TEMP 35.7; O2SAT 96
[2022-05-15] MEDS: Normal Saline Flush 10 ML SYR IVP (11:24)
[2022-05-15] MEDS: Heparin 500 UNITS/5 ML SYRINGE IV (11:24)
[2022-05-16 07:59] LABS: CEA 2.2 ng/mL (See Note)
[2022-05-27] MEDS: Normal Saline Flush 10 ML SYR IVP (09:02)
[2022-05-27 09:16] LABS: Abs Immature Grans 0.01 10^3/uL (0.0-0.06); Absolute Basophil Count 0.03 10^3/uL (0.0-0.2); Absolute Eosinophil Count 0.18 10^3/uL (0.0-0.7); Absolute Lymphocyte Count 0.74 10^3/uL (1.2-3.4); Absolute Neutrophil Count 4.33 10^3/uL (1.2-6.7); Basophils % 0.5; Eosinophils % 2.9; HCT 39.4 % (40.0-50.0); HGB 13.3 g/dL (13.5-17.5); Immature Grans % 0.2; MCH 32.3 pg (27.0-33.0); MCHC 33.8 % (32.0-36.0); MCV 96 fL (80-95); MPV 9.4 fL (8.0-11.0); Monocytes % 14.5; Neutrophils % 69.9; Platelet Count 145 10^3/uL (130-400); RBC 4.12 10^6/uL (4.36-5.78); RDW 17.9 % (11.8-14.1); RDW-SD 62.7 fL; WBC 6.19 10^3/uL (4.4-10.8)
[2022-05-27 09:31] LABS: ALT 20 U/L (16-63); AST 12 U/L (15-37); Albumin 3.9 g/dL (3.4-5.0); Alkaline Phosphatase 82 U/L (46-116); Anion Gap 8.8 mmol/L (3-11); BUN 12 mg/dL (7-18); Bilirubin, Total 0.6 mg/dL (0.2-1.0); CO2 27.2 mmol/L (21.0-32.0); CREATININE 0.8 mg/dL (0.70-1.30); Calcium 9.3 mg/dL (8.5-10.1); Chloride 104 mmol/L (98-107); Estimated GFR 94.62 (mL/min/1.73m2); Glucose 96 mg/dL (74-106); Potassium 3.9 mmol/L (3.5-5.1); Sodium 140 mmol/L (136-145); Total Protein 7.6 g/dL (6.4-8.2)
[2022-05-27 19:39] LABS: CEA 2.2 ng/mL (See Note)
== END 2022-05-27 23:59 | disposition home or self-care (01) ==
LOC: INF 01:03
PROVIDERS: PCP Nurse Practitioner Family; Visit Provider Internal Medicine Hematology & Oncology
DX: C20 Malignant neoplasm of rectum (principal); Z45.2 Encounter for adjustment and management of vascular access device
CPT/HCPCS: 36591; 80053; 96523; 82378; 85025

== ENCOUNTER 2022-06-26 00:05 | Outpatient (RCR) | payer MEDICARE, MEDICAID, SELFPAY ==
[2022-05-28 00:23] VITALS: BP 147/86; PULSE 69; RESP 16; TEMP 35.7
[2022-05-29] MEDS: Heparin 500 UNITS/5 ML SYRINGE IV (12:00)
[2022-05-29] MEDS: Normal Saline Flush 10 ML SYR IVP (12:00)
[2022-05-29 12:01] VITALS: BP 135/79; PULSE 82; RESP 20; TEMP 35.2; O2SAT 94
[2022-06-10] MEDS: Normal Saline Flush 10 ML SYR IVP (09:12)
[2022-06-10 09:18] LABS: Abs Immature Grans 0.02 10^3/uL (0.0-0.06); Absolute Basophil Count 0.02 10^3/uL (0.0-0.2); Absolute Eosinophil Count 0.12 10^3/uL (0.0-0.7); Absolute Lymphocyte Count 0.63 10^3/uL (1.2-3.4); Absolute Monocyte Count 1.11 10^3/uL (0.1-0.8); Absolute Neutrophil Count 4.34 10^3/uL (1.2-6.7); Basophils % 0.3; Eosinophils % 1.9; HCT 39.3 % (40.0-50.0); HGB 13.4 g/dL (13.5-17.5); Immature Grans % 0.3; Lymphocytes % 10.1; MCH 32.8 pg (27.0-33.0); MCHC 34.1 % (32.0-36.0); MCV 96 fL (80-95); Monocytes % 17.8; Neutrophils % 69.6; Platelet Count 152 10^3/uL (130-400); RBC 4.09 10^6/uL (4.36-5.78); RDW 16.8 % (11.8-14.1); WBC 6.24 10^3/uL (4.4-10.8)
[2022-06-10 09:34] LABS: ALT 22 U/L (16-63); AST 16 U/L (15-37); Alkaline Phosphatase 74 U/L (46-116); Anion Gap 6.9 mmol/L (3-11); BUN 14 mg/dL (7-18); Bilirubin, Total 0.5 mg/dL (0.2-1.0); CO2 28.1 mmol/L (21.0-32.0); CREATININE 0.9 mg/dL (0.70-1.30); Calcium 9.5 mg/dL (8.5-10.1); Chloride 103 mmol/L (98-107); Estimated GFR 91.31 (mL/min/1.73m2); Glucose 97 mg/dL (74-106); Potassium 4.1 mmol/L (3.5-5.1); Sodium 138 mmol/L (136-145); Total Protein 7.8 g/dL (6.4-8.2)
[2022-06-10 20:47] LABS: CEA 2.2 ng/mL (See Note)
[2022-06-12] MEDS: Normal Saline Flush 10 ML SYR IVP (11:10)
[2022-06-12] MEDS: Heparin 500 UNITS/5 ML SYRINGE IV (11:10)
[2022-06-12 11:37] VITALS: BP 141/83; PULSE 76; RESP 20; TEMP 36.3
[2022-06-24] MEDS: Normal Saline Flush 10 ML SYR IVP (09:03)
[2022-06-24 09:11] LABS: Abs Immature Grans 0.01 10^3/uL (0.0-0.06); Absolute Basophil Count 0.03 10^3/uL (0.0-0.2); Absolute Eosinophil Count 0.13 10^3/uL (0.0-0.7); Absolute Lymphocyte Count 0.53 10^3/uL (1.2-3.4); Absolute Monocyte Count 0.87 10^3/uL (0.1-0.8); Absolute Neutrophil Count 3.48 10^3/uL (1.2-6.7); Basophils % 0.6; Eosinophils % 2.6; HCT 37.6 % (40.0-50.0); HGB 12.8 g/dL (13.5-17.5); Immature Grans % 0.2; Lymphocytes % 10.5; MCH 33.2 pg (27.0-33.0); MCV 98 fL (80-95); MPV 10.7 fL (8.0-11.0); Monocytes % 17.2; Neutrophils % 68.9; Platelet Count 129 10^3/uL (130-400); RBC 3.85 10^6/uL (4.36-5.78); RDW-SD 56.8 fL; WBC 5.05 10^3/uL (4.4-10.8)
[2022-06-24 09:24] LABS: ALT 19 U/L (16-63); AST 17 U/L (15-37); Albumin 3.8 g/dL (3.4-5.0); Alkaline Phosphatase 72 U/L (46-116); Anion Gap 6.7 mmol/L (3-11); BUN 13 mg/dL (7-18); Bilirubin, Total 0.5 mg/dL (0.2-1.0); CO2 27.3 mmol/L (21.0-32.0); CREATININE 0.7 mg/dL (0.70-1.30); Calcium 9.3 mg/dL (8.5-10.1); Chloride 106 mmol/L (98-107); Estimated GFR 98.51 (mL/min/1.73m2); Glucose 100 mg/dL (74-106); Potassium 3.9 mmol/L (3.5-5.1); Sodium 140 mmol/L (136-145); Total Protein 7.5 g/dL (6.4-8.2)
[2022-06-24 19:54] LABS: CEA 2.7 ng/mL (See Note)
[2022-06-26] MEDS: Normal Saline Flush 10 ML SYR IVP (11:59)
== END 2022-06-27 23:59 | disposition home or self-care (01) ==
LOC: INF 00:05
PROVIDERS: PCP Nurse Practitioner Family; Visit Provider Internal Medicine Hematology & Oncology
DX: C20 Malignant neoplasm of rectum (principal); Z45.2 Encounter for adjustment and management of vascular access device
CPT/HCPCS: 36591; 80053; 96365; 96523; 82378; 85025

== ENCOUNTER → 2022-07-04 01:49 | Outpatient (CLI) | payer MEDICARE, MEDICAID, SELFPAY ==
[2022-07-04] MEDS: Barium Sulfate 2% W/V-Berry Smoothie 450 ML BTL PO ×2 (11:23→11:24)
[2022-07-04] MEDS: Normal Saline Flush 10 ML SYR IVP (13:43)
[2022-07-04] MEDS: Omnipaque 350 MG/ML 500 ML BTL-Imaging package IJ (13:44)
--- NOTE | 2022-07-04 14:00 | DI.CT_ITS ---
Exam(s) CT CHEST/ABD/PEL W EXAM: CT CHEST/ABD/PEL W CLINICAL HISTORY: RECTAL CA, C20; ASSESS TX RESPONSE. TECHNIQUE: Imaging Protocol: Axial computed tomography images with coronal and sagittal reformatted images were created and reviewed CONTRAST MATERIAL: Intravenous: Omnipaque 350 Contrast volume:100 ml Oral: Yes COMPARISON: CT CT CHEST/ABD/PEL W from 04/06/2022 FINDINGS: CHEST: LUNGS: There are no ominous pulmonary nodules nor pleural effusions. No infiltrates.. MEDIASTINUM: There is no hilar nor mediastinal adenopathy. Partially visualized thyroid unremarkable. CARDIAC: Heart size is normal. There is no pericardial effusion.Caliber of the thoracic aorta is wit hin normal limits. OSSEOUS: No significant osseous lesions.. ABDOMEN: There is no ascites. LIVER: There are no focal hepatic lesions nor dilatation of intrahepatic ducts. GALLBLADDER/BILIARY: No obvious gallbladder pathology. CBD is not dilated. PANCREAS: No evidence of pancreatic mass nor dilatation of the pancreatic duct. SPLEEN: Spleen is not enlarged. There are no intrasplenic lesions. Splenic and portal veins are anne nt. ADRENALS: There is an 18 x 12 millimeter nodule in the left adrenal gland and an adjacent similar siz e left adrenal nodule, both unchanged from the prior study. Right adrenal gland remains unremarkable . KIDNEYS: There are multiple small nonobstructive calculi again noted in the right kidney. Single non obstructive calculus in the left kidney inferior pole. No solid renal masses. No cysts. No hydrone phrosis nor hydroureter. ABDOMINAL AORTA: Calcified but not significantly dilated. The common iliac arteries are also calcifi ed but not significantly dilated. LYMPH NODES: No wphcuumjnhrpenj-funl-sliptx adenopathy. ABDOMINAL WALL: Left-sided colostomy is again noted. No obstruction at this level. GI: The rectosigmoid is again noted be oversewn. The wall of the rectosigmoid is again noted be some what prominent circumferentially which may be related to lack intraluminal contrast or an element of colitis. Correlation with any prior radiation therapy recommended. PELVIS: LYMPH NODES: There is no intrapelvic nor inguinal adenopathy. GI: No evidence of appendicitis.No evidence of sigmoid diverticulitis. URINARY BLADDER: Bladder wall is uniformly thickened, similar to previous. REPRODUCTIVE: Prostate gland is enlarged, measuring 5.3 cm wide by 3.8 cm AP. OSSEOUS: There is superior endplate Schmorl's nodes as well as compression fractures of L1 and T8 and T7, similar to previous study. There are no new compression fractures. No new lytic appearing osse ous lesions. IMPRESSION: 1. No evidence of intrathoracic neoplastic disease. 2. Two adjacent 18 x 12 millimeter nodules are again noted in the left adrenal gland, unchanged. The right adrenal gland remains unremarkable. 3. Small nonobstructive calculi noted in both kidneys, more numerous on the right side. There is a s olitary calculus in lower pole of the opposite-left kidney. 4. Left-sided colostomy. No bowel obstruction. Circumferential rectal the pelvis findings are uncha nged from the prior study. No new masses nor lymphadenopathy in the pelvis. Thickened urinary bladder wall which is most probably related to chronic outlet obstruction in this p atient was enlarged prostate gland. RADIATION DOSE DELIVERED: 1,602.52mGy.cm Total DLP DATA REPOSITORY: All CT scans at this facility are submitted to the National Radiology Data Registry (NRDR) Dose Index Registry (DIR) with the [employer] (ACR). RADIATION OPTIMIZATION: All CT scans at this facility use at least one of these dose optimization te chniques: automated exposure control; mA and/or kV adjustment per patient size (includes targeted exa ms where dose is matched to clinical indication); or iterative reconstruction.
== END ==
PROVIDERS: PCP Nurse Practitioner Family; Visit Provider Nurse Practitioner Family
DX: N20.0 Calculus of kidney (principal); C20 Malignant neoplasm of rectum; E27.8 Other specified disorders of adrenal gland
CPT/HCPCS: 74177; 71260

== ENCOUNTER 2022-07-22 00:54 | Outpatient (RCR) | payer MEDICARE, MEDICAID, SELFPAY ==
[2022-06-28 00:21] VITALS: BP 141/83; PULSE 76; RESP 20; TEMP 36.3
[2022-07-04] MEDS: Normal Saline Flush 10 ML SYR IVP (11:19)
[2022-07-04] MEDS: Heparin 500 UNITS/5 ML SYRINGE IV (11:19)
[2022-07-08] MEDS: Normal Saline Flush 10 ML SYR IVP (09:06)
[2022-07-08 09:28] LABS: Abs Immature Grans 0.01 10^3/uL (0.0-0.06); Absolute Basophil Count 0.04 10^3/uL (0.0-0.2); Absolute Eosinophil Count 0.08 10^3/uL (0.0-0.7); Absolute Lymphocyte Count 0.52 10^3/uL (1.2-3.4); Absolute Neutrophil Count 2.88 10^3/uL (1.2-6.7); Basophils % 0.9; Eosinophils % 1.8; HCT 37.6 % (40.0-50.0); HGB 12.6 g/dL (13.5-17.5); Immature Grans % 0.2; Lymphocytes % 11.7; MCHC 33.5 % (32.0-36.0); MCV 98 fL (80-95); MPV 10.7 fL (8.0-11.0); Monocytes % 20.3; Neutrophils % 65.1; Platelet Count 126 10^3/uL (130-400); RBC 3.82 10^6/uL (4.36-5.78); RDW 16.5 % (11.8-14.1); RDW-SD 59.2 fL; WBC 4.43 10^3/uL (4.4-10.8)
[2022-07-08 09:41] LABS: ALT 24 U/L (16-63); AST 20 U/L (15-37); Albumin 3.7 g/dL (3.4-5.0); Alkaline Phosphatase 74 U/L (46-116); Anion Gap 8.1 mmol/L (3-11); BUN 13 mg/dL (7-18); Bilirubin, Total 0.5 mg/dL (0.2-1.0); CO2 27.9 mmol/L (21.0-32.0); CREATININE 0.8 mg/dL (0.70-1.30); Calcium 9.2 mg/dL (8.5-10.1); Chloride 105 mmol/L (98-107); Estimated GFR 94.62 (mL/min/1.73m2); Glucose 102 mg/dL (74-106); Potassium 3.9 mmol/L (3.5-5.1); Sodium 141 mmol/L (136-145); Total Protein 7.4 g/dL (6.4-8.2)
[2022-07-08 19:58] LABS: CEA 2.3 ng/mL (See Note)
[2022-07-10] MEDS: Heparin 500 UNITS/5 ML SYRINGE IV (11:30)
[2022-07-10] MEDS: Normal Saline Flush 10 ML SYR IVP (11:30)
[2022-07-10 11:31] VITALS: BP 147/73; PULSE 90; RESP 18; O2SAT 98
[2022-07-22] MEDS: Normal Saline Flush 10 ML SYR IVP (07:30)
[2022-07-22 07:38] LABS: Abs Immature Grans 0.02 10^3/uL (0.0-0.06); Absolute Basophil Count 0.03 10^3/uL (0.0-0.2); Absolute Eosinophil Count 0.12 10^3/uL (0.0-0.7); Absolute Lymphocyte Count 0.55 10^3/uL (1.2-3.4); Absolute Monocyte Count 1.06 10^3/uL (0.1-0.8); Absolute Neutrophil Count 3.73 10^3/uL (1.2-6.7); Basophils % 0.5; Eosinophils % 2.2; HCT 36.2 % (40.0-50.0); HGB 12.3 g/dL (13.5-17.5); Immature Grans % 0.4; MCH 33.3 pg (27.0-33.0); MCV 98 fL (80-95); MPV 10.3 fL (8.0-11.0); Monocytes % 19.2; Neutrophils % 67.7; Platelet Count 133 10^3/uL (130-400); RBC 3.69 10^6/uL (4.36-5.78); RDW 16.7 % (11.8-14.1); RDW-SD 59.9 fL; WBC 5.51 10^3/uL (4.4-10.8)
[2022-07-22 08:02] LABS: ALT 18 U/L (16-63); AST 17 U/L (15-37); Albumin 3.7 g/dL (3.4-5.0); Alkaline Phosphatase 74 U/L (46-116); Anion Gap 9.7 mmol/L (3-11); BUN 11 mg/dL (7-18); Bilirubin, Total 0.5 mg/dL (0.2-1.0); CO2 26.3 mmol/L (21.0-32.0); CREATININE 0.8 mg/dL (0.70-1.30); Calcium 9.3 mg/dL (8.5-10.1); Chloride 104 mmol/L (98-107); Estimated GFR 94.62 (mL/min/1.73m2); Glucose 107 mg/dL (74-106); Potassium 3.7 mmol/L (3.5-5.1); Sodium 140 mmol/L (136-145); Total Protein 7.3 g/dL (6.4-8.2)
[2022-07-22 18:48] LABS: CEA 2.7 ng/mL (See Note)
[2022-07-24] MEDS: Heparin 500 UNITS/5 ML SYRINGE IV (10:26)
[2022-07-24 10:27] VITALS: TEMP 35.3
[2022-07-24] MEDS: Normal Saline Flush 10 ML SYR IVP (10:27)
[2022-07-24 10:29] VITALS: BP 142/80; PULSE 79; RESP 20; TEMP 35.3; O2SAT 97
== END 2022-07-27 23:59 | disposition home or self-care (01) ==
LOC: INF 00:54
PROVIDERS: PCP Nurse Practitioner Family; Visit Provider Internal Medicine Hematology & Oncology
DX: C20 Malignant neoplasm of rectum (principal); Z45.2 Encounter for adjustment and management of vascular access device
CPT/HCPCS: 36591; 80053; 96365; 96523; 82378; 85025

== ENCOUNTER 2022-08-17 01:33 | Outpatient (RCR) | payer MEDICARE, MEDICAID, SELFPAY ==
[2022-07-28 00:09] VITALS: BP 142/80; PULSE 79; RESP 20; TEMP 35.3
[2022-08-05] MEDS: Normal Saline Flush 10 ML SYR IVP (10:07)
[2022-08-05 10:19] LABS: Abs Immature Grans 0.01 10^3/uL (0.0-0.06); Absolute Basophil Count 0.03 10^3/uL (0.0-0.2); Absolute Eosinophil Count 0.08 10^3/uL (0.0-0.7); Absolute Lymphocyte Count 0.56 10^3/uL (1.2-3.4); Absolute Monocyte Count 0.86 10^3/uL (0.1-0.8); Absolute Neutrophil Count 3.06 10^3/uL (1.2-6.7); Basophils % 0.7; Eosinophils % 1.7; HGB 12.4 g/dL (13.5-17.5); Immature Grans % 0.2; Lymphocytes % 12.2; MCH 33.8 pg (27.0-33.0); MCHC 34.4 % (32.0-36.0); MCV 98 fL (80-95); MPV 10.8 fL (8.0-11.0); Monocytes % 18.7; Neutrophils % 66.5; Platelet Count 119 10^3/uL (130-400); RBC 3.67 10^6/uL (4.36-5.78); RDW 17.3 % (11.8-14.1); RDW-SD 62.7 fL
[2022-08-05 10:38] LABS: ALT 27 U/L (16-63); AST 25 U/L (15-37); Albumin 3.7 g/dL (3.4-5.0); Alkaline Phosphatase 78 U/L (46-116); Anion Gap 10.1 mmol/L (3-11); BUN 12 mg/dL (7-18); Bilirubin, Total 0.4 mg/dL (0.2-1.0); CO2 25.9 mmol/L (21.0-32.0); CREATININE 0.8 mg/dL (0.70-1.30); Calcium 9.4 mg/dL (8.5-10.1); Chloride 104 mmol/L (98-107); Estimated GFR 94.62 (mL/min/1.73m2); Glucose 102 mg/dL (74-106); Sodium 140 mmol/L (136-145); Total Protein 7.6 g/dL (6.4-8.2)
[2022-08-05 19:11] LABS: CEA 2.3 ng/mL (See Note)
[2022-08-07] MEDS: Heparin 500 UNITS/5 ML SYRINGE IV (12:25)
[2022-08-07 12:42] VITALS: BP 127/66; PULSE 94; RESP 14; TEMP 34.6; O2SAT 96
[2022-08-07] MEDS: Normal Saline Flush 10 ML SYR IVP (12:45)
== END 2022-08-27 23:59 | disposition home or self-care (01) ==
LOC: INF 01:33
PROVIDERS: PCP Nurse Practitioner Family; Visit Provider Internal Medicine Hematology & Oncology
DX: C20 Malignant neoplasm of rectum (principal); Z45.2 Encounter for adjustment and management of vascular access device
CPT/HCPCS: 36591; 80053; 96523; 82378; 85025

== ENCOUNTER 2022-11-04 14:14 | Outpatient (RCR) | payer MEDICARE, MEDICAID, SELFPAY ==
[2022-11-04] MEDS: Normal Saline Flush 10 ML SYR IVP (14:21)
[2022-11-04] MEDS: Heparin 500 UNITS/5 ML SYRINGE IVP (14:22)
== END 2022-11-25 23:59 | disposition home or self-care (01) ==
LOC: INF 14:14
PROVIDERS: PCP Nurse Practitioner Family; Visit Provider Internal Medicine Hematology & Oncology
DX: Z45.2 Encounter for adjustment and management of vascular access device (principal)
CPT/HCPCS: 96523

== ENCOUNTER 2022-12-16 01:16 | Outpatient (RCR) | payer MEDICARE, MEDICAID, SELFPAY ==
[2022-12-16] MEDS: Heparin 500 UNITS/5 ML SYRINGE IV (13:00)
[2022-12-16] MEDS: Normal Saline Flush 10 ML SYR IVP (13:00)
== END 2022-12-25 23:59 | disposition home or self-care (01) ==
LOC: INF 01:16
PROVIDERS: PCP Nurse Practitioner Family; Visit Provider Internal Medicine Hematology & Oncology
DX: Z45.2 Encounter for adjustment and management of vascular access device (principal)
CPT/HCPCS: 96523

== ENCOUNTER 2023-06-06 10:49 | Outpatient (RCR) | payer MEDICARE, MEDICAID, SELFPAY ==
[2023-06-06 11:08] LABS: Abs Immature Grans 0.02 10^3/uL (0.0-0.06); Absolute Basophil Count 0.03 10^3/uL (0.0-0.2); Absolute Eosinophil Count 0.12 10^3/uL (0.0-0.7); Absolute Lymphocyte Count 0.78 10^3/uL (1.2-3.4); Absolute Monocyte Count 0.82 10^3/uL (0.1-0.8); Absolute Neutrophil Count 5.02 10^3/uL (1.2-6.7); Basophils % 0.4; Eosinophils % 1.8; HCT 41.6 % (40.0-50.0); Immature Grans % 0.3; Lymphocytes % 11.5; MCHC 33.7 % (32.0-36.0); MCV 89 fL (80-95); Monocytes % 12.1; Neutrophils % 73.9; Platelet Count 224 10^3/uL (130-400); RBC 4.66 10^6/uL (4.36-5.78); RDW 16.5 % (11.8-14.1); RDW-SD 54.1 fL; WBC 6.79 10^3/uL (4.4-10.8)
[2023-06-06 11:23] LABS: ALT 20 U/L (16-63); AST 15 U/L (15-37); Albumin 3.5 g/dL (3.4-5.0); Alkaline Phosphatase 89 U/L (46-116); Anion Gap 10.1 mmol/L (3-11); BUN 12 mg/dL (7-18); Bilirubin, Total 0.8 mg/dL (0.2-1.0); CO2 25.9 mmol/L (21.0-32.0); CREATININE 0.8 mg/dL (0.70-1.30); Calcium 9.2 mg/dL (8.5-10.1); Chloride 106 mmol/L (98-107); Estimated GFR 94.03 (mL/min/1.73m2); Glucose 100 mg/dL (74-106); Potassium 3.6 mmol/L (3.5-5.1); Sodium 142 mmol/L (136-145); Total Protein 7.2 g/dL (6.4-8.2)
[2023-06-06] MEDS: Normal Saline Flush 10 ML SYR IVP (11:37)
[2023-06-06] MEDS: Heparin 500 UNITS/5 ML SYRINGE IV (11:38)
[2023-06-06 21:11] LABS: CEA 2.3 ng/mL (See Note)
== END 2023-06-27 23:59 | disposition home or self-care (01) ==
LOC: INF 10:49
PROVIDERS: PCP Nurse Practitioner Family; Visit Provider Internal Medicine Hematology & Oncology
DX: C20 Malignant neoplasm of rectum (principal); Z45.2 Encounter for adjustment and management of vascular access device
CPT/HCPCS: 36591; 80053; 82378; 85025

== ENCOUNTER → 2023-08-24 13:06 | Outpatient (BNVA) | payer MEDICARE, MEDICAID, SELFPAY | PROVIDERS: PCP Nurse Practitioner Family; Referring Provider Nurse Practitioner Family; Visit Provider Physical Therapy Assistant | DX: Z12.11 Encounter for screening for malignant neoplasm of colon (principal); C20 Malignant neoplasm of rectum ==

== ENCOUNTER 2023-09-05 09:16 | Day surgery (SDC) | payer MEDICARE, MEDICAID, SELFPAY ==
--- NOTE | 2023-09-04 20:40 | PDOC.DSDIS_ITS ---
Date of service: 09/05/23 Time of Service: 12:25 Discharge Plan Disposition Patient Disposition: Home Condition: Good Discharge Details Reason For Visit: Colonoscopy and removal of Mediport Attending Provider: Yojana Parker Primary Care Provider: Alon Shah Home Meds and New Rx's Prescriptions: Continued triamcinolone acetonide 0.5 % cream 1 applic topical BID Qty: 80 1RF acetaminophen [Tylenol Extra Strength] 500 mg tablet 1,000 mg PO Q6H PRN Discontinued bisacodyl [Dulcolax (bisacodyl)] 5 mg tablet,delayed release (DR/EC) 5 mg PO ONCE Qty: 4 0RF Rx Instructions: Take per colonoscopy instructions provided by ordering providers office polyethylene glycol 3350 17 gram/dose powder 17 g PO ONCE Qty: 238 0RF Rx Instructions: Take per colonoscopy instructions provided by ordering providers office Discharge Instructions Additional Instructions: DSU Colonoscopy Post- Op Instructions Instructions for Everyone who is given Anesthesia: For your safety, please do the following for the next twenty-four (24) hours: *Do Not operate a motor vehicle (car, truck, motorcycle, etc.) *Do Not drink alcoholic beverages or use any recreational drugs for the first 24 hours or while taking pain medications. The medications in your body may have a reaction that can be dangerous. *Do Not make any important decisions or sign any important papers. Wound Care Instruction Pain Control Use ice!? Ice keeps the swelling down and swelling is what causes pain.? Never apply ice directly to the skin.? Wrap it in a towel or cloth.? Apply ice 20 minutes on and 20 minutes off for pain control.? Use as needed. Take Tylenol 500 mg by mouth with food every 4 hours as needed for pain. Or ibuprofen 600 mg by mouth with food every 6 hours as needed for pain.? Do not take Tylenol if you have a history of heavy drinking, hepatitis C or liver problems.? Do not take ibuprofen if you have a history of stomach ulcers/problems, bleeding problem or kidney issues. ? Always wash your hands before touching your incision. ? Keep the incision clean, dry, and out of water, keep the incision out of water. ? Do not to pick at the scabs. Scabs help protect the wound. ? You can take a shower in 24 hours and wash the incision with soap and water. Pat dry/don?t scrub. It?s OK to wash around the incision. But don?t spray water directly on it. ? Pat stitches dry if they get wet. Don't rub. ? Check the incision site daily for pain, redness, drainage, swelling, or separation of the incision edges. ? Make sure any clothing that touches the incision is loose-fitting. This will prevent rubbing. If the incision is on the head, keep your child from wearing caps or other head coverings. These may rub against the incision. As your incision heals, the skin may appear pink or red. It may also feel slightly bumpy or raised. This is called a healing ridge. Over time, the color should fade and the raised skin will become less noticeable. When to seek medical care Call your healthcare provider right away if you have any of these: ? More pain, redness, swelling, bleeding, or foul-smelling discharge around the incision area ? Fever of 101?F (38.3?C) or higher, or as directed by your child's healthcare provider ? Shaking chills ? Vomiting or nausea that doesn?t go away ? Numbness, coldness, or tingling around the incision area, or changes in skin color ? Opening of the sutures or wound -Stitches or betra that come apart or fall out or surgical tape falls off before 7 days, or as directed by your healthcare provider ?[facility]: [phone] Findings: Hemorrhoids diverticula polyps Follow up: A colonoscopy in 1 years time 1. No lifting over 20 pounds or strenuous activity for the first 24 hours after your procedure. After 24 hours there are no restrictions on your activity but you may feel fatigued for a few days. 2. After you arrive home you may have a light meal and return to your normal diet as you can tolerate it without feeling sick to your stomach. 3. You may have a bloated, gaseous feeling in your belly (abdomen) after a colonoscopy. Passing gas and belching will help. Walking or lying down on your left side with your knees flexed may relieve the discomfort. Call the office at [phone] (Office) or [phone] (Hospital) right away if you notice any of the following: a.Vomiting of blood or ?coffee ground stools?. b.Rectal bleeding 1Tbsp, blood clots or continuous bleeding. c.Severe belly (abdominal) pain. d.A hard distended belly (abdomen) and an inability to pass gas. 4. Please don?t expect to have a normal BM (bowel movement) for 2-3 days after your procedure. 5. If there are questions regarding the findings of your procedure, please contact your doctor 6. If you are unable to contact your doctor with a problem, contact the hospital at [phone]. 7. Continue all your regular medications unless directed otherwise. I understand the above instructions and have no questions. Signature of Patient or Adult Escort Name of Responsible Adult Escort Signature of Nurse Date/Time Activity:: See above Remove Dressings/Wound Care:: 24 hours Shower/Bathe:: 24 hours Diet:: See above Discharge Orders Discharge Orders: Discharge Order (Routine); Ordered 09/04/23 Ordered By: Yojana Parker DS: Diagnosis Discharge Diagnosis (1) Rectal cancer: Status: Acute (2) Iron deficiency anemia due to chronic blood loss: Status: Inactive (3) Hiatal hernia: Status: Chronic (4) Smoker in home: Status: Acute (5) Pancolonic diverticulosis: Status: Acute (6) Adenomatous polyps: Status: Acute Asessment and Plan: The patient is seen and examined after their colonoscopy.? The patient has been able to pass gas.? They are not having abdominal pain.? They have been able to tolerate liquids and a snack.? They do not have any nausea or vomiting.? They are not having any chest pain or shortness of breath.??? They are not having any rectal bleeding. Their vital signs have been stable-see nursing notes. We discussed findings during their colonoscopy, and any biopsies that were done/polyps that were removed. The patient will be sent a letter with any biopsy results, and when to repeat the colonoscopy.-see discharge instructions. Patient was given explicit instructions to follow-up regarding colonoscopy-refer to discharge instructions.? We reviewed resumption of medications. Patient verbalized understanding and discharged in stable and satisfactory condition- See nursing notes. (7) Internal hemorrhoids without complication: Status: Acute
--- NOTE | 2023-09-04 21:05 | COLE_ITS ---
Date of service: 09/05/23 Time of Service: 12:32 Colonoscopy Report Date of procedure: 09/05/23 Pre-op diagnosis general: Obstructing rectal cancer/status post chemo and radiation/rLAR with resecti Post-op diagnosis procedure note: same (Pandiverticular disease/colon polyp/internal hemorrhoids) Surgeon: Yojana Parker Anesthesia Type: General:No Airway Estimated blood loss (mL): 3 Pathology: other Complications: None Disposition: same day Prep: Miralax/Dulcolax Retraction Time: 15 Procedure Description: After informed consent was obtained the patient was taken to the procedure room and placed in a left decubitous position. Monitors were applied and a time out was done. The patients name, date of , procedure, allergies to medications and metal in their body was reviewed. The patient was then sedated. Once s edated and comfortable a rectal exam was done. External exam was normal. Internal exam revealed a normal sphincter tone and no palpable masses. The scope was then introduced and retrofelexed. Grade 2 internal hemorrhoids were identified. The scope was then advanced to the cecum without difficulty. The TI and appendiceal orifice were identified. The prep was BBPS 3 in all segments for total of 9. The scope was then slowly retracted over 15 minutes back into the rectum. He had multiple polyps removed today. He had x 2 .75 cm flat polyps at 90 cm that are removed with a cold biopsy forcep. He had a 0.5 cm flat polyp at 80 cm that is removed with a cold biopsy forcep. He had a flat 0.5 cm polyp at 40 cm that is removed with a cold biopsy forcep. He had x 2 .5 cm flat polyps at 20 cm that are removed with a cold biopsy forcep. And he has a 0.5 cm flat x 1 polyp that is removed in the rectum with a cold biopsy forcep. All specimens are retrieved and no bleeding is noted. He does have maciel diverticula that do extend all the way over to the cecum. The worst of the disease is confined to the remainder of the left colon. There is no signs of active bleeding or infection. There are no AVMs noted. The anastomosis is visualized at about 10 cm. It is widely patent. There is no sign of any recurrent tumor. The scope was removed and the patient was woken up and taken back to Same day surgery in stable condition. The patient tolerated the procedure well and there were no immediate complications. Follow up: The patient should follow up in 1 year unless they develop changes in bowel habits or other new gastrointestinal complaints.if
--- NOTE | 2023-09-04 21:08 | ROE_ITS ---
Date of service: 09/05/23 Time of Service: 12:40 Operative Note Operative Note DATE OF PROCEDURE: 09/05/23 PRE-OP DIAGNOSIS: Rectal cancer/need for central IV access for chemo POST-OP DIAGNOSIS: other (Completion of chemo) SURGEON: Yojana Parker ANESTHESIA TYPE: General:No Airway Refer to Anesthesia Record PATHOLOGY: other Patient was transported to: same day Procedure Description: The pt is here today for Power Port removal.? The port is: Right IJ. Pt has had problems with infections no.? Pt has had problems with thrombosis- none.? The port is currently infected- no. Pt is currently on chemo -no.? Pt is not on steroids.? The pt has no complications with local anesthetics in the past.? The pt has had no problems with healing or scarring in the past. Informed consent is obtained explaining risks and benefits of the procedure including but not limited to: not removing the port, bleeding/hematoma, infection, scarring/poor cosemesis, wound healing issues, damage to vein requiring surgery, complications from anesthesia, other ?The site was prepped and draped in usual manner.? Time is performed per procedure.? The site is infiltrated with 20cc of 1 face quarter percent Marcaine with epi . The previous incision was opened by excising the old scar. The port pocket was then opened and the port was removed from the pocket. The suture on the port hub is removed. ??The catheter is than dissected free.? It is pulled from the vessel without difficulty.? Pressure is held over the vessel for 2 minutes.? No bleeding is noted. The port pocket was then closed using a #4-0 Monocryl in subcutaneous tissue and subcuticular in the skin.? Skin glue was ap plied.? The pt tolerated the procedure well without complications. The pt was given instructions in wound care/pain plan/activity/warning signs.? Please call the clinic or go to the ED if these occur.
[2023-09-05] MEDS: Lactated Ringers 1,000 ML 80 ML IV (09:42)
[2023-09-05] MEDS: Acetaminophen 500 MG TAB 1000 MG PO (09:43)
[2023-09-05] MEDS: Gabapentin 300 MG CAP 600 MG PO (09:44)
[2023-09-05 09:47] VITALS: BP 148/85; PULSE 101; RESP 16; TEMP 36.6; O2SAT 99
--- NOTE | 2023-09-05 10:30 | ANES.PREOP_ITS ---
General Info Date of Service Date Performed: 09/05/23 Height: 5 ft 10 in Weight: 80.286 kg Body Mass Index (BMI): 25.4 Surgical Procedure: Operation Date: 09/05/23 10:10 Proposed Procedure Side Surgeon p Colonoscopy Yojana Parker DO s Mediport Removal Yojana Parker DO Meds Allergies and Home Medications Allergies Allergy/AdvReac Type Severity Reaction Status Date / Time No Known Allergies Allergy Verified 09/05/23 09:45 Home Medication Medication Instructions Recorded triamcinolone acetonide 0.5 % 1 applic topical BID #80 grams 10/27/21 topical cream acetaminophen 500 mg tablet 1,000 mg PO Q6H PRN 11/11/21 (Tylenol Extra Strength) Current Visit Medications: Current Medications Generic Name Dose Route Start Last Admin Trade Name Freq PRN Reason Stop Dose Admin Acetaminophen 1,000 mg 09/05/23 06:00 09/05/23 09:43 Acetaminophen 500 Mg Tab PO 09/05/23 16:00 1,000 mg PREOP GERTRUDE Administration Gabapentin 600 mg 09/05/23 06:00 09/05/23 09:44 Gabapentin 300 Mg Cap PO 09/05/23 16:00 600 mg PREOP GERTRUDE Administration Ringer's Solution 1,000 mls @ 80 mls/hr 09/05/23 06:00 09/05/23 09:42 IV 10/04/23 23:59 80 mls/hr INFUSION GERTRUDE Administration Ondansetron HCl 4 mg/ Sodium 52 mls @ 200 mls/hr 09/04/23 20:39 Chloride IVPB 10/04/23 20:38 Q6H PRN PRN IV Miscellaneous Supplies 1 each 09/05/23 06:00 Iv Access IV 10/04/23 23:59 DIRECTED GERTRUDE Morphine Sulfate 2 mg 09/04/23 20:39 Morphine 4 Mg/Ml Syr IVP 10/04/23 20:38 Q1H PRN PRN Ondansetron HCl 4 mg 09/04/23 20:32 Ondansetron 4 Mg/2 Ml Vial IVP 10/04/23 20:31 Q4H PRN PRN Nausea / Vomiting Sodium Chloride 0 ml 09/05/23 06:00 Normal Saline Flush 10 Ml Syr IV 10/04/23 23:59 PRN PRN Sodium Chloride 0 ml 09/05/23 06:00 Normal Saline 10 Ml Vial IJ 10/04/23 23:59 DIRECTED PRN Sterile Water 0 ml 09/05/23 06:00 Water,Injection,Sterile 10 Ml Vial IJ 10/04/23 23:59 DIRECTED PRN Tramadol HCl 50 mg 09/04/23 20:39 Tramadol 50 Mg Tab PO 10/04/23 20:38 Q6H PRN PRN Pain PFSH Active Problems Active Problems: Problem Status Onset Code COPD (chronic obstructive pulmonary disease) J44.9 Seborrheic keratosis L82.1 Rectal cancer C20 Complication of ostomy Iron deficiency anemia due to chronic blood loss D50.0 Adrenal nodule E27.8 Compression fracture of body of thoracic vertebra S22.000A Hiatal hernia K44.9 Rash R21 Smoker in home Z77.22 Loss of control of rectal sphincter R15.9 Rectal bleeding K62.5 ETOH abuse F10.10 Diarrhea R19.7 Medical History Medical History (Updated 09/05/23 @ 10:45 by Yojana Parker DO) Adrenal nodule 1.4 x 1.8 cm left adrenal nodule. Rectal adenoma Obstructing villous adenoma with high-grade dysplasia October 2021 Inguinal hernia Surgical History Surgical History Status post reversal of ileostomy [facility] [place] 01/24/23. -hb Hx of colostomy (~10/2021) Dr. Maryjo Parker, for obstructing rectal adenoma with high-grade dysplasia Status post inguinal hernia repair Repair of inguinal hernia 08/11/14 LEFT INDIRECT AND RIGHT DIRECT Tobacco Smoking/Tobacco Use Status: Current every day (5) Tobacco Type: cigarettes Passive smoking exposure: Yes Second hand exposure: Yes Alcohol Alcohol Intake: current Alcohol intake frequency: 0-2 drinks per day Alcohol type: hard liquor Substance Use Substance use: Occasionally Substance use type: marijuana Vital Signs and Lab Results Vital Signs Most Recent Vital Signs in EMR: Most Recent Vital Signs Temp Pulse Resp BP Pulse Ox 36.6 C 101 H 16 148/85 H 99 09/05/23 09:47 09/05/23 09:47 09/05/23 09:47 09/05/23 09:47 09/05/23 09:47 Lab Results Blood Type / Crossmatch: No Data to Display Complete Blood Count: No Data to Display Complete Metabolic Panel: No Data to Display Liver Function Panel: No Data to Display Coagulation Panel: No Data to Display Cardiac Panel: No Data to Display Arterial Blood Gas: No Data to Display Venous Blood Gas: No Data to Display Pancreas Panel: No Data to Display Thyroid Panel: No Data to Display Infectious Disease: No Data to Display Blood Cultures: No Data to Display Toxicology Panel: No Data to Display Imaging and Studies Imaging and Studies Study information below may be from another EMR and interpreted by another provider. Please see original notes in EMR for more complete details. EKG Summary: DATE/TIME OF SERVICE: 10/29/21 0948 : 1PERFORMING LOCATION: [facility] APPROVED REPORT Exam: Resting ECG Reason for Exam: Preoperative Patient Location: O HR:95 bpm ECG Measurements Heart Rate 95 AXIS OH 177 P 45 QRSd 82 QRS -15 QT 357 T23 QTc 450 Conclusion Sinus rhythm...normal P axis, V-rate 60- 99 Ventricular premature complex...V complex w/ short R-R interval Anesthesia Assessment and Plan Anesthesia History Personal History: No History of Anesthesia Complications Family History: No Family History of Anesthesia Complications Exercise Tolerance Exercise Tolerance: Metabolic Equivalents>4 Pertinent Negatives Pertinent Negatives: No Symptoms of GERD, No Major Cardiovascular Symptoms or Complaints, No Major Pulmonary Symptoms or Complaints and No History of CVA/TIA Cardiac & Pulmonary Exam Cardiac Exam: Normal S1/S2 Heart Sounds (possible PVCs) Pulmonary Exam: Clear Bilateral Breath Sounds Implantable Cardiac Device Does patient have a Pacemaker or an ICD?: No Airway Exam Known Difficult Airway: No Mallampati Class: 3 Mouth Opening: Normal (> 3cm) Thyromental Distance: Greater than 3 cm Neck Range of Motion: Full ROM Neck Circumference: Normal Teeth Condition: Normal Dentition ASA Classification ASA Score: ASA 3 Emergency Case?: No NPO Status NPO Status: NPO Clears >2 hours, Solids >8 hours Anesthesia Plan Resuscitation Status: Full Code Anesthesia Technique: General Anesthesia Airway Planned: Natural Airway Monitors Used: Standard Monitors
--- NOTE | 2023-09-05 10:41 | W.PM.PROGNOT ---
Date of Service Date of service: 09/05/23 Time of Service: 10:41 Assessment and Plan Assessment and plan (1) COPD (chronic obstructive pulmonary disease): Status: Chronic (2) Rectal cancer: Status: Acute (3) Hiatal hernia: Status: Chronic (4) Smoker in home: Status: Acute (5) ETOH abuse: Status: Chronic (6) Status post reversal of ileostomy: Subjective Subjective Interval history since last seen: Patient is here today for colonoscopy and removal of right sided subclavian buried reservoir port .??? They completed a bowel prep with just a clear yellow residual effluent.? They not having any chest pain or shortness of breath, currently.? They are not experiencing any fever or chills.? They deny any productive cough or upper respiratory tract infection signs or symptoms.? They are not having abdominal pain, or nausea and vomiting.? They have not had any changes in medications, past medical history or past surgical history since previously being seen in the office. They have not had any accidents or have been in the ER since the clinic pre-operative evaluation. ??I reviewed the procedure with the patient today, including risks and benefits of the procedure, and what they could expect at home for recovery.? All questions are answered to the patient?s satisfaction today, and they are stable to proceed with the proposed procedure. Patient is patient has been doing well since his low anterior resection at [facility] 8 months ago. I did review notes from his oncology team, and last labs and CT. He has gained weight. He has been able to tolerate a regular diet. He is able to move his bowels with good control. He has not had any rectal bleeding. He has not had any pain or difficulty with defecation. He has completed his chemotherapy drug regimen and did not have any complications with this. We discussed what he can expect during port removal recovery time and risks including not limited to: Bleeding, infection, wound care healing, damage to vein, device loss, need to heal by secondary intent, and other on for told complications. As well as complications from the local anesthetic patient would like to have it removed. We will facilitate this as well today. No heavy lifting or strenuous activity for the next 72 hours after port removal. Patient is stable for proposed procedure today of colonoscopy and right-sided port removal. Objective Last Vital Signs Temp 36.6 C 01/09/24 09:47 Pulse 101 H 09/05/23 09:47 Resp 16 09/05/23 09:47 BP 148/85 H 09/05/23 09:47 Pulse Ox 99 09/05/23 09:47 Time Spent with Patient Time Spent with Patient: 25-34 minutes Time was spent: preparing to see the patient(eg.review tests), obtaining and/or reviewing separately otained hiistory, ordering medications,tests, procedures, referring, communicating with other health career portals teacher, indepentently interpreting results, counseling the patient and care coordination
[2023-09-05 10:55] VITALS: BMI 25.4
[2023-09-05] MEDS: EPINEPHrine 10 MG/10 ML ML (11:13)
--- NOTE | 2023-09-05 11:38 | BOWEL_PTH ---
PATIENT: Karlo Kolb LOC: [facility] U#:[id number] AGE/SX: 73/M ROOM: RE09/05/[address]: Yojana Parker : 1950 BED: DIS: 09/05/2023 SPEC #: [id number] RECD: 09/05/23 12:15 STATUS: SUSIE RE #: [id number] NIMA: 09/05/23 11:[address]: Yojana Parker DEPT: Surgical Specimen RECD BY: Jolly Dhillon ENTERED: 09/05/23 12:16 SP TYPE: Bowel OTHR DR: Alon Shah, CERTIFIED PESTICIDE APPLICATOR Tissues: 1 - BIOPSY BOWEL 2 - BIOPSY BOWEL 3 - BIOPSY BOWEL 4 - BIOPSY BOWEL 5 - BIOPSY BOWEL Procedures: GROSS AND MICRO LEVEL 4 Comments: [id number]
[2023-09-05 12:21] VITALS: BP 134/86; PULSE 74; RESP 16; TEMP 36.3; O2SAT 99
--- NOTE | 2023-09-05 12:38 | W.ANESPOSTOP ---
Postoperative Evaluation Date, Time and Location Date Performed: 09/05/23 Time Performed: 12:38 Patient Location: Day Surgery Unit Vital Signs Most Recent Imported Vital Signs: Most Recent Vital Signs Temp Pulse Resp BP Pulse Ox 36.3 C L 74 16 134/86 99 09/05/23 12:21 09/05/23 12:21 09/05/23 12:21 09/05/23 12:21 09/05/23 12:21 Pain Score Most Recent Pain Score: Most Recent Pain Score Pain Level 0 09/05/23 09:47 Assessment Mental Status: Awake (Alert & Oriented to Patient Baseline) Airway and Respiratory Function: Patent airway with normal (patient baseline) respiratory exam Cardiovascular Function: Hemodynamically Stable Hydration Status: Adequately Hydrated Nausea & Vomiting: No Nausea or Vomiting Pain: Pt. Denies Any Pain Peripheral Nerve Block: Patient did not receive a nerve block
[2023-09-05] MEDS: Ketorolac 15 MG/ML VIAL IVP (13:02)
[2023-09-05 13:10] VITALS: BP 134/95; PULSE 70; RESP 16; TEMP 36; O2SAT 93
--- NOTE | 2023-09-05 16:59 | W.ANESPOSTOP ---
Postoperative Evaluation Date, Time and Location Date Performed: 09/05/23 Time Performed: 12:25 Patient Location: Day Surgery Unit Vital Signs Most Recent Imported Vital Signs: Most Recent Vital Signs Temp Pulse Resp BP Pulse Ox 36.0 C L 70 16 134/95 H 93 09/05/23 13:10 09/05/23 13:10 09/05/23 13:10 09/05/23 13:10 09/05/23 13:10 Most Recent Vital Signs Temp Pulse Resp BP Pulse Ox 36.3 C L 74 16 134/86 99 09/05/23 12:21 09/05/23 12:21 09/05/23 12:21 09/05/23 12:21 09/05/23 12:21 Pain Score Most Recent Pain Score: Most Recent Pain Score Pain Level 2 09/05/23 13:10 Assessment Mental Status: Awake (Alert & Oriented to Patient Baseline) Airway and Respiratory Function: Patent airway with normal (patient baseline) respiratory exam Cardiovascular Function: Hemodynamically Stable Hydration Status: Adequately Hydrated Nausea & Vomiting: No Nausea or Vomiting Pain: Pt. Denies Any Pain Peripheral Nerve Block: Patient did not receive a nerve block
== END 2023-09-05 13:15 | disposition home or self-care (01) ==
LOC: SUR 09:16
PROVIDERS: PCP Nurse Practitioner Family; Visit Provider Surgery
PROC: 0DJD8ZZ Inspection of Lower Intestinal Tract, Via Natural or Artificial Opening Endoscopic (ICD-10-PCS; CPT 45378; principal; 2023-09-05 10:00)
PROC: (CPT 36590; 2023-09-05 10:00)
DX: Z12.11 Encounter for screening for malignant neoplasm of colon (principal); K64.1 Second degree hemorrhoids; D12.4 Benign neoplasm of descending colon; K57.30 Diverticulosis of large intestine without perforation or abscess without bleeding; Z85.040 Personal history of malignant carcinoid tumor of rectum; Z98.890 Other specified postprocedural states; C20 Malignant neoplasm of rectum; F10.10 Alcohol abuse, uncomplicated; D50.0 Iron deficiency anemia secondary to blood loss (chronic); J44.9 Chronic obstructive pulmonary disease, unspecified; Z77.22 Contact with and (suspected) exposure to environmental tobacco smoke (acute) (chronic); K44.9 Diaphragmatic hernia without obstruction or gangrene; D12.5 Benign neoplasm of sigmoid colon
CPT/HCPCS: 36590; 45380; 88305; J0665; J1885; J2001; J2371; J2704

== ENCOUNTER → 2023-09-11 03:57 | Outpatient (CLI) | payer MEDICARE, MEDICAID, SELFPAY ==
[2023-09-11] MEDS: Barium Sulfate 2% W/V-Creamy Vanilla Smoothie 450 ML BTL 900 ML PO (07:48)
[2023-09-11 08:21] LABS: Abs Immature Grans 0.02 10^3/uL (0.0-0.06); Absolute Basophil Count 0.04 10^3/uL (0.0-0.2); Absolute Eosinophil Count 0.16 10^3/uL (0.0-0.7); Absolute Lymphocyte Count 0.68 10^3/uL (1.2-3.4); Absolute Monocyte Count 0.71 10^3/uL (0.1-0.8); Absolute Neutrophil Count 4.25 10^3/uL (1.2-6.7); Basophils % 0.7; Eosinophils % 2.7; HCT 42.3 % (40.0-50.0); HGB 13.8 g/dL (13.5-17.5); Immature Grans % 0.3; Lymphocytes % 11.6; MCH 30.2 pg (27.0-33.0); MCHC 32.6 % (32.0-36.0); MCV 93 fL (80-95); Monocytes % 12.1; Neutrophils % 72.6; Platelet Count 220 10^3/uL (130-400); RBC 4.57 10^6/uL (4.36-5.78); RDW 14.7 % (11.8-14.1); WBC 5.86 10^3/uL (4.4-10.8)
[2023-09-11 08:38] LABS: ALT 19 U/L (16-63); AST 16 U/L (15-37); Albumin 3.5 g/dL (3.4-5.0); Alkaline Phosphatase 79 U/L (46-116); Anion Gap 6.5 mmol/L (3-11); BUN 12 mg/dL (7-18); Bilirubin, Total 0.5 mg/dL (0.2-1.0); CO2 29.5 mmol/L (21.0-32.0); CREATININE 0.8 mg/dL (0.70-1.30); Calcium 9.4 mg/dL (8.5-10.1); Chloride 105 mmol/L (98-107); Estimated GFR 94.03 (mL/min/1.73m2); Glucose 102 mg/dL (74-106); Sodium 141 mmol/L (136-145); Total Protein 7.3 g/dL (6.4-8.2)
[2023-09-11] MEDS: Normal Saline - Diluent 50 ML VIAL IJ (10:38)
[2023-09-11] MEDS: Omnipaque 350 MG/ML 100 ML BTL IJ (10:39)
--- NOTE | 2023-09-11 10:45 | DI.CT_ITS ---
Exam(s) CT CHEST/ABD/PEL W EXAM: CT CHEST/ABD/PEL W CLINICAL HISTORY: RECTAL CANCER C20 MONITOR POST TREATMENT. TECHNIQUE: Imaging Protocol: Axial computed tomography images with coronal and sagittal reformatted images were created and reviewed CONTRAST MATERIAL: Intravenous: Omnipaque 350 Contrast volume:100 ml Oral: yes COMPARISON: CT CT CHEST/ABD/PEL W from 07/04/2022 FINDINGS: CHEST: Tracheobronchial tree: Patent where visualized. Pulmonary parenchyma: No consolidation or dominant measurable mass. The mild emphysematous changes a t the apices. Pleura: No effusion or pneumothorax. Lymph nodes: Within normal limits. Aorta: Thoracic portion non-dilated. Mild atherosclerotic changes. Heart: Mildly dilated. Minimal coronary artery calcifications. No pericardial effusion. Bones: Unremarkable for age. No lytic or blastic lesions.Stable compression fractures of T7 and T8. Soft tissues: Unremarkable. ABDOMEN and PELVIS: Liver: Normal density. No measurable mass. Gallbladder and biliary tract: No evidence of stones or wall thickening. No biliary dilatation. Pancreas: Normal density, no abnormal calcifications or inflammatory process. Spleen: Normal. Kidneys: Normal size, contour and axis. Small nonobstructing stones bilaterally. No suspicious henri s seen. Adrenal glands: Stable appearance of 2 adjacent small left adrenal nodules. Aorta: Abdominal portion non-dilated. Moderate atherosclerotic changes. Lymph nodes: Within normal limits. Soft tissues: Mild scarring left lower quadrant related to colostomy. Tiny hernia right anterior low er abdominal wall. Bladder: Unremarkable. Bowel: Reversal of previously noted colostomy. Improvement in rectal wall thickening. Fluid collect ion/soft tissue thickening posterior to rectum, anterior to sacrum may be residual postsurgical findi ngs. Approximate dimensions 4.9 x 1.9 by 5.5 cm. No obstruction. Mild sigmoid diverticulosis. Navin endix normal. Peritoneal cavity: No ascites. No focal collection. No mesenteric inflammatory response. Bones: Stable compression fracture of L1. Reproductive organs: enlarged prostate. IMPRESSION: Reversal of previously noted colostomy. Fluid collection/soft tissue thickening posterior to rectum may be related to recent surgery. No evidence of metastatic disease. RADIATION DOSE DELIVERED: 1,789.33mGy.cm Total DLP DATA REPOSITORY: All CT scans at this facility are submitted to the National Radiology Data Registry (NRDR) Dose Index Registry (DIR) with the [employer] (A[employer]). RADIATION OPTIMIZATION: All CT scans at this facility use at least one of these dose optimization te chniques: automated exposure control; mA and/or kV adjustment per patient size (includes targeted exa ms where dose is matched to clinical indication); or iterative reconstruction.
[2023-09-11 19:32] LABS: CEA 2.1 ng/mL (See Note)
== END ==
PROVIDERS: Internal Medicine Hematology & Oncology; PCP Nurse Practitioner Family; Visit Provider Nurse Practitioner Family
DX: C20 Malignant neoplasm of rectum (principal)
CPT/HCPCS: 74177; 80053; 71260; 82378; 85025; J3490

== ENCOUNTER 2023-12-08 01:12 | Outpatient (CLI) | payer MEDICARE, MEDICAID, SELFPAY ==
[2023-12-08 14:28] LABS: Calculated LDL 81 mg/dL (<100); Cholesterol 193 mg/dL (<200); HDL Cholesterol 98 mg/dL (40-60); Triglyceride 71 mg/dL (<150)
[2023-12-08 14:32] LABS: Hemoglobin A1C 5.3 % (<5.7)
[2023-12-11 08:09] LABS: CEA 1.7 ng/mL (See Note)
== END 2023-12-08 01:13 | disposition home or self-care (01) ==
LOC: LBO 01:12
PROVIDERS: PCP Nurse Practitioner Family; Visit Provider Internal Medicine Hematology & Oncology
DX: Z13.220 Encounter for screening for lipoid disorders (principal); Z13.1 Encounter for screening for diabetes mellitus; Z12.5 Encounter for screening for malignant neoplasm of prostate; C20 Malignant neoplasm of rectum
CPT/HCPCS: 36415; 80061; 84153; 82378; 83036

== ENCOUNTER → 2024-03-06 00:05 | Outpatient (CLI) | payer MEDICARE, MEDICAID, SELFPAY ==
--- NOTE | 2024-03-06 | DI.CT_ITS ---
Exam(s) CT CHEST/ABD/PEL W EXAM: CT CHEST/ABD/PEL W CLINICAL HISTORY: Rectal CA, C20. TECHNIQUE: Imaging Protocol: Axial computed tomography images with coronal and sagittal reformatted images were created and reviewed CONTRAST MATERIAL: Intravenous: Omnipaque 350 Contrast volume:100 ml Oral: yes / no COMPARISON: CT CT CHEST/ABD/PEL W from 09/11/2023 FINDINGS: CHEST: Tracheobronchial tree: Patent. Pulmonary parenchyma: No consolidation or dominant measurable mass. Mild emphysematous changes at th e lung apices. Pleura: No effusion or pneumothorax. Mediastinum: Within normal limits. Aorta: Thoracic portion non-dilated. Mild atherosclerotic changes. Pulmonary arteries: No visible emboli. Heart: The heart is enlarged. No pericardial effusion. Bones: No lytic or blastic lesions.Stable compression fractures of T7 and T8 Soft tissues: Unremarkable. ABDOMEN and PELVIS: Liver: Normal density. No measurable mass. Gallbladder and biliary tract: No evidence of stones or wall thickening. No biliary dilatation. Pancreas: Normal density, no abnormal calcifications or inflammatory process. Spleen: Normal. Kidneys: Normal size, contour and axis. Nonobstructing stones upper and, middle and lower poles of th e right kidney. Tiny nonobstructing stone seen in mid and lower pole of the left kidney. No obstruc tive uropathy. No suspicious masses seen. Adrenal glands: Stable appearance of left adrenal nodules. Aorta: Abdominal portion non-dilated. Lymph nodes: Within normal limits. Soft tissues: Tiny right lower quadrant abdominal wall fatty hernia. Mild scarring left lower quadra nt. Bladder: Unremarkable. Bowel: No obstruction or bowel wall thickening. Suture material at rectum. No significant change in presacral fluid collection and soft tissue thickening. Mild diverticulosis noted. Peritoneal cavity: No ascites. No focal collection. No mesenteric inflammatory response. No free ai r. Bones: Stable compression fracture of L1 Reproductive organs: Enlarged prostate. IMPRESSION: No evidence of metastatic disease in the chest, abdomen or pelvis. RADIATION DOSE DELIVERED: 1,463.5mGy.cm Total DLP DATA REPOSITORY: All CT scans at this facility are submitted to the National Radiology Data Registry (NRDR) Dose Index Registry (DIR) with the [employer] (ACR). RADIATION OPTIMIZATION: All CT scans at this facility use at least one of these dose optimization te chniques: automated exposure control; mA and/or kV adjustment per patient size (includes targeted exa ms where dose is matched to clinical indication); or iterative reconstruction.
[2024-03-06] MEDS: Barium Sulfate 2% W/V-Berry Smoothie 450 ML BTL PO ×2 (10:54→10:55)
[2024-03-06 11:28] LABS: Abs Immature Grans 0.02 10^3/uL (0.0-0.06); Absolute Basophil Count 0.03 10^3/uL (0.0-0.2); Absolute Eosinophil Count 0.14 10^3/uL (0.0-0.7); Absolute Lymphocyte Count 1.01 10^3/uL (1.2-3.4); Absolute Monocyte Count 0.97 10^3/uL (0.1-0.8); Absolute Neutrophil Count 4.86 10^3/uL (1.2-6.7); Basophils % 0.4 %; HCT 41.5 % (40.0-50.0); HGB 14.1 g/dL (13.5-17.5); Immature Grans % 0.3 %; Lymphocytes % 14.4 %; MCH 31.3 pg (27.0-33.0); MCV 92 fL (80-95); MPV 10.3 fL (8.0-11.0); Monocytes % 13.8 %; Neutrophils % 69.1 %; Platelet Count 207 10^3/uL (130-400); RBC 4.51 10^6/uL (4.36-5.78); RDW 15.8 % (11.8-14.1); RDW-SD 53.4 fL; WBC 7.03 10^3/uL (4.4-10.8)
[2024-03-06 11:44] LABS: ALT 20 U/L (16-63); AST 19 U/L (15-37); Albumin 3.6 g/dL (3.4-5.0); Alkaline Phosphatase 78 U/L (46-116); Anion Gap 5.6 mmol/L (3-11); BUN 8 mg/dL (7-18); Bilirubin, Total 0.58 mg/dL (0.2-1.0); CO2 28.4 mmol/L (21.0-32.0); CREATININE 0.7 mg/dL (0.70-1.30); Calcium 9.3 mg/dL (8.5-10.1); Chloride 106 mmol/L (98-107); Glucose 97 mg/dL (74-106); Potassium 4.3 mmol/L (3.5-5.1); Sodium 140 mmol/L (136-145); Total Protein 7.3 g/dL (6.4-8.2)
[2024-03-06] MEDS: Omnipaque 350 MG/ML 100 ML BTL IJ (13:17)
[2024-03-06] MEDS: Normal Saline - Diluent 50 ML VIAL IJ (13:20)
[2024-03-06 19:14] LABS: CEA 1.9 ng/mL (See Note)
== END ==
PROVIDERS: PCP Nurse Practitioner Family; Visit Provider Nurse Practitioner Family
DX: C20 Malignant neoplasm of rectum (principal)
CPT/HCPCS: 74177; 80053; 71260; 82378; 85025; J3490

== ENCOUNTER 2024-06-17 02:10 | Outpatient (CLI) | payer MEDICARE, MEDICAID, SELFPAY ==
[2024-06-17 13:41] LABS: Abs Immature Grans 0.01 10^3/uL (0.0-0.06); Absolute Basophil Count 0.04 10^3/uL (0.0-0.2); Absolute Eosinophil Count 0.16 10^3/uL (0.0-0.7); Absolute Lymphocyte Count 1.11 10^3/uL (1.2-3.4); Absolute Monocyte Count 0.87 10^3/uL (0.1-0.8); Absolute Neutrophil Count 4.37 10^3/uL (1.2-6.7); Basophils % 0.6 %; Eosinophils % 2.4 %; HCT 39.9 % (40.0-50.0); HGB 13.6 g/dL (13.5-17.5); Immature Grans % 0.2 %; Lymphocytes % 16.9 %; MCH 31.3 pg (27.0-33.0); MCHC 34.1 % (32.0-36.0); MCV 92 fL (80-95); MPV 10.4 fL (8.0-11.0); Monocytes % 13.3 %; Neutrophils % 66.6 %; Platelet Count 207 10^3/uL (130-400); RBC 4.34 10^6/uL (4.36-5.78); RDW 15.7 % (11.8-14.1); RDW-SD 52.9 fL; WBC 6.56 10^3/uL (4.4-10.8)
[2024-06-17 13:56] LABS: ALT 18 U/L (16-63); AST 14 U/L (15-37); Albumin 3.6 g/dL (3.4-5.0); Alkaline Phosphatase 74 U/L (46-116); BUN 10 mg/dL (7-18); CREATININE 0.8 mg/dL (0.70-1.30); Calcium 9.4 mg/dL (8.5-10.1); Chloride 107 mmol/L (98-107); Estimated GFR 93.45 (mL/min/1.73m2); Glucose 93 mg/dL (74-106); Potassium 3.7 mmol/L (3.5-5.1); Sodium 143 mmol/L (136-145); Total Protein 7.3 g/dL (6.4-8.2)
[2024-06-17 23:06] LABS: CEA 1.8 ng/mL (See Note)
== END 2024-06-17 02:11 | disposition home or self-care (01) ==
PROVIDERS: Internal Medicine Hematology & Oncology; PCP Nurse Practitioner Family; Visit Provider Nurse Practitioner Family
DX: C20 Malignant neoplasm of rectum (principal)
CPT/HCPCS: 36415; 80053; 82378; 85025

== ENCOUNTER 2024-07-31 14:13 | Outpatient (REF) | payer MEDICARE, MEDICAID, SELFPAY | END 2024-07-31 14:14 | disposition home or self-care (01) | LOC: LBN 14:13 | PROVIDERS: PCP Nurse Practitioner Family; Visit Provider Nurse Practitioner Family | DX: R21 Rash and other nonspecific skin eruption (principal); L02.92 Furuncle, unspecified | CPT/HCPCS: 87070; 87186; 87205 ==

== ENCOUNTER → 2024-09-19 10:13 | Outpatient (BNVA) | payer MEDICARE, MEDICAID, SELFPAY | PROVIDERS: PCP Nurse Practitioner Family; Referring Provider Nurse Practitioner Family; Visit Provider Physical Therapy Assistant | DX: Z12.11 Encounter for screening for malignant neoplasm of colon (principal); Z86.0101 Personal history of adenomatous and serrated colon polyps; C20 Malignant neoplasm of rectum ==

== ENCOUNTER 2024-09-30 10:31 | Day surgery (SDC) | payer MEDICARE, MEDICAID, SELFPAY ==
--- NOTE | 2024-09-29 05:24 | W.PM.DSUDISC ---
Date of service: 09/30/24 Discharge Plan Disposition Patient Disposition: Home Condition: Good Discharge Details Reason For Visit: screening colonoscopy Attending Provider: Karlo Pinto Primary Care Provider: Alon Shah Home Meds and New Rx's Prescriptions: Continued triamcinolone acetonide 0.5 % cream 1 applic topical BID Qty: 80 1RF acetaminophen [Tylenol Extra Strength] 500 mg tablet 1,000 mg PO Q6H PRN Discontinued bisacodyl [Dulcolax (bisacodyl)] 5 mg tablet,delayed release (DR/EC) 5 mg PO ONCE Qty: 4 0RF Rx Instructions: Take per colonoscopy instructions provided by ordering providers office polyethylene glycol 3350 17 gram/dose powder 17 g PO ONCE Qty: 238 0RF Rx Instructions: Take per colonoscopy instructions provided by ordering providers office Discharge Instructions Instructions: Colon polyps, Diverticulosis Additional Instructions: Karlo, I enjoyed meeting you today, and I hope you are comfortable through the colonoscopy and that you feel well later today. Everything went very smoothly. With regards to the procedure itself, I was able to clearly see the area where he had your previous surgery. Everything here looks very good and healthy. I did do some biopsies of the area just to be safe. Beyond this, along the length of your colon, I found a total of 4 polyps. These were all removed, and they were sent as 3 specimens. These polyps will be tested, and once I know the nature of them I will certainly let you know. As we discussed before hand, my typical approach to patients with a history of colon or rectal cancer is to perform an initial colonoscopy about 6 months after therapy, and then yearly for 3 years. If all of those were totally normal, then I would move the patient to a 5-year cycle thereafter. There are some types of polyps that may change this, but based on what I saw today, I be a little skeptical of that. For right now, I would tentatively offer another 1 year colonoscopy interval, then plan to adjust as needed. The polyps that I sent off today will take a week or 2 to get back from the pathologist, but once I have that information, my office will be in touch. Incidentally, he also have a fair amount of diverticulosis. Diverticula are little weak spots in the muscular layer of the colon wall that cause little pockets or pouches to form. These can get infected or inflamed during episodes that we refer to as diverticulitis. I will attach some basic information here about diverticular disease, as well as colorectal polyps. If you need anything or have any questions in the meantime, please do not hesitate to call. 1. If tolerated, consume a soft, low fiber diet for 1-2 days. [address] Do not drive, drink alcohol, operate machinery, make critical decisions, or do activities that require coordination or balance for 24 hours. 3. Because air was put into your colon during the procedure, expelling air from your rectum (passing gas or farting) is normal. 4. You may not have a bowel movement for 1-3 days because of the colonoscopy prep. This is normal. 5. Go directly to the emergency room if you notice any of the following: Develop chills (warm to touch), or if you have a thermometer and your temperature is above 101 Difficulty breathing or difficultly swallowing Persistent vomiting Severe abdominal pain, other than gas cramps Severe chest pain Black, tarry stools Any bleeding ? exceeding one tablespoon 6. Call your physician if the site where your intravenous was started becomes red, swollen, painful, and warm to touch. 7. Your physician has reviewed your pre-procedure medications. Please continue to take those medications as previously ordered. You will be given specific information/education regarding any changes to your medications before leaving. Activity:: Activity as Tolerated Diet:: As Tolerated Discharge Orders Discharge Orders: Discharge Order (Routine); Ordered 09/29/24 Ordered By: Karlo Pinto DS: Diagnosis Discharge Diagnosis (1) Encounter for screening colonoscopy: Status: Acute Asessment and Plan: Follow-up on polypectomy results
--- NOTE | 2024-09-29 05:28 | COLE_ITS ---
Date of service: 09/30/24 Time of Service: 14:24 Colonoscopy Report Date of procedure: 09/30/24 Pre-op diagnosis general: screening colonoscopy with history of rectal cancer Post-op diagnosis procedure note: other (Colon polyps, diverticulosis) Procedure: colonoscopy with polypectomy Surgeon: Karlo Pinto Anesthesia Type: General:No Airway Estimated blood loss (mL): 10 Pathology: other (0.25 cm cecal polyp, 0.5 cm polyp at 75 cm, 0.25 cm polyp at 75 cm, 0.25 cm polyp at 60 cm; anastomotic biopsies) Complications: None Disposition: same day Indications: Karlo is a 74 year old man with a personal history of rectal cancer that was treated with chemotherapy and radiation followed by low anterior resection. He is undergoing surveillance screening colonoscopies. On his last colonoscopy he was found to have adenomatous polyps. Prep: Miralax/Dulcolax Procedure Start Time: 13:38 Procedure End Time: 14:05 Retraction Time: 19 Findings: Healthy-appearing anastomosis approximately 10 cm from the anal verge; pandiverticulosis; 0.25 cm cecal polyp, 0.5 cm polyp at 75 cm, 0.25 cm polyp at 75 cm, 0.25 cm polyp at 60 cm Procedure Description: After the induction of monitored anesthetic care, and with the patient in left lateral decubitus position, I began by performing an external anorectal exam.? Perineum and skin were normal, as was the anal verge.? There was no evidence of external hemorrhoids.? Next, I performed a digital rectal exam.? This felt normal.? Next, I advanced a colonoscope into the rectal vault.? I performed retroflexion.? This appears normal.? The colorectal anastomosis is approximately 10 cm beyond the anal verge. 2 sutures were identified, and narrowband imaging was used to assess the anastomosis. Everything appeared normal. I did do some nondirected cold forceps biopsies around the area of the anastomosis as surveillance. There was minimal bleeding from the sites. I am able to traverse the anastomosis with the ease and advanced towards the cecum. There is pandiverticulosis.? The scope was noted to be in the cecum by identification of the ileocecal valve and appendiceal orifice.? There are a few punctate areas of fresh blood within the cecum. These were all irrigated clean. There was some mild prominence of the vasculature that seems slightly consistent with telangiectasias, but nothing that appeared to be a culprit source of bleeding. This was all irrigated thoroughly. There was a 0.25 cm polyp in the cecum that was removed with cold forceps with minimal bleeding from that site. I then began withdrawing the colonoscope using repeated irrigation as necessary for full evaluation of the colonic mucosa. Around 75 cm from the anal verge was a 0.5 cm mostly flat polyp. This was removed with combination of cold snare polypectomy as well as cold forceps. There was another 0.25 cm polyp immediately adjacent to this which was also removed with cold forceps. These were sent as a single specimen. Another polyp was detected around 60 cm from the anal verge. This was also about 0.25 cm and flat. I removed this with cold forceps without issue as well. The remainder of the exam back through the anastomosis at the upper portion of the rectal vault was all normal, with the exception of the diverticulosis mentioned above finally, the scope was withdrawn and the patient was brought to the same-day surgery recovery unit as the anesthetic wore off. ?The findings and instructions were shared with the patient prior to discharge. [place] Bowel Prep [place] Bowel Prep Right Colon: 2 Left Colon: 3 Transverse Colon: 3 Total Score: 8
[2024-09-30 11:05] VITALS: BP 137/84; PULSE 87; RESP 20; TEMP 36.1; O2SAT 98
[2024-09-30] MEDS: Lactated Ringers 1,000 ML 80 ML IV (11:47)
--- NOTE | 2024-09-30 13:04 | ANES.PREOP_ITS ---
General Info Date of Service Date Performed: 09/30/24 Height: 5 ft 10 in Weight: 76.8 kg Body Mass Index (BMI): 24.3 Surgical Procedure: Operation Date: 09/30/24 12:50 Proposed Procedure Side Surgeon p Colonoscopy Karol Pinto MD Actual Procedure Side Surgeon p Colonoscopy Not Applicable Karlo Pinto MD Pre-Op Diagnosis Post-Op Diagnosis screening colonoscopy Meds Allergies and Home Medications Allergies Allergy/AdvReac Type Severity Reaction Status Date / Time No Known Allergies Allergy Verified 09/30/24 11:22 Home Medication ?Medication ?Instructions ?Recorded triamcinolone acetonide 0.5 % 1 applic topical BID #80 grams 10/27/21 topical cream acetaminophen 500 mg tablet 1,000 mg PO Q6H PRN 11/11/21 (Tylenol Extra Strength) Current Visit Medications: Current Medications Generic Name Dose Route Start Last Admin Trade Name Freq PRN Reason Stop Dose Admin Ringer's Solution 1,000 mls @ 80 mls/hr 09/30/24 06:00 09/30/24 11:47 IV 09/30/24 23:59 80 mls/hr INFUSION GERTRUDE Administration IV Miscellaneous Supplies 1 each 09/30/24 06:00 Iv Access IV 09/30/24 23:59 DIRECTED GERTRUDE Ondansetron HCl 4 mg 09/29/24 05:30 Ondansetron 4 Mg/2 Ml Vial IVP 10/29/24 05:29 Q4H PRN PRN Nausea / Vomiting Sodium Chloride 0 ml 09/30/24 06:00 Normal Saline Flush 10 Ml Syr IV 09/30/24 23:59 PRN PRN Sodium Chloride 0 ml 09/30/24 06:00 Normal Saline 10 Ml Vial IJ 09/30/24 23:59 DIRECTED PRN Sterile Water 0 ml 09/30/24 06:00 Water,Injection,Sterile 10 Ml Vial IJ 09/30/24 23:59 DIRECTED PRN PFSH Active Problems Active Problems: Problem Status Onset Code Encounter for screening colonoscopy Acute Z12.11 Erectile dysfunction Acute N52.9 Internal hemorrhoids without complication Acute K64.8 Adenomatous polyps Acute D36.9 Pancolonic diverticulosis Acute K57.30 COPD (chronic obstructive pulmonary disease) Chronic J44.9 Seborrheic keratosis Acute L82.1 Rectal cancer Acute C20 Compression fracture of body of thoracic vertebra Acute S22.000A Hiatal hernia Chronic K44.9 Rash Acute R21 Smoker in home Acute Z77.22 ETOH abuse Chronic F10.10 Medical History Medical History Adrenal nodule 1.4 x 1.8 cm left adrenal nodule. Rectal adenoma Obstructing villous adenoma with high-grade dysplasia October 2021 Inguinal hernia Surgical History Surgical History History of removal of Port-a-Cath (~08/2023) History of colonoscopy (~08/2023) path sent Status post reversal of ileostomy [facility] [place]/24/23. -hb Hx of colostomy (~10/2021) Dr. Maryjo Parker, for obstructing rectal adenoma with high-grade dysplasia Status post inguinal hernia repair Repair of inguinal hernia 08/11/14 LEFT INDIRECT AND RIGHT DIRECT Tobacco Smoking/Tobacco Use Status: Current every day Tobacco Type: cigarettes Smoking cigarettes per day: 10 Passive smoking exposure: No Second hand exposure: No Alcohol Alcohol Intake: current Alcohol intake frequency: 0-2 drinks per day Alcohol type: beer and hard liquor Substance Use Substance use: Rarely Substance use type: marijuana Vital Signs and Lab Results Vital Signs Most Recent Vital Signs in EMR: Most Recent Vital Signs Temp Pulse Resp BP Pulse Ox 36.1 C L 87 20 137/84 98 09/30/24 11:05 09/30/24 11:05 09/30/24 11:05 09/30/24 11:05 09/30/24 11:05 Lab Results Blood Type / Crossmatch: No Data to Display Complete Blood Count: No Data to Display Complete Metabolic Panel: No Data to Display Liver Function Panel: No Data to Display Coagulation Panel: No Data to Display Cardiac Panel: No Data to Display Arterial Blood Gas: No Data to Display Venous Blood Gas: No Data to Display Pancreas Panel: No Data to Display Thyroid Panel: No Data to Display Infectious Disease: No Data to Display Blood Cultures: No Data to Display Toxicology Panel: No Data to Display Imaging and Studies Imaging and Studies Study information below may be from another EMR and interpreted by another provider. Please see original notes in EMR for more complete details. EKG Summary: DATE/TIME OF SERVICE: 10/29/21 0948 : 1PERFORMING LOCATION: [facility] APPROVED REPORT Exam: Resting ECG Reason for Exam: Preoperative Patient Location: O HR:95 bpm ECG Measurements Heart Rate 95 AXIS AK 177 P 45 QRSd 82 QRS -15 QT 357 T23 QTc 450 Conclusion Sinus rhythm...normal P axis, V-rate 60- 99 Ventricular premature complex...V complex w/ short R-R interval Anesthesia Assessment and Plan Anesthesia History Personal History: No History of Anesthesia Complications Family History: No Family History of Anesthesia Complications Exercise Tolerance Exercise Tolerance: Metabolic Equivalents>4 Pertinent Negatives Pertinent Negatives: No Symptoms of GERD and No Major Cardiovascular Symptoms or Complaints Cardiac & Pulmonary Exam Cardiac Exam: Normal S1/S2 Heart Sounds Pulmonary Exam: Clear Bilateral Breath Sounds Implantable Cardiac Device Does patient have a Pacemaker or an ICD?: No Airway Exam Known Difficult Airway: No Mallampati Class: 3 Mouth Opening: Normal (> 3cm) Thyromental Distance: Greater than 3 cm Neck Range of Motion: Full ROM Neck Circumference: Normal Teeth Condition: Normal Dentition ASA Classification ASA Score: ASA 3 Emergency Case?: No NPO Status NPO Status: NPO Clears >2 hours, Solids >8 hours Anesthesia Plan Resuscitation Status: Full Code Anesthesia Technique: General Anesthesia Airway Planned: Natural Airway Monitors Used: Standard Monitors Preoperative Comments:: History of colon cancer, known adrenal nodule
[2024-09-30 13:05] VITALS: BMI 24.3
--- NOTE | 2024-09-30 13:39 | BOWEL_PTH ---
PATIENT: Karlo Kolb LOC: [facility] U#:[id number] AGE/SX: 74/M ROOM: RE09/30/[address]: Karlo Pinto MD : 1950 BED: DIS: 09/30/2024 SPEC #: [id number] RECD: 09/30/24 18:19 STATUS: SUSIE RE #: [id number] NIMA: 09/30/24 13:[address]: Karlo Pinto DEPT: Surgical Specimen RECD BY: Jolly Dhillon ENTERED: 09/30/24 18:21 SP TYPE: Bowel OTHR DR: Alon Shah, DEVELOPMENT EDITOR Tissues: 1 - BIOPSY BOWEL 2 - BIOPSY BOWEL 3 - BIOPSY BOWEL 4 - BIOPSY BOWEL Procedures: GROSS AND MICRO LEVEL 4 Comments: [id number]
[2024-09-30 14:10] VITALS: BP 129/83; PULSE 80; RESP 18; TEMP 36; O2SAT 98
[2024-09-30 14:33] VITALS: BP 146/83; PULSE 81; RESP 18; TEMP 36.2; O2SAT 97
--- NOTE | 2024-09-30 15:00 | W.ANESPOSTOP ---
Postoperative Evaluation Date, Time and Location Date Performed: 09/30/24 Time Performed: 14:15 Patient Location: Day Surgery Unit Vital Signs Most Recent Imported Vital Signs: Most Recent Vital Signs Temp Pulse Resp BP Pulse Ox 36.2 C L 81 18 146/83 H 97 09/30/24 14:33 09/30/24 14:33 09/30/24 14:33 09/30/24 14:33 09/30/24 14:33 Pain Score Most Recent Pain Score: Most Recent Pain Score Pain Level 0 09/30/24 14:33 Assessment Mental Status: Arousable with meaningful communication Airway and Respiratory Function: Patent airway with normal (patient baseline) respiratory exam Cardiovascular Function: Hemodynamically Stable Hydration Status: Adequately Hydrated Nausea & Vomiting: No Nausea or Vomiting Pain: Pt. Denies Any Pain Peripheral Nerve Block: Patient did not receive a nerve block
== END 2024-09-30 15:00 | disposition home or self-care (01) ==
PROVIDERS: PCP Nurse Practitioner Family; Visit Provider Surgery
PROC: 0DJD8ZZ Inspection of Lower Intestinal Tract, Via Natural or Artificial Opening Endoscopic (ICD-10-PCS; CPT 45378; principal; 2024-09-30 12:45)
DX: Z12.11 Encounter for screening for malignant neoplasm of colon (principal); Z85.048 Personal history of other malignant neoplasm of rectum, rectosigmoid junction, and anus; D12.0 Benign neoplasm of cecum; K57.30 Diverticulosis of large intestine without perforation or abscess without bleeding; D12.4 Benign neoplasm of descending colon
CPT/HCPCS: 45385; 45380; 88305; J2704

== ENCOUNTER 2024-10-08 02:23 | Outpatient (CLI) | payer MEDICARE, MEDICAID, SELFPAY ==
--- NOTE | 2024-10-08 | DI.CT_ITS ---
Exam(s) CT CHEST/ABD/PEL W EXAM: CT CHEST/ABD/PEL W CLINICAL HISTORY: Rectal cancer, C20, s/p resection, surveillance. TECHNIQUE: Imaging Protocol: Axial computed tomography images with coronal and sagittal reformatted images were created and reviewed CONTRAST MATERIAL: Intravenous: Omnipaque 350 Contrast volume:100 ml Oral: Yes. Oral contrast was also administered for bowel opacification. COMPARISON: CT CT CHEST/ABD/PEL W from 09/11/[address] CHEST/ABD/PEL W from 03/06/2024 FINDINGS: CHEST: LUNGS: There are no metastatic appearing lung nodules. No infiltrates nor pleural effusions. No sig nificant focal findings in trachea and mainstem bronchi.. MEDIASTINUM: There is no hilar nor mediastinal adenopathy. Visualized thyroid unremarkable. CARDIAC: Heart size is normal. There is no pericardial effusion.Caliber of the thoracic aorta is wit hin normal limits. OSSEOUS: No lytic nor blastic osseous lesions. Stable compression fracture of T7, T8 and L1 again no shivani.No new fractures identified.. ABDOMEN: There is no ascites. LIVER: There are no focal hepatic lesions nor dilatation of intrahepatic ducts. GALLBLADDER/BILIARY: No obvious gallbladder pathology. CBD is not dilated. PANCREAS: No evidence of pancreatic mass nor dilatation of the pancreatic duct. SPLEEN: Spleen is not enlarged. There are no intrasplenic lesions. Splenic and portal veins are anne nt. ADRENALS: Stable appearance of left adrenal nodules again noted. Right adrenal gland remains unremar kable. KIDNEYS: Bilateral nephrolithiasis, nonobstructive.. No solid renal lesions. No significant cysts i n the kidneys. No hydronephrosis. No hydroureter. No radiopaque calculi evident in the urinary ángel dder. ABDOMINAL AORTA: Calcified. Upper normal diameter. Common iliac arteries also calcified with upper limits normal diameter. LYMPH NODES: There is no retroperitoneal nor paraaortic adenopathy. ABDOMINAL WALL: There is a density in the deep subcutaneous fat over the anterior right side of the p mora which is more evident than previous, measuring 2 x 1.3 cm. This has slightly increased in size from previous. May be related to anticoagulants injections. Other consideration is for focal herni a at this level which does not contain bowel loops. GI: Small-bowel obstruction. Oral contrast has reached the distal transverse colon at time of image acquisition. There is symmetrical uniform thickening of the rectal wall. This is anterior to the co ccyx level. There is presacral density the again noted measuring approximately 5 cm wide by 1.7 cm A P by 8 cm craniocaudal. Either related to postsurgical or post radiation changes. This remains stab le from prior CT scan examinations PELVIS: LYMPH NODES: There is no intrapelvic nor inguinal adenopathy. There is no adenopathy around the aort ic bifurcation nor along the iliac chains and there is no obturator adenopathy a. no pararectal adeno margaret evident. GI: No evidence of appendicitis.No evidence of sigmoid diverticulitis.There is relatively symmetrical circumferential thickening of the rectal wall. Suspect this may be related to radiation changes. URINARY BLADDER: Mild uniform thickening of the urinary bladder wall noted. REPRODUCTIVE: Enlarged partially calcified prostate again noted. OSSEOUS: No significant osseous lesions. IMPRESSION: 1. No evidence of metastatic disease nor other significant findings in the chest. 2. Evidence of previous rectal surgery. Stable appearance of the previously described retrorectal-pr esacral soft tissue density and/or fluid collection. Most probably represent postsurgical changes. There is no new intrapelvic lymphadenopathy. There is relatively symmetrical circumferential thicken ing of the rectal wall noted. This is just above the levator ani muscles. May be related to post ra diation changes. 3. Continued stable appearance of left adrenal nodules and bilateral nonobstructive nephrolithiasis. 4. There is a 2 x 1.3 x 2.5cm deep subcutaneous density over the anterior right pelvis wall. This is probably a small non bowel containing hernia at this level. Other consideration would be for possib le developing abscess versus sequelae of deeper than typical anticoagulant injection site. Correlati on with physical findings at this level recommended. Stable compression fractures of T7, T8, and L1. No new fractures. No new lytic nor blastic osseous lesions evident. Enlarged prostate gland. Mild uniform thickening of the urinary bladder wall noted. RADIATION DOSE DELIVERED: 737.62mGy.cm Total DLP DATA REPOSITORY: All CT scans at this facility are submitted to the National Radiology Data Registry (NRDR) Dose Index Registry (DIR) with the [employer] (ACR). RADIATION OPTIMIZATION: All CT scans at this facility use at least one of these dose optimization te chniques: automated exposure control; mA and/or kV adjustment per patient size (includes targeted exa ms where dose is matched to clinical indication); or iterative reconstruction.
[2024-10-08 07:33] LABS: Abs Immature Grans 0.03 10^3/uL (0.0-0.06); Absolute Basophil Count 0.04 10^3/uL (0.0-0.2); Absolute Eosinophil Count 0.17 10^3/uL (0.0-0.7); Absolute Lymphocyte Count 0.75 10^3/uL (1.2-3.4); Absolute Monocyte Count 0.98 10^3/uL (0.1-0.8); Absolute Neutrophil Count 5.84 10^3/uL (1.2-6.7); Basophils % 0.5 %; Eosinophils % 2.2 %; HCT 43.4 % (40.0-50.0); Immature Grans % 0.4 %; Lymphocytes % 9.6 %; MCH 30.5 pg (27.0-33.0); MCHC 32.3 % (32.0-36.0); MCV 95 fL (80-95); MPV 9.7 fL (8.0-11.0); Monocytes % 12.5 %; Neutrophils % 74.8 %; Platelet Count 222 10^3/uL (130-400); RBC 4.59 10^6/uL (4.36-5.78); RDW 15.6 % (11.8-14.1); RDW-SD 54.5 fL; WBC 7.81 10^3/uL (4.4-10.8)
[2024-10-08] MEDS: Barium Sulfate 2% W/V-Creamy Vanilla Smoothie 450 ML BTL PO (07:33)
[2024-10-08] MEDS: Barium Sulfate 2% W/V-Berry Smoothie 450 ML BTL PO (07:34)
[2024-10-08 07:50] LABS: ALT 17 U/L (16-63); AST 13 U/L (15-37); Albumin 3.6 g/dL (3.4-5.0); Alkaline Phosphatase 76 U/L (46-116); BUN 13 mg/dL (7-18); Bilirubin, Total 0.53 mg/dL (0.2-1.0); CREATININE 0.9 mg/dL (0.70-1.30); Calcium 9.4 mg/dL (8.5-10.1); Chloride 106 mmol/L (98-107); Estimated GFR 90.18 (mL/min/1.73m2); Glucose 104 mg/dL (74-106); Sodium 145 mmol/L (136-145); Total Protein 7.7 g/dL (6.4-8.2)
[2024-10-08] MEDS: Normal Saline - Diluent 50 ML VIAL IJ (09:55)
[2024-10-08] MEDS: Omnipaque 350 MG/ML 100 ML BTL IJ (09:56)
[2024-10-08 18:55] LABS: CEA 2.1 ng/mL (See Note)
== END 2024-10-08 02:43 ==
LOC: DI 02:23
PROVIDERS: PCP Nurse Practitioner Family; Visit Provider Nurse Practitioner Family
DX: C20 Malignant neoplasm of rectum (principal)
CPT/HCPCS: 74177; 80053; 71260; 82378; 85025; J3490

== ENCOUNTER 2025-08-12 08:50 | Emergency (ER) | payer MEDICARE, MEDICAID, SELFPAY ==
[2025-08-12 08:59] VITALS: BP 130/63; PULSE 96; RESP 18; TEMP 36.6; O2SAT 93
--- NOTE | 2025-08-12 09:06 | ED.GENADUL_ITS ---
Discharge Plan Disposition Patient Disposition: Home Discharge Details Clinical Impression: Prepatellar bursitis of right knee, Immunization, tetanus-diphtheria Primary Care Provider: Alon Shah ED Provider: Andrez Verma [place] Meds and New Rx's Prescriptions: New cefadroxil 1 gram tablet 1,000 mg PO BID 10 Days Qty: 20 0RF Continued tetanus-diphtheria toxoids-Td 2-2 Lf unit/0.5 mL suspension 0.5 ml IM ONCE Qty: 0.5 0RF acetaminophen [Tylenol Extra Strength] 500 mg tablet 1,000 mg PO Q6H PRN sildenafil [Viagra] 50 mg tablet 50 mg PO DAILY PRN (Reason: sexual activity) Qty: 14 0RF Rx Instructions: administer 30 minutes to 4 hours before activity Discharge Instructions Instructions: Prepatellar Bursitis (DC) Additional Instructions: You were seen in the emergency department for your knee pain. You should take these antibiotics as directed. Please wrap your knee and gentle compression. Please call the orthopedic team for follow-up. Please return to the emergency department if you develop fevers chills or cannot keep your antibiotics down results of nausea or vomiting. Your tetanus was updated in the emergency department. Stand Alone Forms: Portal Information Referrals: [facility] [Provider Group] Discharge Data Discharge Date/Time-TO BE ENTERED AT DEPARTURE: 08/12/25 13:32 HPI General Date/Time Provider Initiated Documentation: 08/12/25 09:06 . HPI Narrative: MDM This is an uncomfortable appearing normothermic and not tachycardic 75-year-old male with with right sided superficial large abscess versus prepatellar bursitis versus infected hematoma inferior to his patella for which patient will likely benefit from incision and drainage. No systemic symptoms to suggest sepsis so I did not draw blood cultures. Given reported fall with superficial healing laceration inferior to abscess I updated the patient's tetanus status. He is able to straight leg raise so not suspicious for quadriceps tendon injury. He has no calf tenderness to suggest DVT. Right foot warm well-perfused so no concern for critical limb ischemia. Will obtain x-ray and touch base with orthopedics if patient will likely benefit from outpatient orthopedic follow-up following incision and drainage. 12:40 PM I was in touch with Dr. Chan who graciously agreed to see the patient. He advised 1 g cefadroxil twice daily with outpatient orthopedic follow-up. Will provide patient 2 g ceftriaxone in the emergency department and Manas wrap. Patient and I discussed that he should return to the ED if he developed any fevers nausea vomiting or increasing pain. Patient understood he was return indications discharged with an empiric trial of expectant outpatient management with orthopedic follow-up. HPI This is a patient presenting with right knee swelling. The patient reports that the swelling in his right knee began approximately a week ago. Initially, the condition improved, but after two days of work, which involves prolonged standing, he noticed a recurrence of the swelling. He attempted to manage the swelling with alternating applications of ice and heat, which seemed to alleviate the condition. However, after spending the night on the couch, he woke up with pain in the knee. He reports no recent tick bites or exposure to wooded areas. His job does not require him to kneel. He also reports no recent fevers or history of gout. He consumes about two alcoholic drinks per day. He experiences soreness in the knee when moving or bearing weight on it. He noticed a slight limp during a recent outing but otherwise feels well. He reports no nausea, vomiting, or respiratory difficulties. He is able to move his foot without issue. 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 Exam General: Well-appearing in no acute distress speaking in complete sentences. Head: Normocephalic, atraumatic. Eye: Extraocular eye movements intact. No conjunctival injection. No scleral icterus. Ear, nose, mouth, throat: Grossly normal inspection. Normal voice, handling secretions normally. Neck: Trachea midline. Cardiovascular: Well-perfused distal extremities. Respiratory: Nonlabored respiration. Gastrointestinal: Nondistended abdomen. Musculoskeletal: Just inferior to the right patella there is an approximately 4 x 3 cm tender warm fluctuant erythematous area. Patient can straight leg raise. He can flex his knee approximately 90 degrees. Right foot foot warm well- perfused intact PT and DP pulses. Skin: Normal for age and race, grossly normal temperature and turgor. No acute rash. Neurologic: Alert and appropriate, no apparent acute deficits. Psychiatric: Mood and manner are appropriate. Grooming and personal hygiene are appropriate. Related Data Home Medications ?Medication ?Instructions ?Recorded ?Confirmed acetaminophen 500 mg tablet 1,000 mg PO Q6H PRN 08/12/25 (Tylenol Extra Strength) tetanus-diphtheria toxoids-Td 2 Lf 0.5 ml IM ONCE #0.5 mL 11/11/24 08/12/25 unit-2 Lf unit/0.5 mL IM suspension sildenafil 50 mg tablet (Viagra) 50 mg PO DAILY PRN se xual activity 05/08/25 08/12/25 #14 tabs cefadroxil 1 gram tablet 1,000 mg PO BID 10 days #20 tabs 08/12/25 Previous Rx's ?Medication ?Instructions ?Recorded tetanus-diphtheria toxoids-Td 2 Lf 0.5 ml IM ONCE #0.5 mL 11/11/24 unit-2 Lf unit/0.5 mL IM suspension sildenafil 50 mg tablet (Viagra) 50 mg PO DAILY PRN se xual activity 05/08/25 #14 tabs cefadroxil 1 gram tablet 1,000 mg PO BID 10 days #20 tabs 08/12/25 Allergies Allergy/AdvReac Type Severity Reaction Status Date / Time No Known Allergies Allergy Verified 08/12/25 09:02 General Stated Complaint: Orthopedic ROSANNE: 4 Course Vital Signs Vital signs: Vital Signs Temperature 36.6 C 08/12/25 08:59 Pulse 96 H 08/12/25 08:59 Respiratory Rate 18 08/12/25 08:59 Blood Pressure 130/63 08/12/25 08:59 Pulse Oximetry 93 08/12/25 08:59 Temperature 36.6 C 08/12/25 08:59 Pulse 96 H 08/12/25 08:59 Respiratory Rate 18 08/12/25 08:59 Blood Pressure 130/63 08/12/25 08:59 Pulse Oximetry 93 08/12/25 08:59 Procedure Abscess Drainage Provider that performed the procedure: Andrez Verma [facility] All Active Problems Immunization, tetanus-diphtheria (Acute) Prepatellar bursitis of right knee (Acute) Tubular adenoma of colon (Acute ~09/2024) Sessile serrated polyp of colon (Acute ~09/2024) Erectile dysfunction (Acute) Internal hemorrhoids without complication (Acute) Adenomatous polyps (Acute) Pancolonic diverticulosis (Acute) COPD (chronic obstructive pulmonary disease) (Chronic) Seborrheic keratosis (Acute) Center of frontal scalp Rectal cancer (Acute) No more treatments. Ostomy reversed. Colonoscopies every year. Compression fracture of body of thoracic vertebra (Acute) T7/T8 Hiatal hernia (Chronic) Rash (Acute) Smoker in home (Acute) 0.5 ppd smoker. ETOH abuse (Chronic) Medical History Adrenal nodule 1.4 x 1.8 cm left adrenal nodule. Rectal adenoma Obstructing villous adenoma with high-grade dysplasia October 2021 Inguinal hernia Surgical History History of removal of Port-a-Cath (~08/2023) History of colonoscopy (~09/2024) colon polups/ diverticulosis Status post reversal of ileostomy [facility] [place] 01/24/23. - Hx of colostomy (~10/2021) Dr. Maryjo Parker, for obstructing rectal adenoma with high-grade dysplasia Status post inguinal hernia repair Repair of inguinal hernia 08/11/14 LEFT INDIRECT AND RIGHT DIRECT Family History Mother Cancer Personal history of malignant neoplasm ovarian Father Diabetes Stroke Heart disease Social History (Updated 11/12/24 @ 09:12 by Julia Hopper) Smoking/Tobacco Use Status: Current every day Tobacco Type: cigarettes Tobacco: How many years used: 50 Quit status: considering quitting Second Hand Exposure: No Smoking risk assessment performed?: Yes Alcohol Intake: current Alcohol Intake frequency: 3 or more drinks per day Alcohol type: beer and hard liquor Drug use: Rarely Substance use type: marijuana Adopted: No Caregiver/Support person: No Household members: significant other Housing: house Communication Needs: None Education Level: college Details: 1 year Do you need help understanding health information?: Rarely current occupation: retired Pets and animals: No Sexually active: No Do you think of yourself as: straight/heterosexual Current gender identity: male What is your relationship status?: living with partner How often do you talk on the phone with friends or family?: three or more times per week How often do you get together with friends or relatives?: three or more times per week How often do you attend sikh or christian services?: 1-3 times per year Do you belong to any clubs or organized social groups?: no Panel score (0-1 are the most socially isolated patients): 2 What type of physical activity do you participate in: walking Duration: 15-30 minutes/day Frequency: daily Sarah/Rastafari: Non cheondoism Special sarah needs: No Seatbelt use: always Drive intox or ride w/intox commercial front load driver: No Firearms in home: Yes Firearms unloaded and locked: No Do you feel safe at home: Yes Do you feel safe in your relationship?: Yes Victim of physical abuse: No Victim of emotional abuse: No Victim of sexual abuse: No POCUS Exam (ED) Limited Soft Tissue Exam DATE OF EXAM: 08/12/25 TIME OF EXAM: 10:12 PROVIDER THAT PERFORMED THE STUDY: Andrez Verma IS THIS A REPEAT EXAM DURING THIS ENCOUNTER: No LOCATION OF EXAM: Lower extremity/right REASON FOR EXAM: Pain and Redness Exam Complete DIFFERENTIAL DIAGNOSES: Mixed echogenic fluid collection with positive swirl sign consistent with abscess
--- NOTE | 2025-08-12 09:15 | DI.RAD_ITS ---
Exam(s) XR KNEE RT 3V AP,LAT,DERIAN EXAM: XR KNEE RT 3V AP,LAT,DERIAN CLINICAL HISTORY: Right knee pain. TECHNIQUE: 2D digital imaging was performed of the right knee. Four views obtained. AP, lateral and PA tunnel views were obtained. COMPARISON: There are no priors for comparison. FINDINGS: BONES: No acute fracture is present. No bony destructive lesion is seen. JOINTS: The knee is normally aligned. No joint effusion is seen. SOFT TISSUE: There is soft tissue swelling anterior to the patella and proximal tibia. Atherosclerotic calcification is present. IMPRESSION: 1. There is no acute fracture or dislocation. 2. Anterior soft tissue swelling. DATA REPOSITORY: RADIATION DOSE DELIVERED:
[2025-08-12] MEDS: Diph,Pertuss(Acell),Tet Vac/Pf 0.5 ML SYR IM (10:08)
[2025-08-12] MEDS: Acetaminophen 500 MG TAB 1000 MG PO (12:05)
[2025-08-12 12:56] VITALS: BP 101/49; PULSE 74; O2SAT 98
[2025-08-12] MEDS: cefTRIAXone 2 GM/50 ML BAG IVPB (13:13)
--- NOTE | 2025-08-12 18:28 | OCONE_ITS ---
Date of service: 08/12/25 Time of Service: 12:15 History of Present Illness History of Present Illness Chief Complaint: Right knee swelling and pain Narrative: Karlo is a 75-year-old male who had a fall directly onto his right knee about a week ago. He had a mechanical fall directly onto the right knee. There is some mild swelling initially that persisted but he is able to return to work. However, over the past 2 days he has had worsening pain and swelling in the right knee. He still is able to ambulate but he does so with a limp. He does report some soreness with moving the right knee. He denies any significant issues with this right knee in the past. Consults Consult date: 08/12/25 Requesting physician: Andrez Verma Consult Reason Right Knee Infection Assessment and Plan Assessment and plan (1) Septic prepatellar bursitis of right knee: Status: Acute Assessment and plan: Karlo is a 75-year-old who suffered trauma to the anterior aspect of the knee which now has resulted in what appears to be a septic prepatellar bursitis. There is some generalized swelling of this area but no clear fluctuance. In the situations without any septic appearance systemically, I would proceed with antibiotics. This should diminish some the intensity of this swelling and treated effectively. With compression antibiotics and time, the area does not resolve and surgical debridement would be the next step. He is not interested in proceeding with surgery but can be avoided. Therefore, I recommend a dose of IV antibiotics here in the emergency department and then discharged with oral antibiotics. I expect he will see some improvement in the next 2 to 3 days. I will touch base with him later this week to make sure things are improving. If he does not have improvement then surgical debridement would be the next step. (2) Prepatellar bursitis of right knee: Status: Acute Review of Systems All systems reviewed & are unremarkable except as noted in HPI and below PFSH All Active Problems Septic prepatellar bursitis of right knee (Acute) Immunization, tetanus-diphtheria (Acute) Prepatellar bursitis of right knee (Acute) Tubular adenoma of colon (Acute ~09/2024) Sessile serrated polyp of colon (Acute ~09/2024) Erectile dysfunction (Acute) Internal hemorrhoids without complication (Acute) Adenomatous polyps (Acute) Pancolonic diverticulosis (Acute) COPD (chronic obstructive pulmonary disease) (Chronic) Seborrheic keratosis (Acute) Center of frontal scalp Rectal cancer (Acute) No more treatments. Ostomy reversed. Colonoscopies every year. Compression fracture of body of thoracic vertebra (Acute) T7/T8 Hiatal hernia (Chronic) Rash (Acute) Smoker in home (Acute) 0.5 ppd smoker. ETOH abuse (Chronic) Medical History Adrenal nodule 1.4 x 1.8 cm left adrenal nodule. Rectal adenoma Obstructing villous adenoma with high-grade dysplasia October 2021 Inguinal hernia Surgical History History of removal of Port-a-Cath (~08/2023) History of colonoscopy (~09/2024) colon polups/ diverticulosis Status post reversal of ileostomy [facility] [place] 01/24/23. - Hx of colostomy (~10/2021) Dr. Maryjo Parker, for obstructing rectal adenoma with high-grade dysplasia Status post inguinal hernia repair Repair of inguinal hernia 08/11/14 LEFT INDIRECT AND RIGHT DIRECT Family History Mother Cancer Personal history of malignant neoplasm ovarian Father Diabetes Stroke Heart disease Social History Smoking/Tobacco Use Status: Current every day Tobacco Type: cigarettes Tobacco: How many years used: 50 Quit status: considering quitting Second Hand Exposure: No Smoking risk assessment performed?: Yes Alcohol Intake: current Alcohol Intake frequency: 3 or more drinks per day Alcohol type: beer and hard liquor Drug use: Rarely Substance use type: marijuana Adopted: No Caregiver/Support person: No Household members: significant other Housing: house Communication Needs: None Education Level: college Details: 1 year Do you need help understanding health information?: Rarely current occupation: retired Pets and animals: No Sexually active: No Do you think of yourself as: straight/heterosexual Current gender identity: male What is your relationship status?: living with partner How often do you talk on the phone with friends or family?: three or more times per week How often do you get together with friends or relatives?: three or more times per week How often do you attend roman catholic or restorationism services?: 1-3 times per year Do you belong to any clubs or organized social groups?: no Panel score (0-1 are the most socially isolated patients): 2 What type of physical activity do you participate in: walking Duration: 15-30 minutes/day Frequency: daily Sarah/Confucianist: Non hindu Special sarah needs: No Seatbelt use: always Drive intox or ride w/intox spotter driver: No Firearms in home: Yes Firearms unloaded and locked: No Do you feel safe at home: Yes Do you feel safe in your relationship?: Yes Victim of physical abuse: No Victim of emotional abuse: No Victim of sexual abuse: No Exam Narrative Exam Narrative: Resting in the supine position on the hospital stretcher. No acute distress. Evaluation of the right knee shows notable hyperemia focused over the anterior aspect of the knee from the distal aspect of patella to the level of the tibial tubercle. There is some fullness although no clear fluctuance of this area. There is no surrounding erythema extending medially and laterally and down to the proximal portion of the leg. There is mild tenderness to the palpation of this area. Exquisite tenderness directly over the area of maximal redness of the prepatellar bursa. No significant pain with knee flexion and extension. He is able to actively extend the right knee against resistance. Results Last Vital Signs Temp 36.6 C 08/12/25 08:59 Pulse 74 08/12/25 12:56 Resp 18 08/12/25 08:59 BP 101/49 L 08/12/25 12:56 Pulse Ox 98 08/12/25 12:56 Imaging Imaging Studies: X-ray of the right knee shows notable soft tissue fullness anteriorly. No other suspicious lesions are identified.
== END 2025-08-12 13:32 | disposition home or self-care (01) ==
PROVIDERS: Emergency Provider Emergency Medicine; PCP Nurse Practitioner Family
DX: M70.41 Prepatellar bursitis, right knee (principal); Z23 Encounter for immunization
CPT/HCPCS: 99283; 99284; 96374; 90471; 73562; 76882; 90715; J0696; J2003

== ENCOUNTER → 2025-08-27 10:39 | Outpatient (BNVA) | payer MEDICARE, MEDICAID, SELFPAY | PROVIDERS: PCP Nurse Practitioner Family; Referring Provider Nurse Practitioner Family; Visit Provider Physician Assistant | DX: M70.41 Prepatellar bursitis, right knee (principal); W19.XXXA Unspecified fall, initial encounter; Y93.H1 Activity, digging, shoveling and raking | CPT/HCPCS: 99213 ==